=== PATIENT | female | born 1960 | race Caucasian/White ===

== ENCOUNTER → 2019-12-23 13:17 | Outpatient (BNVA) | payer MEDICAID, SELFPAY | PROVIDERS: Family Provider Family Medicine; PCP Family Medicine; Visit Provider Podiatrist Foot & Ankle Surgery | DX: M79.672 Pain in left foot (principal); M79.671 Pain in right foot | CPT/HCPCS: 73620; 73630 ==

== ENCOUNTER 2020-01-15 08:26 | Outpatient (CLI) | payer MEDICAID, SELFPAY ==
--- NOTE | 2020-01-15 13:37 | ONC FU_ITS ---
Dr. Castano follow up note Patient: Indira Long Unit #: [id number]: 1960 Dicatated By: Yovanny Castano M.D.Date of Visit:Jan 15, 2020 Onc Med Follow-up/Prog Note History of Present Illness: Mrs. Indira Long, is a 59-year-old female with long-standing history of small cervical, bilateral axillary lymphadenopathy confirmed with CT scan of chest abdomen pelvis done on 10/03/2018 which showed mild bilateral axillary lymphadenopathy largest being 1 cm. Mildly enlarged abdominal and pelvic lymph nodes, no significant change when compared with CT scan done on 04/03/2018, no splenomegaly Stable 1.2 cm irregular right lower lobe lung nodule and additional 3 mm right upper lobe lung nodule has remained stable. 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 Mammogram done on 02/11/2019 showed scattered fibroglandular densities. Occasional bilateral breast benign-appearing calcification. 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 Patient said recently she noted small lymph node in the left neck and now it is smaller. She did talk to Dr. Alberts her PMD, who asked her to see us. Patient denies any abdominal fullness patient denies any jaundice patient denies any shortness of breath or dysphagia. Medications: Atenolol 1 Tablet (of 25 mg) Oral b.i.d., Lasix 1 Tablet (of 40 mg) Oral daily, Levothyroxine Sodium 1 Tablet (of 137 mcg) Oral daily, Liothyronine Sodium 1 Tablet (of 5 mcg) Oral daily, Lisinopril 1 Tablet (of 20 mg) Oral daily, Lovastatin 1 Tablet (of 40 mg) Oral daily, MetFORMIN HCl 1 Tablet (of 1000 mg) Oral b.i.d., Omeprazole 1 Tablet (of 20 mg) Tablet, enteric coated Oral b.i.d., Spironolactone 1 Tablet (of 50 mg) Oral daily, TiZANidine HCl 1 Tablet (of 4 mg) Oral at bedtime PRN, traZODone HCl 1 Tablet (of 50 mg) Oral daily Allergies: Pneumococcal 13-Shanon Conj Vacc Review of Systems: Constitutional - Appetite is good and weight has decreased since last visit. No fever, chills, hot flashes, occasional night sweats (Pt reports that she has had this for years). Energy level is poor, ENMT - No sinus congestion/drainage. No mouth sores. No sore throat or difficulty swallowing, Hematologic/Lymphatic - No abnormal bruising or bleeding, Respiratory - No shortness of breath. No cough. No pleuritic pain or hemoptysis, Cardiovascular - No angina pain. No palpitations, Gastrointestinal - No nausea, no vomiting. No heartburn or acid reflux. No diarrhea or constipation. No blood in the stool or black stools, Genitourinary (F) - No dysuria or hematuria. No urinary frequency. No urgency or incontinence, Musculoskeletal - Positive for generalized joint pain, Neurologic - No headache,dizziness remains the same as previously documented. Positive for numbness in hands and feet (Pt states that she is seeing a specialist for this, Dr. Mims), Psychiatric - No anxiety or depression. No insomnia. Vital Signs: Vitals are not available for this patient. Performance Status: 0 - Fully active, able to carry on all predisease activities without restrictions. (ECOG) Physical Examination: ENMT - r. No oral exudates, ulcers, masses, thrush or mucositis. Oropharynx clear. Tongue normal, Hematologic/Lymphatic - No petechiae or purpura. 1 cm nontender lymph nodes in the leftcervical, supraclavicular, and about 2 cm in left axillary area, Respiratory - Lungs are clear to auscultation without rhonchi or wheezing, Cardiovascular - Regular rate and rhythm of heart without murmurs, gallops or rubs, Abdomen - Non-tender, non-distended, Good bowel sounds. No guarding or rebound tenderness. No pulsatile masses, Extremities - no edema or rash. Lab/Imaging: Test performed on Dec 29, 2019 08:17 T4, Free 1.39 ng/dL TSH 0.99 uU/mL C-Reactive Protein (mg/L) 7.1 mg/L Glucose 115 mg/dL BUN 11 mg/dL Creatinine 1.11 mg/dL Cr Clearance (Est) 77.42 mL/min Sodium 139 mmol/L Potassium 4.1 mmol/L Chloride 99 mmol/L CO2 27 mmol/L Calcium 9.4 mg/dL Protein, Total 6.6 g/dL Albumin 4.4 g/dL Bilirubin, Total 0.3 mg/dL Alkaline Phosphatase 93 IU/L AST (SGOT) 24 IU/L ALT (SGPT) 22 IU/L WBC 19.9 10^9/L RBC 4.17 10^12/L HGB 12.7 g/dL HCT 38.7 % MCV 92.8 fl MCH 30.5 pg MCHC 32.8 g/dL RDW 14.4 % Platelet Count 174 10^9/L Test performed on Sep 02, 2019 12:16 LDH (Total) 236 U/L Anion Gap 15.7 eGFR 45.8 mL/min Globulin 2.7 gm/dL MPV 7.9 fl Neutrophils 6.0 10 3/cmm Lymphocytes 8.6 10 3/cmm Monocytes 0.7 10 3/cmm Eosinophils 0.4 10 3/cmm Basophils 0.0 10 3/cmm Neutrophil % 38.0 % Lymphocyte % 54.8 % Monocyte % 4.3 % Eosinophil % 2.6 % Basophils % 0.3 % Impression: Small lymphocytic lymphoma with prominent confluent proliferation centers per right axillary lymph node biopsy done on 12/18/2018. 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 Stable 1.2 cm irregular right lower lobe pulmonary nodule. An additional 3 mm right upper lobe pulmonary nodule has remained stable Mild intra-abdominal and pelvic lymphadenopathy with no significant change since 04/03/2018, largest lymph node 1.4 cm in the periportal area. No splenomegaly. Lab workup done on 01/27/2019 shows white blood count 13.1 absolute lymphocytes 5.21 Hemoglobin 12.8 hematocrit 39.1 platelets 234,000 CMP within normal limits Plan: Discussed with patient regarding her labs white blood count 19.9 hemoglobin 12.7 crit 38.7 platelets 174,000 CMP within normal limits LDH is pending Clinically, patient is doing well with no B symptoms, follow-up lab shows stable values but persistent mild leukocytosis/lymphocytosis Patient recently noted a small lymph node in her left neck and on exam there is about 1 cm lymph node in left mid neck and to centimeter lymph node in left axilla nontender. At this point we'll proceed with CT scan of neck chest abdomen pelvis prior to her scheduled visit in March 2020 with CBC CMP and LDH level. After reviewing her scans and labs will make further recommendations. Signed By: Yovanny Castano M.D. <<Signature on File>>
== END 2020-01-15 08:27 | disposition home or self-care (01) ==
LOC: ONCMED 08:32
PROVIDERS: Family Provider Family Medicine; PCP Family Medicine; Visit Provider Internal Medicine Hematology & Oncology
DX: C83.04 Small cell B-cell lymphoma, lymph nodes of axilla and upper limb (principal); G47.33 Obstructive sleep apnea (adult) (pediatric); Z91.19 Patient's noncompliance with other medical treatment and regimen
CPT/HCPCS: G0463

== ENCOUNTER 2020-05-04 10:49 | Outpatient (CLI) | payer MEDICAID, SELFPAY ==
[2020-05-04 11:19] LABS: Basophils # 0.1 10^3/uL (0.0-0.1); Basophils % 0.7 %; Eosinophils # 0.2 10^3/uL (0.0-0.8); Hematocrit 38.1 % (37.0-47.0); Hemoglobin 12.6 g/dL (11.5-15.3); Lymphocytes # 10.7 10^3/uL (0.8-4.8); Lymphocytes % 61.9 %; Mean Corpuscular HGB Conc 33.1 g/dL (30.0-36.0); Mean Corpuscular Hemoglobin 30.7 pg (28.0-34.0); Mean Corpuscular Volume 92.7 fL (81-99); Monocytes # 0.8 10^3/uL (0.2-0.9); Monocytes % 4.4 %; Neutrophils # 5.5 10^3/uL (1.8-7.7); Neutrophils % 31.5 %; Nucleated Red Blood Cells % 0 %; Platelet Count 183 10^3/cmm (130-400); Red Blood Count 4.11 10^6/uL (4.1-5.3); Red Cell Distribution Width 13.6 % (12.1-15.1); White Blood Count 17.3 10^3/uL (4.0-10.0)
[2020-05-04 11:35] LABS: Alanine Aminotransferase 57 U/L (0-33); Albumin Level 4.5 g/dL (3.5-5.2); Alkaline Phosphatase 92 IU/L (35-105); Anion Gap 12.4 (5-19); Aspartate Amino Transferase 40 U/L (0-32); Blood Urea Nitrogen 11 mg/dL (8-23); Calcium 9.5 mg/dL (8.5-10.5); Carbon Dioxide 27 mmol/L (22-29); Chloride 102 mmol/L (98-107); Globulin 2.2 g/dL (1.3-4.6); Glomerular Filtration Rate 50.7 mL/min (90-130); Glucose 221 mg/dL (65-115); Osmolality Calculated 287 mOsm/kg (285-295); Potassium 4.4 mmol/L (3.5-5.1); Sodium 137 mmol/L (136-145); Total Bilirubin 0.3 mg/dL (0.15-1.2); Total Protein 6.7 g/dL (6.6-8.7)
[2020-05-04 11:43] LABS: Lactate Dehydrogenase 237 U/L (135-214)
[2020-05-04 11:46] LABS: Slide Review Slide Review Perform
--- NOTE | 2020-05-04 15:12 | ONC FU_ITS ---
Dr. Castano follow up note Patient: Indira Long Unit #: [id number]: 1960 Dicatated By: Yovanny Castano M.D.Date of Visit:May 04, 2020 Onc Med Follow-up/Prog Note History of Present Illness: Mrs. Indira Long, is a 59-year-old female with long-standing history of small cervical, bilateral axillary lymphadenopathy confirmed with CT scan of chest abdomen pelvis done on 10/03/2018 which showed mild bilateral axillary lymphadenopathy largest being 1 cm. Mildly enlarged abdominal and pelvic lymph nodes, no significant change when compared with CT scan done on 04/03/2018, no splenomegaly Stable 1.2 cm irregular right lower lobe lung nodule and additional 3 mm right upper lobe lung nodule has remained stable. 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 Mammogram done on 02/11/2019 showed scattered fibroglandular densities. Occasional bilateral breast benign-appearing calcification. 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 Also complaining of fullness in the neck more on the left side but no dysphagia, also complaining of chronic lower back pain, patient said she has history of bulging disks . Medications: Atenolol 1 Tablet (of 25 mg) Oral daily, glipiZIDE 1 Tablet Oral daily, Lasix 1 Tablet (of 40 mg) Oral daily, Levothyroxine Sodium 1 Tablet (of 137 mcg) Oral daily, Liothyronine Sodium 1 Tablet (of 5 mcg) Oral daily, Lisinopril 1 Tablet (of 20 mg) Oral daily, Lovastatin 1 Tablet (of 40 mg) Oral daily, Omeprazole 1 Tablet (of 20 mg) Tablet, enteric coated Oral b.i.d., Spironolactone 1 Tablet (of 50 mg) Oral daily, TiZANidine HCl 1 Tablet (of 4 mg) Oral at bedtime PRN, traZODone HCl 1 Tablet (of 50 mg) Oral daily Allergies: Pneumococcal 13-Shanon Conj Vacc Review of Systems: Constitutional - Appetite is good and weight has decreased since last visit. No fever, hot flashes, Positive for chills and night sweats. Energy level is poor, ENMT - No sinus congestion/drainage. No mouth sores. No sore throat or difficulty swallowing, Hematologic/Lymphatic - No abnormal bruising or bleeding, Respiratory - No shortness of breath. No cough. No pleuritic pain or hemoptysis, Cardiovascular - No angina pain. No palpitations, Gastrointestinal - No nausea, no vomiting. No heartburn or acid reflux. Positive for diarrhea, no constipation. No blood in the stool or black stools, Genitourinary (F) - No dysuria or hematuria. No urinary frequency. No urgency or incontinence, Musculoskeletal - Positive for significant back pain, Neurologic - No headache,dizziness remains the same as previously documented. Positive for numbness in hands and feet (Pt states that she is seeing a specialist for this, Dr. Mims), Psychiatric - No anxiety or depression. No insomnia. Vital Signs: Performed on May 04, 2020 12:43 Height - 63.00 in Weight - 191.6 lbs (LOW) BSA - 1.90 sq.m BMI - 33.94 (HIGH) Temperature - 97.6 F (LOW) Pulse - 60 /min Respiration - 20 /min BP - 128/67 mm(hg) O2 Sat - 97 % Pain - 6 Performance Status: 0 - Fully active, able to carry on all predisease activities without restrictions. (ECOG) Physical Examination: ENMT - bilateral cervical and left supraclavicular lymphadenopathy and bilateral axilla lymphadenopathy, maximum size about4 cm, no oral thrush, no mucositis, Respiratory - Lungs are clear, Cardiovascular - Regular rate and rhythm of heart, Abdomen - soft, bowel sounds present, nontender, Extremities - no edema or rash. Lab/Imaging: Test performed on Dec 29, 2019 08:17 T4, Free 1.39 ng/dL TSH 0.99 uU/mL C-Reactive Protein (mg/L) 7.1 mg/L Glucose 115 mg/dL BUN 11 mg/dL Creatinine 1.11 mg/dL Cr Clearance (Est) 77.42 mL/min Sodium 139 mmol/L Potassium 4.1 mmol/L Chloride 99 mmol/L CO2 27 mmol/L Calcium 9.4 mg/dL Protein, Total 6.6 g/dL Albumin 4.4 g/dL Bilirubin, Total 0.3 mg/dL Alkaline Phosphatase 93 IU/L AST (SGOT) 24 IU/L ALT (SGPT) 22 IU/L WBC 19.9 10^9/L RBC 4.17 10^12/L HGB 12.7 g/dL HCT 38.7 % MCV 92.8 fl MCH 30.5 pg MCHC 32.8 g/dL RDW 14.4 % Platelet Count 174 10^9/L Impression: Small lymphocytic lymphoma with prominent confluent proliferation centers per right axillary lymph node biopsy done on 12/18/2018. 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 Stable 1.2 cm irregular right lower lobe pulmonary nodule. An additional 3 mm right upper lobe pulmonary nodule has remained stable Mild intra-abdominal and pelvic lymphadenopathy with no significant change since 04/03/2018, largest lymph node 1.4 cm in the periportal area. No splenomegaly. Lab workup done on 01/27/2019 shows white blood count 13.1 absolute lymphocytes 5.21 Hemoglobin 12.8 hematocrit 39.1 platelets 234,000 CMP within normal limits Plan: Discussed with patient regarding her labs white blood count 17.3 hemoglobin 12.6 crit 38.1 platelets 182,000 lymphocytes 10,700 CMP within normal limit except glucose 221 and LDH 237 and PO2 40, AST 57 Clinically, patient doing reasonably well now with questionable B symptoms e.g. mild night sweating, weight loss and progressive cervical and bilateral axillary lymphadenopathy ? Disease progression. But her lab workup shows LDH is stable but mildly elevated within normal hemoglobin and platelets and stable mild leukocytosis/lymphocytosis. We will consider CT scan of neck chest abdomen pelvis to assess central lymphadenopathy and if there is evidence of disease progression, we may consider intervention As far as lower back pain is concern is chronic other possibility could be progressive retroperitoneal lymphadenopathy, if CT scan shows no progressive retroperitoneal lymphadenopathy then we will consider referred to pain clinic for back pain management. Mild off-and-on diarrhea, if there is a progression we'll consider referred to GI for evaluation. Next Return to clinic after CT scan of neck chest abdomen pelvis for discussion and further planning Signed By: Yovanny Castano M.D. <<Signature on File>>
== END 2020-05-04 10:50 | disposition home or self-care (01) ==
LOC: ONCMED 10:53
PROVIDERS: PCP Family Medicine; Visit Provider Internal Medicine Hematology & Oncology
DX: C83.00 Small cell B-cell lymphoma, unspecified site (principal); F41.9 Anxiety disorder, unspecified; J44.9 Chronic obstructive pulmonary disease, unspecified; I50.9 Heart failure, unspecified; K21.9 Gastro-esophageal reflux disease without esophagitis; E78.5 Hyperlipidemia, unspecified; I10 Essential (primary) hypertension; E03.9 Hypothyroidism, unspecified; M19.90 Unspecified osteoarthritis, unspecified site; E11.9 Type 2 diabetes mellitus without complications
CPT/HCPCS: 36415; 80053; 83615; 85025; 99214

== ENCOUNTER 2020-05-09 08:15 | Outpatient (CLI) | payer MEDICAID, SELFPAY ==
--- NOTE | 2020-05-09 08:20 | MM_ITS ---
WS: [id number] BILATERAL DIGITAL DIAGNOSTIC MAMMOGRAM MAMMOGRAPHY WITH CAD CLINICAL INFORMATION: BREAST PAIN;AXILLARY LYMPHADENOPATHY HISTORY: Lymphoma COMPARISON: February 11, 2019 October 28, 2018 TECHNIQUE: Bilateral CC, MLO, and ML views. FINDINGS: The breasts are composed of heterogeneous fibroglandular density, which can limit the detection of sm all underlying mass lesions. Markedly enlarged axillary and axillary tail lymph nodes bilaterally. Ly mph nodes appear progressed in size compared to February 11, 2019. Palpable marker overlying one of the enlarged right axillary tail lymph nodes. Ultrasound is pending. ULTRASOUND BREAST RIGHT TECHNIQUE: Ultrasound right breast focused area of concern. CLINICAL INFORMATION: BREAST PAIN;AXILLARY LYMPHADENOPATHY FINDINGS: Ultrasound right axillary tail in the area of palpable concern. Numerous enlarged right axillary tail lymph nodes with cortical thickening and partial replacement of the fatty hilum. The largest measuri ng 4.2 x 1.5 x 4.0 CM. Lymph nodes are suspicious in appearance. MM/[place] [id number] IMPRESSION: Progressive enlarged bilateral axillary lymph nodes suspicious for lymphoma considering clinical history. Recommend clinical correlation and consi deration of CT chest abdomen pelvis to evaluate for additional lymphadenopathy. In addition, enlarged right axillary lymph node could be targeted for biopsy BI-RADS: 4C-Suspicious: Moderate FOLLOW UP: See Report
--- NOTE | 2020-05-09 08:46 | US_ITS ---
WS: [id number] BILATERAL DIGITAL DIAGNOSTIC MAMMOGRAM MAMMOGRAPHY WITH CAD CLINICAL INFORMATION: BREAST PAIN;AXILLARY LYMPHADENOPATHY HISTORY: Lymphoma COMPARISON: February 11, 2019 October 28, 2018 TECHNIQUE: Bilateral CC, MLO, and ML views. FINDINGS: The breasts are composed of heterogeneous fibroglandular density, which can limit the detection of sm all underlying mass lesions. Markedly enlarged axillary and axillary tail lymph nodes bilaterally. Ly mph nodes appear progressed in size compared to February 11, 2019. Palpable marker overlying one of the enlarged right axillary tail lymph nodes. Ultrasound is pending. ULTRASOUND BREAST RIGHT TECHNIQUE: Ultrasound right breast focused area of concern. CLINICAL INFORMATION: BREAST PAIN;AXILLARY LYMPHADENOPATHY FINDINGS: Ultrasound right axillary tail in the area of palpable concern. Numerous enlarged right axillary tail lymph nodes with cortical thickening and partial replacement of the fatty hilum. The largest measuri ng 4.2 x 1.5 x 4.0 CM. Lymph nodes are suspicious in appearance. US/US breast RT limited* [id number] IMPRESSION: Progressive enlarged bilateral axillary lymph nodes suspicious for lymphoma considering clinical history. Recommend clinical correlation and consi deration of CT chest abdomen pelvis to evaluate for additional lymphadenopathy. In addition, enlarged right axillary lymph node could be targeted for biopsy BI-RADS: 4C-Suspicious: Moderate FOLLOW UP: See Report
== END 2020-05-09 08:16 | disposition home or self-care (01) ==
LOC: RADSHAW 08:16
PROVIDERS: PCP Family Medicine; Visit Provider Family Medicine
DX: N64.4 Mastodynia (principal); R59.0 Localized enlarged lymph nodes
CPT/HCPCS: 76642; 77066

== ENCOUNTER 2020-05-19 12:58 | Outpatient (CLI) | payer MEDICAID, SELFPAY ==
--- NOTE | 2020-05-19 13:03 | CT_ITS ---
WS: [id number] CT NECK TECHNIQUE: Contrast-enhanced CT of the neck with coronal and sagittal reformatted images. CLINICAL INFORMATION: LYMPHOMA COMPARISON: None. DLP: 2477.[address] scans at [facility] use at least one of these dose optimization techniques: automat ed exposure control; mA and/or kV adjustment per patient size (includes targeted exams where dose is matched to clinical indication); or iterative reconstruction. FINDINGS: Parotid glands are normal. Normal submandibular glands. Normal posterior nasopharynx. Normal paraphar yngeal fat. No evidence of supraglottic or glottic mass. Normal palatine tonsils. Numerous enlarged lymph nodes throughout both cervical chains level 1, level 2, level 3, level 4, and posterior triangle. Additional supraclavicular and internal mammary lymph nodes enlarged. Partially visualized enlarged axillary lymph nodes. Partially visualized enlarged anterior mediastinal,AP windo w and paratracheal lymph nodes. Enlarged Parotid and submandibular space lymph nodes. Enlarged Submen kalin lymph nodes. Normal epiglottis. Normal piriform sinuses. Lung apices are well aerated. Prior postoperative changes anterior interbody cervical fusion C5-C7 with interbody fusion graft. Paranasal sinuses and mastoid air cells are well aerated. CT/CT neck w con* [id number] IMPRESSION: 1. Enlarged cervical lymph nodes involving level 1 through level 4 including p osterior triangle. 2. Additional enlarged supraclavicular, internal mammary and anterior mediasti nal lymph nodes. Partially visualized enlarged axillary and subpectoral lymph n odes. 3. Largest lymph nodes measure approximately 12 to 15 mm. 4. No evidence of supraglottic or glottic mass. 5. Paranasal sinuses and mastoid air cells appear well aerated. 6. Prior postoperative changes anterior interbody cervical fusion C5-C7.
--- NOTE | 2020-05-19 13:04 | CT_ITS ---
WS: [id number] CT ABDOMEN PELVIS TECHNIQUE: Contrast-enhanced CT of the abdomen and pelvis with coronal and sagittal reformatted image s. CLINICAL INFORMATION: LYMPHOMA COMPARISON: CT October 02, 2018 DLP: 1144.[address] scans at [facility] use at least one of these dose optimization techniques: automat ed exposure control; mA and/or kV adjustment per patient size (includes targeted exams where dose is matched to clinical indication); or iterative reconstruction. FINDINGS: Diffuse fatty infiltration of the liver. Cholecystectomy clips. Normal portal vein and splenic vein. Splenic granulomas. Small esophageal hiatal hernia. Lung bases are well aerated. Multiple enlarged ly mph nodes in the upper abdomen at the GE junction, gastrohepatic, gastrosplenic, Celiac axis, peripan creatic, and aliza hepatis lymph nodes. Largest conglomeration of lymph nodes upper abdomen measures 3.6 x 2.2 CM. Enlarged periaortic and retroperitoneal lymph nodes. Enlarged aortocaval lymph nodes. Additional enlarged iliac chain and pelvic sidewall lymph nodes. Enlarged inguinal lymph nodes. Adrenal glands are normal. Normal renal parenchymal enhancement. No hydronephrosis. Tiny right renal cyst. Normal abdominal aorta. Pelvic phleboliths. Normal sigmoid colon. No evidence of small large helen wel obstruction. Prominent lymph nodes along the mesenteric root. Prominent lymph nodes in the right lower quadrant. Mild annular bulging L4-5. CT/CT abdomen pelvis w con* [id number] IMPRESSION: 1. Diffuse abdominal lymphadenopathy described above more prominent in the upp er abdomen along the gastrohepatic and gastrosplenic ligaments and celiac axis. 2. Enlarged periaortic and retroperitoneal lymph nodes. Enlarged iliac chain a nd pelvic sidewall lymph nodes as well as inguinal lymph nodes. 3. Cholecystectomy clips. Mild diffuse fatty infiltration of the liver. 4. Small esophageal hiatal hernia.
[2020-05-19] MEDS: iohexol 300 mg/mL 50 mL Btl PO (13:27)
[2020-05-19] MEDS: iodixanol 320 mg/mL 100mL Btl IV ×2 (13:27→14:28)
== END 2020-05-19 12:59 | disposition home or self-care (01) ==
LOC: RADWPI 13:02
PROVIDERS: PCP Family Medicine; Visit Provider Internal Medicine Hematology & Oncology
DX: C83.00 Small cell B-cell lymphoma, unspecified site (principal); R59.1 Generalized enlarged lymph nodes; K76.0 Fatty (change of) liver, not elsewhere classified; K44.9 Diaphragmatic hernia without obstruction or gangrene; M43.22 Fusion of spine, cervical region
CPT/HCPCS: 70491; 74177; Q9967

== ENCOUNTER 2020-05-23 12:34 | Outpatient (CLI) | payer MEDICAID, SELFPAY ==
[2020-05-23 12:59] LABS: Hematocrit 39.4 % (37.0-47.0); Hemoglobin 12.5 g/dL (11.5-15.3); Mean Corpuscular HGB Conc 31.7 g/dL (30.0-36.0); Mean Corpuscular Hemoglobin 31.2 pg (28.0-34.0); Mean Corpuscular Volume 98.3 fL (81-99); Mean Platelet Volume 10.2 fL (7.4-10.4); Nucleated Red Blood Cells % 0 %; Platelet Count 177 10^3/cmm (130-400); Red Blood Count 4.01 10^6/uL (4.1-5.3); Red Cell Distribution Width 13.9 % (12.1-15.1); White Blood Count 25.4 10^3/uL (4.0-10.0)
[2020-05-23 13:12] LABS: Alanine Aminotransferase 18 U/L (0-33); Albumin Level 4.5 g/dL (3.5-5.2); Alkaline Phosphatase 93 IU/L (35-105); Anion Gap 14.5 (5-19); Aspartate Amino Transferase 19 U/L (0-32); Blood Urea Nitrogen 12 mg/dL (8-23); Calcium 9.9 mg/dL (8.5-10.5); Carbon Dioxide 26 mmol/L (22-29); Chloride 102 mmol/L (98-107); Globulin 2.4 g/dL (1.3-4.6); Glomerular Filtration Rate 56.6 mL/min (90-130); Glucose 133 mg/dL (65-115); Osmolality Calculated 284 mOsm/kg (285-295); Potassium 4.5 mmol/L (3.5-5.1); Sodium 138 mmol/L (136-145); Total Bilirubin 0.2 mg/dL (0.15-1.2); Total Protein 6.9 g/dL (6.6-8.7)
[2020-05-23 13:28] LABS: Slide Review Slide Review Perform
[2020-05-23 13:33] LABS: Absolute Segmented Neutrophil 5.8 10/cmm (1.6-7.1); Lymphocytes 61 %; Lymphocytes Absolute 19.1 10^3/cmm (1.2-3.4); Monocytes Absolute 0.5 10^3/cmm (0.1-0.6); Platelet Estimate Normal (Normal); Segmented Neutrophils 23 %; Total Cells Counted 100 (0-100)
--- NOTE | 2020-05-23 17:09 | ONC FU_ITS ---
Dr. Castano follow up note Patient: Indira Long Unit #: [id number]: 1960 Dicatated By: Yovanny Castano M.D.Date of Visit:May 23, 2020 Onc Med Follow-up/Prog Note History of Present Illness: Mrs. Indira Long, is a 59-year-old female with long-standing history of small cervical, bilateral axillary lymphadenopathy confirmed with CT scan of chest abdomen pelvis done on 10/03/2018 which showed mild bilateral axillary lymphadenopathy largest being 1 cm. Mildly enlarged abdominal and pelvic lymph nodes, no significant change when compared with CT scan done on 04/03/2018, no splenomegaly Stable 1.2 cm irregular right lower lobe lung nodule and additional 3 mm right upper lobe lung nodule has remained stable. 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 Mammogram done on 02/11/2019 showed scattered fibroglandular densities. Occasional bilateral breast benign-appearing calcification. 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 Follow-up CT scan of neck chest abdomen pelvis done on May 19, 2020 showed numerous enlarged lymph nodes throughout both bilateral cervical chains and supraclavicular and diffuse abdominal lymphadenopathy largest conglomeration of lymph node in the upper abdomen measuring 3.6 x 2.2 cm enlarged periaortic, retroperitoneal lymph nodes additionally enlarged iliac chain pelvic sidewall lymph nodes and inguinal lymphadenopathy splenic granulomas. Patient had a bilateral mammogram done on May 09, 2020 which showed extensive right axillary lymphadenopathy largest being 4.2 x 1.5 x 4 cm Came for follow-up, denies any specific complaint except progressive off and on mild night sweats, off and on fever, earlier history of weight loss but now gaining. Also complaining of discomfort in the right axilla because of enlarging lymphadenopathy and neck fullness but no dysphagia, no shortness of breath,. No nausea or vomiting, no diarrhea or constipation.. Medications: Atenolol 1 Tablet (of 25 mg) Oral daily, Chantix 1 Tablet (of 1 mg) Oral b.i.d., glipiZIDE 1 Tablet Oral daily, Lasix 1 Tablet (of 40 mg) Oral daily, Levothyroxine Sodium 1 Tablet (of 137 mcg) Oral daily, Liothyronine Sodium 1 Tablet (of 5 mcg) Oral daily, Lisinopril 1 Tablet (of 20 mg) Oral daily, Lovastatin 1 Tablet (of 40 mg) Oral daily, Omeprazole 1 Tablet (of 20 mg) Tablet, enteric coated Oral b.i.d., Spironolactone 1 Tablet (of 50 mg) Oral daily, TiZANidine HCl 1 Tablet (of 4 mg) Oral at bedtime PRN, traZODone HCl 1 Tablet (of 50 mg) Oral daily Allergies: Pneumococcal 13-Shanon Conj Vacc Review of Systems: Constitutional - Appetite is good and weight is stable. No fever, hot flashes, Positive for chills and night sweats. Energy level is fair, ENMT - No sinus congestion/drainage. No mouth sores. No sore throat or difficulty swallowing, Hematologic/Lymphatic - No abnormal bruising or bleeding, Respiratory - No shortness of breath. No cough. No pleuritic pain or hemoptysis, Cardiovascular - No angina pain. No palpitations, Gastrointestinal - No nausea, no vomiting. No heartburn or acid reflux. Positive for diarrhea, no constipation. No blood in the stool or black stools, Genitourinary (F) - No dysuria or hematuria. No urinary frequency. No urgency or incontinence, Musculoskeletal - No joint or bone pain reported, Neurologic - No headache or dizziness, Psychiatric - No anxiety or depression. No insomnia. Vital Signs: Performed on May 23, 2020 15:01 Height - 63.00 in Weight - 195.6 lbs (HIGH) BSA - 1.92 sq.m BMI - 34.65 (HIGH) Temperature - 97.5 F (LOW) Pulse - 66 /min Respiration - 24 /min BP - 136/76 mm(hg) O2 Sat - 98 % Pain - 0 Performance Status: 0 - Fully active, able to carry on all predisease activities without restrictions. (ECOG) Physical Examination: ENMT - No mouth sores, no thrush, no jaundice, Hematologic/Lymphatic - Extensive lymphadenopathy involving bilateral neck supraclavicular bilateral axilla and inguinal area, Respiratory - Lungs are clear, Cardiovascular - Regular rate and rhythm of heart, Abdomen - Soft, bowel sounds present, nontender, Extremities - No edema or rash. Lab/Imaging: Test performed on May 04, 2020 11:02 LDH (Total) 237 U/L Sodium 137 mmol/L Potassium 4.4 mmol/L Chloride 102 mmol/L CO2 27 mmol/L Anion Gap 12.4 BUN 11 mg/dL Creatinine 1.1 mg/dL Cr Clearance (Est) 74.6200 mL/min eGFR 50.7 mL/min Glucose 221 mg/dL Calcium 9.5 mg/dL Protein, Total 6.7 g/dL Albumin 4.5 g/dL Globulin 2.2 g/dL Bilirubin, Total 0.3 mg/dL ALT (SGPT) 57 U/L AST (SGOT) 40 U/L Alkaline Phosphatase 92 IU/L WBC 17.3 10 3/uL RBC 4.11 10 6/uL HGB 12.6 g/dL HCT 38.1 % MCV 92.7 fL MCH 30.7 pg MCHC 33.1 g/dL RDW 13.6 % Platelet Count 183 10 3/cmm MPV 10.0 fL Neutrophils 5.5 10 3/uL Lymphocytes 10.7 10 3/uL Monocytes 0.8 10 3/uL Eosinophils 0.2 10 3/uL Basophils 0.1 10 3/uL Neutrophil % 31.5 % Lymphocyte % 61.9 % Monocyte % 4.4 % Eosinophil % 1.0 % Basophils % 0.7 % CBC Slide Review Slide Review Perform SLIDE REVIEW AGREES WITH AUTOMATED RESULTS ST Test performed on Dec 29, 2019 08:17 T4, Free 1.39 ng/dL TSH 0.99 uU/mL C-Reactive Protein (mg/L) 7.1 mg/L Impression: Small lymphocytic lymphoma with prominent confluent proliferation centers per right axillary lymph node biopsy done on 12/18/2018. 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 Stable 1.2 cm irregular right lower lobe pulmonary nodule. An additional 3 mm right upper lobe pulmonary nodule has remained stable Mild intra-abdominal and pelvic lymphadenopathy with no significant change since 04/03/2018, largest lymph node 1.4 cm in the periportal area. No splenomegaly. Lab workup done on 01/27/2019 shows white blood count 13.1 absolute lymphocytes 5.21 Hemoglobin 12.8 hematocrit 39.1 platelets 234,000 CMP within normal limits Plan: Discussed with patient regarding her labs white blood count 25.4 hemoglobin 12.5 hematocrit 39.4 platelets 177,000 CMP within normal limits And CT scan of neck chest abdomen pelvis findings which shows disease progression Clinically, patient is doing reasonably well now with disease progression seen on his recently done CT scan of neck chest abdomen pelvis which shows progressive central lymphadenopathy as well as cervical, supraclavicular and axillary lymph node no with some discomfort on the right axilla due to enlarging lymph node. Also having vague B symptoms e.g. off and on mild night sweating and fever initially weight loss but now gaining back. First CBC showed stable mild lymphocytosis with a normal hemoglobin and platelets. At this point, because of progressive lymphadenopathy but no organomegaly and vague B symptoms, we will consider starting her on treatment with ibrutinib 420 mg p.o. daily. All the side effects possible benefits associated with ibrutinib including but not limited to bone marrow suppression, cardiac arrhythmias atrial fibrillation/flutter, diarrhea, initially leukocytosis/lymphocytosis. Were discussed further teaching done by chemotherapy nurse, we will obtain approval from her insurance prior treatment and then she will return to clinic 1 week after initiation of ibrutinib. In the meantime we will also start her on allopurinol 100 mg p.o. 3 times daily, to prevent tumor lysis syndrome, patient was also advised to drink plenty of fluids at least 1 L a day and maintain good hydration and urine output. We will also obtain baseline CBC CMP, uric acid, phosphorus level and monitor her electrolytes closely. Patient expressed understanding. Signed By: Yovanny Castano M.D. <<Signature on File>>
== END 2020-05-23 12:35 | disposition home or self-care (01) ==
LOC: ONCMED 12:36
PROVIDERS: PCP Family Medicine; Visit Provider Internal Medicine Hematology & Oncology
DX: C83.04 Small cell B-cell lymphoma, lymph nodes of axilla and upper limb (principal); R59.1 Generalized enlarged lymph nodes; Z79.899 Other long term (current) drug therapy
CPT/HCPCS: 80053; 85007; 85025; 99214

== ENCOUNTER 2020-05-31 08:09 | Outpatient (CLI) | payer MEDICAID, SELFPAY ==
[2020-05-31 10:36] LABS: Basophils # 0.1 10^3/uL (0.0-0.1); Basophils % 0.5 %; Eosinophils # 0.2 10^3/uL (0.0-0.8); Eosinophils % 0.8 %; Hematocrit 36.9 % (37.0-47.0); Hemoglobin 12.1 g/dL (11.5-15.3); Lymphocytes # 13.6 10^3/uL (0.8-4.8); Lymphocytes % 62.1 %; Mean Corpuscular HGB Conc 32.8 g/dL (30.0-36.0); Mean Corpuscular Hemoglobin 30.9 pg (28.0-34.0); Mean Corpuscular Volume 94.1 fL (81-99); Monocytes # 2.2 10^3/uL (0.2-0.9); Monocytes % 10.1 %; Neutrophils # 5.7 10^3/uL (1.8-7.7); Nucleated Red Blood Cells % 0 %; Platelet Count 152 10^3/cmm (130-400); Red Blood Count 3.92 10^6/uL (4.1-5.3); Red Cell Distribution Width 13.9 % (12.1-15.1); White Blood Count 21.9 10^3/uL (4.0-10.0)
--- NOTE | 2020-05-31 10:38 | ONC FU_ITS ---
[facility] Patient Note Patient: Indira Long Unit #: [id number]: 1960 Dictated By: Lottie SmithDate of Visit: May 31, 2020 Onc MED Follow-Up/Prog Note Chief Complaint: Low-grade lymphoma History of Present Illness: Mrs. Long is a 59-year-old female with long-standing history of small cervical, bilateral axillary lymphadenopathy. The adenopathy was confirmed with CT scan of chest abdomen pelvis done on 10/03/2018. The CT showed mild bilateral axillary lymphadenopathy largest being 1 cm; mildly enlarged abdominal and pelvic lymph nodes, no significant change when compared with CT scan done on 04/03/2018 and no splenomegaly. There was a stable 1.2 cm irregular right lower lobe lung nodule and additional 3 mm right upper lobe lung nodule has remained stable. 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 Mammogram done on 02/11/2019 showed scattered fibroglandular densities. Occasional bilateral breast benign-appearing calcification. 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 Interim History: Mr Santos presented to her PCP with complaints of fullness in the neck-more on the left side but no dysphagia. She was also complaining of chronic lower back pain, patient said she has history of bulging disks . Follow-up CT scan of neck/chest/abdomen/pelvis done on May 19, 2020 showed numerous enlarged lymph nodes throughout both bilateral cervical chains. Supraclavicular and diffuse abdominal lymphadenopathy-with the largest conglomeration of lymph node in the upper abdomen measuring 3.6 x 2.2 cm. There was enlarged periaortic, retroperitoneal lymph nodes additionally enlarged iliac chain pelvic sidewall lymph nodes and inguinal lymphadenopathy splenic granulomas. Patient had a bilateral mammogram done on May 09, 2020 which showed extensive right axillary lymphadenopathy largest being 4.2 x 1.5 x 4 cm She came in for follow-up with Dr Castano on 05/23/2020. She denied any specific complaint except progressive off and on mild night sweats; off and on fever, earlier history of weight loss but now gaining. She was also complaining of discomfort in the right axilla because of enlarging lymphadenopathy and neck fullness but no dysphagia, no shortness of breath. No nausea or vomiting, no diarrhea or constipation. Mrs. Long was advised by Dr. Castano to start ibrutinib 420 mg p.o. daily. She has gotten approval from her insurance and has actually recieved the medication. Dr. Castano had advised her to stop allopurinol 3 days prior to starting the ibrutinib. She does have allopurinol but has not yet started it. She overall states she feels about the same. She feels no worse. She states she is had a little trouble swallowing off and on but nothing dramatic. She states she does have some soreness if she lays on the right axilla area to sleep. She denies any other concerns. She denies any other pain. Her ECOG is 1. Past Medical History: Anxiety Chronic obstructive pulmonary disease Congestive heart failure Gastroesophageal reflux disease History of urinary calculi Hyperlipidemia Hypertension Hypothyroidism Osteoarthritis Sleep Apnea Type II diabetes Past Surgical History: Appendectomy Bladder suspension Cholecystectomy Hysterectomy Nasal polypectomy Tubal ligation Allergies: Pneumococcal 13-Shanon Conj Vacc Medications: Atenolol 1 Tablet (of 25 mg) Oral daily Chantix 1 Tablet (of 1 mg) Oral b.i.d. glipiZIDE 1 Tablet Oral daily Lasix 1 Tablet (of 40 mg) Oral daily Levothyroxine Sodium 1 Tablet (of 137 mcg) Oral daily Liothyronine Sodium 1 Tablet (of 5 mcg) Oral daily Lisinopril 1 Tablet (of 20 mg) Oral daily Lovastatin 1 Tablet (of 40 mg) Oral daily Omeprazole 1 Tablet (of 20 mg) Tablet, enteric coated Oral b.i.d. Spironolactone 1 Tablet (of 50 mg) Oral daily TiZANidine HCl 1 Tablet (of 4 mg) Oral at bedtime PRN traZODone HCl 1 Tablet (of 50 mg) Oral daily Family History: Ms. Long's mother at age 69: lung cancer. Ms. Long's father at age 53: colon cancer. Ms. Long has 2 brothers: 2 alive. Ms. Long's first brother's lymphoma. Another brother's pancreatic cancer. She has 1 sister who is alive: breast cancer. Social History: Ms. Long is and she is unemployed. She is a daily smoker who has smoked 0.5 packs/day for 25 years. She has no history of drinking. She has indicated exposure to the following products: cigarettes. Review Of Symptoms: Constitutional Denies worsening fevers, chills, night sweats, excessive fatigue or weight loss. Fatigue but no worse. Allergic/Immunologic No reactions. Eyes Denies significant visual changes. No diplopia. No amaurosis. ENMT Denies changes in hearing, sore throat, mouth sores, difficulty or changes in swallowing ability, and/or sinus drainage. Hematologic/Lymphatic Denies easy bruising or bleeding. She states she has nodes in her neck and right axilla that she can feel. Respiratory Denies any new or worsening dyspnea on exertion, chest pain, cough or hemoptysis. Denies orthopnea. Cardiovascular Denies anginal chest pain, palpitations or orthopnea. Gastrointestinal Denies nausea, vomiting, diarrhea, GI bleeding, or constipation. Denies change in bowel habits and/or stool color, no heartburn or early satiety. Genitourinary (F) No hematuria, hesitancy, incontinence, vaginal bleeding, discharge or other problems with urination. Musculoskeletal Denies joint pain, swelling or redness. No decreased range of motion. Integumentary Denies chronic rashes, inflammation, ulcerations or skin changes. Neurologic Denies headache, blurred vision, and no areas of focal weakness or numbness. Normal gait. No sensory problems. Psychiatric Denies insomnia, depression, lester or mood swings. Vital Signs: Performed on May 31, 2020 08:30 Height - 63.00 in Weight - 196.4 lbs (HIGH) BSA - 1.92 sq.m BMI - 34.79 (HIGH) Temperature - 98.0 F (LOW) Pulse - 62 /min Respiration - 18 /min BP - 121/53 mm(hg) O2 Sat - 97 % Pain - 5,1 - No physically strenuous activity, but ambulatory and able to carry out light or sedentary work (e.g. office work, light house work). (ECOG) Physical Examination: Constitutional Alert, oriented, no acute distress. Skin pink, warm and dry. Head Normocephalic; atraumatic. Eyes Conjunctivae and sclerae are clear and without icterus. Pupils are reactive and equal. ENMT No oral exudates, ulcers, masses, thrush or mucositis. Oropharynx clear. Tongue normal. Neck Supple without masses or thyromegaly. No jugular venous distension. Hematologic/Lymphatic No petechiae or purpura. Bilateral enlarged lymph nodes in the cervical and supraclavicular areas. Right axilla adenopathy noted as well. Respiratory Lungs are clear to auscultation without rhonchi or wheezing. Cardiovascular Regular rate and rhythm of heart without murmurs,clicks, gallops or rubs. Abdomen Non-tender, non-distended, no masses or ascites. Back/Spine Non-tender to palpation. Extremities No visible deformities, no cyanosis, clubbing or edema. Musculoskeletal No tenderness or swelling, normal range of motion without obvious weakness. Integumentary No rashes or lesions. Neurologic No sensory or motor deficits, normal cerebellar function, normal gait. Psychiatric Alert and oriented times three. Coherent speech. Verbalizes understanding of our discussions today. Laboratory:Test performed on May 23, 2020 12:42 Sodium 138 mmol/L Potassium 4.5 mmol/L Chloride 102 mmol/L CO2 26 mmol/L Anion Gap 14.5 BUN 12 mg/dL Creatinine 1.0 mg/dL Cr Clearance (Est) 83.80 mL/min eGFR 56.6 mL/min Glucose 133 mg/dL Calcium 9.9 mg/dL Protein, Total 6.9 g/dL Albumin 4.5 g/dL Globulin 2.4 g/dL Bilirubin, Total 0.2 mg/dL ALT (SGPT) 18 U/L AST (SGOT) 19 U/L Alkaline Phosphatase 93 IU/L WBC 25.4 10 3/uL RBC 4.01 10 6/uL HGB 12.5 g/dL Manual Lymphs % 61 % Atypical Lymphs % 14.0 % HCT 39.4 % Manual Monos % 2.0 % MCV 98.3 fL MCH 31.2 pg MCHC 31.7 g/dL RDW 13.9 % Platelet Count 177 10 3/cmm MPV 10.2 fL NRBC % 0 % CBC Slide Review Slide Review Perform Manual Lymphocytes Abs 19.1 10 3/cmm Manual Monocytes Abs 0.5 10 3/cmm Test performed on May 04, 2020 11:02 LDH (Total) 237 U/L Neutrophils 5.5 10 3/uL Lymphocytes 10.7 10 3/uL Monocytes 0.8 10 3/uL Eosinophils 0.2 10 3/uL Basophils 0.1 10 3/uL Neutrophil % 31.5 % Lymphocyte % 61.9 % Monocyte % 4.4 % Eosinophil % 1.0 % Basophils % 0.7 % Test performed on Dec 29, 2019 08:17 T4, Free 1.39 ng/dL TSH 0.99 uU/mL C-Reactive Protein (mg/L) 7.1 mg/L Impression: Small lymphocytic lymphoma with prominent confluent proliferation centers per right axillary lymph node biopsy done on 12/18/2018. 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 Stable 1.2 cm irregular right lower lobe pulmonary nodule. An additional 3 mm right upper lobe pulmonary nodule has remained stable Mild intra-abdominal and pelvic lymphadenopathy with no significant change since 04/03/2018, largest lymph node 1.4 cm in the periportal area. No splenomegaly. Lab workup done on 01/27/2019 shows white blood count 13.1 absolute lymphocytes 5.21 Hemoglobin 12.8 hematocrit 39.1 platelets 234,000 CMP within normal limits Mrs Long's recent CT scan of neck/chest/abdomen/pelvis from 05/19/2020 shows progressive central lymphadenopathy as well as cervical, supraclavicular and axillary lymph node no with some discomfort on the right axilla due to enlarging lymph node. Also having vague B symptoms e.g. off and on mild night sweating and fever initially weight loss but now gaining back. At this point, because of progressive lymphadenopathy but no organomegaly and vague B symptoms, Dr Castano has recommended starting her on treatment with ibrutinib 420 mg p.o. daily. Side effects possible benefits associated with ibrutinib including but not limited to bone marrow suppression, cardiac arrhythmias atrial fibrillation/flutter, diarrhea, initially leukocytosis/lymphocytosis. Dr Castano did advise her to start her on allopurinol 100 mg p.o. 3 times daily, to prevent tumor lysis syndrome, patient was also advised to drink plenty of fluids at least 1 L a day and maintain good hydration and urine output. We will also obtain baseline CBC CMP, uric acid, phosphorus level and monitor her electrolytes closely. Patient expressed understanding. Mrs Long will start allopurinol today and ibrutinib on June 03, 2020. Plan: 1. Proceed with allopurinol 100 mg three times daily-she has not yet started it. 2. Plan to start ibrutinib 420 mg daily (oral) on Saturday, June 03, 2020. 3. Compazine as needed for nausea. 4. Repeat CBC, CMP and LDH today for new baseline as last labs wereover a week ago. 5. AVOID GRAPEFRUIT PRODUCTS AND SEVILLE ORANGES WITH IBRUTINIB. 6. Plan for follow-up 1 week after initiation of the ibrutinib at which time of asked for CBC CMP LDH along with Dr. Castano's lab orders. 7. The patient and family were informed of chemotherapy plan and specific drugs were discussed. We also discussed how chemotherapy works and identified common side effects including hypertension, hemorrhage, skin rash and skin changes (HFSR-hand foot skin reaction), EKG changes, diverticulitis, colitis reversible posterior leukoencephalopathy syndrome, dysphonia, myelosuppression including neutropenia, anemia, thrombocytopenia, peripheral neuropathy, fatigue, nausea, diarrhea, constipation, skin changes, mouth sores, drug hypersensitivity, allergic reactions or anaphylaxis and abnormal lab values. They have also been informed how to contact the clinic with side effects or symptoms, including but not limited to fever greater than 100.4???, chills, sore throat or mouth sores, cough, nasal discharge, diarrhea, constipation, nausea and/or vomiting not relieved with medications on hand at home, as well as any other concern or question they may have. Our hours are 8:00 a.m. to 4:30 p.m. on Saturday through and 8-12:00 on Saturday. However, someone is gerontological nurse practitioner 24 hours per day and they have been [facility] if it is after hours. We have also discussed potential long-term side effects of chemotherapy including secondary cancers, infertility, pulmonary complications, cardiac complications, and again peripheral neuropathy. We have discussed that they certainly need to let us know before taking any antioxidants or herbal or further dietary supplements, as we are unsure of how these agents react with chemotherapy and we request that they avoid these products for now. They are informed that it is okay to take the multivitamins. They verbally state that they understand to take all medications as directed by the provider unless otherwise indicated. Instructions for oral care with baking soda and salt water rinses as well as a guide for use of [id number] medication were provided with the treatment plan. They have been given a written patient treatment plan, of which a copy is in the chart, as well as specific drug information, and a copy of that is also in the chart. Copies are in the chart for further written information provided to the patient. They have no questions and verbalized understanding and are willing to proceed with chemotherapy at this time. The majority of this visit consisted of time spent in face to face communication (> 45 MINTUES) with this patient and/or family in regards to plan of care, side effect identification and management. Signed By: Lottie Smith-KYMBERLY, TERRI Castano MD <<Signature on File>>
[2020-05-31 10:59] LABS: Alanine Aminotransferase 18 U/L (0-33); Albumin Level 4.5 g/dL (3.5-5.2); Alkaline Phosphatase 91 IU/L (35-105); Anion Gap 15.4 (5-19); Aspartate Amino Transferase 19 U/L (0-32); Blood Urea Nitrogen 14 mg/dL (8-23); Calcium 9.4 mg/dL (8.5-10.5); Carbon Dioxide 26 mmol/L (22-29); Chloride 98 mmol/L (98-107); Globulin 2.5 g/dL (1.3-4.6); Glomerular Filtration Rate 56.6 mL/min (90-130); Glucose 169 mg/dL (65-115); Lactate Dehydrogenase 213 U/L (135-214); Osmolality Calculated 280 mOsm/kg (285-295); Potassium 4.4 mmol/L (3.5-5.1); Sodium 135 mmol/L (136-145); Total Bilirubin 0.2 mg/dL (0.15-1.2)
== END 2020-05-31 08:10 | disposition home or self-care (01) ==
LOC: ONCMED 08:12
PROVIDERS: PCP Family Medicine; Visit Provider Nurse Practitioner
DX: C83.04 Small cell B-cell lymphoma, lymph nodes of axilla and upper limb (principal); Z79.899 Other long term (current) drug therapy
CPT/HCPCS: 36415; 80053; 83615; 85025; 99215

== ENCOUNTER 2020-06-13 08:04 | Outpatient (CLI) | payer MEDICAID, SELFPAY ==
[2020-06-13 08:52] LABS: Basophils # 0.3 10^3/uL (0.0-0.1); Basophils % 0.6 %; Eosinophils # 0.2 10^3/uL (0.0-0.8); Eosinophils % 0.5 %; Hematocrit 37.7 % (37.0-47.0); Hemoglobin 12.1 g/dL (11.5-15.3); Lymphocytes # 36.4 10^3/uL (0.8-4.8); Lymphocytes % 81.9 %; Mean Corpuscular HGB Conc 32.1 g/dL (30.0-36.0); Mean Corpuscular Hemoglobin 31.1 pg (28.0-34.0); Mean Corpuscular Volume 96.9 fL (81-99); Mean Platelet Volume 10.6 fL (7.4-10.4); Monocytes # 0.7 10^3/uL (0.2-0.9); Monocytes % 1.6 %; Neutrophils # 6.66 10^3/uL (1.8-7.7); Nucleated Red Blood Cells % 0 %; Platelet Count 199 10^3/cmm (130-400); Red Blood Count 3.89 10^6/uL (4.1-5.3); Red Cell Distribution Width 13.8 % (12.1-15.1)
[2020-06-13 09:09] LABS: Alanine Aminotransferase 18 U/L (0-33); Albumin Level 4.4 g/dL (3.5-5.2); Alkaline Phosphatase 84 IU/L (35-105); Anion Gap 13.5 (5-19); Aspartate Amino Transferase 13 U/L (0-32); Blood Urea Nitrogen 20 mg/dL (8-23); Calcium 9.7 mg/dL (8.5-10.5); Carbon Dioxide 29 mmol/L (22-29); Chloride 97 mmol/L (98-107); Glomerular Filtration Rate 50.7 mL/min (90-130); Glucose 139 mg/dL (65-115); Lactate Dehydrogenase 148 U/L (135-214); Osmolality Calculated 279 mOsm/kg (285-295); Potassium 4.5 mmol/L (3.5-5.1); Sodium 135 mmol/L (136-145); Total Bilirubin 0.3 mg/dL (0.15-1.2); Total Protein 7.4 g/dL (6.6-8.7)
[2020-06-13 09:58] LABS: Slide Review Slide Review Perform; White Blood Count 44.5 10^3/uL (4.0-10.0)
== END 2020-06-13 08:05 | disposition home or self-care (01) ==
LOC: ONCMED 08:07
PROVIDERS: PCP Family Medicine; Visit Provider Nurse Practitioner
DX: C83.00 Small cell B-cell lymphoma, unspecified site (principal); F41.9 Anxiety disorder, unspecified; J44.9 Chronic obstructive pulmonary disease, unspecified; I50.9 Heart failure, unspecified; K21.9 Gastro-esophageal reflux disease without esophagitis; E78.5 Hyperlipidemia, unspecified; I10 Essential (primary) hypertension; E03.9 Hypothyroidism, unspecified; M19.90 Unspecified osteoarthritis, unspecified site; E11.9 Type 2 diabetes mellitus without complications
CPT/HCPCS: 36415; 80053; 83615; 85025

== ENCOUNTER 2020-06-14 07:47 | Outpatient (CLI) | payer MEDICAID, SELFPAY ==
--- NOTE | 2020-06-14 14:23 | ONC FU_ITS ---
Dr. Castano follow up note Patient: Indira Long Unit #: [id number]: 1960 Dicatated By: Yovanny Castano M.D.Date of Visit:Jun 14, 2020 Onc Med Follow-up/Prog Note History of Present Illness: Mrs. Long is a 59-year-old female with long-standing history of small cervical, bilateral axillary lymphadenopathy. The adenopathy was confirmed with CT scan of chest abdomen pelvis done on 10/03/2018. The CT showed mild bilateral axillary lymphadenopathy largest being 1 cm; mildly enlarged abdominal and pelvic lymph nodes, no significant change when compared with CT scan done on 04/03/2018 and no splenomegaly. There was a stable 1.2 cm irregular right lower lobe lung nodule and additional 3 mm right upper lobe lung nodule has remained stable. 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 Mammogram done on 02/11/2019 showed scattered fibroglandular densities. Occasional bilateral breast benign-appearing calcification. 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 PMH: Sleep apnea but noncompliant with CPAP machine Interim History: Mr Santos presented to her PCP with complaints of fullness in the neck-more on the left side but no dysphagia. She was also complaining of chronic lower back pain, patient said she has history of bulging disks . Follow-up CT scan of neck/chest/abdomen/pelvis done on May 19, 2020 showed numerous enlarged lymph nodes throughout both bilateral cervical chains. Supraclavicular and diffuse abdominal lymphadenopathy-with the largest conglomeration of lymph node in the upper abdomen measuring 3.6 x 2.2 cm. There was enlarged periaortic, retroperitoneal lymph nodes additionally enlarged iliac chain pelvic sidewall lymph nodes and inguinal lymphadenopathy splenic granulomas. Patient had a bilateral mammogram done on May 09, 2020 which showed extensive right axillary lymphadenopathy largest being 4.2 x 1.5 x 4 cm with progressive off and on mild night sweats; off and on fever, earlier history of weight loss but now gaining. She was also complaining of discomfort in the right axilla because of enlarging lymphadenopathy and neck fullness but no dysphagia, no shortness of breath. No nausea or vomiting, no diarrhea or constipation. started on ibrutinib 420 mg p.o. daily. On June 03, 2020, along with allopurinol Came for follow-up, denies any specific complaints except pain/discomfort in left wrist for the last 1 week, patient denies any trauma to the left wrist or hand, denies any numbness in the hand, denies any overlying skin changes but mild swelling. No fever or chills, no nausea or vomiting, no shortness of breath or dysphagia. No night sweats, no fever chills, appetite is good otherwise, no palpitation, tolerating ibrutinib well Patient has history of chronic arthritis Medications: Atenolol 1 Tablet (of 25 mg) Oral daily, Chantix 1 Tablet (of 1 mg) Oral b.i.d., glipiZIDE 1 Tablet Oral b.i.d., Lasix 1 Tablet (of 40 mg) Oral daily, Levothyroxine Sodium 1 Tablet (of 137 mcg) Oral daily, Liothyronine Sodium 1 Tablet (of 5 mcg) Oral daily, Lisinopril 1 Tablet (of 20 mg) Oral daily, Lovastatin 1 Tablet (of 40 mg) Oral daily, Omeprazole 1 Tablet (of 20 mg) Tablet, enteric coated Oral b.i.d., Spironolactone 1 Tablet (of 50 mg) Oral daily, TiZANidine HCl 1 Tablet (of 4 mg) Oral at bedtime PRN Allergies: Pneumococcal 13-Shanon Conj Vacc Review of Systems: Constitutional - Appetite is good and weight is stable. No fever, hot flashes, Positive for chills and night sweats. Energy level is fair, ENMT - No sinus congestion/drainage. No mouth sores. No sore throat or difficulty swallowing, Hematologic/Lymphatic - No abnormal bruising or bleeding, Respiratory - No shortness of breath. No cough. No pleuritic pain or hemoptysis, Cardiovascular - No angina pain. No palpitations, Gastrointestinal - Positive for nausea and vomiting. No heartburn or acid reflux. Positive for diarrhea, no constipation. No blood in the stool or black stools, Genitourinary (F) - No dysuria or hematuria. No urinary frequency. No urgency or incontinence, Musculoskeletal - Pt reports left wrist pain, Neurologic - No headache or dizziness, Psychiatric - No anxiety or depression. No insomnia. Vital Signs: Performed on Jun 14, 2020 08:10 Height - 63.00 in Weight - 191.8 lbs (LOW) BSA - 1.90 sq.m BMI - 33.98 (HIGH) Temperature - 97.8 F (LOW) Pulse - 55 /min (LOW) Respiration - 20 /min BP - 127/62 mm(hg) O2 Sat - 100 % Pain - 7 Performance Status: 0 - Fully active, able to carry on all predisease activities without restrictions. (ECOG) Physical Examination: ENMT - No mouth sores, no thrush, no jaundice, Respiratory - Lungs are clear, Cardiovascular - Regular rate and rhythm of heart, Abdomen - Soft, bowel sounds present, Extremities - No visible edema but mild tenderness at left wrist but no overlying skin changes no fluctuation. Right axilla lymphadenopathy, soft and decreased in size. Lab/Imaging: Test performed on May 31, 2020 10:00 WBC 21.9 10 3/uL RBC 3.92 10 6/uL HGB 12.1 g/dL HCT 36.9 % MCV 94.1 fL MCH 30.9 pg MCHC 32.8 g/dL RDW 13.9 % Platelet Count 152 10 3/cmm MPV 10.0 fL Neutrophils 5.7 10 3/uL Lymphocytes 13.6 10 3/uL Monocytes 2.2 10 3/uL Eosinophils 0.2 10 3/uL Basophils 0.1 10 3/uL Neutrophil % 26.0 % Lymphocyte % 62.1 % Monocyte % 10.1 % Eosinophil % 0.8 % Basophils % 0.5 % NRBC % 0 % Test performed on May 23, 2020 12:42 Sodium 138 mmol/L Potassium 4.5 mmol/L Chloride 102 mmol/L CO2 26 mmol/L Anion Gap 14.5 BUN 12 mg/dL Creatinine 1.0 mg/dL Cr Clearance (Est) 83.80 mL/min eGFR 56.6 mL/min Glucose 133 mg/dL Calcium 9.9 mg/dL Protein, Total 6.9 g/dL Albumin 4.5 g/dL Globulin 2.4 g/dL Bilirubin, Total 0.2 mg/dL ALT (SGPT) 18 U/L AST (SGOT) 19 U/L Alkaline Phosphatase 93 IU/L Manual Lymphs % 61 % Atypical Lymphs % 14.0 % Manual Monos % 2.0 % CBC Slide Review Slide Review Perform Manual Lymphocytes Abs 19.1 10 3/cmm Manual Monocytes Abs 0.5 10 3/cmm Test performed on May 04, 2020 11:02 LDH (Total) 237 U/L Test performed on Dec 29, 2019 08:17 T4, Free 1.39 ng/dL TSH 0.99 uU/mL C-Reactive Protein (mg/L) 7.1 mg/L Impression: Small lymphocytic lymphoma with prominent confluent proliferation centers per right axillary lymph node biopsy done on 12/18/2018. 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 Stable 1.2 cm irregular right lower lobe pulmonary nodule. An additional 3 mm right upper lobe pulmonary nodule has remained stable Mild intra-abdominal and pelvic lymphadenopathy with no significant change since 04/03/2018, largest lymph node 1.4 cm in the periportal area. No splenomegaly. Lab workup done on 01/27/2019 shows white blood count 13.1 absolute lymphocytes 5.21 Hemoglobin 12.8 hematocrit 39.1 platelets 234,000 CMP within normal limits Mrs Long's recent CT scan of neck/chest/abdomen/pelvis from 05/19/2020 shows progressive central lymphadenopathy as well as cervical, supraclavicular and axillary lymph node no with some discomfort on the right axilla due to enlarging lymph node. Also having vague B symptoms e.g. off and on mild night sweating and fever initially weight loss but now gaining back. At this point, because of progressive lymphadenopathy but no organomegaly and vague B symptoms, has recommended starting her on treatment with ibrutinib 420 mg p.o. daily. Side effects possible benefits associated with ibrutinib including but not limited to bone marrow suppression, cardiac arrhythmias atrial fibrillation/flutter, diarrhea, initially leukocytosis/lymphocytosis. did advise her to start her on allopurinol 100 mg p.o. 3 times daily, to prevent tumor lysis syndrome, patient was also advised to drink plenty of fluids at least 1 L a day and maintain good hydration and urine output. We will also obtain baseline CBC CMP, uric acid, phosphorus level and monitor her electrolytes closely. Patient expressed understanding. Mrs Long started allopurinol and ibrutinib on June 03, 2020. History of chronic arthritis Plan: Discussed with patient regarding her labs white blood count 44.5 hemoglobin 12.1 hematocrit 37.7 platelets 199,000 CMP within normal limits LDH 148 compared to 213 on May 31, 2020 Clinically, patient is doing well, tolerating ibrutinib well but with expected side effects e.g. now with leukocytosis/lymphocytosis probably due to lymphocyte and release from the lymph nodes and organs which usually happen with ibrutinib and peak around 8 weeks to 12 weeks on therapy before it drops. Her hemoglobin and platelet count is stable and normal. LDH has dropped significantly, overall patient feeling well the only concern was left wrist pain/discomfort could be due to worsening of arthritis, will check a uric acid level patient is on allopurinol, and she was also advised to take ibuprofen and also use topical Aspercreme and wrist brace in the meantime we will refer her to rheumatology as she has history of arthritis. We will continue to monitor and she will return to clinic in 1 month with CBC CMP and LDH and uric acid And she was also advised to maintain good hydration and Patient was advised in case there is a worsening of left wrist symptoms or pain then she need to call us or go to ER for further evaluation Signed By: Yovanny Castano M.D. <<Signature on File>>
== END 2020-06-14 07:48 | disposition home or self-care (01) ==
LOC: ONCMED 07:49
PROVIDERS: PCP Family Medicine; Visit Provider Internal Medicine Hematology & Oncology
DX: C91.10 Chronic lymphocytic leukemia of B-cell type not having achieved remission (principal); M19.90 Unspecified osteoarthritis, unspecified site; Z79.899 Other long term (current) drug therapy
CPT/HCPCS: 84550; 99214

== ENCOUNTER 2020-07-15 09:14 | Outpatient (CLI) | payer MEDICAID, SELFPAY ==
[2020-07-15 09:48] LABS: Hematocrit 37.3 % (37.0-47.0); Mean Corpuscular HGB Conc 29.5 g/dL (30.0-36.0); Mean Corpuscular Hemoglobin 29.6 pg (28.0-34.0); Mean Corpuscular Volume 100.5 fL (81-99); Mean Platelet Volume 10.6 fL (7.4-10.4); Platelet Count 242 10^3/cmm (130-400); Red Blood Count 3.71 10^6/uL (4.1-5.3); Red Cell Distribution Width 15.5 % (12.1-15.1)
[2020-07-15 10:10] LABS: Alanine Aminotransferase 20 U/L (0-33); Albumin Level 4.4 g/dL (3.5-5.2); Alkaline Phosphatase 84 IU/L (35-105); Anion Gap 11.9 (5-19); Aspartate Amino Transferase 19 U/L (0-32); Blood Urea Nitrogen 18 mg/dL (8-23); Calcium 9.3 mg/dL (8.5-10.5); Carbon Dioxide 27 mmol/L (22-29); Chloride 100 mmol/L (98-107); Globulin 2.9 g/dL (1.3-4.6); Glomerular Filtration Rate 56.6 mL/min (90-130); Glucose 126 mg/dL (65-115); Lactate Dehydrogenase 189 U/L (135-214); Osmolality Calculated 276 mOsm/kg (285-295); Potassium 4.9 mmol/L (3.5-5.1); Sodium 134 mmol/L (136-145); Total Bilirubin 0.2 mg/dL (0.15-1.2); Total Protein 7.3 g/dL (6.6-8.7); Uric Acid 3.4 mg/dL (2.4-5.7)
[2020-07-15 10:19] LABS: Slide Review Slide Review Perform; White Blood Count 123.1 10^3/uL (4.0-10.0)
[2020-07-15 10:21] LABS: Absolute Segmented Neutrophil 7.4 10/cmm (1.6-7.1); Lymphocytes 94 %; Platelet Estimate Normal (Normal); Segmented Neutrophils 6 %; Total Cells Counted 100 (0-100)
--- NOTE | 2020-07-15 12:41 | ONC FU_ITS ---
Dr. Castano follow up note Patient: Indira Long Unit #: [id number]: 1960 Dicatated By: Yovanny Castano M.D.Date of Visit:Jul 15, 2020 Onc Med Follow-up/Prog Note History of Present Illness: Mrs. Long is a 59-year-old female with long-standing history of small cervical, bilateral axillary lymphadenopathy. The adenopathy was confirmed with CT scan of chest abdomen pelvis done on 10/03/2018. The CT showed mild bilateral axillary lymphadenopathy largest being 1 cm; mildly enlarged abdominal and pelvic lymph nodes, no significant change when compared with CT scan done on 04/03/2018 and no splenomegaly. There was a stable 1.2 cm irregular right lower lobe lung nodule and additional 3 mm right upper lobe lung nodule has remained stable. 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 Mammogram done on 02/11/2019 showed scattered fibroglandular densities. Occasional bilateral breast benign-appearing calcification. 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 PMH: Sleep apnea but noncompliant with CPAP machine Interim History: Mr Santos presented to her PCP with complaints of fullness in the neck-more on the left side but no dysphagia. She was also complaining of chronic lower back pain, patient said she has history of bulging disks . Follow-up CT scan of neck/chest/abdomen/pelvis done on May 19, 2020 showed numerous enlarged lymph nodes throughout both bilateral cervical chains. Supraclavicular and diffuse abdominal lymphadenopathy-with the largest conglomeration of lymph node in the upper abdomen measuring 3.6 x 2.2 cm. There was enlarged periaortic, retroperitoneal lymph nodes additionally enlarged iliac chain pelvic sidewall lymph nodes and inguinal lymphadenopathy splenic granulomas. Patient had a bilateral mammogram done on May 09, 2020 which showed extensive right axillary lymphadenopathy largest being 4.2 x 1.5 x 4 cm with progressive off and on mild night sweats; off and on fever, earlier history of weight loss but now gaining. She was also complaining of discomfort in the right axilla because of enlarging lymphadenopathy and neck fullness but no dysphagia, no shortness of breath. No nausea or vomiting, no diarrhea or constipation. started on ibrutinib 420 mg p.o. daily. On June 03, 2020, along with allopurinol, Put on hold for 2 weeks on July 15, 2020, Because of off and on palpitation Came for follow-up, denies any specific complaint except off and on palpitation, usually last few seconds but last week lasted for 5 minutes and felt dizzy,, patient has history of lightheaded dizziness but this time felt different, no chest pain, no shortness of breath no headaches blurred vision double vision, lymph nodes in her neck and in axilla are improving, no night sweats, no fever chills, no weight loss. No headaches. Tolerating ibrutinib well otherwise Medications: Atenolol 1 Tablet (of 25 mg) Oral daily, Chantix 1 Tablet (of 1 mg) Oral b.i.d., glipiZIDE 1 Tablet Oral b.i.d., Lasix 1 Tablet (of 40 mg) Oral daily, Levothyroxine Sodium 1 Tablet (of 137 mcg) Oral daily, Liothyronine Sodium 1 Tablet (of 5 mcg) Oral daily, Lisinopril 1 Tablet (of 20 mg) Oral daily, Lovastatin 1 Tablet (of 40 mg) Oral daily, Omeprazole 1 Tablet (of 20 mg) Tablet, enteric coated Oral b.i.d., Spironolactone 1 Tablet (of 50 mg) Oral daily, TiZANidine HCl 1 Tablet (of 4 mg) Oral at bedtime PRN Allergies: Pneumococcal 13-Shanon Conj Vacc Review of Systems: Constitutional - Appetite is good and weight is stable. No fever, hot flashes, Positive for chills and night sweats. Energy level is fair, ENMT - No sinus congestion/drainage. No mouth sores. No sore throat or difficulty swallowing, Hematologic/Lymphatic - No abnormal bruising or bleeding, Respiratory - No shortness of breath. No cough. No pleuritic pain or hemoptysis, Cardiovascular - No angina pain. Positive for palpitations, Gastrointestinal - Positive for nausea and vomiting. No heartburn or acid reflux. Positive for diarrhea, no constipation. No blood in the stool or black stools, Genitourinary (F) - No dysuria or hematuria. No urinary frequency. No urgency or incontinence, Musculoskeletal - Pt reports left wrist pain, Neurologic - Positive for dizziness, Psychiatric - No anxiety or depression. No insomnia. Vital Signs: Performed on Jul 15, 2020 11:01 Height - 63.00 in Weight - 197.2 lbs (HIGH) BSA - 1.92 sq.m BMI - 34.93 (HIGH) Temperature - 98.0 F (LOW) Pulse - 56 /min (LOW) Respiration - 20 /min BP - 125/63 mm(hg) O2 Sat - 97 % Pain - 10 Performance Status: 0 - Fully active, able to carry on all predisease activities without restrictions. (ECOG) Physical Examination: ENMT - No mouth sores, no thrush, no jaundice, Respiratory - Lungs are clear, Cardiovascular - Regular rate and rhythm of heart, Abdomen - Soft, bowel sounds present, Extremities - No visible edema, significant improvement in cervical and bilateral axilla lymphadenopathy. Lab/Imaging: Test performed on Jun 13, 2020 08:17 Uric Acid 4.0 mg/dL Test performed on May 31, 2020 10:00 WBC 21.9 10 3/uL RBC 3.92 10 6/uL HGB 12.1 g/dL HCT 36.9 % MCV 94.1 fL MCH 30.9 pg MCHC 32.8 g/dL RDW 13.9 % Platelet Count 152 10 3/cmm MPV 10.0 fL Neutrophils 5.7 10 3/uL Lymphocytes 13.6 10 3/uL Monocytes 2.2 10 3/uL Eosinophils 0.2 10 3/uL Basophils 0.1 10 3/uL Neutrophil % 26.0 % Lymphocyte % 62.1 % Monocyte % 10.1 % Eosinophil % 0.8 % Basophils % 0.5 % NRBC % 0 % Test performed on May 23, 2020 12:42 Sodium 138 mmol/L Potassium 4.5 mmol/L Chloride 102 mmol/L CO2 26 mmol/L Anion Gap 14.5 BUN 12 mg/dL Creatinine 1.0 mg/dL Cr Clearance (Est) 83.80 mL/min eGFR 56.6 mL/min Glucose 133 mg/dL Calcium 9.9 mg/dL Protein, Total 6.9 g/dL Albumin 4.5 g/dL Globulin 2.4 g/dL Bilirubin, Total 0.2 mg/dL ALT (SGPT) 18 U/L AST (SGOT) 19 U/L Alkaline Phosphatase 93 IU/L Manual Lymphs % 61 % Atypical Lymphs % 14.0 % Manual Monos % 2.0 % CBC Slide Review Slide Review Perform Manual Lymphocytes Abs 19.1 10 3/cmm Manual Monocytes Abs 0.5 10 3/cmm Test performed on May 04, 2020 11:02 LDH (Total) 237 U/L Impression: Small lymphocytic lymphoma with prominent confluent proliferation centers per right axillary lymph node biopsy done on 12/18/2018. 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 Stable 1.2 cm irregular right lower lobe pulmonary nodule. An additional 3 mm right upper lobe pulmonary nodule has remained stable Mild intra-abdominal and pelvic lymphadenopathy with no significant change since 04/03/2018, largest lymph node 1.4 cm in the periportal area. No splenomegaly. Lab workup done on 01/27/2019 shows white blood count 13.1 absolute lymphocytes 5.21 Hemoglobin 12.8 hematocrit 39.1 platelets 234,000 CMP within normal limits Mrs Long's recent CT scan of neck/chest/abdomen/pelvis from 05/19/2020 shows progressive central lymphadenopathy as well as cervical, supraclavicular and axillary lymph node no with some discomfort on the right axilla due to enlarging lymph node. Also having vague B symptoms e.g. off and on mild night sweating and fever initially weight loss but now gaining back. At this point, because of progressive lymphadenopathy but no organomegaly and vague B symptoms, has recommended starting her on treatment with ibrutinib 420 mg p.o. daily. Side effects possible benefits associated with ibrutinib including but not limited to bone marrow suppression, cardiac arrhythmias atrial fibrillation/flutter, diarrhea, initially leukocytosis/lymphocytosis. did advise her to start her on allopurinol 100 mg p.o. 3 times daily, to prevent tumor lysis syndrome, patient was also advised to drink plenty of fluids at least 1 L a day and maintain good hydration and urine output. We will also obtain baseline CBC CMP, uric acid, phosphorus level and monitor her electrolytes closely. Patient expressed understanding. Mrs Long started allopurinol and ibrutinib on June 03, 2020. History of chronic arthritis Plan: Discussed with patient regarding her labs white blood count 123,100, hemoglobin 11 hematocrit 37.3 platelets 242,000 CMP within normal limits Clinically, patient is doing well, tolerating ibrutinib well but with expected side effects, now with off and on palpitation for few seconds but last week, episode of prolonged palpitations lasted for 5 minutes, as per patient she was walking across the yard when she felt it and also felt lightheaded but it resolved on its own, no off and on palpitation just for a few seconds only but no associated dizziness or lightheadedness. Lymphocytosis/leukocytosis probably due to ibrutinib, continue to monitor. Patient was advised to hold ibrutinib for 2 weeks and return to clinic in 2 weeks with CBC CMP and if there is no more episode of palpitations, then will discontinue ibrutinib as it has known cardiac toxicity especially arrhythmias atrial flutter/fibrillation. Patient was advised in case she has any more episodes of palpitation, she need to go to hospital for evaluation and will consider referral to cardiology for evaluation. Signed By: Yovanny Castano M.D. <<Signature on File>>
== END 2020-07-15 09:15 | disposition home or self-care (01) ==
LOC: ONCMED 09:18
PROVIDERS: PCP Family Medicine; Visit Provider Internal Medicine Hematology & Oncology
DX: C83.00 Small cell B-cell lymphoma, unspecified site (principal); F41.9 Anxiety disorder, unspecified; J44.9 Chronic obstructive pulmonary disease, unspecified; K21.9 Gastro-esophageal reflux disease without esophagitis; E78.5 Hyperlipidemia, unspecified; I10 Essential (primary) hypertension; E03.9 Hypothyroidism, unspecified; M19.90 Unspecified osteoarthritis, unspecified site; E11.9 Type 2 diabetes mellitus without complications
CPT/HCPCS: 80053; 83615; 84550; 85007; 85025; 99214

== ENCOUNTER 2020-07-28 11:04 | Outpatient (CLI) | payer MEDICAID, SELFPAY ==
[2020-07-28 12:28] LABS: Basophils # 0.3 10^3/uL (0.0-0.1); Basophils % 0.6 %; Eosinophils # 0.7 10^3/uL (0.0-0.8); Eosinophils % 1.3 %; Hematocrit 35.7 % (37.0-47.0); Lymphocytes # 33.5 10^3/uL (0.8-4.8); Lymphocytes % 66.6 %; Mean Corpuscular HGB Conc 30.8 g/dL (30.0-36.0); Mean Corpuscular Hemoglobin 31.3 pg (28.0-34.0); Mean Corpuscular Volume 101.7 fL (81-99); Mean Platelet Volume 10.8 fL (7.4-10.4); Monocytes # 3.9 10^3/uL (0.2-0.9); Monocytes % 7.7 %; Neutrophils # 11.56 10^3/uL (1.8-7.7); Neutrophils % 22.9 %; Nucleated Red Blood Cells % 0 %; Platelet Count 206 10^3/cmm (130-400); Red Blood Count 3.51 10^6/uL (4.1-5.3); Red Cell Distribution Width 15.3 % (12.1-15.1)
[2020-07-28 13:06] LABS: Alanine Aminotransferase 25 U/L (0-33); Alkaline Phosphatase 115 IU/L (35-105); Anion Gap 12.5 (5-19); Aspartate Amino Transferase 16 U/L (0-32); Blood Urea Nitrogen 16 mg/dL (8-23); Carbon Dioxide 24 mmol/L (22-29); Chloride 105 mmol/L (98-107); Globulin 2.8 g/dL (1.3-4.6); Glomerular Filtration Rate 56.6 mL/min (90-130); Glucose 196 mg/dL (65-115); Osmolality Calculated 286 mOsm/kg (285-295); Potassium 4.5 mmol/L (3.5-5.1); Sodium 137 mmol/L (136-145); Total Bilirubin 0.2 mg/dL (0.15-1.2); Total Protein 6.8 g/dL (6.6-8.7)
[2020-07-28 13:12] LABS: White Blood Count 50.4 10^3/uL (4.0-10.0)
[2020-07-28 13:13] LABS: Slide Review Slide Review Perform
[2020-07-28 14:00] LABS: Uric Acid 3.1 mg/dL (2.4-5.7)
[2020-07-28 14:09] LABS: Bilirubin Urine Neg (NEGATIVE); Blood Urine Neg (Negative); Glucose Urine UA Norm (Normal); Ketones Urine Negative (Negative); Leukocyte Esterase Urine Negative (Negative); Nitrate Urine Negative (Negative); Protein Urine Neg (Negative); Specific Gravity, Urine 1.015 (1.005-1.030); Urine Appearance Clear (CLEAR); Urine Color Straw (Yellow); Urobilinogen Urine Norm (Negative); pH Urine 5 (5-7)
[2020-07-28 14:24] LABS: Add Urine Culture? No; Bacteria Urine TRACE; RBC Urine RARE /hpf (0-2); Squamous Epithelial Cell Urine 0-4 (0-5); WBC Urine 0-4 /hpf (0-5)
--- NOTE | 2020-07-28 17:10 | ONC FU_ITS ---
Dr. Castano follow up note Patient: Indira Long Unit #: [id number]: 1960 Dicatated By: Yovanny Castano M.D.Date of Visit:Jul 28, 2020 Onc Med Follow-up/Prog Note History of Present Illness: Mrs. Long is a 59-year-old female with long-standing history of small cervical, bilateral axillary lymphadenopathy. The adenopathy was confirmed with CT scan of chest abdomen pelvis done on 10/03/2018. The CT showed mild bilateral axillary lymphadenopathy largest being 1 cm; mildly enlarged abdominal and pelvic lymph nodes, no significant change when compared with CT scan done on 04/03/2018 and no splenomegaly. There was a stable 1.2 cm irregular right lower lobe lung nodule and additional 3 mm right upper lobe lung nodule has remained stable. 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 Mammogram done on 02/11/2019 showed scattered fibroglandular densities. Occasional bilateral breast benign-appearing calcification. 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 PMH: Sleep apnea but noncompliant with CPAP machine Interim History: Mr Santos presented to her PCP with complaints of fullness in the neck-more on the left side but no dysphagia. She was also complaining of chronic lower back pain, patient said she has history of bulging disks . Follow-up CT scan of neck/chest/abdomen/pelvis done on May 19, 2020 showed numerous enlarged lymph nodes throughout both bilateral cervical chains. Supraclavicular and diffuse abdominal lymphadenopathy-with the largest conglomeration of lymph node in the upper abdomen measuring 3.6 x 2.2 cm. There was enlarged periaortic, retroperitoneal lymph nodes additionally enlarged iliac chain pelvic sidewall lymph nodes and inguinal lymphadenopathy splenic granulomas. Patient had a bilateral mammogram done on May 09, 2020 which showed extensive right axillary lymphadenopathy largest being 4.2 x 1.5 x 4 cm with progressive off and on mild night sweats; off and on fever, earlier history of weight loss but now gaining. She was also complaining of discomfort in the right axilla because of enlarging lymphadenopathy and neck fullness but no dysphagia, no shortness of breath. No nausea or vomiting, no diarrhea or constipation. started on ibrutinib 420 mg p.o. daily. On June 03, 2020, along with allopurinol, Put on hold for 2 weeks on July 15, 2020, Because of off and on palpitation Came for follow-up, complaining of generalized body aches and joint pain, she has history of gout, thinking it may be relapsing, also complaining of generalized body aches also had low-grade fever up to 100.4 for a day or 2, no more palpitation since she is off ibrutinib. No sore throat, no sinus problem, no dysuria but she has history of recurrent urinary tract infections in the past. No night sweats, no weight loss, no recurrent fever And also complaining of right lower back pain sometimes radiating to right leg, patient said she has history of disc problem and when it pop out it caused this kind of discomfort and pain in the past she has tried chiropractor which was helpful and now considering same, Medications: Atenolol 1 Tablet (of 25 mg) Oral daily, Chantix 1 Tablet (of 1 mg) Oral b.i.d., glipiZIDE 1 Tablet Oral b.i.d., Lasix 1 Tablet (of 40 mg) Oral daily, Levothyroxine Sodium 1 Tablet (of 137 mcg) Oral daily, Liothyronine Sodium 1 Tablet (of 5 mcg) Oral daily, Lisinopril 1 Tablet (of 20 mg) Oral daily, Lovastatin 1 Tablet (of 40 mg) Oral daily, Omeprazole 1 Tablet (of 20 mg) Tablet, enteric coated Oral b.i.d., Spironolactone 1 Tablet (of 50 mg) Oral daily, TiZANidine HCl 1 Tablet (of 4 mg) Oral at bedtime PRN Allergies: Pneumococcal 13-Shanon Conj Vacc Review of Systems: Constitutional - Appetite is good and weight is stable. No fever, hot flashes, Positive for chills and night sweats. Energy level is poor, ENMT - No sinus congestion/drainage. No mouth sores. No sore throat or difficulty swallowing, Hematologic/Lymphatic - No abnormal bruising or bleeding, Respiratory - No shortness of breath. No cough. No pleuritic pain or hemoptysis, Cardiovascular - No angina pain. Positive for palpitations, Gastrointestinal - Positive for nausea and vomiting. No heartburn or acid reflux. Positive for diarrhea, no constipation. No blood in the stool or black stools, Genitourinary (F) - No dysuria or hematuria. No urinary frequency. No urgency or incontinence, Musculoskeletal - Pt reports generalized pain, Neurologic - Positive for dizziness, Psychiatric - No anxiety or depression. No insomnia. Vital Signs: Performed on Jul 28, 2020 13:01 Height - 63.00 in Weight - 200.0 lbs (HIGH) BSA - 1.93 sq.m BMI - 35.43 (HIGH) Temperature - 97.6 F (LOW) Pulse - 60 /min Respiration - 20 /min BP - 136/76 mm(hg) O2 Sat - 96 % Pain - 10 Performance Status: 1 - No physically strenuous activity, but ambulatory and able to carry out light or sedentary work (e.g. office work, light house work). (ECOG) Physical Examination: ENMT - No mouth sores, no thrush, no jaundice, Respiratory - Lungs are clear, Cardiovascular - Regular rate and rhythm of heart, Abdomen - Soft bowel sounds present, Extremities - No edema or rash. Lab/Imaging: Test performed on Jun 13, 2020 08:17 Uric Acid 4.0 mg/dL Test performed on May 31, 2020 10:00 WBC 21.9 10 3/uL RBC 3.92 10 6/uL HGB 12.1 g/dL HCT 36.9 % MCV 94.1 fL MCH 30.9 pg MCHC 32.8 g/dL RDW 13.9 % Platelet Count 152 10 3/cmm MPV 10.0 fL Neutrophils 5.7 10 3/uL Lymphocytes 13.6 10 3/uL Monocytes 2.2 10 3/uL Eosinophils 0.2 10 3/uL Basophils 0.1 10 3/uL Neutrophil % 26.0 % Lymphocyte % 62.1 % Monocyte % 10.1 % Eosinophil % 0.8 % Basophils % 0.5 % NRBC % 0 % Test performed on May 23, 2020 12:42 Sodium 138 mmol/L Potassium 4.5 mmol/L Chloride 102 mmol/L CO2 26 mmol/L Anion Gap 14.5 BUN 12 mg/dL Creatinine 1.0 mg/dL Cr Clearance (Est) 83.80 mL/min eGFR 56.6 mL/min Glucose 133 mg/dL Calcium 9.9 mg/dL Protein, Total 6.9 g/dL Albumin 4.5 g/dL Globulin 2.4 g/dL Bilirubin, Total 0.2 mg/dL ALT (SGPT) 18 U/L AST (SGOT) 19 U/L Alkaline Phosphatase 93 IU/L Manual Lymphs % 61 % Atypical Lymphs % 14.0 % Manual Monos % 2.0 % CBC Slide Review Slide Review Perform Manual Lymphocytes Abs 19.1 10 3/cmm Manual Monocytes Abs 0.5 10 3/cmm Test performed on May 04, 2020 11:02 LDH (Total) 237 U/L Impression: Small lymphocytic lymphoma with prominent confluent proliferation centers per right axillary lymph node biopsy done on 12/18/2018. 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 Stable 1.2 cm irregular right lower lobe pulmonary nodule. An additional 3 mm right upper lobe pulmonary nodule has remained stable Mild intra-abdominal and pelvic lymphadenopathy with no significant change since 04/03/2018, largest lymph node 1.4 cm in the periportal area. No splenomegaly. Lab workup done on 01/27/2019 shows white blood count 13.1 absolute lymphocytes 5.21 Hemoglobin 12.8 hematocrit 39.1 platelets 234,000 CMP within normal limits Mrs Long's recent CT scan of neck/chest/abdomen/pelvis from 05/19/2020 shows progressive central lymphadenopathy as well as cervical, supraclavicular and axillary lymph node no with some discomfort on the right axilla due to enlarging lymph node. Also having vague B symptoms e.g. off and on mild night sweating and fever initially weight loss but now gaining back. At this point, because of progressive lymphadenopathy but no organomegaly and vague B symptoms, has recommended starting her on treatment with ibrutinib 420 mg p.o. daily. Side effects possible benefits associated with ibrutinib including but not limited to bone marrow suppression, cardiac arrhythmias atrial fibrillation/flutter, diarrhea, initially leukocytosis/lymphocytosis. did advise her to start her on allopurinol 100 mg p.o. 3 times daily, to prevent tumor lysis syndrome, patient was also advised to drink plenty of fluids at least 1 L a day and maintain good hydration and urine output. We will also obtain baseline CBC CMP, uric acid, phosphorus level and monitor her electrolytes closely. Patient expressed understanding. Mrs Long started allopurinol and ibrutinib on June 03, 2020. History of chronic arthritis Plan: Discussed with patient regarding her labs white blood count 50.4 hemoglobin 11 hematocrit 35.7 platelets 206,000 CMP within normal limit except glucose 196 Clinically, patient is in mild to moderate distress due to generalized body aches and joint discomfort, patient has history of gout, she is on allopurinol for tumor lysis so we will check her uric acid level and phosphorus level if elevated, will adjust allopurinol dose and there consider prednisone 20 mg p.o. daily for 3 days then 10 mg daily for 3 days for possible acute gout as her urinalysis shows no sign of urine tract infection. As patient has no more palpitation or tachycardia, since she is off ibrutinib, at this point will discontinue ibrutinib permanently because of possible cardiotoxicity/arrhythmia and patient does not want to try either. At this point we will consider different regimen e.g. bendamustine/Rituxan x3-4 cycles and then reevaluate her in the meantime we will check her hepatitis profile prior to Rituxan therapy. She will return to clinic in 1 week for evaluation and further discussion. As far as lower back pain, radiating to right leg is concerned, concern is whether she has nerve impingement due to prolapsed disc or other pathology, patient was advised to go to ER for evaluation or consider MRI scan of spine but patient said in the past chiropractor used to help her and she has history of disc prolapse and now considering chiropractor evaluation if no improvement then she would consider MRI scan of spine. Patient was advised in case she has worsening of the pain or weakness in the leg she need to go to ER immediately otherwise we will see her back in 1 week Signed By: Yovanny Castano M.D. <<Signature on File>>
== END 2020-07-28 11:05 | disposition home or self-care (01) ==
LOC: ONCMED 11:06
PROVIDERS: PCP Family Medicine; Visit Provider Internal Medicine Hematology & Oncology
DX: C83.04 Small cell B-cell lymphoma, lymph nodes of axilla and upper limb (principal); M19.90 Unspecified osteoarthritis, unspecified site; M54.5 Low back pain; M79.604 Pain in right leg; Z79.899 Other long term (current) drug therapy
CPT/HCPCS: 80053; 81001; 84100; 84550; 85025; 87086; 99214

== ENCOUNTER 2020-08-10 09:04 | Outpatient (CLI) | payer MEDICAID, SELFPAY ==
--- NOTE | 2020-08-10 09:13 | NM_ITS ---
WS: [id number] NUCLEAR MEDICINE BONE SCAN Radiopharmaceutical: 24.3 Tc-99m MDP mCi IV Injection site: Right wrist Postinjection imaging delay: 1 hr CLINICAL INFORMATION: LYMPHOMA,SMALL LYMPHOCYTIC/OA/CHRONIC MIDLINE LOW BACK PAIN COMPARISON: None. FINDINGS: Bone lesions: There are no osseous lesions suspicious for metastatic disease. Soft tissue contours: Normal. Kidneys: Normal. Other findings: Degenerative type uptake involving both AC joints and glenohumeral joints. Degenerati ve arthritis involving both knees. NM/NM bone scan whole body* [id number] IMPRESSION: No evidence of osseous metastatic disease.
== END 2020-08-10 09:05 | disposition home or self-care (01) ==
LOC: NM 09:05
PROVIDERS: PCP Family Medicine; Visit Provider Family Medicine
DX: C83.00 Small cell B-cell lymphoma, unspecified site (principal)
CPT/HCPCS: 78306; A9561

== ENCOUNTER → 2020-09-14 12:38 | Outpatient (BNVA) | payer MEDICAID, SELFPAY | PROVIDERS: PCP Family Medicine; Visit Provider Internal Medicine Rheumatology | DX: M19.90 Unspecified osteoarthritis, unspecified site (principal); Z79.899 Other long term (current) drug therapy; Z11.59 Encounter for screening for other viral diseases; Z11.1 Encounter for screening for respiratory tuberculosis; C83.00 Small cell B-cell lymphoma, unspecified site; I50.9 Heart failure, unspecified; F17.210 Nicotine dependence, cigarettes, uncomplicated | CPT/HCPCS: 36415; 80076; 82306; 82565; 84550; 85025; 85651; 86140; 86431; 86480; 86704; 86803; 87340; 99204 ==

== ENCOUNTER 2020-09-16 11:11 | Outpatient (CLI) | payer MEDICAID, SELFPAY ==
--- NOTE | 2020-09-16 12:00 | XR_ITS ---
WS: [id number] Left hand, 3 views, 09/16/2020 Clinical Data: inflammatory arthritis Comparison: None. Findings: No fractures or dislocations are seen. The soft tissues are unremarkable. The joint spaces are normal No periarticular demineralization or calcification is seen. XR/XR hand LT min 3V* [id number] Impression: Negative left hand.
--- NOTE | 2020-09-16 12:00 | XR_ITS ---
WS: [id number] Left foot, 3 views, 09/16/2020 Clinical Data: inflammatory arthritis Comparison: None. Findings: No fractures or dislocations are seen. No bone destruction or erosion is noted. The joint spaces and soft tissues are normal. There is a bunion at the head of the left first metatarsal. No periarticular demineralization or calc ification is seen. XR/XR foot LT min 3V* [id number] Impression: Bunion at the head of the left first metatarsal.
--- NOTE | 2020-09-16 12:00 | XR_ITS ---
WS: [id number] Chest 2 views, 09/16/2020 Clinical Data: inflammatory arthritis Comparison: None. Findings: No nodules, masses or effusions are seen. The heart is normal. The pulmonary vascularity is not increased. No pneumonia or pneumothorax is seen. The patient has had an anterior cervical disc f usion. There is a small metal object overlying the sternum. There are clips in the right upper quadra nt from a cholecystectomy. XR/XR chest 2V* [id number] Impression: Negative chest.
--- NOTE | 2020-09-16 12:00 | XR_ITS ---
WS: [id number] Right foot, 3 views, 09/16/2020 Clinical Data: inflammatory arthritis Comparison: Right foot, 12/23/2019. Findings: No fractures or dislocations are seen. No bone destruction or erosion is noted. There is a bunion at the head of the right first metatarsal.No periarticular demineralization or calcification is seen. XR/XR foot RT min 3V* [id number] Impression: Bunion head of right first metatarsal.
--- NOTE | 2020-09-16 12:00 | XR_ITS ---
WS: [id number] Right hand, 3 views, 09/16/2020 Clinical Data: inflammatory arthritis Comparison: None. Findings: No fractures or dislocations are seen. The soft tissues are unremarkable. The joint space s are normal No periarticular demineralization or calcifications are seen. XR/XR hand RT min 3V* [id number] Impression: Negative right hand.
== END 2020-09-16 11:12 | disposition home or self-care (01) ==
LOC: RADWPI 11:14
PROVIDERS: PCP Family Medicine; Visit Provider Internal Medicine Rheumatology
DX: M19.90 Unspecified osteoarthritis, unspecified site (principal); M21.611 Bunion of right foot; M21.612 Bunion of left foot
CPT/HCPCS: 71046; 73130; 73630

== ENCOUNTER 2020-10-06 13:48 | Outpatient (CLI) | payer MEDICAID, SELFPAY ==
--- NOTE | 2020-10-06 14:15 | USCV_ITS ---
Ethan Indira Age: 60 Gender: F : 1960 Exam Date: 10/06/2020 14:15 Ordering Phys: Jackeline Hardin MD ([email or web address]) Technologist: Cindy Alexander Exam Location: [facility] – [place] Indication: CHF BP: 133 / 69 HR: 63 Rhythm: Sinus Technical Quality: Suboptimal MEASUREMENTS (Male / Female) Normal Values 2D ECHO LV Diastolic Diameter PLAX 3.7 cm 4.2 - 5.9 / 3.9 - 5.3 cm LV Systolic Diameter PLAX 2.7 cm LV Chamber Size 3.4 cm IVS Diastolic Thickness 1.4 cm 0.6 - 1.0 / 0.6 - 0.9 cm IVS Systolic Thickness 1.5 cm LVPW Diastolic Thickness 1.0 cm 0.6 - 1.0 / 0.6 - 0.9 cm LVPW Systolic Thickness 1.3 cm RV Chamber Size 1.9 cm LVOT Diameter 2.1 cm LV Ejection Fraction 2D Teich 55.2 % LV Ejection Fraction MOD 2C 60.9 % LV Ejection Fraction 2C AL 62.4 % LA Diameter 2.5 cm LA Width 1.9 cm LA Height 3.8 cm RA Width 2.4 cm RA Height 4.3 cm Aorta at Sinotubular Diameter 2.4 cm M-MODE LV Diastolic Diameter MM 5.5 cm 4.2 - 5.9 / 3.9 - 5.3 cm LV Systolic Diameter MM 3.5 cm LV Ejection Fraction MM Teich 64.4 % IVS Diastolic Thickness MM 0.9 cm 0.6 - 1.0 / 0.6 - 0.9 cm IVS Systolic Thickness MM 1.6 cm LVPW Diastolic Thickness MM 0.9 cm 0.6 - 1.0 / 0.6 - 0.9 cm LVPW Systolic Thickness MM 1.2 cm RV Diastolic Diameter MM 1.3 cm Aortic Annulus Diameter 2.7 cm LA Ao Ratio MM 1.0 MV E Point Septal Separation 0.6 cm DOPPLER AV Peak Velocity 111.0 cm/s LVOT Peak Velocity 96.0 cm/s AV Area Cont Eq vti 2.9 cm squared AV Area Cont Eq pk 2.9 cm squared MV Area PHT 3.9 cm squared Mitral E to A Ratio 0.9 MV E' Velocity 39.0 cm/s Mitral E to MV E' Ratio 8.0 Mitral E to LV E' Lateral Ratio 8.0 Mitral E to LV E' Septal Ratio 8.0 TR Peak Velocity 244.0 cm/s TR Peak Gradient 23.8 mmHg TV Peak E Velocity 38.0 cm/s Right Atrial Pressure 3.0 mmHg Pulmonary Artery Systolic Pressu 26.8 mmHg PV Peak Velocity 78.0 cm/s RV Acceleration Time 0.1 s RV Ejection Time 0.3 s RV AcT/ET 0.3 FINDINGS Left Ventricle Normal left ventricular size, systolic function and wall thickness, with no diagnostic regional wall motion abnormalities. Left ventricular ejection fraction is estimated at 62 %. Normal diastolic function. Right Ventricle Normal right ventricular size and systolic function. Right ventricular systolic pressure 26.8 mmHg. Right Atrium Normal right atrial size. Right atrial pressure estimated at 3 mm Hg. Left Atrium Normal left atrial size. Mitral Valve Mildly thickened mitral valve. No mitral valve stenosis. No mitral valve regurgitation. Aortic Valve Aortic valve not well visualized. No aortic valve stenosis. No aortic valve regurgitation. Tricuspid Valve Structurally normal tricuspid valve. No tricuspid valve stenosis. Trace tricuspid valve regurgitation. Pulmonic Valve Pulmonic valve not well visualized. No significant pulmonary valve regurgitation. Pericardium No pericardial effusion. Echo free space anterior to the right ventricle likely represents a fat pad. Aorta Normal size aortic root and proximal ascending aorta. Normal sized inferior vena cava. CONCLUSIONS 1. Normal left ventricular size, systolic function and wall thickness, with no diagnostic regional wall motion abnormalities. Left ventricular ejection fraction is estimated at 62 %. Normal diastolic function. 2. Normal right ventricular size and systolic function. 3. Normal pulmonary artery pressure. 4. No significant pulmonary artery pressure. 5. No prior similar studies to compare. Jackeline Hardin MD (Electronically Signed) Final Date: 08 October 2020 11:26 S
== END 2020-10-06 13:49 | disposition home or self-care (01) ==
LOC: RAD 13:49
PROVIDERS: PCP Family Medicine; Visit Provider Internal Medicine Cardiovascular Disease
DX: I50.9 Heart failure, unspecified (principal)
CPT/HCPCS: 80076; 82306; 82565; 84550; 85025; 85651; 86140; 86431; 86480; 86704; 86803; 87340; 93306; 99204

== ENCOUNTER → 2020-10-19 13:28 | Outpatient (BNVA) | payer MEDICAID, SELFPAY | PROVIDERS: PCP Family Medicine; Visit Provider Internal Medicine Rheumatology | DX: M19.90 Unspecified osteoarthritis, unspecified site (principal); Z79.899 Other long term (current) drug therapy; C83.00 Small cell B-cell lymphoma, unspecified site; F17.210 Nicotine dependence, cigarettes, uncomplicated | CPT/HCPCS: 99214 ==

== ENCOUNTER 2020-11-21 13:01 | Outpatient (CLI) | payer MEDICAID, SELFPAY ==
[2020-11-21 13:27] LABS: Basophils # 0.1 10^3/uL (0.0-0.1); Basophils % 0.6 %; Hematocrit 38.5 % (37.0-47.0); Hemoglobin 12.5 g/dL (11.5-15.3); Lymphocytes % 60.3 %; Mean Corpuscular HGB Conc 32.5 g/dL (30.0-36.0); Mean Corpuscular Hemoglobin 31.6 pg (28.0-34.0); Mean Corpuscular Volume 97.2 fL (81-99); Mean Platelet Volume 9.8 fL (7.4-10.4); Monocytes # 1.9 10^3/uL (0.2-0.9); Monocytes % 9.3 %; Neutrophils # 5.86 10^3/uL (1.8-7.7); Neutrophils % 29.3 %; Nucleated Red Blood Cells % 0 %; Platelet Count 189 10^3/cmm (130-400); Red Blood Count 3.96 10^6/uL (4.1-5.3); Red Cell Distribution Width 13.8 % (12.1-15.1)
[2020-11-21 13:50] LABS: Alanine Aminotransferase 18 U/L (0-33); Albumin Level 4.4 g/dL (3.5-5.2); Alkaline Phosphatase 106 IU/L (35-105); Anion Gap 13.6 (5-19); Aspartate Amino Transferase 20 U/L (0-32); Blood Urea Nitrogen 15 mg/dL (8-23); Calcium 9.7 mg/dL (8.5-10.5); Carbon Dioxide 27 mmol/L (22-29); Chloride 98 mmol/L (98-107); Globulin 2.9 g/dL (1.3-4.6); Glomerular Filtration Rate 56.4 mL/min (90-130); Glucose 112 mg/dL (65-115); Osmolality Calculated 280 mOsm/kg (285-295); Potassium 4.6 mmol/L (3.5-5.1); Sodium 134 mmol/L (136-145); Total Bilirubin 0.2 mg/dL (0.15-1.2); Total Protein 7.3 g/dL (6.6-8.7)
--- NOTE | 2020-11-21 17:14 | ONC FU_ITS ---
Dr. Castano follow up note Patient: Indira Long Unit #: [id number]: 1960 Dicatated By: Yovanny Castano M.D.Date of Visit:Nov 21, 2020 Onc Med Follow-up/Prog Note History of Present Illness: Mrs. Long is a 60-year-old female with long-standing history of small cervical, bilateral axillary lymphadenopathy. The adenopathy was confirmed with CT scan of chest abdomen pelvis done on 10/03/2018. The CT showed mild bilateral axillary lymphadenopathy largest being 1 cm; mildly enlarged abdominal and pelvic lymph nodes, no significant change when compared with CT scan done on 04/03/2018 and no splenomegaly. There was a stable 1.2 cm irregular right lower lobe lung nodule and additional 3 mm right upper lobe lung nodule has remained stable. 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 Mammogram done on 02/11/2019 showed scattered fibroglandular densities. Occasional bilateral breast benign-appearing calcification. 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 PMH: Sleep apnea but noncompliant with CPAP machine Interim History: Mr Santos presented to her PCP with complaints of fullness in the neck-more on the left side but no dysphagia. She was also complaining of chronic lower back pain, patient said she has history of bulging disks . Follow-up CT scan of neck/chest/abdomen/pelvis done on May 19, 2020 showed numerous enlarged lymph nodes throughout both bilateral cervical chains. Supraclavicular and diffuse abdominal lymphadenopathy-with the largest conglomeration of lymph node in the upper abdomen measuring 3.6 x 2.2 cm. There was enlarged periaortic, retroperitoneal lymph nodes additionally enlarged iliac chain pelvic sidewall lymph nodes and inguinal lymphadenopathy splenic granulomas. Patient had a bilateral mammogram done on May 09, 2020 which showed extensive right axillary lymphadenopathy largest being 4.2 x 1.5 x 4 cm with progressive off and on mild night sweats; off and on fever, earlier history of weight loss but now gaining. She was also complaining of discomfort in the right axilla because of enlarging lymphadenopathy and neck fullness but no dysphagia, no shortness of breath. No nausea or vomiting, no diarrhea or constipation. started on ibrutinib 420 mg p.o. daily. On June 03, 2020, along with allopurinol, Put on hold for 2 weeks on July 15, 2020, Because of off and on palpitation Follow-up echo done on October 06, 2020 shows ejection fraction 62%, Came for follow-up, complaining of left neck fullness/puffiness, progressive in nature since last month, still has off and on night sweats and some weight loss but no fever, back pain is better as she was started on new medication sulfasalazine by rheumatology Medications: Atenolol 1 Tablet (of 25 mg) Oral daily, Euthyrox 1 Tablet (of 150 mcg) Oral daily, glipiZIDE 1 Tablet Oral b.i.d., Lasix 1 Tablet (of 40 mg) Oral daily, Levothyroxine Sodium 1 Tablet (of 137 mcg) Oral daily, Liothyronine Sodium 1 Tablet (of 5 mcg) Oral daily, Lisinopril 1 Tablet (of 20 mg) Oral daily, Lovastatin 1 Tablet (of 40 mg) Oral daily, Omeprazole 1 Tablet (of 20 mg) Tablet, enteric coated Oral b.i.d., Spironolactone 1 Tablet (of 50 mg) Oral daily, sulfaSALAzine 1 Tablet (of 500 mg) Oral b.i.d., TiZANidine HCl 1 Tablet (of 4 mg) Oral at bedtime PRN Allergies: Pneumococcal 13-Shanon Conj Vacc Review of Systems: Constitutional - Appetite is good and weight is stable. No fever, hot flashes, Positive for chills and night sweats. Energy level is poor, ENMT - No sinus congestion/drainage. No mouth sores. No sore throat Positive for difficulty swallowing, Hematologic/Lymphatic - No abnormal bruising or bleeding, Respiratory - No shortness of breath. No cough. No pleuritic pain or hemoptysis, Cardiovascular - No angina pain. Positive for palpitations, Gastrointestinal - Positive for nausea and vomiting. No heartburn or acid reflux. Positive for diarrhea, no constipation. No blood in the stool or black stools, Genitourinary (F) - No dysuria or hematuria. No urinary frequency. No urgency or incontinence, Musculoskeletal - Pt reports generalized pain, Neurologic - Positive for dizziness, Psychiatric - No anxiety or depression. No insomnia. Vital Signs: Performed on Nov 21, 2020 15:28 Height - 63.00 in Weight - 197.8 lbs (LOW) BSA - 1.92 sq.m BMI - 35.04 (HIGH) Temperature - 97.3 F (LOW) Pulse - 70 /min Respiration - 20 /min BP - 127/61 mm(hg) O2 Sat - 93 % (LOW) Pain - 6 Performance Status: 1 - No physically strenuous activity, but ambulatory and able to carry out light or sedentary work (e.g. office work, light house work). (ECOG) Physical Examination: ENMT - No mouth sores, no thrush, no jaundice, Hematologic/Lymphatic - Supraclavicular and lower neck lymphadenopathy, nontender, bilateral small axillary lymphadenopathy, Respiratory - Lungs are clear to auscultation, Cardiovascular - Regular rate and rhythm of heart, Abdomen - Soft, bowel sounds present, Extremities - No visible edema or rash. Lab/Imaging: Test performed on Nov 10, 2020 09:23 WBC 24.4 10^9/L RBC 3.90 10^12/L HGB 12.4 g/dL HCT 39.2 % MCV 100.5 fl MCH 31.8 pg MCHC 31.6 g/dL RDW 14.7 % Platelet Count 194 10^9/L MPV 10.1 fL Neutrophils (Gran) 4.15 10^9/L Lymphocytes 0.00 10^9/L Monocytes 0.49 10^9/L Eosinophils 0.20 10^9/L Basophils 0.13 10^9/L Manual Lymphocytes 0 % Manual Monocytes 2 % Manual Eosinophils 1 % Manual Basophils 1 % Test performed on Jul 28, 2020 13:45 Ua Color Straw Ua Appearance Clear Ua pH 5 Ua Specific [place] 1.015 Ua Glucose Norm Ua Ketones Negative Ua Protein Neg Ua Blood Neg Ua Bilirubin Neg Ua Nitrites Negative Ua Leukocyte Esterase Negative Urine Culture <5,000 COLS/ML MIXED SUPERFICIAL TOREY. >= 3 TYPES OF GRAM POSITIVE ORGANISMS ON DAY 2. PROBABLE CONTAMINANTS. Ua Micro: WBC 0-4 /hpf Ua Micro: RBC RARE /hpf Ua Micro: Squam Epith Cells 0-4 Ua Micro: Bacteria TRACE Test performed on Jul 28, 2020 11:14 Phosphorus 3.0 mg/dL Sodium 137 mmol/L Uric Acid 3.1 mg/dL Potassium 4.5 mmol/L Chloride 105 mmol/L CO2 24 mmol/L Anion Gap 12.5 BUN 16 mg/dL Creatinine 1.0 mg/dL Cr Clearance (Est) 84.61 mL/min eGFR 56.6 mL/min Glucose 196 mg/dL Calcium 9.0 mg/dL Osmolality - Calculated 286 mOsm/kg Protein, Total 6.8 g/dL Albumin 4.0 g/dL Globulin 2.8 g/dL Bilirubin, Total 0.2 mg/dL ALT (SGPT) 25 U/L AST (SGOT) 16 U/L Alkaline Phosphatase 115 IU/L Neutrophil % 22.9 % Lymphocyte % 66.6 % Monocyte % 7.7 % Eosinophil % 1.3 % Basophils % 0.6 % NRBC % 0 % CBC Slide Review Slide Review Perform SLIDE REVIEW AGREES WITH AUTOMATED RESULT Test performed on Jul 15, 2020 09:30 LDH (Total) 189 U/L Impression: Small lymphocytic lymphoma with prominent confluent proliferation centers per right axillary lymph node biopsy done on 12/18/2018. 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 Stable 1.2 cm irregular right lower lobe pulmonary nodule. An additional 3 mm right upper lobe pulmonary nodule has remained stable Mild intra-abdominal and pelvic lymphadenopathy with no significant change since 04/03/2018, largest lymph node 1.4 cm in the periportal area. No splenomegaly. Lab workup done on 01/27/2019 shows white blood count 13.1 absolute lymphocytes 5.21 Hemoglobin 12.8 hematocrit 39.1 platelets 234,000 CMP within normal limits Mrs Long's recent CT scan of neck/chest/abdomen/pelvis from 05/19/2020 shows progressive central lymphadenopathy as well as cervical, supraclavicular and axillary lymph node no with some discomfort on the right axilla due to enlarging lymph node. Also having vague B symptoms e.g. off and on mild night sweating and fever initially weight loss but now gaining back. At this point, because of progressive lymphadenopathy but no organomegaly and vague B symptoms, has recommended starting her on treatment with ibrutinib 420 mg p.o. daily. Side effects possible benefits associated with ibrutinib including but not limited to bone marrow suppression, cardiac arrhythmias atrial fibrillation/flutter, diarrhea, initially leukocytosis/lymphocytosis. did advise her to start her on allopurinol 100 mg p.o. 3 times daily, to prevent tumor lysis syndrome, patient was also advised to drink plenty of fluids at least 1 L a day and maintain good hydration and urine output. We will also obtain baseline CBC CMP, uric acid, phosphorus level and monitor her electrolytes closely. Patient expressed understanding. Mrs Long started allopurinol and ibrutinib on June 03, 2020. History of chronic arthritis Plan: Discussed with patient regarding her labs white blood count 20,000, hemoglobin 12.5 hematocrit 38.5 platelets 189,000 CMP within normal limits Clinically, patient is doing reasonably well, now with progressive symptoms like left neck lymphadenopathy/fullness and mild dysphagia and persistent off and on night sweats and some weight loss, could be sign of disease progression, at this point will consider CT scan of neck chest abdomen pelvis and also obtain hepatitis profile as treatment with bendamustine/Rituxan is under consideration, all the side effects possible benefits associated with BR regimen including but not limited to bone marrow suppression, life-threatening infection, immunosuppression, nausea vomiting, allergic reaction especially with Rituxan were mentioned further teaching will done by chemotherapy nurse, will obtain approval from insurance prior to the treatment and patient will return to clinic after CT scan of neck chest abdomen pelvis for further discussion, also consider Port-A-Cath placement Signed By: Yovanny Castano M.D. <<Signature on File>>
== END 2020-11-21 13:02 | disposition home or self-care (01) ==
LOC: ONCMED 13:04
PROVIDERS: PCP Family Medicine; Visit Provider Internal Medicine Hematology & Oncology
DX: C83.00 Small cell B-cell lymphoma, unspecified site (principal); R91.1 Solitary pulmonary nodule; R61 Generalized hyperhidrosis; R50.9 Fever, unspecified; R63.4 Abnormal weight loss; Z79.899 Other long term (current) drug therapy
CPT/HCPCS: 36415; 80053; 85025; 99214

== ENCOUNTER → 2020-11-29 12:39 | Outpatient (BNVA) | payer MEDICAID, SELFPAY | PROVIDERS: PCP Family Medicine; Visit Provider Internal Medicine Rheumatology | DX: Z79.899 Other long term (current) drug therapy (principal); M19.90 Unspecified osteoarthritis, unspecified site | CPT/HCPCS: 36415; 80076; 82565; 85025; 85651; 86140 ==

== ENCOUNTER → 2020-12-09 11:35 | Outpatient (BNVA) | payer MEDICAID, SELFPAY | PROVIDERS: PCP Family Medicine; Visit Provider Surgery | DX: C83.00 Small cell B-cell lymphoma, unspecified site (principal) | CPT/HCPCS: 87635 ==

== ENCOUNTER 2020-12-12 09:07 | Outpatient (CLI) | payer MEDICAID, SELFPAY ==
--- NOTE | 2020-12-12 09:21 | CT_ITS ---
WS: [id number] CT CHEST, ABDOMEN AND PELVIS WITH CONTRAST HISTORY: SMALL CELL B-CELL LYMPHOMA TECHNIQUE: Contiguous 5 mm axial imaging performed through the chest, abdomen and pelvis with IV cont rast, oral contrast has been provided. Coronal and sagittal reformats chest. Coronal and sagittal ref ormats through the abdomen and pelvis. All CT scans at [facility] use at least one of the se dose optimization techniques: automated exposure control; mA and/or kV adjustment per patient size (includes targeted exams where dose is matched to clinical indication); or iterative reconstruction. CONTRAST: Visipaque 320; 95 mL IV. DLP: 2810.47 mGycm COMPARISON: 05/19/2020 and 10/02/[address]: Significant increase in size of lymph nodes in the chest since 10/02/2018. Bilateral axillar y lymphadenopathy increased in size and number. Largest transverse diameter RIGHT axillary lymph node is 1.6 cm and LEFT 1.9 cm. Supraclavicular lymph node on the LEFT measures 1.2 cm. There are small n odes noted bilaterally but are subcentimeter along the lower cervical chains and extending posterior to the clavicles. Small lymph nodes in the anterior mediastinum. Largest lymph node in the mediastinu m is RIGHT paratracheal 1.2 cm. Bilateral prominent lymphoid tissue at the hilar regions with the lar gest on the LEFT measuring 1.0 cm. There are a few small lymph nodes in the fat anterior to the peric ardium. Distal RIGHT paraesophageal lymph node is subcentimeter. No pulmonary nodules or masses. No p leural effusion. Heart size is normal. Abdomen CT: Extensive lymphadenopathy is noted along the lesser curvature of the stomach and surround ing the celiac axis. Largest lymph node near the celiac axis measures 3.3 x 2.0 cm. Celiac axis and p william hepatis lymph nodes and distal RIGHT paraesophageal lymph nodes probably not significantly pratt ed. There is no improvement. Several lymph nodes extend along the gastrosplenic ligament to the hilum of the spleen. Numerous central mesenteric lymph nodes and retroperitoneal lymph nodes. Largest lymp h node along the LEFT common iliac chain is 1.2 cm. Similar lymph nodes on the RIGHT. Prior cholecystectomy. Hepatic and splenic granulomata. No metastatic lesions are identified in the l iver. Pancreas and adrenal glands are negative. Atherosclerosis aorta. No renal obstruction or mass. Mild bilateral perinephric stranding. Pelvic CT: No ascites. No presacral lymph nodes. Bilateral distal iliac chain lymph nodes have increa sed slightly in size since the prior study. Lymph nodes have increased by 2 to 3 mm. Largest lymph no de on the LEFT near the obturator measures 1.6 cm. Inguinal lymph nodes are similar to the prior stud y. CT/CT chest abd pel w con* IMPRESSION: 1. Significant increase in size and number of axillary, supraclavicular and me diastinal lymph nodes since 10/02/2018. 2. No improvement and equivocal increase in size of abdominal, mesenteric and retroperitoneal lymph nodes since 05/19/2020. The pelvic lymph nodes have increa sed in size by 2 to 3 mm diameter. Equivocal increase in size of the lymph node s in the upper abdomen and retroperitoneum. No improvement. 3. Prior cholecystectomy.
[2020-12-12] MEDS: iohexol 300 mg/mL 50 mL Btl PO (10:59)
[2020-12-12] MEDS: iodixanol 320 mg/mL 100mL Btl IV (11:19)
== END 2020-12-12 09:08 | disposition home or self-care (01) ==
LOC: RADWPI 09:09
PROVIDERS: PCP Family Medicine; Visit Provider Internal Medicine Hematology & Oncology
DX: C83.00 Small cell B-cell lymphoma, unspecified site (principal); Z90.49 Acquired absence of other specified parts of digestive tract
CPT/HCPCS: 71260; 74177; Q9967

== ENCOUNTER 2020-12-13 05:58 | Day surgery (SDC) | payer MEDICAID, SELFPAY ==
[2020-12-12 14:01] VITALS: BMI 34.0
[2020-12-13] VITALS (8 sets, daily range): BP systolic 118–166; BP diastolic 59–96; PULSE 65–89; RESP 17–20; TEMP 36.3–36.4; O2SAT 92–98
--- NOTE | 2020-12-13 | SCC_ITS ---
Procedure Done: Right subclavian vein PowerPort placement 40.7 seconds of fluoroscopic guidance, for a cumulative dose of 8.62 mGy, was provided to Dr. Agarwal by the radiology department. C-arm images of the chest were saved for the patient's permanent record. [facility]
--- NOTE | 2020-12-13 06:14 | SC_ITS ---
WS: [id number] INTRAOPERATIVE TECHNIQUE: 1 Spot fluoroscopic images for intraoperative purposes. FLUOROSCOPY TIME: 40.7 seconds CLINICAL INFORMATION: Powerport Placement COMPARISON: None. FINDINGS: Right Port-A-Cath with tip in the mid to distal SVC. No visualized pneumothorax. Postoperative change s lower cervical spine. SC/C-arm FL for CVA [id number] IMPRESSION: Images obtained for intraoperative purposes.
--- NOTE | 2020-12-13 06:14 | W.PM.OPSUD ---
Surgery/Procedure H&P Update DATE OF PROCEDURE: December 13, 2020 DATE H&P PERFORMED: 12/05/20 H&P UPDATE INFORMATION: I have reviewed H&P completed within last 30 days, I have examined patient prior to procedure and No changes to prior documentation PREOP DIAGNOSIS: Lymphoma PRIMARY INDICATION FOR PROCEDURE: The same PLANNED PROCEDURE: Operation Date: 12/13/20 07:00 Proposed Procedures p Portacath Placement 85576 c83.00(Not Applicable) - Nitin Agarwal MD
[2020-12-13 06:33] LABS: Glucose Point of Care 151 mg/dL (70-110)
--- NOTE | 2020-12-13 06:42 | ANES.PREANE2 ---
Pre-Anesthetic Assessment Pre-Anesthetic Assessment: Height/Weight: Height 1.6 m Weight 87.09 kg Temp Pulse Resp BP Pulse Ox 97.5 F L 65 18 166/96 95 12/13/20 06:14 12/13/20 06:14 12/13/20 06:14 12/13/20 06:14 12/13/20 06:14 Preop Diagnosis: Lymphoma Proposed Procedure: Operation Date: 12/13/20 07:00 Proposed Procedures p Portacath Placement 00562 c83.00(Not Applicable) - Nitin Agarwal MD Was Beta Jerald taken within 24 hours: Yes Last intake: Intake Last Liquid Date 12/12/20 Last Solid Date 12/12/20 Social: Social History: Tobacco and No alcohol Exam: Pre-Anes Outpt Exam: alert, oriented x 3 and regular rate & rhythm Additional Exam Findings (including area of procedure): BBS decreased, rhonchi Airway: Submandibular: WNL Cervical ROM: WNL MP: 2 Additional comments: upper denture Pulmonary: Pulmonary: COPD CV/HEM: CV/HEM: CHF and HTN GI: GI: GERD Metabolic: Metabolic: Morbid obesity and Thyroid Musc/skel: Musc/skel: OA/DJD Neuropsych: Neuropsych: None reported Anesthetic Plan: ASA status: 3 Anesthesia: MAC Risk of > 500 ml blood loss (7ml/kg in children): No PFSH Anesthesia PFSH: Medical History CHF (congestive heart failure), NYHA class III High risk medication use Immunization counseling Inflammatory arthritis Small lymphocytic lymphoma Surgical History H/O dilation and curettage History of appendectomy History of bladder repair surgery History of hysterectomy History of neck surgery titanium in neck History of tubal ligation Family History Mother Cancer lung cancer Father Cancer colon and lung cancer Other Hypertension Migraine Rheumatoid arthritis Denies family history of Diabetes Lupus Chronic kidney disease (CKD) Anesthesia complication Bleeding disorder Lung disease Stroke Social History Smoking and tobacco status: current every day smoker Quit status (tobacco): has tried quititng Second hand smoke exposure: Yes Smoking risk assessment/counseling performed?: No Alcohol intake: never Desire information about alcohol rehabilitation?: No Counseling given: No Desire information about substance/drug rehabilitation?: No Counseling given: No Household members: spouse Marital status: Current occupational status: disabled History of recent travel: No Data Anesthesia Other Labs: Laboratory Results - last 48 hr 12/13/20 06:30 POC Glucose 151 H Cardiac Studies: Cardiac Event Monitor 09/14/20
[2020-12-13] MEDS: sodium chloride 0.9% 1,000 ML 30 ML IV (07:30)
[2020-12-13] MEDS: heparin, porcine 1,000 unit/mL INJ 10 mL 10000 UNIT IRRIGATION (07:32)
[2020-12-13] MEDS: lidocaine 2% INJ 20 mL INJECTION (07:41)
--- NOTE | 2020-12-13 07:48 | P.OP_ITS ---
Operative Report Date of procedure: December 13, 2020 Pre-op Diagnosis: Lymphoma Post-op diagnosis: same Post-op Findings: Difficult anatomy right subclavian vein Procedure Done: Right subclavian vein PowerPort placement Surgeon: Nitin Agarwal Ed Special Education Teacher: Surgical latanya Chin nurse Sonya Anesthesia: General (Started with IV propofol converted to LMA, Hazel Etienne and Dr. Roblero) Estimated blood loss (mL): 25 Condition: stable Disposition: same day Brief History: Plan of care; After thorough history physical examination and reviewing the chart, I counseled the patient for Port-A-Cath placement, indications, risks including pneumothorax and injury of major vascular structures, benefits,indications and alternatives were all discussed with the patient, patient understands and is interested to proceed. Rationale was carefully and clearly discussed with the patient.Appropriate informed consent have been reviewed and signed. Procedure: Patient was identified in the holding area and taken to the operative room and placed in supine position IV propofol was given by the anesthesia provider ,both arms were tucked,Time-out was done verifying the patient's name/date of /planned procedure and destination after the procedure, all were in agreement. SCDs confirmed to be functioning, preoperative antibiotics administered per protocol, and beta fish protocol was confirmed, appropriate positioning of the patient was done by me. Medications were reviewed to assess for anticoagulant usage. Risks and benefits and prevention of central line associated blood stream infection (CLABSI) were discussed with the patient/CPOA, and a consent was obtained. Monitors were in place and monitored throughout the procedure. All necessary supplies were available prior to start. Hand hygiene was completed prior to starting. Maximum barrier technique was utilized including a sterile gown, sterile gloves with a hat and mask. Site was was prepped with [chlorhexidine] and a full body drape was placed. 5 mL of 2% lidocaine was injected into the skin with a 25 gauge needle. Prep& drape was done under the usual sterile technique, lidocaine 2% was injected at the site of the stick, started by right subclavian stick that retrieved venous blood was obtained from the first stick, a guidewire was then threaded and under the guidance of fluoroscopy position was confirmed to be in the IVC and my interpretation, there was no PVC changes, at that point the guidewire was secured to the drapes with a hemostat and the needle was taken out, attention was then deviated towards creation of a pocket for the port were lidocaine 2% was injected using an 15 blade knife skin incision was created dissection using the Bovie to create a pocket for the Port-A-Cath to be accommodated, hemostasis was secured, after the port being appropriately flushed it was inserted into the pocket and a tunneler was used to accommodate the catheter of the port cath to be delivered through the incision first created at the site of the stick, at that point under fluoroscopy an estimated length was measured for the catheter and was cut at the designed level, followed by that a dilator with the sheath introduced onto the guidewire the dilator and the wire were retrieved and the catheter of the port was introduced via the sheath where it was peeled off and the catheter maintained to be in the SVC that was confirmed with fluoroscopy, and the fluoroscopy interpretation was done by me throughout the entire procedure. Patient had a difficult anatomy of the right subclavian vein and I had to negotiate between peeling the catheter and passing the guidewire and ultimately I was able safely to pass the catheter without complications in a good position. And during that time patient was moving and the was concerned about giving more IV propofol, and so further discussion with anesthesia LMA was inserted to secure her airway.And at that time moving forward we were able to pass the catheter place it in appropriate position. Which was verified by the fluoroscopy. The port was kept in the pocket,3-0 Vicryl deep subdermal interrupted sutures, skin was then closed by 4-0 Monocryl as subcuticular closure. Flushing with heparin was done The stick site was closed by 3-0 Vicryl and then 4-0 Monocryl and surgical glue was used followed by dressing. Patient tolerated the procedure well was taken to the recovery area Count was correct at the end of the procedure I was present for the whole entire procedure Position of the catheter was checked with a postoperative chest x-ray and it was in good position without evidence of pneumothorax
--- NOTE | 2020-12-13 07:56 | XR_ITS ---
WS: [id number] CHEST XRAY TECHNIQUE: Portable chest. CLINICAL INFORMATION: Status post PowerPort placement right subclavian vein COMPARISON: September 16, 2020 FINDINGS: Right Port-A-Cath with tip in the distal SVC. Heart: Normal cardiac silhouette. Lungs: Lungs are clear. No consolidation or pleural effusion. No pneumothorax. Bones: Postoperative changes plate and screw fixation lower cervical spine. Cholecystectomy clips. XR/XR chest 1V portable [id number] IMPRESSION: Right Port-A-Cath with tip in the distal SVC in good position.
--- NOTE | 2020-12-13 08:16 | SUR.PHASEI ---
PT AWAKE ALERT ON RA TRIAL, DR HOFFMAN AT BEDSIDE TALKING WITH PT, AND CALLED PT'S . GOOD RESP NOTED RT CHEST 2 SITES D/I SCDS ON BILAT.PT VERBALIZED NO PAIN OR NAUSEA.
[2020-12-13] MEDS: HYDROcodone-acetaminophen 5-325 mg Tablet 1 TAB PO (09:00)
--- NOTE | 2020-12-13 09:02 | ANE.PACU2 ---
Inpatient post-anesthesia follow up: Airway intact: Yes Vital signs: Temperature 97.4 F Pulse Rate 79 Respiratory Rate 18 Blood Pressure 136/82 Pulse Oximetry 92 Oxygen Delivery Me thod Room Air Oxygen Flow Rate 8 Fraction of Inspir ed Oxygen Hydration adequate: Yes Nausea and vomiting: No Pain level: 1 Mental status: Baseline
== END 2020-12-13 09:34 | disposition home or self-care (01) ==
PROVIDERS: PCP Family Medicine; Visit Provider Surgery
PROC: (CPT 36561; principal; 2020-12-13 07:00)
DX: C85.90 Non-Hodgkin lymphoma, unspecified, unspecified site (principal); J44.9 Chronic obstructive pulmonary disease, unspecified; I11.0 Hypertensive heart disease with heart failure; I50.9 Heart failure, unspecified; K21.9 Gastro-esophageal reflux disease without esophagitis; E66.01 Morbid (severe) obesity due to excess calories; Z68.34 Body mass index [BMI] 34.0-34.9, adult; M19.90 Unspecified osteoarthritis, unspecified site; F17.210 Nicotine dependence, cigarettes, uncomplicated; Z79.52 Long term (current) use of systemic steroids
CPT/HCPCS: 36561; 12345; 36416; 71045; 76000; 77001; 82962; C1788; J0690; J1644; J2250; J2704; J3010; J3490; J7030

== ENCOUNTER 2020-12-19 08:50 | Outpatient (CLI) | payer MEDICAID, SELFPAY ==
--- NOTE | 2020-12-19 08:58 | CT_ITS ---
WS: [id number] CT NECK TECHNIQUE: Contrast-enhanced CT of the neck with coronal and sagittal reformatted images. CLINICAL INFORMATION: SMALL CELL B-CELL LYMPHOMA, RESTAGING EVAL, COMPARE TO LAST COMPARISON: May 19, 2020 DLP: 2739.[address] scans at [facility] use at least one of these dose optimization techniques: automat ed exposure control; mA and/or kV adjustment per patient size (includes targeted exams where dose is matched to clinical indication); or iterative reconstruction. FINDINGS: Again seen are numerous enlarged lymph nodes throughout the entire cervical chain bilaterally at leve ls I-IV and posterior triangle. Additional supraclavicular and internal mammary lymphadenopathy. Part ially visualized enlarged axillary lymph nodes. Enlarged anterior mediastinal, AP window and paratrac heal lymph nodes. Enlarged Parotid and submandibular space lymph nodes. Enlarged Submental lymph node s. Overall Cervical lymphadenopathy is progressed since May 19, 2020 Parotid glands are normal. Normal submandibular glands. Normal parapharyngeal fat. Normal posterior n asopharynx. No evidence of supraglottic or glottic mass. Normal vallecula and piriform sinuses. Subgl ottic airway is patent. Hazy atelectasis in the lung apices. Postoperative changes anterior cervical fusion C5-C7. Straightening of the normal cervical lordosis. Partially visualized intracranial conten ts unremarkable. Mastoid air cells and paranasal sinuses are well aerated. CT/CT neck w con* [id number] IMPRESSION: 1. Overall cervical lymphadenopathy is progressed compared to May 19, 2020 wi th some lymph nodes more prominent and larger today. 2. Supraclavicular, internal mammary and anterior mediastinal lymph nodes and axillary lymph nodes are slightly progressed. 3. No other significant interval changes.
[2020-12-19] MEDS: iodixanol 320 mg/mL 100mL Btl IV (09:26)
== END 2020-12-19 08:51 | disposition home or self-care (01) ==
LOC: RADWPI 08:54
PROVIDERS: PCP Family Medicine; Visit Provider Internal Medicine Hematology & Oncology
DX: C83.00 Small cell B-cell lymphoma, unspecified site (principal)
CPT/HCPCS: 70491; Q9967

== ENCOUNTER 2020-12-22 11:32 | Outpatient (CLI) | payer MEDICAID, SELFPAY ==
[2020-12-22 12:01] LABS: Basophils # 0.1 10^3/uL (0.0-0.1); Basophils % 0.6 %; Eosinophils % 0.2 %; Hematocrit 35.4 % (37.0-47.0); Hemoglobin 11.4 g/dL (11.5-15.3); Lymphocytes # 9.6 10^3/uL (0.8-4.8); Mean Corpuscular HGB Conc 32.2 g/dL (30.0-36.0); Mean Corpuscular Hemoglobin 32.1 pg (28.0-34.0); Mean Corpuscular Volume 99.7 fL (81-99); Mean Platelet Volume 9.6 fL (7.4-10.4); Monocytes # 2.5 10^3/uL (0.2-0.9); Monocytes % 14.4 %; Neutrophils # 4.84 10^3/uL (1.8-7.7); Neutrophils % 28.1 %; Nucleated Red Blood Cells % 0 %; Platelet Count 140 10^3/cmm (130-400); Red Blood Count 3.55 10^6/uL (4.1-5.3); Red Cell Distribution Width 14.1 % (12.1-15.1); White Blood Count 17.2 10^3/uL (4.0-10.0)
[2020-12-22 12:24] LABS: Alanine Aminotransferase 16 U/L (0-33); Albumin Level 4.3 g/dL (3.5-5.2); Alkaline Phosphatase 98 IU/L (35-105); Anion Gap 12.5 (5-19); Aspartate Amino Transferase 17 U/L (0-32); Blood Urea Nitrogen 13 mg/dL (8-23); Calcium 9.6 mg/dL (8.5-10.5); Carbon Dioxide 29 mmol/L (22-29); Chloride 100 mmol/L (98-107); Globulin 2.4 g/dL (1.3-4.6); Glomerular Filtration Rate 56.4 mL/min (90-130); Glucose 163 mg/dL (65-115); Osmolality Calculated 288 mOsm/kg (285-295); Potassium 4.5 mmol/L (3.5-5.1); Sodium 137 mmol/L (136-145); Total Bilirubin 0.2 mg/dL (0.15-1.2); Total Protein 6.7 g/dL (6.6-8.7)
--- NOTE | 2020-12-23 13:36 | ONC FU_ITS ---
Dr. Castano follow up note Patient: Indira Long Unit #: [id number]: [id number] Dicatated By: Yovanny Castano M.D.Date of Visit:Dec 22, 2020 Onc Med Follow-up/Prog Note History of Present Illness: Mrs. Long is a 60-year-old female with long-standing history of small cervical, bilateral axillary lymphadenopathy. The adenopathy was confirmed with CT scan of chest abdomen pelvis done on 10/03/2018. The CT showed mild bilateral axillary lymphadenopathy largest being 1 cm; mildly enlarged abdominal and pelvic lymph nodes, no significant change when compared with CT scan done on 04/03/2018 and no splenomegaly. There was a stable 1.2 cm irregular right lower lobe lung nodule and additional 3 mm right upper lobe lung nodule has remained stable. 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 Mammogram done on 02/11/2019 showed scattered fibroglandular densities. Occasional bilateral breast benign-appearing calcification. 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 PMH: Sleep apnea but noncompliant with CPAP machine Interim History: Mr Santos presented to her PCP with complaints of fullness in the neck-more on the left side but no dysphagia. She was also complaining of chronic lower back pain, patient said she has history of bulging disks . Follow-up CT scan of neck/chest/abdomen/pelvis done on May 19, 2020 showed numerous enlarged lymph nodes throughout both bilateral cervical chains. Supraclavicular and diffuse abdominal lymphadenopathy-with the largest conglomeration of lymph node in the upper abdomen measuring 3.6 x 2.2 cm. There was enlarged periaortic, retroperitoneal lymph nodes additionally enlarged iliac chain pelvic sidewall lymph nodes and inguinal lymphadenopathy splenic granulomas. Patient had a bilateral mammogram done on May 09, 2020 which showed extensive right axillary lymphadenopathy largest being 4.2 x 1.5 x 4 cm with progressive off and on mild night sweats; off and on fever, earlier history of weight loss but now gaining. She was also complaining of discomfort in the right axilla because of enlarging lymphadenopathy and neck fullness but no dysphagia, no shortness of breath. No nausea or vomiting, no diarrhea or constipation. started on ibrutinib 420 mg p.o. daily. On June 03, 2020, along with allopurinol, Put on hold for 2 weeks on July 15, 2020, Because of off and on palpitation Eventually discontinued On July 15, 2020 as on follow-up visit in 2 weeks patient experienced no more palpitation no dizziness or lightheadedness Follow-up echo done on October 06, 2020 shows ejection fraction 62%, Because of progressive fullness and persistent off and on night sweats but no fever but weight loss, patient was not sure whether there was due to new medication started by rheumatology or disease, CT scan of neck chest abdomen pelvis was done on December 19, 2020 which shows overall cervical lymphadenopathy is progressed compared to May 19, 2020 with some lymph nodes more prominent and larger. Supraclavicular, internal mammary anterior mediastinal lymph nodes and axillary lymph nodes are slightly progressed CT scan of abdomen pelvis showed extensive lymphadenopathy in the largest lymph node near celiac plexus 3.3 x 2.0 cm. Came for follow-up, complains of generalized weakness and fatigue and fullness in the neck and some discomfort in right axilla, still off and on night sweats. No dysphagia,No recurrent fever But overall not feeling well Medications: Atenolol 1 Tablet (of 25 mg) Oral daily, Euthyrox 1 Tablet (of 150 mcg) Oral daily, glipiZIDE 1 Tablet Oral b.i.d., Lasix 1 Tablet (of 40 mg) Oral daily, Levothyroxine Sodium 1 Tablet (of 137 mcg) Oral daily, Liothyronine Sodium 1 Tablet (of 5 mcg) Oral daily, Lisinopril 1 Tablet (of 20 mg) Oral daily, Lovastatin 1 Tablet (of 40 mg) Oral daily, Omeprazole 1 Tablet (of 20 mg) Tablet, enteric coated Oral b.i.d., Spironolactone 1 Tablet (of 50 mg) Oral daily, TiZANidine HCl 1 Tablet (of 4 mg) Oral at bedtime PRN Allergies: Pneumococcal 13-Shanon Conj Vacc Review of Systems: Review of Systems is not available for this patient. Vital Signs: Performed on Dec 22, 2020 13:22 Height - 63.00 in Weight - 199.5 lbs (HIGH) BSA - 1.93 sq.m BMI - 35.34 (HIGH) Temperature - 97.3 F (LOW) Pulse - 72 /min Respiration - 16 /min BP - 149/73 mm(hg) (HIGH) O2 Sat - 96 % Pain - 0 Performance Status: 1 - No physically strenuous activity, but ambulatory and able to carry out light or sedentary work (e.g. office work, light house work). (ECOG) Physical Examination: ENMT - No mouth sores, no thrush, no jaundice but extensive bilateral bulky cervical lymphadenopathy supraclavicular lymphadenopathy bilateral axillary lymphadenopathy noticed, Respiratory - Lungs are clear to auscultation, Cardiovascular - Regular rate and rhythm of heart, Abdomen - Soft, bowel sounds present, Extremities - No visible edema. Lab/Imaging: Test performed on Nov 21, 2020 15:58 Hepatitis B Core Ab, Total NO RED TOP SPECIMEN IN LAB ST Hepatitis B Surface Ab NO RED TOP SPECIMEN IN LAB ST Test performed on Nov 21, 2020 13:13 Sodium 134 mmol/L Potassium 4.6 mmol/L Chloride 98 mmol/L CO2 27 mmol/L Anion Gap 13.6 BUN 15 mg/dL Creatinine 1.0 mg/dL Cr Clearance (Est) 83.68 mL/min eGFR 56.4 mL/min Glucose 112 mg/dL Osmolality - Calculated 280 mOsm/kg Calcium 9.7 mg/dL Protein, Total 7.3 g/dL Albumin 4.4 g/dL Globulin 2.9 g/dL Bilirubin, Total 0.2 mg/dL ALT (SGPT) 18 U/L AST (SGOT) 20 U/L Alkaline Phosphatase 106 IU/L WBC 20.0 10 3/uL RBC 3.96 10 6/uL HGB 12.5 g/dL HCT 38.5 % MCV 97.2 fL MCH 31.6 pg MCHC 32.5 g/dL RDW 13.8 % Platelet Count 189 10 3/cmm MPV 9.8 fL Neutrophils 5.86 10 3/uL Lymphocytes 12.0 10 3/uL Monocytes 1.9 10 3/uL Eosinophils 0.0 10 3/uL Basophils 0.1 10 3/uL Neutrophil % 29.3 % Lymphocyte % 60.3 % Monocyte % 9.3 % Eosinophil % 0.0 % Basophils % 0.6 % NRBC % 0 % Test performed on Nov 10, 2020 09:23 Manual Lymphocytes 0 % Manual Monocytes 2 % Manual Eosinophils 1 % Manual Basophils 1 % Test performed on Jul 28, 2020 13:45 Ua Color Straw Ua Appearance Clear Ua pH 5 Ua Specific [place] 1.015 Ua Glucose Norm Ua Ketones Negative Ua Protein Neg Ua Blood Neg Ua Bilirubin Neg Ua Nitrites Negative Ua Leukocyte Esterase Negative Urine Culture <5,000 COLS/ML MIXED SUPERFICIAL TOREY. >= 3 TYPES OF GRAM POSITIVE ORGANISMS ON DAY 2. PROBABLE CONTAMINANTS. Ua Micro: WBC 0-4 /hpf Ua Micro: RBC RARE /hpf Ua Micro: Squam Epith Cells 0-4 Ua Micro: Bacteria TRACE Test performed on Jul 28, 2020 11:14 Phosphorus 3.0 mg/dL Uric Acid 3.1 mg/dL CBC Slide Review Slide Review Perform SLIDE REVIEW AGREES WITH AUTOMATED RESULT Test performed on Jul 15, 2020 09:30 LDH (Total) 189 U/L Impression: Small lymphocytic lymphoma with prominent confluent proliferation centers per right axillary lymph node biopsy done on 12/18/2018. 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 Whole blood Flow cytometry done on 02/09/2019 showed monotypic B-cell population, phenotypically compatible with chronic lymphocytic leukemia/small lymphocytic lymphoma Cells were positive for CD19, CD20 (dim), CD5 and CD23 and shows surface kappa light chain restriction (dim expression), CD10 and F[facility] [address] scan of chest abdomen pelvis done on 10/03/2018 showed bilateral axillary lymphadenopathy largest lymph node in right axilla 1 cm in size compared to 0.5 cm on 04/03/2018. Stable 1.2 cm irregular right lower lobe pulmonary nodule. An additional 3 mm right upper lobe pulmonary nodule has remained stable Mild intra-abdominal and pelvic lymphadenopathy with no significant change since 04/03/2018, largest lymph node 1.4 cm in the periportal area. No splenomegaly. Lab workup done on 01/27/2019 shows white blood count 13.1 absolute lymphocytes 5.21 Hemoglobin 12.8 hematocrit 39.1 platelets 234,000 CMP within normal limits Mrs Long's recent CT scan of neck/chest/abdomen/pelvis from 05/19/2020 shows progressive central lymphadenopathy as well as cervical, supraclavicular and axillary lymph node no with some discomfort on the right axilla due to enlarging lymph node. Also having vague B symptoms e.g. off and on mild night sweating and fever initially weight loss but now gaining back. At this point, because of progressive lymphadenopathy but no organomegaly and vague B symptoms, has recommended starting her on treatment with ibrutinib 420 mg p.o. daily. Side effects possible benefits associated with ibrutinib including but not limited to bone marrow suppression, cardiac arrhythmias atrial fibrillation/flutter, diarrhea, initially leukocytosis/lymphocytosis. did advise her to start her on allopurinol 100 mg p.o. 3 times daily, to prevent tumor lysis syndrome, patient was also advised to drink plenty of fluids at least 1 L a day and maintain good hydration and urine output. We will also obtain baseline CBC CMP, uric acid, phosphorus level and monitor her electrolytes closely. Patient expressed understanding. Mrs Long started allopurinol and ibrutinib on June 03, 2020.But patient developed palpitation and dizziness so ibrutinib was put on hold on July 15, 2020 for 2 weeks patient return to clinic on July 28, 2020 with no more episode of palpitation or dizziness since she was off ibrutinib so it was discontinued on July 15, 2020 History of chronic arthritis Plan: Discussed with patient regarding her labs white blood count 17.2 hemoglobin 11.4 hematocrit 35.4 platelets 140,000 CMP within normal limits and CT scan of neck chest abdomen pelvis findings which shows progressive extensive cervical and central lymphadenopathy Clinically, patient doing reasonably well now with persistent off and on night sweats but no recurrent fever some weight loss which could be multifactorial and overall not feeling well and progressive cervical lymphadenopathy seen on physical exam as well as on CT scan of neck earlier treatment plan was to consider bendamustine/Rituxan but as 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 All the side effects possible benefits associated with this regimen including but not limited to bone marrow suppression, which can increase risk for life-threatening infection and bleeding, hair loss, allergic reaction, endocrinopathy especially with obinutuzumab were mentioned further teaching will done by chemotherapy nurse and will obtain approval from her insurance prior to the treatment and planning to start obinutuzumab 100 mg on cycle 1 day 1 followed by 900 mg on day 2 and then 1000 mg on day 8 and 15 and then add venetoclax on day 22 with cycle 120 mg p.o. daily for 1 week and 5-week ramp-up schedule as per protocol, if tolerated to 400 mg p.o. daily with second cycle of obinutuzumab 12 mg q. 28 days As patient has history of gout, will check a uric acid if elevated, will consider rasburicase or consider allopurinol to control tumor lysis syndrome, will monitor her closely for tumor lysis with electrolytes and patient was advised to maintain hydration and also consider infection prophylaxis with Valtrex, Diflucan, ciprofloxacin, Bactrim. Patient will return to clinic 1 week after chemo initiation with CBC CMP Signed By: Yovanny Castano M.D. <<Signature on File>>
== END 2020-12-22 11:33 | disposition home or self-care (01) ==
LOC: ONCMED 11:33
PROVIDERS: PCP Family Medicine; Visit Provider Internal Medicine Hematology & Oncology
DX: C83.04 Small cell B-cell lymphoma, lymph nodes of axilla and upper limb (principal); R91.8 Other nonspecific abnormal finding of lung field; R59.0 Localized enlarged lymph nodes; M19.90 Unspecified osteoarthritis, unspecified site; Z79.899 Other long term (current) drug therapy; Z87.39 Personal history of other diseases of the musculoskeletal system and connective tissue
CPT/HCPCS: 80053; 85025; 99215

== ENCOUNTER 2021-01-04 05:57 | Outpatient (CLI) | payer MEDICAID, SELFPAY ==
[2021-01-04 11:02] LABS: Basophils # 0.1 10^3/uL (0.0-0.1); Basophils % 0.4 %; Eosinophils # 0.1 10^3/uL (0.0-0.8); Eosinophils % 0.3 %; Hematocrit 34.8 % (37.0-47.0); Hemoglobin 11.4 g/dL (11.5-15.3); Lymphocytes # 11.3 10^3/uL (0.8-4.8); Lymphocytes % 59.3 %; Mean Corpuscular HGB Conc 32.8 g/dL (30.0-36.0); Mean Corpuscular Hemoglobin 31.8 pg (28.0-34.0); Mean Corpuscular Volume 97.2 fL (81-99); Mean Platelet Volume 9.7 fL (7.4-10.4); Monocytes # 1.1 10^3/uL (0.2-0.9); Monocytes % 5.7 %; Neutrophils # 6.39 10^3/uL (1.8-7.7); Neutrophils % 33.6 %; Nucleated Red Blood Cells % 0 %; Platelet Count 149 10^3/cmm (130-400); Red Blood Count 3.58 10^6/uL (4.1-5.3); Red Cell Distribution Width 14.2 % (12.1-15.1)
[2021-01-04 11:33] LABS: Alanine Aminotransferase 16 U/L (0-33); Albumin Level 4.3 g/dL (3.5-5.2); Alkaline Phosphatase 96 IU/L (35-105); Anion Gap 13.6 (5-19); Aspartate Amino Transferase 17 U/L (0-32); Blood Urea Nitrogen 15 mg/dL (8-23); Calcium 9.3 mg/dL (8.5-10.5); Carbon Dioxide 24 mmol/L (22-29); Chloride 102 mmol/L (98-107); Globulin 2.6 g/dL (1.3-4.6); Glomerular Filtration Rate 63.7 mL/min (90-130); Glucose 122 mg/dL (65-115); Osmolality Calculated 282 mOsm/kg (285-295); Potassium 4.6 mmol/L (3.5-5.1); Sodium 135 mmol/L (136-145); Total Bilirubin 0.2 mg/dL (0.15-1.2); Total Protein 6.9 g/dL (6.6-8.7)
[2021-01-04] MEDS: sodium chloride 0.9% 500 ML 999 ML IV (12:40)
[2021-01-04] MEDS: acetaminophen 325 mg Tablet 650 MG PO (12:42)
[2021-01-04] MEDS: diphenhydrAMINE 50 mg/mL SDV 1mL IVP (12:43)
[2021-01-04] MEDS: dexamethasone 20 MG in sodium chloride 0.9% 50 ML 187 MG IV (12:48)
--- NOTE | 2021-01-12 21:21 | ONC FU_ITS ---
[facility] Patient Note Patient: Indira Long Unit #: [id number]: 1960 Dictated By: Lottie SmithDate of Visit: Jan 04, 2021 Onc MED Follow-Up/Prog Note Chief Complaint: Low-grade lymphoma History of Present Illness: Mrs. Long is a 60-year-old female with long-standing history of small cervical, bilateral axillary lymphadenopathy. The adenopathy was confirmed with CT scan of chest abdomen pelvis done on 10/03/2018. The CT showed mild bilateral axillary lymphadenopathy largest being 1 cm; mildly enlarged abdominal and pelvic lymph nodes, no significant change when compared with CT scan done on 04/03/2018 and no splenomegaly. There was a stable 1.2 cm irregular right lower lobe lung nodule and additional 3 mm right upper lobe lung nodule has remained stable. 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 Mammogram done on 02/11/2019 showed scattered fibroglandular densities. Occasional bilateral breast benign-appearing calcification. 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 PMH: Sleep apnea but noncompliant with CPAP machine Interim History: Mr Long presented to her PCP with complaints of fullness in the neck-more on the left side but no dysphagia. She was also complaining of chronic lower back pain, patient said she has history of bulging disks . Follow-up CT scan of neck/chest/abdomen/pelvis done on May 19, 2020 showed numerous enlarged lymph nodes throughout both bilateral cervical chains. Supraclavicular and diffuse abdominal lymphadenopathy-with the largest conglomeration of lymph node in the upper abdomen measuring 3.6 x 2.2 cm. There was enlarged periaortic, retroperitoneal lymph nodes additionally enlarged iliac chain pelvic sidewall lymph nodes and inguinal lymphadenopathy splenic granulomas. Patient had a bilateral mammogram done on May 09, 2020 which showed extensive right axillary lymphadenopathy largest being 4.2 x 1.5 x 4 cm. She was started on ibrutinib 420 mg p.o. daily. On June 03, 2020, along with allopurinol, Put on hold for 2 weeks on July 15, 2020, Because of off and on palpitation Eventually discontinued Follow-up echo done on October 06, 2020 shows ejection fraction 62%, She also recently presented with progressive off and on mild night sweats; off and on fever, earlier history of weight loss but now gaining. She was also complaining of discomfort in the right axilla because of enlarging lymphadenopathy and neck fullness but no dysphagia, no shortness of breath. No nausea or vomiting, no diarrhea or constipation. Because of progressive fullness and persistent off and on night sweats but no fever but weight loss, patient was not sure whether there was due to new medication started by rheumatology or disease, CT scan of neck chest abdomen pelvis was done on December 19, 2020 which shows overall cervical lymphadenopathy is progressed compared to May 19, 2020 with some lymph nodes more prominent and larger. Supraclavicular, internal mammary anterior mediastinal lymph nodes and axillary lymph nodes are slightly progressed CT scan of abdomen pelvis showed extensive lymphadenopathy in the largest lymph node near celiac plexus 3.[address] Castano recommended treatment with Obinutuzumab and venetoclax. She is here today for follow-up and is due to start her first cycle. Mrs. Long is accompanied by her today. She has no new concerns. She continues to have fatigue off and on night sweats and some weight loss. She states that she thinks her weight stabilized a little bit. She denies any nausea or vomiting. She said no new pain. She denies any fever or chills. She has no new concerns today. Her ECOG is 2. Past Medical History: Anxiety Chronic obstructive pulmonary disease Congestive heart failure Gastroesophageal reflux disease History of urinary calculi Hyperlipidemia Hypertension Hypothyroidism Osteoarthritis Type II diabetes Past Surgical History: Appendectomy Bladder suspension Cholecystectomy Hysterectomy Nasal polypectomy Tubal ligation Allergies: Pneumococcal 13-Shanon Conj Vacc Medications: Atenolol 1 Tablet (of 25 mg) Oral daily Euthyrox 1 Tablet (of 150 mcg) Oral daily glipiZIDE 1 Tablet Oral b.i.d. Lasix 1 Tablet (of 40 mg) Oral daily Levothyroxine Sodium 1 Tablet (of 137 mcg) Oral daily Liothyronine Sodium 1 Tablet (of 5 mcg) Oral daily Lisinopril 1 Tablet (of 20 mg) Oral daily Lovastatin 1 Tablet (of 40 mg) Oral daily Omeprazole 1 Tablet (of 20 mg) Tablet, enteric coated Oral b.i.d. Spironolactone 1 Tablet (of 50 mg) Oral daily traZODone HCl 1 Tablet (of 100 mg) Oral daily PRN Family History: Ms. Long's mother at age 69: lung cancer. Ms. Long's father at age 53: colon cancer. Ms. Long has 2 brothers: 2 alive. Ms. Long's first brother's lymphoma. Another brother's pancreatic cancer. She has 1 sister who is alive: breast cancer. Social History: Ms. Long is and she is unemployed. She is a daily smoker who has smoked 1.0 pack/day for 26 years. She has no history of drinking. She has indicated exposure to the following products: cigarettes. Review Of Symptoms: Constitutional Denies worsening fevers, chills, night sweats, excessive fatigue or weight loss. Fatigue but no worse. Allergic/Immunologic No reactions. Eyes Denies significant visual changes. No diplopia. No amaurosis. ENMT Denies changes in hearing, sore throat, mouth sores, difficulty or changes in swallowing ability, and/or sinus drainage. Hematologic/Lymphatic Denies easy bruising or bleeding. She states she has nodes in her neck and right axilla that she can feel. Respiratory Denies any new or worsening dyspnea on exertion, chest pain, cough or hemoptysis. Denies orthopnea. Cardiovascular Denies anginal chest pain, palpitations or orthopnea. Gastrointestinal Denies nausea, vomiting, diarrhea, GI bleeding, or constipation. Denies change in bowel habits and/or stool color, no heartburn or early satiety. Genitourinary (F) No hematuria, hesitancy, incontinence, vaginal bleeding, discharge or other problems with urination. Musculoskeletal Denies joint pain, swelling or redness. No decreased range of motion. Integumentary Denies chronic rashes, inflammation, ulcerations or skin changes. Neurologic Denies headache, blurred vision, and no areas of focal weakness or numbness. Normal gait. No sensory problems. Psychiatric Denies insomnia, depression, lester or mood swings. Vital Signs: Performed on Jan 04, 2021 12:00 Height - 63.00 in Weight - 197.4 lbs (LOW) BSA - 1.92 sq.m BMI - 34.97 (HIGH) Temperature - 97.4 F (LOW) Pulse - 73 /min Respiration - 19 /min BP - 153/78 mm(hg) (HIGH) O2 Sat - 99 % Pain - 8,2 - Ambulatory/capable of all self-care, unable to perform any work activities. Up and about more than 50% of waking hours. (ECOG) Physical Examination: Constitutional Alert, oriented, no acute distress. Skin pink, warm and dry. Head Normocephalic; atraumatic. Eyes Conjunctivae and sclerae are clear and without icterus. Pupils are reactive and equal. Neck Supple without masses or thyromegaly. No jugular venous distension. Respiratory Lungs are clear to auscultation without rhonchi or wheezing. Cardiovascular Regular rate and rhythm of heart without murmurs,clicks, gallops or rubs. Abdomen Non-tender, non-distended, no masses or ascites. Back/Spine Non-tender to palpation. Extremities No visible deformities, no cyanosis, clubbing or edema. Musculoskeletal No tenderness or swelling, normal range of motion without obvious weakness. Integumentary No rashes or lesions. Neurologic No sensory or motor deficits, normal cerebellar function, normal gait. Psychiatric Alert and oriented times three. Coherent speech. Verbalizes understanding of our discussions today. Laboratory:Test performed on Jan 04, 2021 10:45 Sodium 135 mmol/L Potassium 4.6 mmol/L Chloride 102 mmol/L CO2 24 mmol/L Anion Gap 13.6 BUN 15 mg/dL Creatinine 0.9 mg/dL Cr Clearance (Est) 92.79 mL/min eGFR 63.7 mL/min Glucose 122 mg/dL Osmolality - Calculated 282 mOsm/kg Calcium 9.3 mg/dL Protein, Total 6.9 g/dL Albumin 4.3 g/dL Globulin 2.6 g/dL Bilirubin, Total 0.2 mg/dL ALT (SGPT) 16 U/L AST (SGOT) 17 U/L Alkaline Phosphatase 96 IU/L WBC 19.0 10 3/uL RBC 3.58 10 6/uL HGB 11.4 g/dL HCT 34.8 % MCV 97.2 fL MCH 31.8 pg MCHC 32.8 g/dL RDW 14.2 % Platelet Count 149 10 3/cmm MPV 9.7 fL Neutrophils 6.39 10 3/uL Lymphocytes 11.3 10 3/uL Monocytes 1.1 10 3/uL Eosinophils 0.1 10 3/uL Basophils 0.1 10 3/uL Neutrophil % 33.6 % Lymphocyte % 59.3 % Monocyte % 5.7 % Eosinophil % 0.3 % Basophils % 0.4 % NRBC % 0 % Test performed on Nov 21, 2020 15:58 Hepatitis B Core Ab, Total NO RED TOP SPECIMEN IN LAB ST Hepatitis B Surface Ab NO RED TOP SPECIMEN IN LAB ST Test performed on Nov 10, 2020 09:23 Manual Lymphocytes 0 % Manual Monocytes 2 % Manual Eosinophils 1 % Manual Basophils 1 % Test performed on Jul 28, 2020 13:45 Ua Color Straw Ua Appearance Clear Ua pH 5 Ua Specific Baldwin 1.015 Ua Glucose Norm Ua Ketones Negative Ua Protein Neg Ua Blood Neg Ua Bilirubin Neg Ua Nitrites Negative Ua Leukocyte Esterase Negative Urine Culture <5,000 COLS/ML MIXED SUPERFICIAL TOREY. >= 3 TYPES OF GRAM POSITIVE ORGANISMS ON DAY 2. PROBABLE CONTAMINANTS. Ua Micro: WBC 0-4 /hpf Ua Micro: RBC RARE /hpf Ua Micro: Squam Epith Cells 0-4 Ua Micro: Bacteria TRACE Test performed on Jul 28, 2020 11:14 Phosphorus 3.0 mg/dL Uric Acid 3.1 mg/dL CBC Slide Review Slide Review Perform SLIDE REVIEW AGREES WITH AUTOMATED RESULT Test performed on Jul 15, 2020 09:30 LDH (Total) 189 U/L Impression: Small lymphocytic lymphoma with prominent confluent proliferation centers per right axillary lymph node biopsy done on 12/18/2018. 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 Whole blood Flow cytometry done on 02/09/2019 showed monotypic B-cell population, phenotypically compatible with chronic lymphocytic leukemia/small lymphocytic lymphoma Cells were positive for CD19, CD20 (dim), CD5 and CD23 and shows surface kappa light chain restriction (dim expression), CD10 and [facility] [address] scan of chest abdomen pelvis done on 10/03/2018 showed bilateral axillary lymphadenopathy largest lymph node in right axilla 1 cm in size compared to 0.5 cm on 04/03/2018. Stable 1.2 cm irregular right lower lobe pulmonary nodule. An additional 3 mm right upper lobe pulmonary nodule has remained stable Mild intra-abdominal and pelvic lymphadenopathy with no significant change since 04/03/2018, largest lymph node 1.4 cm in the periportal area. No splenomegaly. Lab workup done on 01/27/2019 shows white blood count 13.1 absolute lymphocytes 5.21 Hemoglobin 12.8 hematocrit 39.1 platelets 234,000 CMP within normal limits Mrs Long's recent CT scan of neck/chest/abdomen/pelvis from 05/19/2020 shows progressive central lymphadenopathy as well as cervical, supraclavicular and axillary lymph node no with some discomfort on the right axilla due to enlarging lymph node. She was also having vague B symptoms e.g. off and on mild night sweating and fever initial weight loss. At this point, because of progressive lymphadenopathy but no organomegaly and vague B symptoms, she was started her on treatment with ibrutinib 420 mg p.o. daily. Mrs Long started allopurinol and ibrutinib on June 03, 2020. History of chronic arthritis Clinically, Mrs Long had been doing reasonably well but presents with persistent off and on night sweats but no recurrent fever. She also reports some weight loss which could be multifactorial. She states overall she is not feeling well and progressive cervical lymphadenopathy seen on physical exam as well as \ 12-19-2020 CT scan of neck. CT of the chest/abdomen/pelvis from 12/12/2020 also reported significant increase in size and number of axillary, supraclavicular and mediastinal lymph nodes since October 02, 2018 and also abdominal, mesenteric and retroperitoneal lymphadenopathy that has not improved since May 19, 2020. The lymph nodes in the pelvis had increased in size by 2 to 3 mm in diameter. 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 Dr Castano discussed the side effects and possible benefits associated with this regimen. Side effects include but not limited to bone marrow suppression, which can increase risk for life-threatening infection and bleeding, hair loss, allergic reaction, endocrinopathy especially with obinutuzumab. Her treatment plan will consist of: obinutuzumab 100 mg on cycle 1 day 1 followed by 900 mg on day 2 and then 1000 mg on day 8 and 15 and then add venetoclax on day 22 with cycle 1 is 20 mg p.o. daily for 1 week and 5-week ramp-up schedule as per protocol, if tolerated to 400 mg p.o. daily with second cycle of obinutuzumab 12 mg q. 28 days. As patient has history of gout, she was restarted on allopurinol and we will monitor her closely for tumor lysis with electrolytes and patient was advised to maintain hydration. She will also have infection prophylaxis with Valtrex; Diflucan; ciprofloxacin or Bactrim. Plan: PROBLEMS ADDRESSED TODAY 1. CLL A. Proceed with cycle 1 Obinutuzumab with testing dose today and 900 mg tomorrow. The venetoclax will not start until day 22 and dosing will be 20 mg daily for week 150 mg daily for a week to 100 mg daily for week 3 200 mg daily week 4 and 400 mg daily starting week 5 and then daily thereafter. B. Shot prophylaxis with acyclovir fluconazole and Bactrim DS. She also have Compazine and lorazepam as needed for nausea at home. She was previously started on allopurinol. She is currently taking 100 mg daily for 30 days. C. Today's labs reviewed in detail discussed with Mr. Mrs. Long and a copy was given to them. WBC is 19.0 hemoglobin 11.4 platelets 1 49,000 ANC is 6390. Creatinine is 0.9 random glucose 122 potassium 4.6 calcium 9.3 LFTs are normal LDH not obtained. D. We will plan to see her back in 1 week with CBC CMP for consideration of week to of obinutuzumab. E. and Mrs. Em were instructed to contact us in the interim should questions or problems arise. F. We did discuss Covid vaccine. She is advised that she could proceed with obtaining the vaccine if she wants to do that. She was advised that we are informing patients of the opportunity to obtain the Covid vaccine via the [employer] hotline. We discussed that for patients on current treatment with chemotherapy immunotherapy or immunosuppressant agents we are unsure of the actual benefit and if they will react any more severely with side effects than the general public. However the general consensus in the medical oncology community has been as long as patients have no known contraindications to the Covid vaccines or are not neutropenic, they are eligible for vaccination. It is discussed that what ever immunity they may obtain it from receiving the Covid vaccines is better than nothing at this point. She was again instructed that we are unaware of whether or not side effects would be worse or not for patients on current chemotherapy, immunotherapy or other immunosuppressant agents. She states that she is uncertain whether she wants to proceed with the Covid vaccine or not. She is encouraged to call us if she has questions. She is also referred to the [employer] website as well as the [employer] phone line. G. The patient and family were informed of chemotherapy plan and specific drugs were discussed. We also discussed how chemotherapy works and identified common side effects including alopecia; myelosuppression-including neutropenia, anemia, thrombocytopenia; peripheral neuropathy; fatigue; nausea; diarrhea; constipation; bleeding or bruising; skin changes; mouth sores; drug hypersensitivity/allergic reactions or anaphylaxis and extravasation. They have also been informed how to contact the clinic with side effects or symptoms, including but not limited to fever greater than 100.4???, chills, sore throat, bleeding or bruising that is not explained or mouth sores, cough, nasal discharge, diarrhea, constipation, nausea and/or vomiting not relieved with medications on hand at home, as well as any other concern or question they may have. Our hours are 8:00 a.m. to 4:30 p.m. on Saturday through and 8-12:00 on Saturday. However, someone is environmental management specialist 24 hours per day and they have been advised to contact the [facility] at if it is after hours. We have also discussed potential long-term side effects of chemotherapy including secondary cancers, infertility, pulmonary complications, cardiac complications, and again peripheral neuropathy. We have discussed that they certainly need to let us know before taking any antioxidants or herbal or further dietary supplements, as we are unsure of how these agents react with chemotherapy and we request that they avoid these products for now. They were informed that it is okay to take multivitamins at normal doses. They verbally state that they understand to take all medications as directed by their healthcare provider unless otherwise indicated. They also verbalized understanding to leave the pressure dressing on the intravenous administration site for at least two hours after treatment. Instructions for oral care with baking soda and salt water rinses as well as a guide for use of [id number] medication were provided with the treatment plan. They have been given a written patient treatment plan, of which a copy is in the chart, as well as specific drug information. They have no questions and verbalized understanding and are willing to proceed with chemotherapy at this time. More than 60 miutes was spent: with this patient in face to face communication with this patient and her family in regards to plan of care (drug education and schedule), side effect identification and management; review of medical records and plan of care prior to the visit and post visit documentation. Signed By: Lottie Smith- ,AOCNP Yovanny Castano MD <<Signature on File>>
== END 2021-01-04 05:58 | disposition home or self-care (01) ==
LOC: ONCMED 05:58
PROVIDERS: PCP Family Medicine; Visit Provider Nurse Practitioner
DX: C91.10 Chronic lymphocytic leukemia of B-cell type not having achieved remission (principal); Z79.899 Other long term (current) drug therapy
CPT/HCPCS: 80053; 85025; 96367; 96375; 96413; 96415; 99215; J1100; J1200; J7040; J9301

== ENCOUNTER 2021-01-05 07:57 | Outpatient (CLI) | payer MEDICAID, SELFPAY ==
[2021-01-05] MEDS: sodium chloride 0.9% 500 ML 999 ML IV (10:15)
[2021-01-05] MEDS: diphenhydrAMINE 50 mg/mL SDV 1mL IVP (10:18)
[2021-01-05] MEDS: dexamethasone 20 MG in sodium chloride 0.9% 50 ML 187 MG IV (10:20)
[2021-01-05] MEDS: acetaminophen 325 mg Tablet 650 MG PO (10:20)
== END 2021-01-05 07:58 | disposition home or self-care (01) ==
LOC: ONCMED 07:58
PROVIDERS: PCP Family Medicine; Visit Provider Internal Medicine Hematology & Oncology
DX: Z51.11 Encounter for antineoplastic chemotherapy (principal); C83.00 Small cell B-cell lymphoma, unspecified site; J44.9 Chronic obstructive pulmonary disease, unspecified; K21.9 Gastro-esophageal reflux disease without esophagitis; E78.5 Hyperlipidemia, unspecified; I10 Essential (primary) hypertension; E03.9 Hypothyroidism, unspecified; E11.9 Type 2 diabetes mellitus without complications
CPT/HCPCS: 96367; 96375; 96413; 96415; J1100; J1200; J7040; J7050; J9301

== ENCOUNTER 2021-01-25 05:54 | Outpatient (CLI) | payer MEDICAID, SELFPAY ==
[2021-01-25 09:01] LABS: Basophils # 0.1 10^3/uL (0.0-0.1); Basophils % 1.1 %; Eosinophils # 0.1 10^3/uL (0.0-0.8); Eosinophils % 2.4 %; Hematocrit 30.7 % (37.0-47.0); Hemoglobin 10.2 g/dL (11.5-15.3); Lymphocytes # 1.4 10^3/uL (0.8-4.8); Lymphocytes % 24.7 %; Mean Corpuscular HGB Conc 33.2 g/dL (30.0-36.0); Mean Corpuscular Hemoglobin 32.4 pg (28.0-34.0); Mean Corpuscular Volume 97.5 fL (81-99); Mean Platelet Volume 9.4 fL (7.4-10.4); Monocytes # 0.3 10^3/uL (0.2-0.9); Monocytes % 5.7 %; Neutrophils # 3.59 10^3/uL (1.8-7.7); Neutrophils % 65.7 %; Nucleated Red Blood Cells % 0 %; Platelet Count 181 10^3/cmm (130-400); Red Blood Count 3.15 10^6/uL (4.1-5.3); Red Cell Distribution Width 14.6 % (12.1-15.1); White Blood Count 5.5 10^3/uL (4.0-10.0)
[2021-01-25 09:17] LABS: Alanine Aminotransferase 15 U/L (0-33); Albumin Level 4.2 g/dL (3.5-5.2); Alkaline Phosphatase 82 IU/L (35-105); Anion Gap 13.6 (5-19); Aspartate Amino Transferase 21 U/L (0-32); Blood Urea Nitrogen 15 mg/dL (8-23); Carbon Dioxide 25 mmol/L (22-29); Chloride 95 mmol/L (98-107); Globulin 2.5 g/dL (1.3-4.6); Glomerular Filtration Rate 32.8 mL/min (90-130); Glucose 153 mg/dL (65-115); Osmolality Calculated 272 mOsm/kg (285-295); Potassium 4.6 mmol/L (3.5-5.1); Sodium 129 mmol/L (136-145); Total Bilirubin 0.3 mg/dL (0.15-1.2); Total Protein 6.7 g/dL (6.6-8.7)
[2021-01-25] MEDS: acetaminophen 325 mg Tablet 650 MG PO (11:41)
[2021-01-25] MEDS: sodium chloride 0.9% 500 ML 999 ML IV (11:41)
[2021-01-25] MEDS: dexamethasone 20 MG in sodium chloride 0.9% 50 ML 187 MG IV (11:57)
--- NOTE | 2021-01-25 17:00 | ONC FU_ITS ---
Dr. Castano follow up note Patient: Indira Long Unit #: [id number]: 1960 Dicatated By: Yovanny Castano M.D.Date of Visit:Jan 25, 2021 Onc Med Follow-up/Prog Note History of Present Illness: Mrs. Long is a 60-year-old female with long-standing history of small cervical, bilateral axillary lymphadenopathy. The adenopathy was confirmed with CT scan of chest abdomen pelvis done on 10/03/2018. The CT showed mild bilateral axillary lymphadenopathy largest being 1 cm; mildly enlarged abdominal and pelvic lymph nodes, no significant change when compared with CT scan done on 04/03/2018 and no splenomegaly. There was a stable 1.2 cm irregular right lower lobe lung nodule and additional 3 mm right upper lobe lung nodule has remained stable. 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 Mammogram done on 02/11/2019 showed scattered fibroglandular densities. Occasional bilateral breast benign-appearing calcification. 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 PMH: Sleep apnea but noncompliant with CPAP machine Interim History: Mr Long presented to her PCP with complaints of fullness in the neck-more on the left side but no dysphagia. She was also complaining of chronic lower back pain, patient said she has history of bulging disks . Follow-up CT scan of neck/chest/abdomen/pelvis done on May 19, 2020 showed numerous enlarged lymph nodes throughout both bilateral cervical chains. Supraclavicular and diffuse abdominal lymphadenopathy-with the largest conglomeration of lymph node in the upper abdomen measuring 3.6 x 2.2 cm. There was enlarged periaortic, retroperitoneal lymph nodes additionally enlarged iliac chain pelvic sidewall lymph nodes and inguinal lymphadenopathy splenic granulomas. Patient had a bilateral mammogram done on May 09, 2020 which showed extensive right axillary lymphadenopathy largest being 4.2 x 1.5 x 4 cm. She was started on ibrutinib 420 mg p.o. daily. On June 03, 2020, along with allopurinol, Put on hold for 2 weeks on July 15, 2020, Because of off and on palpitation Eventually discontinued Follow-up echo done on October 06, 2020 shows ejection fraction 62%, She also recently presented with progressive off and on mild night sweats; off and on fever, earlier history of weight loss but now gaining. She was also complaining of discomfort in the right axilla because of enlarging lymphadenopathy and neck fullness but no dysphagia, no shortness of breath. No nausea or vomiting, no diarrhea or constipation. Because of progressive fullness and persistent off and on night sweats but no fever but weight loss, patient was not sure whether there was due to new medication started by rheumatology or disease, CT scan of neck chest abdomen pelvis was done on December 19, 2020 which shows overall cervical lymphadenopathy is progressed compared to May 19, 2020 with some lymph nodes more prominent and larger. Supraclavicular, internal mammary anterior mediastinal lymph nodes and axillary lymph nodes are slightly progressed CT scan of abdomen pelvis showed extensive lymphadenopathy in the largest lymph node near celiac plexus 3.3 x 2.0 cm. recommended treatment with Obinutuzumab and venetoclax.Which was started on January 04, 2021 Came for follow-up, denies any specific complaint except generalized weakness and fatigue but tolerated first dose of obinutuzumab well but patient missed day 8 and day 15 because of snow. Otherwise denies any fever or chills denies any nausea or vomiting denies diarrhea constipation, as per patient no more low-grade fever or sweating and bilateral neck lymph size has decreased. Medications: Atenolol 1 Tablet (of 25 mg) Oral daily, Euthyrox 1 Tablet (of 150 mcg) Oral daily, glipiZIDE 1 Tablet Oral b.i.d., Lasix 1 Tablet (of 40 mg) Oral daily, Levothyroxine Sodium 1 Tablet (of 137 mcg) Oral daily, Liothyronine Sodium 1 Tablet (of 5 mcg) Oral daily, Lisinopril 1 Tablet (of 20 mg) Oral daily, Lovastatin 1 Tablet (of 40 mg) Oral daily, Omeprazole 1 Tablet (of 20 mg) Tablet, enteric coated Oral b.i.d., Spironolactone 1 Tablet (of 50 mg) Oral daily, traZODone HCl 1 Tablet (of 100 mg) Oral daily PRN Allergies: Pneumococcal 13-Shanon Conj Vacc Review of Systems: Review of Systems is not available for this patient. Vital Signs: Performed on Jan 25, 2021 10:44 Height - 63.00 in Weight - 195.6 lbs BSA - 1.92 sq.m BMI - 34.65 (HIGH) Temperature - 96.3 F (LOW) Pulse - 74 /min Respiration - 18 /min BP - 84/52 mm(hg) (LOW) O2 Sat - 97 % Pain - 0 Fatigue - 8 Performed on Jan 25, 2021 08:47 Height - 63.00 in Weight - 195.6 lbs (LOW) BSA - 1.92 sq.m BMI - 34.65 (HIGH) Performance Status: 1 - No physically strenuous activity, but ambulatory and able to carry out light or sedentary work (e.g. office work, light house work). (ECOG) Physical Examination: ENMT - no thrush, no jaundice, bilateral cervical lymphadenopathy has decreased in size, Respiratory - Lungs are clear to auscultation, Cardiovascular - Regular rate and rhythm of heart, Abdomen - Soft, bowel sounds present, Extremities - No visible edema. Lab/Imaging: Test performed on Jan 04, 2021 10:45 Sodium 135 mmol/L Potassium 4.6 mmol/L Chloride 102 mmol/L CO2 24 mmol/L Anion Gap 13.6 BUN 15 mg/dL Creatinine 0.9 mg/dL Cr Clearance (Est) 92.79 mL/min eGFR 63.7 mL/min Glucose 122 mg/dL Osmolality - Calculated 282 mOsm/kg Calcium 9.3 mg/dL Protein, Total 6.9 g/dL Albumin 4.3 g/dL Globulin 2.6 g/dL Bilirubin, Total 0.2 mg/dL ALT (SGPT) 16 U/L AST (SGOT) 17 U/L Alkaline Phosphatase 96 IU/L WBC 19.0 10 3/uL RBC 3.58 10 6/uL HGB 11.4 g/dL HCT 34.8 % MCV 97.2 fL MCH 31.8 pg MCHC 32.8 g/dL RDW 14.2 % Platelet Count 149 10 3/cmm MPV 9.7 fL Neutrophils 6.39 10 3/uL Lymphocytes 11.3 10 3/uL Monocytes 1.1 10 3/uL Eosinophils 0.1 10 3/uL Basophils 0.1 10 3/uL Neutrophil % 33.6 % Lymphocyte % 59.3 % Monocyte % 5.7 % Eosinophil % 0.3 % Basophils % 0.4 % NRBC % 0 % Test performed on Nov 21, 2020 15:58 Hepatitis B Core Ab, Total NO RED TOP SPECIMEN IN LAB ST Hepatitis B Surface Ab NO RED TOP SPECIMEN IN LAB ST Test performed on Nov 10, 2020 09:23 Manual Lymphocytes 0 % Manual Monocytes 2 % Manual Eosinophils 1 % Manual Basophils 1 % Impression: Small lymphocytic lymphoma with prominent confluent proliferation centers per right axillary lymph node biopsy done on 12/18/2018. 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 Stable 1.2 cm irregular right lower lobe pulmonary nodule. An additional 3 mm right upper lobe pulmonary nodule has remained stable Mild intra-abdominal and pelvic lymphadenopathy with no significant change since 04/03/2018, largest lymph node 1.4 cm in the periportal area. No splenomegaly. Lab workup done on 01/27/2019 shows white blood count 13.1 absolute lymphocytes 5.21 Hemoglobin 12.8 hematocrit 39.1 platelets 234,000 CMP within normal limits Mrs Long's recent CT scan of neck/chest/abdomen/pelvis from 05/19/2020 shows progressive central lymphadenopathy as well as cervical, supraclavicular and axillary lymph node no with some discomfort on the right axilla due to enlarging lymph node. She was also having vague B symptoms e.g. off and on mild night sweating and fever initial weight loss. At this point, because of progressive lymphadenopathy but no organomegaly and vague B symptoms, she was started her on treatment with ibrutinib 420 mg p.o. daily. Mrs Long started allopurinol and ibrutinib on June 03, 2020. History of chronic arthritis Clinically, Mrs Long had been doing reasonably well but presents with persistent off and on night sweats but no recurrent fever. She also reports some weight loss which could be multifactorial. She states overall she is not feeling well and progressive cervical lymphadenopathy seen on physical exam as well as \ 12-19-2020 CT scan of neck. CT of the chest/abdomen/pelvis from 12/12/2020 also reported significant increase in size and number of axillary, supraclavicular and mediastinal lymph nodes since October 02, 2018 and also abdominal, mesenteric and retroperitoneal lymphadenopathy that has not improved since May 19, 2020. The lymph nodes in the pelvis had increased in size by 2 to 3 mm in diameter. 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 discussed the side effects and possible benefits associated with this regimen. Side effects include but not limited to bone marrow suppression, which can increase risk for life-threatening infection and bleeding, hair loss, allergic reaction, endocrinopathy especially with obinutuzumab. Her treatment plan will consist of: obinutuzumab 100 mg on cycle 1 day 1 followed by 900 mg on day 2 and then 1000 mg on day 8 and 15 and then add venetoclax on day 22 with cycle 1 is 20 mg p.o. daily for 1 week and 5-week ramp-up schedule as per protocol, if tolerated to 400 mg p.o. daily with second cycle of obinutuzumab 12 mg q. 28 days. As patient has history of gout, she was restarted on allopurinol and we will monitor her closely for tumor lysis with electrolytes and patient was advised to maintain hydration. She will also have infection prophylaxis with Valtrex; Diflucan; ciprofloxacin or Bactrim. Plan: With patient regarding her labs white blood count 5.5 hemoglobin 10.2 hematocrit 30.7 platelets 181,000 CMP within normal limit except sodium 129 and creatinine 1.6 Clinically, patient is doing well, tolerated first dose of obinutuzumab well but missed day 8 and day 15 dose, in that case today will consider day 15 of obinutuzumab and then next week patient will start taking her venetoclax as per protocol and then return to clinic in 2 weeks with CBC CMP and for day 28 obinutuzumab Mild renal insufficiency, will monitor closely patient was advised to maintain hydration Signed By: Yovanny Castano M.D. <<Signature on File>>
== END 2021-01-25 05:55 | disposition home or self-care (01) ==
LOC: ONCMED 05:54
PROVIDERS: PCP Family Medicine; Visit Provider Internal Medicine Hematology & Oncology
DX: Z51.12 Encounter for antineoplastic immunotherapy (principal); C83.04 Small cell B-cell lymphoma, lymph nodes of axilla and upper limb; N28.9 Disorder of kidney and ureter, unspecified; Z79.899 Other long term (current) drug therapy
CPT/HCPCS: 80053; 85025; 96367; 96413; 96415; 99214; J1100; J1200; J7040; J7050; J9301

== ENCOUNTER 2021-02-09 06:02 | Outpatient (CLI) | payer MEDICAID, SELFPAY ==
[2021-02-09 09:55] LABS: Basophils % 0.6 %; Eosinophils # 0.2 10^3/uL (0.0-0.8); Eosinophils % 2.5 %; Hematocrit 29.6 % (37.0-47.0); Hemoglobin 9.7 g/dL (11.5-15.3); Lymphocytes # 0.7 10^3/uL (0.8-4.8); Lymphocytes % 11.1 %; Mean Corpuscular HGB Conc 32.8 g/dL (30.0-36.0); Mean Corpuscular Hemoglobin 32.6 pg (28.0-34.0); Mean Corpuscular Volume 99.3 fL (81-99); Mean Platelet Volume 9.5 fL (7.4-10.4); Monocytes # 0.5 10^3/uL (0.2-0.9); Monocytes % 7.4 %; Neutrophils # 4.92 10^3/uL (1.8-7.7); Neutrophils % 77.9 %; Nucleated Red Blood Cells % 0 %; Platelet Count 171 10^3/cmm (130-400); Red Blood Count 2.98 10^6/uL (4.1-5.3); Red Cell Distribution Width 14.5 % (12.1-15.1); White Blood Count 6.3 10^3/uL (4.0-10.0)
[2021-02-09 10:21] LABS: Alanine Aminotransferase 16 U/L (0-33); Alkaline Phosphatase 82 IU/L (35-105); Anion Gap 13.7 (5-19); Aspartate Amino Transferase 17 U/L (0-32); Blood Urea Nitrogen 24 mg/dL (8-23); Calcium 9.1 mg/dL (8.5-10.5); Carbon Dioxide 23 mmol/L (22-29); Chloride 102 mmol/L (98-107); Globulin 2.7 g/dL (1.3-4.6); Glomerular Filtration Rate 32.8 mL/min (90-130); Glucose 169 mg/dL (65-115); Osmolality Calculated 282 mOsm/kg (285-295); Sodium 132 mmol/L (136-145); Total Bilirubin 0.2 mg/dL (0.15-1.2); Total Protein 6.7 g/dL (6.6-8.7)
[2021-02-09 11:06] LABS: Potassium 6.7 mmol/L (3.5-5.1)
[2021-02-09] MEDS: sodium chloride 0.9% 1,000 ML 999 ML IV (11:10)
[2021-02-09 11:50] LABS: Lactate Dehydrogenase 239 U/L (135-214); Uric Acid 4.5 mg/dL (2.4-5.7)
[2021-02-09 13:13] LABS: Potassium 6.4 mmol/L (3.5-5.1)
[2021-02-09 14:10] VITALS: RESP 16
[2021-02-09] MEDS: HYDROmorphone 1 mg/mL INJ 1 mL 2 MG IV (14:10)
--- NOTE | 2021-02-23 21:26 | ONC FU_ITS ---
[facility] Patient Note Patient: Indira Long Unit #: [id number]: 1960 Dictated By: Lottie SmithDate of Visit: Feb 09, 2021 Onc MED Follow-Up/Prog Note Chief Complaint: Low-grade lymphoma History of Present Illness: Mrs. Long is a 60-year-old female with long-standing history of small cervical, bilateral axillary lymphadenopathy. The adenopathy was confirmed with CT scan of chest abdomen pelvis done on 10/03/2018. The CT showed mild bilateral axillary lymphadenopathy largest being 1 cm; mildly enlarged abdominal and pelvic lymph nodes, no significant change when compared with CT scan done on 04/03/2018 and no splenomegaly. There was a stable 1.2 cm irregular right lower lobe lung nodule and additional 3 mm right upper lobe lung nodule has remained stable. 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 Mammogram done on 02/11/2019 showed scattered fibroglandular densities. Occasional bilateral breast benign-appearing calcification. 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 PMH: Sleep apnea but noncompliant with CPAP machine Interim History: Mrs Long presented to her PCP with complaints of fullness in the neck-more on the left side but no dysphagia. She was also complaining of chronic lower back pain-she reports she has history of bulging disks . Follow-up CT scan of neck/chest/abdomen/pelvis done on May 19, 2020 showed numerous enlarged lymph nodes throughout both bilateral cervical chains. Supraclavicular and diffuse abdominal lymphadenopathy-with the largest conglomeration of lymph node in the upper abdomen measuring 3.6 x 2.2 cm. There was enlarged periaortic, retroperitoneal lymph nodes additionally enlarged iliac chain pelvic sidewall lymph nodes and inguinal lymphadenopathy splenic granulomas. Patient had a bilateral mammogram done on May 09, 2020 which showed extensive right axillary lymphadenopathy largest being 4.2 x 1.5 x 4 cm. Mrs Long was started on ibrutinib 420 mg p.o. daily as well as allopurinol on June 03, 2020. This treatment was put on hold for 2 weeks on July 15, 2020 because of intermittent but worsening palpitations. Eventually this treatment was discontinued. Follow-up echo done on October 06, 2020 shows ejection fraction 62%, In November 2020, she presented with progressive off and on mild night sweats; off and on fever, earlier history of weight loss but then gaining weight. She was also complaining of discomfort in the right axilla because of enlarging lymphadenopathy. She had neck fullness but no dysphagia, no shortness of breath. No nausea or vomiting, no diarrhea or constipation. With the progressive fullness, night sweats but no fever but weight loss; Mrs Long was not sure whether these symptoms were due to new medication started by rheumatology or disease. She did undergo CT scan of neck/chest/abdomen/pelvis on December 19, 2020 which reported the overall cervical lymphadenopathy had progressed compared to May 19, 2020 with some lymph nodes more prominent and larger. Supraclavicular, internal mammary anterior mediastinal lymph nodes and axillary lymph nodes are slightly progressed. The CT scan of abdomen pelvis showed extensive lymphadenopathy in the largest lymph node near celiac plexus 3.[address] Castano recommended treatment with Obinutuzumab and venetoclax. She began her first cycle on January 04, 2021. A test dose of the obinutuzumab was given on day day1 and remaining dose was given day 2. She did not have day 8 or 15 due to inclement winter weather. She resumed obtinutuzumab on 01/25/2021. Mrs. Long is here today for follow-up. She is due for cycle 2-day 1 obinutuzumab. Venetoclax is scheduled to start on day 22. She verbalized that she did started about a week ago. She states she started 50 mg on Saturday. She denies any concerns today. She states overall she just feels tired little washed out. She denies any palpitations, chest pain, shortness of breath orthopnea. She denies any nausea or vomiting. She states overall she thinks she is done pretty well. She denies leg cramps. She states she is needing a release for dental work.. She denies any decline in her appetite. She has had no mouth sores or trouble swallowing. She denies any rash. She denies any neuropathy symptoms. Her ECOG is 2. Past Medical History: Anxiety Chronic obstructive pulmonary disease Congestive heart failure Gastroesophageal reflux disease History of urinary calculi Hyperlipidemia Hypertension Hypothyroidism Osteoarthritis Type II diabetes Past Surgical History: Appendectomy Bladder suspension Cholecystectomy Hysterectomy Nasal polypectomy Tubal ligation Allergies: Pneumococcal 13-Shanon Conj Vacc Medications: Atenolol 1 Tablet (of 25 mg) Oral daily Euthyrox 1 Tablet (of 150 mcg) Oral daily glipiZIDE 1 Tablet Oral t.i.d. Lasix 1 Tablet (of 40 mg) Oral daily Levothyroxine Sodium 1 Tablet (of 137 mcg) Oral daily Liothyronine Sodium 1 Tablet (of 5 mcg) Oral daily Lovastatin 1 Tablet (of 40 mg) Oral daily Omeprazole 1 Tablet (of 20 mg) Tablet, enteric coated Oral b.i.d. traZODone HCl 1 Tablet (of 100 mg) Oral daily PRN Family History: Ms. Long's mother at age 69: lung cancer. Ms. Long's father at age 53: colon cancer. Ms. Long has 2 brothers: 2 alive. Ms. Long's first brother's lymphoma. Another brother's pancreatic cancer. She has 1 sister who is alive: breast cancer. Social History: Ms. Long is and she is unemployed. She is a daily smoker who has smoked 1.0 pack/day for 26 years. She has no history of drinking. She has indicated exposure to the following products: cigarettes. Review Of Symptoms: Constitutional Denies worsening fevers, chills, night sweats, excessive fatigue or weight loss. Fatigue but no worse. Allergic/Immunologic No reactions. Eyes Denies significant visual changes. No diplopia. No amaurosis. ENMT Denies changes in hearing, sore throat, mouth sores, difficulty or changes in swallowing ability, and/or sinus drainage. Hematologic/Lymphatic Denies easy bruising or bleeding. She states she has nodes in her neck and right axilla that she can feel. Respiratory Denies any new or worsening dyspnea on exertion, chest pain, cough or hemoptysis. Denies orthopnea. Cardiovascular Denies anginal chest pain, palpitations or orthopnea. Gastrointestinal Denies nausea, vomiting, diarrhea, GI bleeding, or constipation. Denies change in bowel habits and/or stool color, no heartburn or early satiety. Genitourinary (F) No hematuria, hesitancy, incontinence, vaginal bleeding, discharge or other problems with urination. Musculoskeletal Denies joint pain, swelling or redness. No decreased range of motion. Integumentary Denies chronic rashes, inflammation, ulcerations or skin changes. Neurologic Denies headache, blurred vision, and no areas of focal weakness or numbness. Normal gait. No sensory problems. Psychiatric Denies insomnia, depression, lester or mood swings. Vital Signs: Performed on Feb 09, 2021 11:17 Height - 63.00 in Weight - 193.5 lbs (LOW) BSA - 1.91 sq.m BMI - 34.28 (HIGH) Temperature - 97.0 F (LOW) Pulse - 72 /min Respiration - 18 /min BP - 89/59 mm(hg) (LOW) O2 Sat - 96 % Pain - 8,2 - Ambulatory/capable of all self-care, unable to perform any work activities. Up and about more than 50% of waking hours. (ECOG) Physical Examination: Constitutional Alert, oriented, no acute distress. Skin pink, warm and dry. Head Normocephalic; atraumatic. Eyes Conjunctivae and sclerae are clear and without icterus. Pupils are reactive and equal. ENMT No oral exudates, ulcers, masses, thrush or mucositis. Oropharynx clear. Tongue normal. Neck Supple without masses or thyromegaly. No jugular venous distension. Respiratory Lungs are clear to auscultation without rhonchi or wheezing. Cardiovascular Regular rate and rhythm of heart without murmurs,clicks, gallops or rubs. Abdomen Non-tender, non-distended, no masses or ascites. Back/Spine Non-tender to palpation. Extremities No visible deformities, no cyanosis, clubbing or edema. Musculoskeletal No tenderness or swelling, normal range of motion without obvious weakness. Integumentary No rashes or lesions. Neurologic No sensory or motor deficits, normal cerebellar function, normal gait. Psychiatric Alert and oriented times three. Coherent speech. Verbalizes understanding of our discussions today. Laboratory:Test performed on Feb 09, 2021 12:20 Potassium 6.4 mmol/L Test performed on Feb 09, 2021 09:33 LDH (Total) 239 U/L Sodium 132 mmol/L Uric Acid 4.5 mg/dL Chloride 102 mmol/L CO2 23 mmol/L Anion Gap 13.7 BUN 24 mg/dL Creatinine 1.6 mg/dL Cr Clearance (Est) 51.16 mL/min eGFR 32.8 mL/min Glucose 169 mg/dL Osmolality - Calculated 282 mOsm/kg Calcium 9.1 mg/dL Protein, Total 6.7 g/dL Albumin 4.0 g/dL Globulin 2.7 g/dL Bilirubin, Total 0.2 mg/dL ALT (SGPT) 16 U/L AST (SGOT) 17 U/L Alkaline Phosphatase 82 IU/L WBC 6.3 10 3/uL RBC 2.98 10 6/uL HGB 9.7 g/dL HCT 29.6 % MCV 99.3 fL MCH 32.6 pg MCHC 32.8 g/dL RDW 14.5 % Platelet Count 171 10 3/cmm MPV 9.5 fL Neutrophils 4.92 10 3/uL Lymphocytes 0.7 10 3/uL Monocytes 0.5 10 3/uL Eosinophils 0.2 10 3/uL Basophils 0.0 10 3/uL Neutrophil % 77.9 % Lymphocyte % 11.1 % Monocyte % 7.4 % Eosinophil % 2.5 % Basophils % 0.6 % NRBC % 0 % Impression: Small lymphocytic lymphoma with prominent confluent proliferation centers per right axillary lymph node biopsy done on 12/18/2018. 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 Stable 1.2 cm irregular right lower lobe pulmonary nodule. An additional 3 mm right upper lobe pulmonary nodule has remained stable Mild intra-abdominal and pelvic lymphadenopathy with no significant change since 04/03/2018, largest lymph node 1.4 cm in the periportal area. No splenomegaly. Lab workup done on 01/27/2019 shows white blood count 13.1 absolute lymphocytes 5.21 Hemoglobin 12.8 hematocrit 39.1 platelets 234,000 CMP within normal limits Mrs Long's recent CT scan of neck/chest/abdomen/pelvis from 05/19/2020 shows progressive central lymphadenopathy as well as cervical, supraclavicular and axillary lymph node no with some discomfort on the right axilla due to enlarging lymph node. She was also having vague B symptoms e.g. off and on mild night sweating and fever initial weight loss. At this point, because of progressive lymphadenopathy but no organomegaly and vague B symptoms, she was started her on treatment with ibrutinib 420 mg p.o. daily. Mrs Long started allopurinol and ibrutinib on June 03, 2020. History of chronic arthritis Clinically, Mrs Long had been doing reasonably well but presents with persistent off and on night sweats but no recurrent fever. She also reports some weight loss which could be multifactorial. She states overall she is not feeling well and progressive cervical lymphadenopathy seen on physical exam as well as \ 12-19-2020 CT scan of neck. CT of the chest/abdomen/pelvis from 12/12/2020 also reported significant increase in size and number of axillary, supraclavicular and mediastinal lymph nodes since October 02, 2018 and also abdominal, mesenteric and retroperitoneal lymphadenopathy that has not improved since May 19, 2020. The lymph nodes in the pelvis had increased in size by 2 to 3 mm in diameter. 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 discussed the side effects and possible benefits associated with this regimen. Side effects include but not limited to bone marrow suppression, which can increase risk for life-threatening infection and bleeding, hair loss, allergic reaction, endocrinopathy especially with obinutuzumab. Her treatment plan will consist of: obinutuzumab 100 mg on cycle 1 day 1 followed by 900 mg on day 2 and then 1000 mg on day 8 and 15 and then add venetoclax on day 22 with cycle 1 is 20 mg p.o. daily for 1 week and 5-week ramp-up schedule as per protocol, if tolerated to 400 mg p.o. daily with second cycle of obinutuzumab 12 mg q. 28 days. As patient has history of gout, she was restarted on allopurinol and we will monitor her closely for tumor lysis with electrolytes and patient was advised to maintain hydration. She will also have infection prophylaxis with Valtrex; Diflucan; ciprofloxacin or Bactrim. Plan: PROBLEMS ADDRESSED TODAY 1. Small lymphocytic lymphoma A. Today's labs reviewed in detail discussed with Ms. Long and a copy was given to her. WBC 6.3, hemoglobin 9.7, platelets 1 31,000 ANC is 4920. Potassium 6 7 with repeat at 6.4 creatinine is 1.6. Random glucose 169 LFTs are normal. A LDH and uric acid very quested to be added to blood in lab to rule out tumor lysis syndrome. B. Her planned cycle 2 obintuzumab will be held due to the hyperkalemia. 2. HYPERCALCEMIA calcium 6.7 with redraw rpeorted at 6.4. A. Mrs. Long was given 1 L of saline while we are waiting on repeat potassium. Once that potassium was verified that it continued to be significantly elevated she was referred to the emergency room for treatment of her hyperkalemia. It was recommended that this be done under cardiac monitoring. 3. Followup Plan A.. We will plan to see her back in 1 week with CBC CMP. B. Her uric acid was normal at 4.5 LDH was 239. C. Mrs. Long was instructed to contact us in the interim should questions or problems arise. Signed By: Lottie mSith-, AOBRENNAN Castano MD <<Signature on File>>
== END 2021-02-09 06:03 | disposition home or self-care (01) ==
LOC: ONCMED 06:03
PROVIDERS: PCP Family Medicine; Visit Provider Nurse Practitioner
DX: C83.04 Small cell B-cell lymphoma, lymph nodes of axilla and upper limb (principal); E87.5 Hyperkalemia; T45.1X5A Adverse effect of antineoplastic and immunosuppressive drugs, initial encounter; E83.52 Hypercalcemia; Z79.899 Other long term (current) drug therapy
CPT/HCPCS: 80053; 83615; 84132; 84550; 85025; 96361; 96374; 99215; J1170; J7030

== ENCOUNTER 2021-02-09 14:21 | Emergency (ER) | payer MEDICAID, SELFPAY ==
[2021-02-09 14:27] VITALS: BP 115/65; PULSE 79; RESP 18; TEMP 36.5; O2SAT 98; BMI 34.2
--- NOTE | 2021-02-09 14:34 | ECG_ITS ---
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 Measurements Intervals [place] Rate: 68 P: 52 CA: 192 QRS: 70 QRSD: 96 T: 59 QT: 386 QTc: 411 Interpretive Statements SINUS RHYTHM No previous ECG available for comparison Electronically Signed On 02-09-2021 17:13:10 [employer]ANGER by Chandrakant Quinn M.D. [id number]
[2021-02-09 14:52] LABS: Basophils % 0.5 %; Eosinophils # 0.2 10^3/uL (0.0-0.8); Eosinophils % 2.4 %; Hematocrit 28.7 % (37.0-47.0); Hemoglobin 9.5 g/dL (11.5-15.3); Lymphocytes # 1.3 10^3/uL (0.8-4.8); Lymphocytes % 20.6 %; Mean Corpuscular HGB Conc 33.1 g/dL (30.0-36.0); Mean Corpuscular Hemoglobin 33.3 pg (28.0-34.0); Mean Corpuscular Volume 100.7 fL (81-99); Mean Platelet Volume 8.9 fL (7.4-10.4); Monocytes # 0.5 10^3/uL (0.2-0.9); Monocytes % 7.9 %; Neutrophils # 4.22 10^3/uL (1.8-7.7); Neutrophils % 68.1 %; Nucleated Red Blood Cells % 0 %; Platelet Count 164 10^3/cmm (130-400); Red Blood Count 2.85 10^6/uL (4.1-5.3); Red Cell Distribution Width 14.5 % (12.1-15.1); White Blood Count 6.2 10^3/uL (4.0-10.0)
[2021-02-09 15:11] LABS: Alanine Aminotransferase 15 U/L (0-33); Albumin Level 3.8 g/dL (3.5-5.2); Alkaline Phosphatase 79 IU/L (35-105); Anion Gap 12.6 (5-19); Aspartate Amino Transferase 17 U/L (0-32); Blood Urea Nitrogen 19 mg/dL (8-23); Calcium 8.4 mg/dL (8.5-10.5); Carbon Dioxide 22 mmol/L (22-29); Chloride 103 mmol/L (98-107); Creatine Phosphokinase 149 U/L (26-192); Globulin 2.4 g/dL (1.3-4.6); Glomerular Filtration Rate 35.3 mL/min (90-130); Glucose 113 mg/dL (65-115); Magnesium 1.8 mg/dL (1.7-2.3); Osmolality Calculated 277 mOsm/kg (285-295); Potassium 5.6 mmol/L (3.5-5.1); Sodium 132 mmol/L (136-145); Total Bilirubin 0.2 mg/dL (0.15-1.2); Total Protein 6.2 g/dL (6.6-8.7)
[2021-02-09 15:12] VITALS: PULSE 72; RESP 16; O2SAT 100
[2021-02-09 15:12] LABS: Add Urine Microscopic? NO
[2021-02-09 15:16] LABS: Bilirubin Urine Neg (Negative); Blood Urine Neg (Negative); Glucose Urine UA Norm (Normal); Ketones Urine Negative (Negative); Leukocyte Esterase Urine Negative (Negative); Nitrate Urine Negative (Negative); Protein Urine Neg (Negative); Specific Gravity, Urine 1.005 (1.005-1.030); Urine Appearance Clear (CLEAR); Urine Color Yellow (Yellow); Urobilinogen Urine Norm (Negative); pH Urine 6 (5-7)
--- NOTE | 2021-02-09 16:04 | PC.PHAR ---
PT STATES SHE TAKES CARE OF HER OWN MEDICATIONS-PT STATES SHE IS TAKING ATENOLOL 25MG PO DAILY-EXT MED HISTORY SHOWS FILLED ON 01/10/21 25MG BID-PT STATES SHE TAKES LASIX 40 MG PO DAILY-EXT MED HISTORY SHOWS LAST FILLED ON 01/10/21 40MG PO BID DIRECTED-PT STATES SHE TAKES GABAPENTIN 400MG PO DAILY@20 EXT MED HISTORY SHOWS LAST FILLED ON 01/10/21 400MG PO QM AND 800MG PO QPM-PT STATES SHE TAKES METFORMIN 500MG BID-[facility] STATES THEY LAST FILLED IN JAN 2020 BUT THEN RX WAS CANCELED-PT STATES SHE TAKES OMEPRAZOLE 20MG PO DAILY-EXT MED HISTORY SHOWS LAST FILLED ON 01/28/21 20MG BID-PT STATES SHE IS TAKING SULFASALAZINE AND TAKES 2 TABS PO BID-PT STATES SHE IS TAKING A TITRATING DOSE OF VENETOCLAX PT STATES SHE IS TAKING THE 50MG DAILY THIS WEEK
--- NOTE | 2021-02-09 16:20 | ED_ITS ---
HPI - General Adult General: Chief complaint: General Medical Stated complaint: ELEVATED POTASSIUM PER DR MCCAULEY Time Seen by Provider: 02/09/21 14:25 Source: patient and old records reviewed Mode of arrival: ambulatory Limitations: no limitations History of Present Illness: HPI narrative: 60-year-old with history of small cell lymphoma, on immunotherapy, referred to the ED by her oncologist because of acute hyperkalemia. Initial potassium was 6.7, redraw was 6.4. The patient was given a liter of saline and referred to the ED. She denies any palpitations or dizziness. She denies any symptoms currently. Her oncologist had discussed with her that most likely the acute rise in potassium was secondary to her chemotherapy. She has a history of chronic renal insufficiency, hypertension, diabetes, and hypothyroidism. She is not on any potassium supplements. Associated symptoms: Deny chest pain, dyspnea, nausea, rash, palpitations or vomiting Review of Systems General: Reports: 10 or more systems reviewed and unremarkable except in HPI and below Const: Denies: fever(s), chills, body aches or change in appetite Eyes: Denies: change in vision ENMT: Denies: throat pain Card: Denies: chest pain, palpitations, irregular heart rhythm, edema or lightheadedness Resp: Denies: dyspnea, productive cough, non-productive cough or wheezing GI: Denies: abdominal pain, nausea or vomiting : Denies: difficulty voiding, dysuria or urinary frequency Skin/Breast: Denies: rash, pruritus or erythema PFSH ED PFSH: Medical History CHF (congestive heart failure), NYHA class III High risk medication use Immunization counseling Inflammatory arthritis Small lymphocytic lymphoma Surgical History H/O dilation and curettage History of appendectomy History of bladder repair surgery History of hysterectomy History of neck surgery titanium in neck History of tubal ligation Family History Mother Cancer lung cancer Father Cancer colon and lung cancer Other Hypertension Migraine Rheumatoid arthritis Denies family history of Diabetes Lupus Chronic kidney disease (CKD) Anesthesia complication Bleeding disorder Lung disease Stroke Social History Smoking and tobacco status: current every day smoker Quit status (tobacco): has tried quititng Second hand smoke exposure: Yes Smoking risk assessment/counseling performed?: No Alcohol intake: never Desire information about alcohol rehabilitation?: No Counseling given: No Desire information about substance/drug rehabilitation?: No Counseling given: No Household members: spouse Marital status: Current occupational status: disabled History of recent travel: No Physical Exam Const: COMMON NORMALS: no acute distress, patient oriented x3 and no limitations GENERAL APPEARANCE: cooperative and comfortable HENMT: COMMON NORMALS: normocephalic HEAD & SCALP: normocephalic FACE & SINUS: normal facial exam and face symmetric Eye: COMMON NORMALS: Equal, round and reactive pupils present, EOMs intact bilaterally, conjunctivae normal and no scleral icterus CONJUNCTIVA: Yes conjunctivae normal PUPIL: Yes Equal, round and reactive pupils present Neck/C-Spine: COMMON NORMALS: full ROM and no lymphadenopathy Chest: COMMONS NORMALS: normal inspection of the chest CHEST: Yes Vascular access present Resp: COMMON NORMALS: normal respiratory effort, No use of accessory muscles and clear to auscultation bilaterally EFFORT & INSPECTION: Yes able to speak in complete sentences AUSCULTATION: clear to auscultation bilaterally Cardio: COMMON NORMALS: regular rate, regular rhythm, S1 normal heart sound present and S2 normal heart sound present RATE: regular rate RHYTHM: regular rhythm HEART SOUNDS: S1 normal heart sound present and S2 normal heart sound present GI: COMMON NORMALS: Soft to palpation, non-tender and No hepatosplenomegaly present PALPATION: Yes Soft to palpation and Yes No hepatosplenomegaly present Extremity: COMMON NORMALS: normal to inspection, full ROM, capillary refill normal and no clubbing, cyanosis or edema Neuro: COMMON NORMALS: patient oriented x3 Skin: COMMON NORMALS: no rashes or lesions noted, no wounds and turgor normal GENERAL SKIN EXAM: no rashes or lesions noted and turgor normal Course Vital Signs: Vital signs: Vital Signs Temperature 97.7 F 02/09/21 14:27 Pulse Rate 72 02/09/21 15:12 Respiratory Rate 16 02/09/21 15:12 Blood Pressure 115/65 02/09/21 14:27 Pulse Oximetry 100 02/09/21 15:12 MDM - General Adult MDM Narrative: Medical decision making narrative: 60-year-old female with acute hyperkalemia. Potassium here is 5.6. Patient is asymptomatic. She has received 1 L saline bolus prior to arrival. Med list reviewed, will recommend that she discontinue lisinopril, her blood pressure was low normal while she was here, anyways. She can continue atenolol. She needs to make sure that she is no longer taking spironolactone, only Lasix. Instructed to drink extra water and take an additional dose of Lasix when she gets home. Follow-up with oncology as scheduled. Strict instructions to return immediately if she develops chest pain, palpitations, nausea, vomiting, abdominal pain, or any other concerning changes. Lab Data: Labs: Lab Results 02/09/21 02/09/21 02/09/21 Range/Units 14:45 14:45 15:03 WBC 6.2 (4.0-10.0) 10^3/ uL RBC 2.85 L (4.1-5.3) 10^6/u L Hgb 9.5 L (11.5-15.3) g/dL Hct 28.7 L (37.0-47.0) % MCV 100.7 H (81-99) fL MCH 33.3 (28.0-34.0) pg MCHC 33.1 (30.0-36.0) g/dL RDW 14.5 (12.1-15.1) % Plt Count 164 (130-400) 10^3/c mm MPV 8.9 (7.4-10.4) fL Neut % (Auto) 68.1 % Lymph % (Auto) 20.6 % [place] % (Auto) 7.9 % Eos % (Auto) 2.4 % Baso % (Auto) 0.5 % Neut # (Auto) 4.22 (1.8-7.7) 10^3/u L Lymph # (Auto) 1.3 (0.8-4.8) 10^3/u L [place]ancock # (Auto) 0.5 (0.2-0.9) 10^3/u L Eos # (Auto) 0.2 (0.0-0.8) 10^3/u L Baso # (Auto) 0.0 (0.0-0.1) 10^3/u L Nucleated RBC % (a uto) 0 % Nucleated RBCs # 0.0 /100WBC Sodium 132 L (136-145) mmol/L Potassium 5.6 H (3.5-5.1) mmol/L Chloride 103 (98-107) mmol/L Carbon Dioxide 22 (22-29) mmol/L Anion Gap 12.6 (5-19) BUN 19 (8-23) mg/dL Creatinine 1.5 H (0.5-0.9) mg/dL GFR Calculation 35.3 L (90-130) mL/min Glucose 113 (65-115) mg/dL Calculated Osmolal ity 277 L (285-295) mOsm/k g Calcium 8.4 L (8.5-10.5) mg/dL Magnesium 1.8 (1.7-2.3) mg/dL Total Bilirubin 0.2 (0.15-1.2) mg/dL AST 17 (0-32) U/L ALT 15 (0-33) U/L Alkaline Phosphata se 79 (35-105) IU/L Creatine Kinase 149 (26-192) U/L Total Protein 6.2 L (6.6-8.7) g/dL Albumin 3.8 (3.5-5.2) g/dL Globulin 2.4 (1.3-4.6) g/dL Urine Color Yellow (Yellow) Urine Appearance Clear (CLEAR) Urine pH 6 (5-7) Ur Specific Gravit y 1.005 (1.005-1.030) Urine Protein Neg (Negative) Urine Glucose (UA) Norm (Normal) Urine Ketones Negative (Negative) Urine Blood Neg (Negative) Urine Nitrate Negative (Negative) Urine Bilirubin Neg (Negative) Urine Urobilinogen Norm (Negative) mg/dL Ur Leukocyte Francine ase Negative (Negative) Discharge Plan Discharge Patient Disposition: Home Clinical Impression: Hyperkalemia, Small lymphocytic lymphoma Chronic kidney insufficiency Qualifiers: Chronic kidney disease stage: unspecified stage Qualified Code(s): N18.9 - Chronic kidney disease, unspecified Condition: Stable Prescriptions: Discontinued lisinopril 20 mg tablet 20 mg PO DAILY@07 RF: 0 spironolactone 50 mg tablet 50 mg PO DAILY@07 RF: 0 No Action omeprazole 20 mg capsule,delayed release(DR/EC) See Rx Instructions .ROUTE .COMPLEX RF: 0 atenolol 25 mg tablet See Rx Instructions .ROUTE .COMPLEX RF: 0 allopurinol 100 mg tablet 100 mg PO TID@,,20 RF: 0 lovastatin 40 mg tablet 40 mg PO DAILY@07 RF: 0 liothyronine 5 mcg tablet 5 mcg PO DAILY@07 RF: 0 glipizide 5 mg tablet 5 mg PO BID@,20 RF: 0 furosemide 40 mg tablet See Rx Instructions .ROUTE .COMPLEX RF: 0 gabapentin 400 mg capsule See Rx Instructions PO BID RF: 0 fluconazole 100 mg tablet 100 mg PO DAILY@07 RF: 0 tizanidine 4 mg Tablet 4 mg PO BEDTIME PRN (Reason: Spasms) RF: 0 prochlorperazine maleate 10 mg tablet 10 mg PO Q4H PRN (Reason: Nausea) RF: 0 valacyclovir 500 mg tablet 500 mg PO DAILY@07 RF: 0 sulfamethoxazole-trimethoprim 800-160 mg tablet See Rx Instructions .ROUTE .COMPLEX RF: 0 Aspir-81 81 mg Tablet,Delayed Release (Dr/Ec) 81 mg PO PRN RF: 0 lqzcodbulp-aszdhagxqcbyc-jznn 50-325-40 mg tablet 1 tab PO Q6H PRN (Reason: Migraine Headache) RF: 0 oxycodone-acetaminophen [Percocet] 10-325 mg tablet 1 tab PO Q6H PRN (Reason: Pain) RF: 0 trazodone 100 mg tablet 100 mg PO BEDTIME RF: 0 Euthyrox 150 mcg tablet 150 mcg PO DAILY@07 RF: 0 lorazepam 1 mg tablet 1 mg PO TID PRN (Reason: Nausea) RF: 0 ProAir HFA 90 mcg/actuation Hfa Aerosol Inhaler 2 puff INHALATION Q6H PRN (Reason: Shortness Of Breath) RF: 0 Claritin 10 mg Tablet 10 mg PO PRN RF: 0 Mucinex 600 mg Tablet Extended Release 12hr 600 mg PO PRN RF: 0 sulfasalazine 500 mg tablet See Rx Instructions .ROUTE .COMPLEX RF: 0 Gazyva See Rx Instructions .ROUTE .COMPLEX RF: 0 venetoclax See Rx Instructions .ROUTE .COMPLEX RF: 0 metformin 500 mg Tablet See Rx Instructions .ROUTE .COMPLEX RF: 0 Discharge Orders: Discharge ED (Routine); Ordered 02/09/21 Ordered By: Wanda Raphael Referrals: Ciro Alberts [Primary Care Provider] - Discharge Diet: Advance as tolerated and Diabetic Discharge Activity: Resume usual activity Patient Instructions: Hyperkalemia (ED) Activity Restrictions/Additional Instructions: Follow-up as scheduled with ER oncologist. Stop taking lisinopril Make sure you are not taking spironolactone anymore. Drink extra water this afternoon and take an additional dose of Lasix when you get home. Return immediately to the ER if you develop chest pain, difficulty breathing, palpitations, nausea or vomiting. Coding Level of Care Code ED [employer]ist for Joann [employer] Exam Comprehensive
[2021-02-09 16:31] VITALS: BP 108/70; PULSE 70; RESP 18; O2SAT 100
[2021-02-09 18:03] LABS: Hepatitis A Antibody IgM Non-Reactive (Nonreactive); Hepatitis B Core IgM Non-Reactive (Nonreactive); Hepatitis B Surface Antigen Non-Reactive (Nonreactive); Hepatitis C Virus Antibody Non-Reactive (Nonreactive)
[2021-02-09 19:30] LABS: HIV 1 & 2 Antibody Non-Reactive (Non-Reactiv); HIV 1 & 2 Antigen Non-Reactive (Non-Reactiv)
== END 2021-02-09 17:19 | disposition home or self-care (01) ==
PROVIDERS: Emergency Provider Family Medicine; PCP Family Medicine
DX: E87.5 Hyperkalemia (principal); C83.00 Small cell B-cell lymphoma, unspecified site; Z79.82 Long term (current) use of aspirin; N18.9 Chronic kidney disease, unspecified; F17.210 Nicotine dependence, cigarettes, uncomplicated
CPT/HCPCS: 36415; 80053; 80074; 81003; 82550; 83735; 85025; 87806; 93005; 99283

== ENCOUNTER 2021-02-13 06:26 | Outpatient (CLI) | payer MEDICAID, SELFPAY ==
[2021-02-13 13:44] LABS: Basophils % 0.5 %; Eosinophils # 0.1 10^3/uL (0.0-0.8); Eosinophils % 2.4 %; Hemoglobin 10.1 g/dL (11.5-15.3); Lymphocytes % 17.1 %; Mean Corpuscular HGB Conc 33.7 g/dL (30.0-36.0); Mean Corpuscular Hemoglobin 32.6 pg (28.0-34.0); Mean Corpuscular Volume 96.8 fL (81-99); Mean Platelet Volume 9.3 fL (7.4-10.4); Monocytes # 0.4 10^3/uL (0.2-0.9); Monocytes % 6.5 %; Nucleated Red Blood Cells % 0 %; Platelet Count 229 10^3/cmm (130-400); Red Cell Distribution Width 13.9 % (12.1-15.1); White Blood Count 5.9 10^3/uL (4.0-10.0)
[2021-02-13 14:12] LABS: Alanine Aminotransferase 19 U/L (0-33); Albumin Level 4.2 g/dL (3.5-5.2); Alkaline Phosphatase 83 IU/L (35-105); Anion Gap 15.4 (5-19); Aspartate Amino Transferase 22 U/L (0-32); Blood Urea Nitrogen 18 mg/dL (8-23); Carbon Dioxide 24 mmol/L (22-29); Chloride 93 mmol/L (98-107); Globulin 2.8 g/dL (1.3-4.6); Glomerular Filtration Rate 45.7 mL/min (90-130); Glucose 257 mg/dL (65-115); Osmolality Calculated 277 mOsm/kg (285-295); Potassium 4.4 mmol/L (3.5-5.1); Sodium 128 mmol/L (136-145); Total Bilirubin 0.2 mg/dL (0.15-1.2)
== END 2021-02-13 06:27 | disposition home or self-care (01) ==
LOC: ONCMED 06:28
PROVIDERS: PCP Family Medicine; Visit Provider Internal Medicine Hematology & Oncology
DX: C83.00 Small cell B-cell lymphoma, unspecified site (principal); E87.5 Hyperkalemia; Z51.81 Encounter for therapeutic drug level monitoring; Z79.899 Other long term (current) drug therapy
CPT/HCPCS: 36591; 80053; 85025

== ENCOUNTER 2021-02-28 05:33 | Outpatient (RCR) | payer MEDICAID, SELFPAY ==
[2021-02-14] MEDS: sodium chloride 0.9% 500 ML IV (09:30)
--- NOTE | 2021-02-17 11:32 | ONC FU_ITS ---
Dr. Castano follow up note Patient: Indira Long Unit #: [id number]: 1960 Dicatated By: Yovanny Castano M.D.Date of Visit:Feb 14, 2021 Onc Med Follow-up/Prog Note History of Present Illness: Mrs. Long is a 60-year-old female with long-standing history of small cervical, bilateral axillary lymphadenopathy. The adenopathy was confirmed with CT scan of chest abdomen pelvis done on 10/03/2018. The CT showed mild bilateral axillary lymphadenopathy largest being 1 cm; mildly enlarged abdominal and pelvic lymph nodes, no significant change when compared with CT scan done on 04/03/2018 and no splenomegaly. There was a stable 1.2 cm irregular right lower lobe lung nodule and additional 3 mm right upper lobe lung nodule has remained stable. 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 Mammogram done on 02/11/2019 showed scattered fibroglandular densities. Occasional bilateral breast benign-appearing calcification. 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 PMH: Sleep apnea but noncompliant with CPAP machine Interim History: Mr Long presented to her PCP with complaints of fullness in the neck-more on the left side but no dysphagia. She was also complaining of chronic lower back pain, patient said she has history of bulging disks . Follow-up CT scan of neck/chest/abdomen/pelvis done on May 19, 2020 showed numerous enlarged lymph nodes throughout both bilateral cervical chains. Supraclavicular and diffuse abdominal lymphadenopathy-with the largest conglomeration of lymph node in the upper abdomen measuring 3.6 x 2.2 cm. There was enlarged periaortic, retroperitoneal lymph nodes additionally enlarged iliac chain pelvic sidewall lymph nodes and inguinal lymphadenopathy splenic granulomas. Patient had a bilateral mammogram done on May 09, 2020 which showed extensive right axillary lymphadenopathy largest being 4.2 x 1.5 x 4 cm. She was started on ibrutinib 420 mg p.o. daily. On June 03, 2020, along with allopurinol, Put on hold for 2 weeks on July 15, 2020, Because of off and on palpitation Eventually discontinued Follow-up echo done on October 06, 2020 shows ejection fraction 62%, She also recently presented with progressive off and on mild night sweats; off and on fever, earlier history of weight loss but now gaining. She was also complaining of discomfort in the right axilla because of enlarging lymphadenopathy and neck fullness but no dysphagia, no shortness of breath. No nausea or vomiting, no diarrhea or constipation. Because of progressive fullness and persistent off and on night sweats but no fever but weight loss, patient was not sure whether there was due to new medication started by rheumatology or disease, CT scan of neck chest abdomen pelvis was done on December 19, 2020 which shows overall cervical lymphadenopathy is progressed compared to May 19, 2020 with some lymph nodes more prominent and larger. Supraclavicular, internal mammary anterior mediastinal lymph nodes and axillary lymph nodes are slightly progressed CT scan of abdomen pelvis showed extensive lymphadenopathy in the largest lymph node near celiac plexus 3.3 x 2.0 cm. recommended treatment with Obinutuzumab and venetoclax.Which was started on January 04, 2021 Came for follow-up denies any specific complaint except generalized weakness and fatigue, patient was recently admitted to hospital with severe hyperkalemia which improved with IV fluids and diuresis, now denies any fever chills denies any nausea or vomiting denies any diarrhea or constipation denies any night sweats denies any recurrent fever denies any weight loss denies any jaundice denies any skin rash denies any shortness of breath start taking venetoclax 100 mg p.o. daily yesterday, last dose of obinutuzumab was given on January 25, 2021 because of intolerance and electrolyte abnormality, requiring hospitalization, patient could not maintain her treatment schedule. Medications: Atenolol 1 Tablet (of 25 mg) Oral daily, Euthyrox 1 Tablet (of 150 mcg) Oral daily, glipiZIDE 1 Tablet Oral t.i.d., Lasix 1 Tablet (of 40 mg) Oral daily, Levothyroxine Sodium 1 Tablet (of 137 mcg) Oral daily, Liothyronine Sodium 1 Tablet (of 5 mcg) Oral daily, Lovastatin 1 Tablet (of 40 mg) Oral daily, Omeprazole 1 Tablet (of 20 mg) Tablet, enteric coated Oral b.i.d., traZODone HCl 1 Tablet (of 100 mg) Oral daily PRN Allergies: Pneumococcal 13-Shanon Conj Vacc Review of Systems: Review of Systems is not available for this patient. Vital Signs: Performed on Feb 14, 2021 08:13 Height - 63.00 in Weight - 189.8 lbs (LOW) BSA - 1.89 sq.m BMI - 33.62 (HIGH) Temperature - 97.6 F (LOW) Pulse - 83 /min Respiration - 18 /min BP - 122/54 mm(hg) O2 Sat - 99 % Pain - 8 Performance Status: 2 - Ambulatory/capable of all self-care, unable to perform any work activities. Up and about more than 50% of waking hours. (ECOG) Physical Examination: ENMT - No mouth sores, no thrush, no jaundice, significant improvement in bilateral cervical/right leg lymphadenopathy, Respiratory - Lungs are clear to auscultation, Cardiovascular - Regular rate and rhythm of heart, Abdomen - Soft, bowel sounds present, Extremities - No visible edema. Lab/Imaging: Test performed on Feb 09, 2021 12:20 Potassium 6.4 mmol/L Test performed on Feb 09, 2021 09:33 LDH (Total) 239 U/L Sodium 132 mmol/L Uric Acid 4.5 mg/dL Chloride 102 mmol/L CO2 23 mmol/L Anion Gap 13.7 BUN 24 mg/dL Creatinine 1.6 mg/dL Cr Clearance (Est) 51.16 mL/min eGFR 32.8 mL/min Glucose 169 mg/dL Osmolality - Calculated 282 mOsm/kg Calcium 9.1 mg/dL Protein, Total 6.7 g/dL Albumin 4.0 g/dL Globulin 2.7 g/dL Bilirubin, Total 0.2 mg/dL ALT (SGPT) 16 U/L AST (SGOT) 17 U/L Alkaline Phosphatase 82 IU/L WBC 6.3 10 3/uL RBC 2.98 10 6/uL HGB 9.7 g/dL HCT 29.6 % MCV 99.3 fL MCH 32.6 pg MCHC 32.8 g/dL RDW 14.5 % Platelet Count 171 10 3/cmm MPV 9.5 fL Neutrophils 4.92 10 3/uL Lymphocytes 0.7 10 3/uL Monocytes 0.5 10 3/uL Eosinophils 0.2 10 3/uL Basophils 0.0 10 3/uL Neutrophil % 77.9 % Lymphocyte % 11.1 % Monocyte % 7.4 % Eosinophil % 2.5 % Basophils % 0.6 % NRBC % 0 % Test performed on Nov 21, 2020 15:58 Hepatitis B Core Ab, Total NO RED TOP SPECIMEN IN LAB ST Hepatitis B Surface Ab NO RED TOP SPECIMEN IN LAB ST Test performed on Nov 10, 2020 09:23 Manual Lymphocytes 0 % Manual Monocytes 2 % Manual Eosinophils 1 % Manual Basophils 1 % Impression: Small lymphocytic lymphoma with prominent confluent proliferation centers per right axillary lymph node biopsy done on 12/18/2018. 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 Stable 1.2 cm irregular right lower lobe pulmonary nodule. An additional 3 mm right upper lobe pulmonary nodule has remained stable Mild intra-abdominal and pelvic lymphadenopathy with no significant change since 04/03/2018, largest lymph node 1.4 cm in the periportal area. No splenomegaly. Lab workup done on 01/27/2019 shows white blood count 13.1 absolute lymphocytes 5.21 Hemoglobin 12.8 hematocrit 39.1 platelets 234,000 CMP within normal limits Mrs Long's recent CT scan of neck/chest/abdomen/pelvis from 05/19/2020 shows progressive central lymphadenopathy as well as cervical, supraclavicular and axillary lymph node no with some discomfort on the right axilla due to enlarging lymph node. She was also having vague B symptoms e.g. off and on mild night sweating and fever initial weight loss. At this point, because of progressive lymphadenopathy but no organomegaly and vague B symptoms, she was started her on treatment with ibrutinib 420 mg p.o. daily. Mrs Long started allopurinol and ibrutinib on June 03, 2020. History of chronic arthritis Clinically, Mrs Long had been doing reasonably well but presents with persistent off and on night sweats but no recurrent fever. She also reports some weight loss which could be multifactorial. She states overall she is not feeling well and progressive cervical lymphadenopathy seen on physical exam as well as \ 12-19-2020 CT scan of neck. CT of the chest/abdomen/pelvis from 12/12/2020 also reported significant increase in size and number of axillary, supraclavicular and mediastinal lymph nodes since October 02, 2018 and also abdominal, mesenteric and retroperitoneal lymphadenopathy that has not improved since May 19, 2020. The lymph nodes in the pelvis had increased in size by 2 to 3 mm in diameter. 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 discussed the side effects and possible benefits associated with this regimen. Side effects include but not limited to bone marrow suppression, which can increase risk for life-threatening infection and bleeding, hair loss, allergic reaction, endocrinopathy especially with obinutuzumab. Her treatment plan will consist of: obinutuzumab 100 mg on cycle 1 day 1 followed by 900 mg on day 2 and then 1000 mg on day 8 and 15 and then add venetoclax on day 22 with cycle 1 is 20 mg p.o. daily for 1 week and 5-week ramp-up schedule as per protocol, if tolerated to 400 mg p.o. daily with second cycle of obinutuzumab 12 mg q. 28 days. As patient has history of gout, she was restarted on allopurinol and we will monitor her closely for tumor lysis with electrolytes and patient was advised to maintain hydration. She will also have infection prophylaxis with Valtrex; Diflucan; ciprofloxacin or Bactrim. Plan: Discussed with patient regarding her labs white blood count 5.9 hemoglobin 10.1 hematocrit 30.0 platelets 229,000, CMP within normal limit except sodium 128, creatinine 1.2 and glucose 257 and her potassium is now normal at 4.4 Clinically, patient is doing reasonably well but now with generalized weakness and fatigue, will consider One Touch blood sugar and manage with regular insulin in the meantime we will give her hydration with 500 cc normal saline, Patient is reluctant to continue with treatment because of related side effects and toxicity, at this point, we will refer her to [facility] for evaluation for clinical trial or second opinion. Patient was advised to continue venetoclax as long as she is tolerating well evaluation at [place] return to clinic in 2 weeks with CBC CMP Signed By: Yovanny Castano M.D. <<Signature on File>>
[2021-02-28 09:07] LABS: Basophils % 0.4 %; Eosinophils # 0.1 10^3/uL (0.0-0.8); Eosinophils % 0.8 %; Hematocrit 30.8 % (37.0-47.0); Hemoglobin 10.1 g/dL (11.5-15.3); Lymphocytes # 0.9 10^3/uL (0.8-4.8); Lymphocytes % 11.1 %; Mean Corpuscular HGB Conc 32.8 g/dL (30.0-36.0); Mean Corpuscular Hemoglobin 33.4 pg (28.0-34.0); Mean Platelet Volume 9.6 fL (7.4-10.4); Monocytes # 0.5 10^3/uL (0.2-0.9); Monocytes % 6.6 %; Neutrophils # 6.37 10^3/uL (1.8-7.7); Neutrophils % 80.8 %; Nucleated Red Blood Cells % 0 %; Platelet Count 194 10^3/cmm (130-400); Red Blood Count 3.02 10^6/uL (4.1-5.3); Red Cell Distribution Width 15.2 % (12.1-15.1); White Blood Count 7.9 10^3/uL (4.0-10.0)
[2021-02-28 09:23] LABS: Alanine Aminotransferase 17 U/L (0-33); Albumin Level 4.1 g/dL (3.5-5.2); Alkaline Phosphatase 84 IU/L (35-105); Anion Gap 13.3 (5-19); Aspartate Amino Transferase 15 U/L (0-32); Blood Urea Nitrogen 13 mg/dL (8-23); Calcium 8.9 mg/dL (8.5-10.5); Carbon Dioxide 24 mmol/L (22-29); Chloride 102 mmol/L (98-107); Globulin 2.5 g/dL (1.3-4.6); Glomerular Filtration Rate 56.4 mL/min (90-130); Glucose 222 mg/dL (65-115); Osmolality Calculated 287 mOsm/kg (285-295); Potassium 4.3 mmol/L (3.5-5.1); Sodium 135 mmol/L (136-145); Total Bilirubin 0.2 mg/dL (0.15-1.2); Total Protein 6.6 g/dL (6.6-8.7)
--- NOTE | 2021-03-07 22:57 | ONC FU_ITS ---
[facility] Patient Note Patient: Indira Long Unit #: [id number]: 1960 Dictated By: Lottie SmithDate of Visit: Feb 28, 2021 Onc MED Follow-Up/Prog Note Chief Complaint: Low-grade lymphoma History of Present Illness: Mrs. Long is a 60-year-old female with long-standing history of small cervical, bilateral axillary lymphadenopathy. The adenopathy was confirmed with CT scan of chest abdomen pelvis done on 10/03/2018. The CT showed mild bilateral axillary lymphadenopathy largest being 1 cm; mildly enlarged abdominal and pelvic lymph nodes, no significant change when compared with CT scan done on 04/03/2018 and no splenomegaly. There was a stable 1.2 cm irregular right lower lobe lung nodule and additional 3 mm right upper lobe lung nodule has remained stable. 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 Mammogram done on 02/11/2019 showed scattered fibroglandular densities. Occasional bilateral breast benign-appearing calcification. 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 PMH: Sleep apnea but noncompliant with CPAP machine Interim History: Mrs Long presented to her PCP with complaints of fullness in the neck-more on the left side but no dysphagia. She was also complaining of chronic lower back pain, patient said she has history of bulging disks . Follow-up CT scan of neck/chest/abdomen/pelvis done on May 19, 2020 showed numerous enlarged lymph nodes throughout both bilateral cervical chains. Supraclavicular and diffuse abdominal lymphadenopathy-with the largest conglomeration of lymph node in the upper abdomen measuring 3.6 x 2.2 cm. There was enlarged periaortic, retroperitoneal lymph nodes additionally enlarged iliac chain pelvic sidewall lymph nodes and inguinal lymphadenopathy splenic granulomas. Patient had a bilateral mammogram done on May 09, 2020 which showed extensive right axillary lymphadenopathy largest being 4.2 x 1.5 x 4 cm. She was started on ibrutinib 420 mg p.o. daily. On June 03, 2020, along with allopurinol, the ibrutiinib was put on hold for 2 weeks. On July 15, 2020, it was discontinued due to palpitations. Follow-up echo done on October 06, 2020 shows ejection fraction 62%, She also recently presented with progressive off and on mild night sweats; off and on fever, earlier history of weight loss but then gaining. She was also complaining of discomfort in the right axilla because of enlarging lymphadenopathy and neck fullness but no dysphagia, no shortness of breath. No nausea or vomiting, no diarrhea or constipation. Because of progressive fullness and persistent off and on night sweats but no fever but weight loss, patient was not sure whether there was due to new medication started by rheumatology or disease, CT scan of neck chest abdomen pelvis was done on December 19, 2020 which shows overall cervical lymphadenopathy is progressed compared to May 19, 2020 with some lymph nodes more prominent and larger. Supraclavicular, internal mammary anterior mediastinal lymph nodes and axillary lymph nodes are slightly progressed CT scan of abdomen pelvis showed extensive lymphadenopathy in the largest lymph node near celiac plexus 3.3 x 2.0 cm. Her recommended treatment plan is Obinutuzumab and venetoclax. She began her first cycle on January 04, 2021. Came for follow-up denies any specific complaint except generalized weakness and fatigue, patient was recently admitted to hospital with severe hyperkalemia which improved with IV fluids and diuresis, now denies any fever chills denies any nausea or vomiting denies any diarrhea or constipation denies any night sweats denies any recurrent fever denies any weight loss denies any jaundice denies any skin rash denies any shortness of breath. Her last follow-up with Dr. Castano was on February 14, 2021. She had started taking venetoclax 100 mg p.o. on 02/13/2021, Her last dose of obinutuzumab was given on January 25, 2021. She did have acute hyperkalemia on 2020-requiring treatment in the emergency room. Her potassium was 6.7 with a redraw reported at 6.4. She was given a liter of saline and the clinic and referred to the emergency room for further treatment. Consistent cardiac monitoring was not available for treatment of the hypercalcemia in the oncology clinic. Her repeat potassium in the ER was 5.6 and she was asymptomatic. Her lisinopril was discontinued and she was advised to make sure she was no longer taking spironolactone either. She is encouraged to drink extra water and take an additional dose of Lasix upon arrival back home. She was discharged with instructions to return if she had any symptoms. Her follow-up potassium on 02/13/2021 was 4.4. Mrs. Em is here today for follow-up. She states she does have follow-up with Karlos scheduled March 09, 2021. She reports she did increase her venetoclax to 400 mg on Saturday. She states since starting that she is felt worse every day. She is draggy she is having nausea and stomach discomfort. She is having no diarrhea or constipation no urinary symptoms but states she just feels bad in general. She is draggy. She also had some sinus pressure in her head ears are ringing . She denies any further pain. She has had no vomiting. She has had no hematuria. She denies any hemoptysis. She denies fever or chills. She states her appetite is fair. She has no other concerns today. Her ECOG is 1. Past Medical History: Anxiety Chronic obstructive pulmonary disease Congestive heart failure Gastroesophageal reflux disease History of urinary calculi Hyperlipidemia Hypertension Hypothyroidism Osteoarthritis Type II diabetes Past Surgical History: Appendectomy Bladder suspension Cholecystectomy Hysterectomy Nasal polypectomy Tubal ligation Allergies: Pneumococcal 13-Shanon Conj Vacc Medications: Atenolol 1 Tablet (of 25 mg) Oral daily Euthyrox 1 Tablet (of 150 mcg) Oral daily glipiZIDE 1 Tablet Oral t.i.d. Lasix 1 Tablet (of 40 mg) Oral daily Levothyroxine Sodium 1 Tablet (of 137 mcg) Oral daily Liothyronine Sodium 1 Tablet (of 5 mcg) Oral daily Lovastatin 1 Tablet (of 40 mg) Oral daily Omeprazole 1 Tablet (of 20 mg) Tablet, enteric coated Oral b.i.d. traZODone HCl 1 Tablet (of 100 mg) Oral daily PRN Family History: Ms. Long's mother at age 69: lung cancer. Ms. Long's father at age 53: colon cancer. Ms. Long has 2 brothers: 2 alive. Ms. Long's first brother's lymphoma. Another brother's pancreatic cancer. She has 1 sister who is alive: breast cancer. Social History: Ms. Long is and she is unemployed. She is a daily smoker who has smoked 1.0 pack/day for 26 years. She has no history of drinking. She has indicated exposure to the following products: cigarettes. Review Of Symptoms: Constitutional Denies worsening fevers, chills, night sweats, excessive fatigue or weight loss. Fatigue but no worse. Allergic/Immunologic No reactions. Eyes Denies significant visual changes. No diplopia. No amaurosis. ENMT Denies changes in hearing, sore throat, mouth sores, difficulty or changes in swallowing ability, and/or sinus drainage. She states she has had some pressure in her head and her ears have been ringing like there is fluid there . She does have a history of seasonal allergies. Hematologic/Lymphatic Denies easy bruising or bleeding. She states she has nodes in her neck and right axilla that she could feel but they are much better now. Respiratory Denies any new or worsening dyspnea on exertion, chest pain, cough or hemoptysis. Denies orthopnea. Cardiovascular Denies anginal chest pain, palpitations or orthopnea. Gastrointestinal Denies vomiting, diarrhea, GI bleeding, or constipation. Denies change in bowel habits and/or stool color, no heartburn or early satiety. She states she has had nausea with the 400 mg dosing of the Venetoclax. Genitourinary (F) No hematuria, hesitancy, incontinence, vaginal bleeding, discharge or other problems with urination. Musculoskeletal Denies joint pain, swelling or redness. No decreased range of motion. Integumentary Denies chronic rashes, inflammation, ulcerations or skin changes. Neurologic Denies headache, blurred vision, and no areas of focal weakness or numbness. Normal gait. No sensory problems. Psychiatric Denies insomnia, depression, lester or mood swings. Vital Signs: Performed on Feb 28, 2021 09:36 Height - 63.00 in Weight - 190 lbs (HIGH) BSA - 1.89 sq.m BMI - 33.66 (HIGH) Temperature - 97.4 F (LOW) Pulse - 68 /min Respiration - 18 /min BP - 119/78 mm(hg) O2 Sat - 96 % Pain - 7,1 - No physically strenuous activity, but ambulatory and able to carry out light or sedentary work (e.g. office work, light house work). (ECOG) Physical Examination: Constitutional Alert, oriented, no acute distress. Skin pink, warm and dry. Head Normocephalic; atraumatic. Eyes Conjunctivae and sclerae are clear and without icterus. Pupils are reactive and equal. ENMT No oral exudates, ulcers, masses, thrush or mucositis. Oropharynx clear. Tongue normal. Neck Supple without masses or thyromegaly. No jugular venous distension. Hematologic/Lymphatic No petechiae or purpura. Bilateral enlarged lymph nodes in the cervical and supraclavicular areas have improved dramatically. Right axilla adenopathy has essentially resolved as well. Respiratory Lungs are clear to auscultation without rhonchi or wheezing. Cardiovascular Regular rate and rhythm of heart without murmurs,clicks, gallops or rubs. Abdomen Non-tender, non-distended, no masses or ascites. Back/Spine Non-tender to palpation. Extremities No visible deformities, no cyanosis, clubbing or edema. Musculoskeletal No tenderness or swelling, normal range of motion without obvious weakness. Integumentary No rashes or lesions. Neurologic No sensory or motor deficits, normal cerebellar function, normal gait. Psychiatric Alert and oriented times three. Coherent speech. Verbalizes understanding of our discussions today. Laboratory:Test performed on Feb 28, 2021 08:25 Sodium 135 mmol/L Potassium 4.3 mmol/L Chloride 102 mmol/L CO2 24 mmol/L Anion Gap 13.3 BUN 13 mg/dL Creatinine 1.0 mg/dL Cr Clearance (Est) 80.38 mL/min eGFR 56.4 mL/min Glucose 222 mg/dL Osmolality - Calculated 287 mOsm/kg Calcium 8.9 mg/dL Protein, Total 6.6 g/dL Albumin 4.1 g/dL Globulin 2.5 g/dL Bilirubin, Total 0.2 mg/dL ALT (SGPT) 17 U/L AST (SGOT) 15 U/L Alkaline Phosphatase 84 IU/L WBC 7.9 10 3/uL RBC 3.02 10 6/uL HGB 10.1 g/dL HCT 30.8 % MCV 102.0 fL MCH 33.4 pg MCHC 32.8 g/dL RDW 15.2 % Platelet Count 194 10 3/cmm MPV 9.6 fL Neutrophils 6.37 10 3/uL Lymphocytes 0.9 10 3/uL Monocytes 0.5 10 3/uL Eosinophils 0.1 10 3/uL Basophils 0.0 10 3/uL Neutrophil % 80.8 % Lymphocyte % 11.1 % Monocyte % 6.6 % Eosinophil % 0.8 % Basophils % 0.4 % NRBC % 0 % Test performed on Feb 09, 2021 09:33 LDH (Total) 239 U/L Uric Acid 4.5 mg/dL Test performed on Nov 21, 2020 15:58 Hepatitis B Core Ab, Total NO RED TOP SPECIMEN IN LAB ST Hepatitis B Surface Ab NO RED TOP SPECIMEN IN LAB ST Test performed on Nov 10, 2020 09:23 Manual Lymphocytes 0 % Manual Monocytes 2 % Manual Eosinophils 1 % Manual Basophils 1 % Impression: Small lymphocytic lymphoma with prominent confluent proliferation centers per right axillary lymph node biopsy done on 12/18/2018. 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 Stable 1.2 cm irregular right lower lobe pulmonary nodule. An additional 3 mm right upper lobe pulmonary nodule has remained stable Mild intra-abdominal and pelvic lymphadenopathy with no significant change since 04/03/2018, largest lymph node 1.4 cm in the periportal area. No splenomegaly. Lab workup done on 01/27/2019 shows white blood count 13.1 absolute lymphocytes 5.21 Hemoglobin 12.8 hematocrit 39.1 platelets 234,000 CMP within normal limits Mrs Long's recent CT scan of neck/chest/abdomen/pelvis from 05/19/2020 shows progressive central lymphadenopathy as well as cervical, supraclavicular and axillary lymph node no with some discomfort on the right axilla due to enlarging lymph node. She was also having vague B symptoms e.g. off and on mild night sweating and fever initial weight loss. At this point, because of progressive lymphadenopathy but no organomegaly and vague B symptoms, she was started her on treatment with ibrutinib 420 mg p.o. daily. Mrs Long started allopurinol and ibrutinib on June 03, 2020. History of chronic arthritis Clinically, Mrs Long had been doing reasonably well but presents with persistent off and on night sweats but no recurrent fever. She also reports some weight loss which could be multifactorial. She states overall she is not feeling well and progressive cervical lymphadenopathy seen on physical exam as well as \ 12-19-2020 CT scan of neck. CT of the chest/abdomen/pelvis from 12/12/2020 also reported significant increase in size and number of axillary, supraclavicular and mediastinal lymph nodes since October 02, 2018 and also abdominal, mesenteric and retroperitoneal lymphadenopathy that has not improved since May 19, 2020. The lymph nodes in the pelvis had increased in size by 2 to 3 mm in diameter. 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 discussed the side effects and possible benefits associated with this regimen. Side effects include but not limited to bone marrow suppression, which can increase risk for life-threatening infection and bleeding, hair loss, allergic reaction, endocrinopathy especially with obinutuzumab. Her treatment plan will consist of: obinutuzumab 100 mg on cycle 1 day 1 followed by 900 mg on day 2 and then 1000 mg on day 8 and 15 and then add venetoclax on day 22 with cycle 1 is 20 mg p.o. daily for 1 week and 5-week ramp-up schedule as per protocol, if tolerated to 400 mg p.o. daily with second cycle of obinutuzumab 12 mg q. 28 days. As patient has history of gout, she was restarted on allopurinol and we will monitor her closely for tumor lysis with electrolytes and patient was advised to maintain hydration. She will also have infection prophylaxis with Valtrex; Diflucan; ciprofloxacin or Bactrim. Plan: PROBLEMS ADDRESSED TODAY 1. Small lymphocytic lymphoma A. Today's labs reviewed in detail discussed with Ms. Long and a copy was given to her. WBC 7.9, hemoglobin 10.1, platelets 294,000, ANC is 6370. Sodium 135 potassium 4.3 creatinine 1.0, random glucose 222 LFTs are normal. LDH was not drawn today. B. We will proceed with just the venetoclax for now. I have asked her to hold for 1 day then resume back at 200 mg daily as she is clearly having intolerance of the 400 mg daily. She is had declining performance that is persistent nausea and stomach pain. C. She is due for consult at [facility] on March 09, 2021. D. Her last dose of obinutuzumab was January 25, 2021. 2. Mild fluid buildup in the tympanic membranes bilaterally. Most likely seasonal allergy. A. We will have her try Singulair 10 mg daily as [id number] and histamines are not effective for her at this point. 3. Follow-up plan. A. We will plan to see her back on March 23, 2021. B. I have asked for CBC CMP, LDH at Dr. Alberts's office on the March 21, 2021. C. Mrs. Long is instructed to contact us in interim should questions or problems arise. Signed By: Lottie Smith-, [facility] Yovanny Castano MD <<Signature on File>>
== END 2021-03-01 23:59 | disposition home or self-care (01) ==
LOC: ONCMED 05:33
PROVIDERS: Internal Medicine Hematology & Oncology; PCP Family Medicine; Visit Provider Nurse Practitioner
DX: C83.04 Small cell B-cell lymphoma, lymph nodes of axilla and upper limb (principal); R53.1 Weakness; R53.83 Other fatigue; E87.5 Hyperkalemia; T45.1X5A Adverse effect of antineoplastic and immunosuppressive drugs, initial encounter; J30.2 Other seasonal allergic rhinitis; H93.13 Tinnitus, bilateral; Z51.81 Encounter for therapeutic drug level monitoring; Z79.899 Other long term (current) drug therapy
CPT/HCPCS: 36591; 80053; 85025; 96365; 99214; 99215; J7040

== ENCOUNTER 2021-03-23 06:19 | Outpatient (RCR) | payer MEDICAID, SELFPAY ==
--- NOTE | 2021-03-23 15:10 | ONC FU_ITS ---
Dr. Castano follow up note Patient: Indira Long Unit #: [id number]: 1960 Dicatated By: Yovanny Castano M.D.Date of Visit:Mar 23, 2021 Onc Med Follow-up/Prog Note History of Present Illness: Mrs. Long is a 60-year-old female with long-standing history of small cervical, bilateral axillary lymphadenopathy. The adenopathy was confirmed with CT scan of chest abdomen pelvis done on 10/03/2018. The CT showed mild bilateral axillary lymphadenopathy largest being 1 cm; mildly enlarged abdominal and pelvic lymph nodes, no significant change when compared with CT scan done on 04/03/2018 and no splenomegaly. There was a stable 1.2 cm irregular right lower lobe lung nodule and additional 3 mm right upper lobe lung nodule has remained stable. 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 Mammogram done on 02/11/2019 showed scattered fibroglandular densities. Occasional bilateral breast benign-appearing calcification. 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 PMH: Sleep apnea but noncompliant with CPAP machine Interim History: Mrs Long presented to her PCP with complaints of fullness in the neck-more on the left side but no dysphagia. She was also complaining of chronic lower back pain, patient said she has history of bulging disks . Follow-up CT scan of neck/chest/abdomen/pelvis done on May 19, 2020 showed numerous enlarged lymph nodes throughout both bilateral cervical chains. Supraclavicular and diffuse abdominal lymphadenopathy-with the largest conglomeration of lymph node in the upper abdomen measuring 3.6 x 2.2 cm. There was enlarged periaortic, retroperitoneal lymph nodes additionally enlarged iliac chain pelvic sidewall lymph nodes and inguinal lymphadenopathy splenic granulomas. Patient had a bilateral mammogram done on May 09, 2020 which showed extensive right axillary lymphadenopathy largest being 4.2 x 1.5 x 4 cm. She was started on ibrutinib 420 mg p.o. daily. On June 03, 2020, along with allopurinol, the ibrutiinib was put on hold for 2 weeks. On July 15, 2020, it was discontinued due to palpitations. Follow-up echo done on October 06, 2020 shows ejection fraction 62%, She also recently presented with progressive off and on mild night sweats; off and on fever, earlier history of weight loss but then gaining. She was also complaining of discomfort in the right axilla because of enlarging lymphadenopathy and neck fullness but no dysphagia, no shortness of breath. No nausea or vomiting, no diarrhea or constipation. Because of progressive fullness and persistent off and on night sweats but no fever but weight loss, patient was not sure whether there was due to new medication started by rheumatology or disease, CT scan of neck chest abdomen pelvis was done on December 19, 2020 which shows overall cervical lymphadenopathy is progressed compared to May 19, 2020 with some lymph nodes more prominent and larger. Supraclavicular, internal mammary anterior mediastinal lymph nodes and axillary lymph nodes are slightly progressed CT scan of abdomen pelvis showed extensive lymphadenopathy in the largest lymph node near celiac plexus 3.3 x 2.0 cm. Her recommended treatment plan is Obinutuzumab and venetoclax. She began her first cycle on January 04, 2021. She had started taking venetoclax 100 mg p.o. on 02/13/2021, Her last dose of obinutuzumab was given on January 25, 2021. She did have acute hyperkalemia on 2020-requiring treatment in the emergency room. Her potassium was 6.7 with a redraw reported at 6.4. She was given a liter of saline and the clinic and referred to the emergency room for further treatment. Consistent cardiac monitoring was not available for treatment of the hypercalcemia in the oncology clinic. Her repeat potassium in the ER was 5.6 and she was asymptomatic. Her lisinopril was discontinued and she was advised to make sure she was no longer taking spironolactone either. She is encouraged to drink extra water and take an additional dose of Lasix upon arrival back home. She was discharged with instructions to return if she had any symptoms. Her follow-up potassium on 02/13/2021 was 4.4. Patient was referred to [facility] for second opinion which she was seen by Dr. Joanna Ray on March 09, 2021 and her recommendations were, considering CLL with deletion 17 P, chemotherapy is generally ineffective in this patient and most effective treatment are to BTK inhibitor and venetoclax, as patient developed cardiac arrhythmia with ibrutinib given initially, so her recommendation was either dose modification or trying alternative BT K inhibitor and that would be acalabrutinib 100 mg twice a day which works in a similar fashion to ibrutinib but with a low risk of arrhythmias. And other option would be considering single agent venetoclax even at low-dose. And if patient agreed, she can be considered for clinical trial which include novel agents or CAR T-cell therapy., Considering patient's excellent response to the treatment and no symptoms at this point other option was offered observation and treatment when there is a disease progression. Came for follow-up, denies any specific complaint except generalized weakness and fatigue but no nausea vomiting, no diarrhea constipation, no night sweats, no recurrent fever, no progressive peripheral lymphadenopathy, no weight loss, no melena or hematochezia, no nausea or vomiting, no abdominal fullness, patient was very pleased with evaluation at [facility] Medications: Atenolol 1 Tablet (of 25 mg) Oral daily, Euthyrox 1 Tablet (of 150 mcg) Oral daily, glipiZIDE 1 Tablet Oral t.i.d., Lasix 1 Tablet (of 40 mg) Oral daily, Levothyroxine Sodium 1 Tablet (of 137 mcg) Oral daily, Liothyronine Sodium 1 Tablet (of 5 mcg) Oral daily, Lovastatin 1 Tablet (of 40 mg) Oral daily, Omeprazole 1 Tablet (of 20 mg) Tablet, enteric coated Oral b.i.d., traZODone HCl 1 Tablet (of 100 mg) Oral daily PRN Allergies: Pneumococcal 13-Shanon Conj Vacc Review of Systems: Review of Systems is not available for this patient. Vital Signs: Performed on Mar 23, 2021 12:40 Height - 63.00 in Weight - 183.6 lbs (LOW) BSA - 1.86 sq.m BMI - 32.52 (HIGH) Temperature - 98.3 F (LOW) Pulse - 63 /min Respiration - 18 /min BP - 158/89 mm(hg) (HIGH) O2 Sat - 97 % Pain - 8 Performance Status: 1 - No physically strenuous activity, but ambulatory and able to carry out light or sedentary work (e.g. office work, light house work). (ECOG) Physical Examination: ENMT - No mouth sores, no thrush, no jaundice, shotty bilateral cervical lymphadenopathy, Respiratory - Lungs are clear to auscultation, Cardiovascular - Regular rate and rhythm of heart, Abdomen - Soft, bowel sounds present, Extremities - No visible edema. Lab/Imaging: Test performed on Feb 28, 2021 08:25 Sodium 135 mmol/L Potassium 4.3 mmol/L Chloride 102 mmol/L CO2 24 mmol/L Anion Gap 13.3 BUN 13 mg/dL Creatinine 1.0 mg/dL Cr Clearance (Est) 80.38 mL/min eGFR 56.4 mL/min Glucose 222 mg/dL Osmolality - Calculated 287 mOsm/kg Calcium 8.9 mg/dL Protein, Total 6.6 g/dL Albumin 4.1 g/dL Globulin 2.5 g/dL Bilirubin, Total 0.2 mg/dL ALT (SGPT) 17 U/L AST (SGOT) 15 U/L Alkaline Phosphatase 84 IU/L WBC 7.9 10 3/uL RBC 3.02 10 6/uL HGB 10.1 g/dL HCT 30.8 % MCV 102.0 fL MCH 33.4 pg MCHC 32.8 g/dL RDW 15.2 % Platelet Count 194 10 3/cmm MPV 9.6 fL Neutrophils 6.37 10 3/uL Lymphocytes 0.9 10 3/uL Monocytes 0.5 10 3/uL Eosinophils 0.1 10 3/uL Basophils 0.0 10 3/uL Neutrophil % 80.8 % Lymphocyte % 11.1 % Monocyte % 6.6 % Eosinophil % 0.8 % Basophils % 0.4 % NRBC % 0 % Test performed on Feb 09, 2021 09:33 LDH (Total) 239 U/L Uric Acid 4.5 mg/dL Test performed on Nov 21, 2020 15:58 Hepatitis B Core Ab, Total NO RED TOP SPECIMEN IN LAB ST Hepatitis B Surface Ab NO RED TOP SPECIMEN IN LAB ST Test performed on Nov 10, 2020 09:23 Manual Lymphocytes 0 % Manual Monocytes 2 % Manual Eosinophils 1 % Manual Basophils 1 % Impression: Small lymphocytic lymphoma with prominent confluent proliferation centers per right axillary lymph node biopsy done on 12/18/2018. 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 Stable 1.2 cm irregular right lower lobe pulmonary nodule. An additional 3 mm right upper lobe pulmonary nodule has remained stable Mild intra-abdominal and pelvic lymphadenopathy with no significant change since 04/03/2018, largest lymph node 1.4 cm in the periportal area. No splenomegaly. Lab workup done on 01/27/2019 shows white blood count 13.1 absolute lymphocytes 5.21 Hemoglobin 12.8 hematocrit 39.1 platelets 234,000 CMP within normal limits Mrs Long's recent CT scan of neck/chest/abdomen/pelvis from 05/19/2020 shows progressive central lymphadenopathy as well as cervical, supraclavicular and axillary lymph node no with some discomfort on the right axilla due to enlarging lymph node. She was also having vague B symptoms e.g. off and on mild night sweating and fever initial weight loss. At this point, because of progressive lymphadenopathy but no organomegaly and vague B symptoms, she was started her on treatment with ibrutinib 420 mg p.o. daily. Mrs Long started allopurinol and ibrutinib on June 03, 2020. History of chronic arthritis Clinically, Mrs Long had been doing reasonably well but presents with persistent off and on night sweats but no recurrent fever. She also reports some weight loss which could be multifactorial. She states overall she is not feeling well and progressive cervical lymphadenopathy seen on physical exam as well as \ 12-19-2020 CT scan of neck. CT of the chest/abdomen/pelvis from 12/12/2020 also reported significant increase in size and number of axillary, supraclavicular and mediastinal lymph nodes since October 02, 2018 and also abdominal, mesenteric and retroperitoneal lymphadenopathy that has not improved since May 19, 2020. The lymph nodes in the pelvis had increased in size by 2 to 3 mm in diameter. 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 discussed the side effects and possible benefits associated with this regimen. Side effects include but not limited to bone marrow suppression, which can increase risk for life-threatening infection and bleeding, hair loss, allergic reaction, endocrinopathy especially with obinutuzumab. Her treatment plan will consist of: obinutuzumab 100 mg on cycle 1 day 1 followed by 900 mg on day 2 and then 1000 mg on day 8 and 15 and then add venetoclax on day 22 with cycle 1 is 20 mg p.o. daily for 1 week and 5-week ramp-up schedule as per protocol, if tolerated to 400 mg p.o. daily with second cycle of obinutuzumab 12 mg q. 28 days. As patient has history of gout, she was restarted on allopurinol and we will monitor her closely for tumor lysis with electrolytes and patient was advised to maintain hydration. She will also have infection prophylaxis with Valtrex; Diflucan; ciprofloxacin or Bactrim Obinutuzumab/venetoclax was discontinued on January 25, 2021 because of intolerance and electrolyte imbalance, patient was referred to [facility] for second opinion which she was seen on March 09, [address] Ray who recommended either modified dose of ibrutinib or switching her to acalabrutinib 100 mg p.o. twice a day or trying venetoclax even at low doses or observation Plan: Discussed with patient regarding her labs white blood count 7.9 hemoglobin 10.1 hematocrit 30.8 platelets 194,000 ANC 6370 CMP within normal limit except sodium 135 Clinically, patient doing well with no new signs symptoms including B symptoms and her follow-up CBC shows white blood count and platelets within normal limits and stable mild/moderate microcytic anemia and on exam there is no evidence of obvious peripheral lymphadenopathy except mild shotty cervical lymphadenopathy. , At this point, will consider repeating CT scan of neck chest abdomen pelvis and if there is no significant central lymphadenopathy or evidence of disease progression, then we will monitor as her CBC also looks reasonable except mild anemia which could be multifactorial and will consider basic anemia work-up which include iron studies and B12 folic acid level and reticulocyte count. Patient return to clinic after CT scan of neck chest abdomen pelvis, if it shows no evidence of disease progression or significant lymphadenopathy or organomegaly, will consider observation on the other hand if there is a evidence of disease progression, will consider starting her on acalabrutinib 100 mg p.o. twice a day Signed By: Yovanny Castano M.D. <<Signature on File>>
== END 2021-03-31 23:59 | disposition home or self-care (01) ==
LOC: ONCMED 06:19
PROVIDERS: PCP Family Medicine; Visit Provider Nurse Practitioner
DX: C83.00 Small cell B-cell lymphoma, unspecified site (principal); C78.01 Secondary malignant neoplasm of right lung; R61 Generalized hyperhidrosis; R63.4 Abnormal weight loss; M89.49 Other hypertrophic osteoarthropathy, multiple sites; Z79.899 Other long term (current) drug therapy
CPT/HCPCS: 99215

== ENCOUNTER 2021-03-31 13:15 | Outpatient (CLI) | payer MEDICAID, SELFPAY ==
--- NOTE | 2021-03-31 | CT_ITS ---
WS: [id number] CT NECK TECHNIQUE: Contrast-enhanced CT of the neck with coronal and sagittal reformatted images. CLINICAL INFORMATION: LYMPHOMA RESTAGING COMPARISON: December 19, 2020 May 19, 2020 DLP: 1118.[address] scans at [facility] use at least one of these dose optimization techniques: automat ed exposure control; mA and/or kV adjustment per patient size (includes targeted exams where dose is matched to clinical indication); or iterative reconstruction. FINDINGS: Previously described diffuse cervical lymphadenopathy has slightly improved compared to the prior exa mination December 19, 2020 consistent with interval response to therapy. Numerous and slightly promine nt cervical lymph nodes throughout both cervical chains. No pathologic lymphadenopathy today. Numerou s normal sized supraclavicular lymph nodes. Parotid glands are normal in appearance. Normal submandibular glands. Normal posterior nasopharynx. N o parapharyngeal fat. No evidence of supraglottic or glottic mass. Normal subglottic airway. Lung api umm are well aerated. Straightening of the normal cervical lordosis with ACDF C5-C7. Partially visualized intracranial cont ents are normal. Mastoid air cells well aerated. Paranasal sinuses are well aerated. CT/CT neck w con* 30834 IMPRESSION: 1. Previously described diffuse cervical lymphadenopathy has significantly imp roved consistent with interval response to therapy. 2. Numerous slightly prominent cervical lymph nodes throughout both cervical c hains not pathologically enlarged and again improved from previous. 3. Normal salivary glands. 4. No evidence of supraglottic or glottic mass.
[2021-03-31] MEDS: iohexol 300 mg/mL 100 mL Btl IV (13:51)
== END 2021-03-31 13:16 | disposition home or self-care (01) ==
LOC: RADWPI 13:17
PROVIDERS: PCP Family Medicine; Visit Provider Internal Medicine Hematology & Oncology
DX: C83.00 Small cell B-cell lymphoma, unspecified site (principal)
CPT/HCPCS: 70491; Q9967

== ENCOUNTER 2021-04-03 11:43 | Outpatient (CLI) | payer MEDICAID, SELFPAY ==
--- NOTE | 2021-04-03 11:52 | CT_ITS ---
WS: [id number] CT CHEST, ABDOMEN, AND PELVIS TECHNIQUE: Contrast-enhanced CT of the chest, abdomen, and pelvis with coronal and sagittal reformatt ed images. CLINICAL INFORMATION: RESTAGING EVALUATION/HX OF LYMPHOMA COMPARISON: CT December 12, 2020 DLP: 1595.[address] scans at [facility] use at least one of these dose optimization techniques: automat ed exposure control; mA and/or kV adjustment per patient size (includes targeted exams where dose is matched to clinical indication); or iterative reconstruction. CT CHEST: Compared to the prior examination October 21, 2020 Interval improvement in the mediastinal, hilar, p araesophageal, and axillary lymphadenopathy. Residual slightly prominent bilateral axillary lymph nod es although significantly improved from previous. Largest lymph nodes today measure approximately 1.5 CM in the left axilla. Both lungs are well aerated. No acute pulmonary infiltrates. No suspicious pulmonary parenchymal abno rmalities. No focal consolidation or pleural fluid. Proximal main pulmonary arteries are normal. Norm al caliber thoracic aorta.. CT ABDOMEN AND PELVIS: Diffuse interval improvement in the abdomen and pelvic lymphadenopathy in all regions consistent with interval response to therapy. Significant improvement in the previously described bulky upper abdomi nal and periaortic lymphadenopathy. Periaortic and retroperitoneal lymph nodes nearly resolved with a few residual normal caliber lymph nodes. Previously described pelvic and pelvic sidewall lymphadeno kiki has significantly improved and nearly resolved. No inguinal lymphadenopathy. Diffuse fatty infiltration of the liver. Cholecystectomy. Normal GE junction. Fatty atrophy of the pa ncreas. Splenic granulomas. Adrenal glands are normal. Normal renal parenchymal enhancement. Mild pavan al parenchymal cortical atrophy. No hydronephrosis. Normal caliber abdominal aorta. No evidence of sm all or large bowel obstruction. CT/CT chest abd pel w con* IMPRESSION: 1. Significant improvement in the adenopathy chest abdomen pelvis consistent w ith interval response to therapy. 2. Mediastinal and hilar lymphadenopathy is significantly improved. Bilateral axillary lymphadenopathy has significantly improved with a few residual promine nt lymph nodes measuring up to 1.5 cm. 3. Significant improvement in the adenopathy abdomen and pelvis. Previous desc ribed bulky upper abdominal and periaortic lymphadenopathy has essentially reso lved with a few normal size lymph nodes. 4. Previously described pelvic lymphadenopathy has essentially resolved compar ed to previous. 5. Diffuse fatty infiltration liver. 6. Prior cholecystectomy.
[2021-04-03] MEDS: iodixanol 320 mg/mL 100mL Btl IV (13:48)
== END 2021-04-03 11:44 | disposition home or self-care (01) ==
LOC: RAD 11:46
PROVIDERS: PCP Family Medicine; Visit Provider Internal Medicine Hematology & Oncology
DX: C83.00 Small cell B-cell lymphoma, unspecified site (principal); Z90.49 Acquired absence of other specified parts of digestive tract; K76.0 Fatty (change of) liver, not elsewhere classified
CPT/HCPCS: 71260; 74177

== ENCOUNTER → 2021-08-17 14:20 | Outpatient (BNVA) | payer MEDICAID, SELFPAY | PROVIDERS: PCP Family Medicine; Visit Provider Surgery | DX: Z20.822 Contact with and (suspected) exposure to COVID-19 (principal); C83.00 Small cell B-cell lymphoma, unspecified site | CPT/HCPCS: 87635 ==

== ENCOUNTER 2021-09-12 08:39 | Day surgery (SDC) | payer MEDICAID, SELFPAY ==
[2021-09-11 10:16] VITALS: BMI 33.2
--- NOTE | 2021-09-12 09:08 | ANES.PREANE2 ---
Pre-Anesthetic Assessment Pre-Anesthetic Assessment: Height/Weight: Height 1.6 m Weight 85.094 kg Preop Diagnosis: Lymphoma Proposed Procedure: Operation Date: 09/12/21 09:55 Proposed Procedures p Portacath Removal 63045 C83.00(Not Applicable) - Nitin Agarwal MD Familial anesthetic complications: None Was Beta Jerald taken within 24 hours: N/A Was Clonidine taken within 24 hours: N/A Last intake: > 8 hrs Social: Social History: Tobacco and No alcohol Exam: Pre-Anes Outpt Exam: alert, oriented x 3, clear to auscultation bilaterally and regular rate & rhythm Airway: MP: 2 Dentition: Full CV/HEM: CV/HEM: CHF (Class II) and HTN Comments: Echo 2020 CONCLUSIONS 1. Normal left ventricular size, systolic function and wall thickness, with no diagnostic regional wall motion abnormalities. Left ventricular ejection fraction is estimated at 62 %. Normal diastolic function. 2. Normal right ventricular size and systolic function. 3. Normal pulmonary artery pressure. 4. No significant pulmonary artery pressure. 5. No prior similar studies to compare. GI: GI: GERD Metabolic: Metabolic: DM and Hyperlipidemia Musc/skel: Comments: inflammatory arthritis Anesthetic Plan: ASA status: 4 Anesthesia: MAC Risk of > 500 ml blood loss (7ml/kg in children): No PFSH Anesthesia PFSH: Medical History CHF (congestive heart failure), NYHA class III Diabetes High risk medication use History of nonmelanoma skin cancer Immunization counseling Inflammatory arthritis Joint pain Small lymphocytic lymphoma Thyroid disease Surgical History H/O dilation and curettage History of appendectomy History of bladder repair surgery History of hysterectomy History of neck surgery titanium in neck History of tubal ligation Hx of cholecystectomy Family History Mother Cancer lung cancer Father Cancer colon and lung cancer Other Hypertension Migraine Rheumatoid arthritis Denies family history of Diabetes Lupus Chronic kidney disease (CKD) Anesthesia complication Bleeding disorder Lung disease Stroke Social History Smoking and tobacco status: current every day smoker Quit status (tobacco): has tried quititng Second hand smoke exposure: Yes Smoking risk assessment/counseling performed?: No Alcohol intake: never Desire information about alcohol rehabilitation?: No Counseling given: No Desire information about substance/drug rehabilitation?: No Counseling given: No Household members: spouse Marital status: Current occupational status: disabled History of recent travel: No Data Anesthesia Cardiac Studies: Cardiac Event Monitor 09/14/20
[2021-09-12 09:18] VITALS: BP 155/75; PULSE 68; RESP 15; TEMP 36.4; O2SAT 96
[2021-09-12 09:27] LABS: Glucose Point of Care 104 mg/dL (70-110)
[2021-09-12] MEDS: sodium chloride 0.9% 1,000 ML 30 ML IV (09:27)
--- NOTE | 2021-09-12 10:05 | W.PM.OPSUD ---
Surgery/Procedure H&P Update DATE OF PROCEDURE: September 12, 2021 DATE H&P PERFORMED: 08/17/21 H&P UPDATE INFORMATION: I have reviewed H&P completed within last 30 days, I have examined patient prior to procedure and No changes to prior documentation PREOP DIAGNOSIS: UNDESIRED PORT A CATH PRIMARY INDICATION FOR PROCEDURE: THE SAME PLANNED PROCEDURE: Operation Date: 09/12/21 09:55 Proposed Procedures p Portacath Removal 01245 C83.00(Not Applicable) - Nitin Agarwal MD
[2021-09-12] MEDS: lidocaine 2% INJ 20 mL INJECTION (10:40)
--- NOTE | 2021-09-12 11:09 | PM.OP ---
Operative Report Date of procedure: September 12, 2021 Pre-op Diagnosis: UNDESIRED PORT A CATH Post-op diagnosis: same Procedure Done: Explantation of right subclavian vein PowerPort Surgeon: Nitin Agarwal Elevator Examiner: Surgical Patricia Gill natural resources technician student Medical student Monique Argueta Circulating nurse Francesca Benedict Anesthesia: MAC (livestock inspector Beau) Estimated blood loss (mL): 5 Condition: stable Disposition: same day Brief History: Undesired port a cath Procedure: After identifying the patient in the holding area, informed consent per chart ,patient was then transferred to the operative suite, was placed in supine position, IV propofol was infused by the anesthesia provider and both arms were tucked, prep and drape of left upper chest region was done usual sterile technique. Time-out was done verifying the patient's name/date of /planned procedure and destination after the procedure, all were in agreement. I started by injection of lidocaine 2% at the site of the planned incision started by an transverse incision including the previous scar of the catheter placement located at the right upper chest, after dissection of the port was then explanted easily, noticed that the port was sideways, at this point the catheter freed then was removed at the same time direct pressure was applied at the site of the right subclavian stick to prevent bleeding. Thorough irrigation of the right upper chest wound was done followed by hemostasis.Closure using 3/0 Vicryl as subdermal sutures was achieved , followed by 4-0 Monocryl to approximate for subcuticular closure, followed by surgical glue and dry dressing Patient tolerated the procedure well, count of instruments, needles and sponges were completed at the end of the procedure.And then patient was transferred to the recovery area in stable condition. I Was present for the whole entire procedure
[2021-09-12 11:13] VITALS: BP 134/80; PULSE 69; RESP 18; TEMP 36.8; O2SAT 95
[2021-09-12 11:15] VITALS: BP 133/80; PULSE 73; RESP 18; O2SAT 96
--- NOTE | 2021-09-12 11:15 | P.PCN_ITS ---
PACU note PACU note: VSS, Good respiratory effort, report to VOLTMETER OPERATOR Post-Anesthesia Exam: awake
--- NOTE | 2021-09-12 11:15 | PM.PACU ---
PACU note PACU note: VSS, Good respiratory effort, report to SLOT OPERATIONS MANAGER Post-Anesthesia Exam: awake
[2021-09-12 11:20] VITALS: BP 147/63; PULSE 69; RESP 18; TEMP 36.8; O2SAT 95
[2021-09-12 11:29] VITALS: BP 129/69; PULSE 67; RESP 16; TEMP 36.2; O2SAT 94
[2021-09-12 11:44] VITALS: BP 131/81; PULSE 68; RESP 16; TEMP 36.6; O2SAT 95
== END 2021-09-12 12:00 | disposition home or self-care (01) ==
PROVIDERS: PCP Family Medicine; Visit Provider Surgery
PROC: (CPT 36589; principal; 2021-09-12 09:45)
DX: Z45.2 Encounter for adjustment and management of vascular access device (principal); I11.0 Hypertensive heart disease with heart failure; I50.9 Heart failure, unspecified; K21.9 Gastro-esophageal reflux disease without esophagitis; E11.9 Type 2 diabetes mellitus without complications; E78.5 Hyperlipidemia, unspecified; F17.210 Nicotine dependence, cigarettes, uncomplicated; Z79.82 Long term (current) use of aspirin
CPT/HCPCS: 36590; 36416; 82962; J0690; J2250; J2704; J3010; J7030

== ENCOUNTER → 2021-09-21 13:03 | Outpatient (BNVA) | payer MEDICAID, SELFPAY | PROVIDERS: PCP Family Medicine; Referring Provider Family Medicine; Visit Provider Internal Medicine | DX: E03.9 Hypothyroidism, unspecified (principal) | CPT/HCPCS: 99204 ==

== ENCOUNTER 2021-09-25 11:43 | Inpatient (IN) | payer MEDICAID, SELFPAY ==
[2021-09-25] VITALS (15 sets, daily range): BP systolic 84–157; BP diastolic 46–74; PULSE 67–95; RESP 16–31; TEMP 36.9–38.7; O2SAT 88–98; BMI 30.8
--- NOTE | 2021-09-25 12:46 | ECG_ITS ---
[facility] Test Date: 2021-09-25 Pat Name: Indira Long Department: Room: Gender: Female Sleep Tech: : 1960 Requested By: Abram Norwood Order Number: [id number] Eros MD: Patrick Schwartz M.D. Measurements Intervals [place] Rate: 78 P: 24 DE: 161 QRS: 30 QRSD: 101 T: 34 QT: 382 QTc: 437 Interpretive Statements SINUS RHYTHM NONSPECIFIC T-WAVE ABNORMALITY Compared to ECG 02/09/2021 14:39:28 T-wave abnormality now present Electronically Signed On 09-25-2021 23:48:28 CDT by Patrick Schwartz M.D. [id number]
--- NOTE | 2021-09-25 12:46 | XR_ITS ---
WS: [id number] Exam: XR chest 1V portable [id number] Date/Time of Exam: 09/25/2021 12:46 PM Reason For Exam: dyspnea/cough Comparison 12/13/2020. There are patchy groundglass infiltrates throughout the left lung as well as the upper lobe of the ri ght lung. This would suggest pneumonia. Heart size is normal. No pleural effusions or pneumothorax. T he mediastinum is not widened. Fusion hardware noted in the lower cervical spine. XR/XR chest 1V portable [id number] IMPRESSION: 1. Patchy groundglass infiltrates throughout the left lung as well as the upper lobe of the right lung suspicious for active pneumonia. The pattern is nonspec ific but this could be seen with Covid pneumonia.
--- NOTE | 2021-09-25 12:53 | ECG_ITS ---
[facility] Test Date: 2021-09-25 Pat Name: Indira Long Department: Room: Gender: Female Bdc Manager: : 1960 Requested By: Narciso Ang Order Number: [id number] Reading MD: Patrick Schwartz M.D. Measurements Intervals [place] Rate: 63 P: 87 MA: 173 QRS: 30 QRSD: 98 T: 49 QT: 421 QTc: 434 Interpretive Statements SINUS RHYTHM NONSPECIFIC ST & T-WAVE ABNORMALITY Compared to ECG 09/25/2021 13:13:03 No significant changes Electronically Signed On 09-25-2021 23:49:01 CDT by Patrick Schwartz M.D. [id number]
--- NOTE | 2021-09-25 13:24 | W.ED.GENADLT ---
HPI - General Adult General: Chief complaint: Weakness Stated complaint: COUGH/N,V/HEADACHE/COLD CHILLS Time Seen by Provider: 09/25/21 12:51 History of Present Illness: HPI narrative: Patient is a 61-year-old female with history of lymphoma in remission s/p port removal on 09/12 presenting to emergency room for cough, shortness of breath, fever since then. Patient tells me that she went to see her doctor and was prescribed Levaquin and doxycycline 4 days ago. Has been compliant with her medicine but despite that, she has had dyspnea fever and worsening cough. Patient presents the emergency room for evaluation. On arrival, patient is satting at 88% on room air. Patient has no complaints of chest pain, abdominal complaints nausea/vomiting. For mild headache and diffuse body ache. Onset: 09/12/2021 Duration: 2 weeks Location:home Severity: moderate Review of Systems Narrative: Constitutional: +fever, no chills. HEENT: No vision changes CV: No chest pain, no palpitations PULM: +cough, +dyspnea. GI: No abdominal pain, no N/V/D. : No dysuria MSKEL: No muscle pain SKIN: No new rashes, no lesions. NEURO: +headache, no focal weakness. HEME: No visible bruises PSYCH: Normal mood PFSH ED PFSH: Medical History CHF (congestive heart failure), NYHA class III Echocardiogram October 2020 shows EF of 62% with normal diastolic function normal PA pressures COVID-19 Diabetes High risk medication use History of nonmelanoma skin cancer Inflammatory arthritis Joint pain Posterior tibial tendon dysfunction (PTTD) of right lower extremity Small lymphocytic lymphoma Thyroid disease Surgical History H/O dilation and curettage History of appendectomy History of bladder repair surgery History of hysterectomy History of neck surgery titanium in neck History of removal of Port-a-Cath September 2021 History of tubal ligation Hx of cholecystectomy Family History Mother Cancer lung cancer Father Cancer colon and lung cancer Other Hypertension Migraine Rheumatoid arthritis Denies family history of Diabetes Lupus Chronic kidney disease (CKD) Anesthesia complication Bleeding disorder Lung disease Stroke Social History Quit status (tobacco): has tried quititng Second hand smoke exposure: Yes Smoking risk assessment/counseling performed?: No Alcohol intake: never Desire information about alcohol rehabilitation?: No Counseling given: No Desire information about substance/drug rehabilitation?: No Counseling given: No Household members: spouse Marital status: Current occupational status: disabled History of recent travel: No Female Reproductive History: Date of last menstrual period: 02/23/21 Physical Exam Narrative: EXAM NARRATIVE: Head: Atraumatic Eyes: PERRL, conjunctiva without injection ENT: Dry membrane moist NECK: Supple, ROM intact LUNGS: Coarse breath sounds b/l CV: RRR ABDOMEN: Soft, nontender in all quadrants EXTREMITY: Normal ROM SKIN: No rash or erythema, +previous port site dry/clean/intact NEURO: Awake and alert, no focal motor deficits PSYCH: Normal mood and affect Course Vital Signs: Vital signs: Vital Signs Temperature 98.1 F 09/28/21 16:00 Pulse Rate 85 09/28/21 20:58 Respiratory Rate 20 H 09/28/21 20:58 Blood Pressure 118/64 09/28/21 20:00 Pulse Oximetry 94 09/28/21 20:58 MDM - General Adult MDM Narrative: Medical decision making narrative: 61-year-old female with a history of lymphoma in remission presenting to the emergency room with fever, cough, shortness of breath despite taking Levaquin doxycycline x4 days. On arrival, patient is febrile to 100 degrees, tachypneic to 20s, with coarse breath sounds bilaterally. No increased work of breathing requiring NIPPV or intubation at this time. Workup: CBC, BMP, lactic acid, troponin, bnp, covid AG/PCR, XR chest Intervention: IVF, tylenol, vancomycin and cefepime, and azithromycin She is neutropenic today with ANC of 0.8. BP has been holding after 2 L of fluids. Patient admitted to hospital for antibiotics and sepsis work-up. Covid antigen negative. Disposition: Admission Lab Data: Labs: Lab Results 09/25/21 09/25/21 09/25/21 04:34 13:12 13:12 WBC 2.2 10^3/uL L 10^ 3/uL (4.0-10.0) RBC 3.86 10^6/uL L 10 ^6/uL (4.1-5.3) Hgb 12.0 g/dL g/dL (11.5-15.3) Hct 36.4 % L % (37.0-47.0) MCV 94.3 fl fl (81-99) MCH 31.1 pg pg (28.0-34.0) MCHC 33.0 g/dL g/dL (30.0-36.0) RDW 13.4 % % (12.1-15.1) Plt Count 247 10^3/cmm 10^3 /cmm (130-400) MPV 9.6 fL fL (7.4-10.4) Lymph % (Auto) Not Reportable [place] % (Auto) Not Reportable Lymph # (Auto) Not Reportable [place] # (Auto) Not Reportable Total Counted 100 (0-100) Atypical Lymphs % 4.0 % % (0-5) Absolute Neutrophi ls 0.9 10^3/cmm L 10 ^3/cmm (1.4-6.5) Segmented Neutroph ils 30 % % Abs Segm Neuts (Ma n) 0.7 10/cmm L 10/c mm (1.6-7.1) Band Neutrophils 13.0 % % Abs Band Neuts (Ma n) 0.3 10^3/cmm 10^3 /cmm (0.0-1.2) Absolute Lymphocyt es 0.8 10^3/cmm L 10 ^3/cmm (1.2-3.4) Lymphocytes (Manua l) 31 % % Monocytes (Manual) 17.0 % % Absolute Monocytes 0.4 10^3/cmm 10^3 /cmm (0.1-0.6) Eosinophils (Manua l) 0 % % Absolute Eosinophi ls 0.0 10^3/cmm 10^3 /cmm (0.0-0.7) Basophils (Manual) 0.0 % % Absolute Basophils 0.0 10^3/cmm 10^3 /cmm (0.0-0.2) Metamyelocytes 5.0 % % Platelet Estimate Normal (Normal) D-Dimer Sodium 134 mmol/L L mmol /L (136-145) Potassium 4.0 mmol/L mmol/L (3.5-5.1) Chloride 95 mmol/L L mmol/ L (98-107) Carbon Dioxide 26 mmol/L mmol/L (22-29) Anion Gap 17.0 (5-19) BUN 24 mg/dL H mg/dL (8-23) Creatinine 1.3 mg/dL H mg/dL (0.5-0.9) GFR Calculation 41.5 mL/min L mL/ min (90-130) Glucose 95 mg/dL mg/dL (65-115) Calculated Osmolal ity 282 mOsm/kg L mOs m/kg (285-295) Lactate Calcium 9.0 mg/dL mg/dL (8.5-10.5) Iron TIBC % Saturation Unsat Iron Binding Total Bilirubin 0.4 mg/dL mg/dL (0.15-1.2) AST 28 U/L U/L (0-32) ALT 25 U/L U/L (0-33) Alkaline Phosphata se 76 IU/L IU/L (35-105) Troponin T Baselin e Troponin T 120 Min [place] Troponin T NT-Pro-B Natriuret Pep 233 pg/mL H pg/mL (0-125) Total Protein 6.3 g/dL L g/dL (6.6-8.7) Albumin 3.7 g/dL g/dL (3.5-5.2) Globulin 2.6 g/dL g/dL (1.3-4.6) Procalcitonin TSH Free T4 Free T3 Leuk/Lym Spec Type Cancelled Leuk/Lym Clinical Info Cancelled Leuk/Lymph Viabili ty Cancelled Leuk/Lym Sample De scrip Cancelled Leuk/Lym # of Michael ers Cancelled Leuk/Lym Markers Cancelled Leuk/Lym Gating St rategy Cancelled Leuk/Lym Interpret ation Cancelled Lyme Ab (Western B lot) Nasal/Oral COVID-1 9 PCR E. chaffeensis IgG Ab E. chaffeensis IgM Ab E. chaffeensis Int erp E. chaffeensis Com ment SARS-CoV-2 Ag (Rap id) 09/25/21 09/25/21 09/25/21 13:12 13:12 13:12 WBC RBC Hgb Hct MCV MCH MCHC RDW Plt Count MPV Lymph % (Auto) [place] % (Auto) Lymph # (Auto) [place] # (Auto) Total Counted Atypical Lymphs % Absolute Neutrophi ls Segmented Neutroph ils Abs Segm Neuts (Ma n) Band Neutrophils Abs Band Neuts (Ma n) Absolute Lymphocyt es Lymphocytes (Manua l) Monocytes (Manual) Absolute Monocytes Eosinophils (Manua l) Absolute Eosinophi ls Basophils (Manual) Absolute Basophils Metamyelocytes Platelet Estimate D-Dimer Sodium Potassium Chloride Carbon Dioxide Anion Gap BUN Creatinine GFR Calculation Glucose Calculated Osmolal ity Lactate 0.9 mmol/L mmol/L (0.5-2.2) Calcium Iron 19 ug/dL L ug/dL (37-145) TIBC 277 mcg/dl mcg/dl % Saturation 6.8 % L % (20-50) Unsat Iron Binding 258 ug/dL ug/dL (112-347) Total Bilirubin AST ALT Alkaline Phosphata se Troponin T Baselin e 17 ng/L H ng/L (0-10) Troponin T 120 Min [place] Troponin T NT-Pro-B Natriuret Pep Total Protein Albumin Globulin Procalcitonin 0.29 ng/mL ng/mL (0-0.5) TSH 0.13 uIU/mL L uIU /mL (0.27-4.20) Free T4 Free T3 Leuk/Lym Spec Type Leuk/Lym Clinical Info Leuk/Lymph Viabili ty Leuk/Lym Sample De scrip Leuk/Lym # of Michael ers Leuk/Lym Markers Leuk/Lym Gating St rategy Leuk/Lym Interpret ation Lyme Ab (Western B lot) Nasal/Oral COVID-1 9 PCR E. chaffeensis IgG Ab E. chaffeensis IgM Ab E. chaffeensis Int erp E. chaffeensis Com ment SARS-CoV-2 Ag (Rap id) 09/25/21 09/25/21 09/25/21 13:12 13:20 13:20 WBC RBC Hgb Hct MCV MCH MCHC RDW Plt Count MPV Lymph % (Auto) [place] % (Auto) Lymph # (Auto) [place] # (Auto) Total Counted Atypical Lymphs % Absolute Neutrophi ls Segmented Neutroph ils Abs Segm Neuts (Ma n) Band Neutrophils Abs Band Neuts (Ma n) Absolute Lymphocyt es Lymphocytes (Manua l) Monocytes (Manual) Absolute Monocytes Eosinophils (Manua l) Absolute Eosinophi ls Basophils (Manual) Absolute Basophils Metamyelocytes Platelet Estimate D-Dimer 9.24 ug/mIFEU H u g/mIFEU (0-0.59) Sodium Potassium Chloride Carbon Dioxide Anion Gap BUN Creatinine GFR Calculation Glucose Calculated Osmolal ity Lactate Calcium Iron TIBC % Saturation Unsat Iron Binding Total Bilirubin AST ALT Alkaline Phosphata se Troponin T Baselin e Troponin T 120 Min [place] Troponin T NT-Pro-B Natriuret Pep Total Protein Albumin Globulin Procalcitonin TSH Free T4 Free T3 Leuk/Lym Spec Type Leuk/Lym Clinical Info Leuk/Lymph Viabili ty Leuk/Lym Sample De scrip Leuk/Lym # of Michael ers Leuk/Lym Markers Leuk/Lym Gating St rategy Leuk/Lym Interpret ation Lyme Ab (Western B lot) Nasal/Oral COVID-1 9 PCR Detected H E. chaffeensis IgG Ab E. chaffeensis IgM Ab E. chaffeensis Int erp E. chaffeensis Com ment SARS-CoV-2 Ag (Rap id) Negative (Negative) 09/25/21 09/25/21 09/25/21 13:37 14:39 14:39 WBC RBC Hgb Hct MCV MCH MCHC RDW Plt Count MPV Lymph % (Auto) [place] % (Auto) Lymph # (Auto) [place] # (Auto) Total Counted Atypical Lymphs % Absolute Neutrophi ls Segmented Neutroph ils Abs Segm Neuts (Ma n) Band Neutrophils Abs Band Neuts (Ma n) Absolute Lymphocyt es Lymphocytes (Manua l) Monocytes (Manual) Absolute Monocytes Eosinophils (Manua l) Absolute Eosinophi ls Basophils (Manual) Absolute Basophils Metamyelocytes Platelet Estimate D-Dimer Sodium Potassium Chloride Carbon Dioxide Anion Gap BUN Creatinine GFR Calculation Glucose Calculated Osmolal ity Lactate Calcium Iron TIBC % Saturation Unsat Iron Binding Total Bilirubin AST ALT Alkaline Phosphata se Troponin T Baselin e Troponin T 120 Min [place] 14.37 ng/L H ng/L (0-10) Delta Troponin T -2.63 ABS# L ABS# (0-10) NT-Pro-B Natriuret Pep Total Protein Albumin Globulin Procalcitonin TSH Free T4 2.55 ng/dL H ng/d L (0.82-1.77) Free T3 2.2 PG/ML PG/ML (2.0-4.4) Leuk/Lym Spec Type Leuk/Lym Clinical Info Leuk/Lymph Viabili ty Leuk/Lym Sample De scrip Leuk/Lym # of Michael ers Leuk/Lym Markers Leuk/Lym Gating St rategy Leuk/Lym Interpret ation Lyme Ab ([place] B lot) <0.90 index index Nasal/Oral COVID-1 9 PCR E. chaffeensis IgG Ab <1:64 E. chaffeensis IgM Ab <1:20 E. chaffeensis Int erp See note E. chaffeensis Com ment Not Reportable SARS-CoV-2 Ag (Rap id) Imaging Data^: Other Imaging: Radiologist's impression: [address] [id number] ReportSigned Patient: Edinson oLng #: [id number]: 1960cct#:[id number]/Sex: 61 / FADM Date: 09/25/21Loc: ERRoom/Bed:Attending Dr: Ordering Provider/Ordering MD: Abram Huerta DO Date of Service: 09/25/21 Procedure(s): XR chest 1V portable [id number] Accession Number(s): [id number] Report Number: [id number] WS: [id number] Exam: XR chest 1V portable [id number] Date/Time of Exam: 09/25/2021 12:46 PM Reason For Exam: dyspnea/cough Comparison 12/13/2020. There are patchy groundglass infiltrates throughout the left lung as well as the upper lobe of the right lung. This would suggest pneumonia. Heart size is normal. No pleural effusions or pneumothorax. The mediastinum is not widened. Fusion hardware noted in the lower cervical spine. XR/XR chest 1V portable [id number] IMPRESSION: 1. Patchy groundglass infiltrates throughout the left lung as well as the upper lobe of the right lung suspicious for active pneumonia. The pattern is nonspecific but this could be seen with Covid pneumonia. Dictated By:Zelayaigned By:Jus Andrade Date/Time:09/25/21 1254DD/ 1252 Discharge Plan Discharge Patient Disposition: Admitted As Inpatient Admit Provider: Ever Gomez Clinical Impression: Acute dyspnea, Fever, Febrile neutropenia Condition: Stable Coding Level of Care Code ED Customer Service Cashier for Joann Talley
[2021-09-25 13:27] LABS: Hematocrit 36.4 % (37.0-47.0); Mean Corpuscular Hemoglobin 31.1 pg (28.0-34.0); Mean Corpuscular Volume 94.3 fl (81-99); Mean Platelet Volume 9.6 fL (7.4-10.4); Platelet Count 247 10^3/cmm (130-400); Red Blood Count 3.86 10^6/uL (4.1-5.3); Red Cell Distribution Width 13.4 % (12.1-15.1); White Blood Count 2.2 10^3/uL (4.0-10.0)
[2021-09-25] MEDS: acetaminophen 500 mg Tablet 1000 MG PO (13:29)
[2021-09-25] MEDS: azithromycin 250 mg Tablet 500 MG PO (13:29)
[2021-09-25] MEDS: cefepime 1,000 MG in sodium chloride 0.9% (plus) 50 ML 100 MG IV (13:34)
[2021-09-25] MEDS: sodium chloride 0.9% 1,000 ML 999 ML IV ×2 (13:38→14:45)
[2021-09-25 13:50] LABS: Lactate (Lactic Acid level) 0.9 mmol/L (0.5-2.2)
[2021-09-25 13:52] LABS: Troponin(5th) Baseline 17 ng/L (0-10)
[2021-09-25 14:01] LABS: Slide Review Slide Review Perform
[2021-09-25 14:02] LABS: Alanine Aminotransferase 25 U/L (0-33); Albumin Level 3.7 g/dL (3.5-5.2); Alkaline Phosphatase 76 IU/L (35-105); Aspartate Amino Transferase 28 U/L (0-32); Blood Urea Nitrogen 24 mg/dL (8-23); Carbon Dioxide 26 mmol/L (22-29); Chloride 95 mmol/L (98-107); Globulin 2.6 g/dL (1.3-4.6); Glomerular Filtration Rate 41.5 mL/min (90-130); Glucose 95 mg/dL (65-115); NT Pro B Type Natriuretic Pept 233 pg/mL (0-125); Osmolality Calculated 282 mOsm/kg (285-295); Sodium 134 mmol/L (136-145); Total Bilirubin 0.4 mg/dL (0.15-1.2); Total Protein 6.3 g/dL (6.6-8.7)
[2021-09-25 14:06] LABS: Absolute Segmented Neutrophil 0.7 10/cmm (1.6-7.1); Band Neutrophils Absolute 0.3 10^3/cmm (0.0-1.2); Eosinophils 0 %; Lymphocytes 31 %; Lymphocytes Absolute 0.8 10^3/cmm (1.2-3.4); Monocytes Absolute 0.4 10^3/cmm (0.1-0.6); Platelet Estimate Normal (Normal); Segmented Neutrophils 30 %; Total Cells Counted 100 (0-100)
[2021-09-25 14:07] LABS: Absolute Neutrophil 0.9 10^3/cmm (1.4-6.5)
[2021-09-25] MEDS: vancomycin 1,000 MG in sodium chloride 0.9% 250 ML 250 MG IV (14:13)
[2021-09-25 14:35] LABS: SARS Covid-2 Antigen Negative (Negative)
--- NOTE | 2021-09-25 14:50 | CT_ITS ---
WS: [id number] CTA CHEST WITH CT ABDOMEN AND PELVIS. HISTORY: Sepsis and possible PE. TECHNIQUE: CT angiogram is performed through the chest. Additional imaging is performed through the a bdomen and pelvis with IV contrast. Sagittal and coronal reformats have been submitted. MIP imaging also reviewed. All CT scans at [facility] use at least one of these dose optimization techniqu es: automated exposure control; mA and/or kV adjustment per patient size (includes targeted exams whe re dose is matched to clinical indication); or iterative reconstruction. Contrast: Visipaque 95 cc IV. DLP: 1428.28 mGy.cm COMPARISON: 04/03/2021 Chest CTA: Poor opacification of the pulmonary artery. There are filling defects consistent with pulm onary emboli in multiple branches of the RIGHT lower lobe pulmonary artery. There may be additional p ulmonary emboli but there is very poor opacification. There is extensive bilateral, multilobar areas of groundglass attenuation and consolidations. Moderat e atherosclerosis aorta. Reactive mediastinal and hilar lymphadenopathy. Mild enlargement of the LEFT heart chambers. No pericardial effusions. Abdomen CT: Hepatic steatosis. Hepatic and splenic granulomata. Prior cholecystectomy. Spleen is norm al. No adrenal mass. Mild bilateral perinephric stranding with no obstruction. Mild atherosclerosis a william. There are small lymph nodes in the upper abdomen surrounding the celiac axis. Prior appendectomy. No GI tract obstruction. Pelvic CT: No free fluid or adenopathy. Prior hysterectomy. CT/CT angio chest w abd pel w con IMPRESSION: 1. Acute pulmonary emboli RIGHT lower arterial distribution. 2. Multi lobar groundglass and focal consolidations consistent with pneumonia. 3. Reactive mediastinal and hilar adenopathy. There are a few additional lymph nodes surrounding the celiac axis which are enlarged with mild progression sin ce 04/03/2021. Recommend follow-up CT chest and abdomen after acute episode resol ves to be sure there is no progression of these lymph nodes. 4. Prior cholecystectomy. 5. Mild perinephric stranding. 6. No ascites.
--- NOTE | 2021-09-25 14:53 | ECG_ITS ---
Test Date: 2021-09-25 Pat Name: Indira Long Department: Room: Gender: Female Carver Hand: : 1960 Requested By: Narciso Ang Order Number: [id number] Reading MD: Patrick Schwartz M.D. Measurements Intervals [place] Rate: 63 P: 73 IA: 163 QRS: 31 QRSD: 98 T: 51 QT: 431 QTc: 443 Interpretive Statements SINUS RHYTHM NONSPECIFIC ST & T-WAVE ABNORMALITY Compared to ECG 09/25/2021 15:46:37 No significant changes Electronically Signed On 09-25-2021 23:56:25 CDT by Patrick Schwartz M.D. [id number]
[2021-09-25 15:14] LABS: Troponin 5 2HR 14.37 ng/L (0-10)
[2021-09-25 15:16] LABS: Troponin 5 2HR Delta -2.63 ABS# (0-10)
--- NOTE | 2021-09-25 15:18 | PC.PHAR ---
Addendum entered by Zeina Pacheco 09/25/21 15:45: PT STATES SHE HASNT TAKEN THE BACTRIM DS ON SAT AND SINCE MAY Original Note: PT STATES SHE TAKES CARE OF HER OWN MEDICATIONS-PT STATES SHE STILL TAKES ALLOPURINOL 100MG BID LAST FILLED ON 07/22/21 30D/S FOR 300MG DAILY-PT STATES SHE TAKES ATENOLOL 25MG BID LAST FILLED ON 04/04/21 30D/S-PT STATES SHE TAKES GABAPENTIN 400MG HS RX LAST FILLED ON 04/04/21 400MG PO QAM 800MG QPM-TIZANIDINE 4MG BID LAST FILLED 06/01/21 30D/S PT STATES SHE TAKES 4MG HS-NOTES ARE MADE IN THE PHARMACY COMMENTS
[2021-09-25 15:30] LABS: D Dimer 9.24 ug/mIFEU (0-0.59)
[2021-09-25] MEDS: iodixanol 320 mg/mL 100mL Btl IV (15:31)
[2021-09-25 15:37] LABS: Procalcitonin 0.29 ng/mL (0-0.5); Thyroid Stimulating Hormone 0.13 uIU/mL (0.27-4.20)
[2021-09-25 15:48] LABS: Iron 19 ug/dL (37-145); Percent Saturation 6.8 % (20-50); Total Iron Binding Capacity 277 mcg/dl; Unsaturated Iron Binding 258 ug/dL (112-347)
--- NOTE | 2021-09-25 16:06 | PC.NURSE ---
Called and gave report to Derik RIVERA. Pr going to room 103-1. Ready at 416
--- NOTE | 2021-09-25 16:10 | PM.HP ---
Providers/Chief Complaint Primary Care Provider: Ciro Alberts Chief Complaint: COUGH/N,V/HEADACHE/COLD CHILLS History of Present Illness Indira Long is a 61 year old female with past medical history of large B-cell lymphoma in remission with last chemotherapy over a year ago, s/p port removal earlier this month on September 12, history of sleep apnea not compliant with CPAP, hyperlipidemia, hypertension, hypothyroidism, recent COVID-19 infection in August 2021 presented to the ER today with complaints of not feeling well for over 10 days along with mild cough with expectoration with occasional fevers at home for last 3 days. Patient denies any sick contacts, dysuria, diarrhea, headache, dizziness, confusion. She denies any recent travels or changes in her medications. Blood work in the ER showed a white blood 2.2, hemoglobin of 12, platelet count of 247 with ANC of 0.9, chemistry showing sodium of 134, chloride of 95, creatinine of 1.3, BUN of 24, AST/ALT of 28/25. In the ER on presentation she had soft blood pressures with systolic in 84 for which she received around 1 L fluid bolus after which her blood pressures improved to 100/55. On examination patient lying comfortably in bed on 3 L oxygen supplementation saturating 93% in no acute distress. She states there has been no changes in her medications recently. She continues to take valacyclovir 500 mg daily, fluconazole 100 mg daily. Was recently started on Levaquin and doxycycline by her primary care provider around a week ago. Has been on prednisone 20 mg twice daily for around 5 days as per the primary care provider. Last took Bactrim in May 2021. Review of Systems General: Reports: 10 or more systems reviewed and unremarkable except in HPI and below Const: Denies: fever(s), chills, body aches, change in appetite, change in weight, malaise, night sweats, diaphoresis, change in sleep pattern, daytime sleepiness or snoring Eyes: Denies: change in vision, blurry vision, photophobia, eye discomfort or eye discharge ENMT: Denies: throat pain, enlarged tonsils, hoarseness, mouth pain, oral sores, dry mouth, tinnitus, nasal congestion or post nasal drip Card: Denies: chest pain, palpitations, irregular heart rhythm, edema, swelling of feet/ankles, lightheadedness, syncope, pre-syncope, dyspnea on exertion, orthopnea, leg pain with exertion or acrocyanosis Resp: Denies: dyspnea, productive cough, non-productive cough, wheezing, stridor, pain on inspiration, change in phlegm color, hemoptysis or chest congestion GI: Denies: abdominal pain, nausea, vomiting, hematemesis, coffee ground emesis, dysphagia, heartburn, diarrhea, constipation, bloating, GI cramping, change in bowel habits, pain on defecation, hematochezia or melena : Denies: flank pain, dysuria, urinary frequency, urinary urgency, urinary hesitancy, nocturia or hematuria Musc: Denies: neck pain, back pain, extremity pain, joint pain, joint swelling, joint redness, joint stiffness or limited range of motion Neuro: Denies: headache(s), numbness in extremities, weakness in extremities, sensory changes, lack of coordination, difficulty walking, frequent falls, dizziness, vertigo, confusion, Slurred speech present, difficulty communicating thoughts or seizure-like activity Psych: Denies: anxiety, depression, mood swings, panic attacks, hopelessness or irritability Endo: Denies: polyuria, polydipsia, tired all the time, cold intolerance, excessive sweating, flushing or heat intolerance Rajeev/Lymph: Denies: easy bruising or easy bleeding All/Imm: Denies: tongue swelling, facial swelling or acute wheezing Medications/Allergies Home Medications Medication Instructions Recorded Confirmed Last Taken Type allopurinol 100 mg tablet 100 mg PO BID tab 09/14/20 09/25/21 09/25/21 07:00 History atenolol 25 mg tablet 25 mg PO BID 09/14/20 09/25/21 09/12/21 06:45 History furosemide 40 mg tablet 40 mg PO BID 09/14/20 09/25/21 09/25/21 History gabapentin 400 mg capsule 400 mg PO BEDTIME 09/14/20 09/25/21 09/11/21 History glipizide 5 mg tablet 5 mg PO BID@09/14/20 09/25/21 09/25/21 History liothyronine 5 mcg tablet 5 mcg PO BID 09/14/20 09/25/21 09/25/21 07:00 History lovastatin 40 mg tablet 40 mg PO DAILY@07 09/14/20 09/25/2121 07:00 History omeprazole 20 mg capsule,delayed 20 mg PO QAM 09/14/20 09/25/21 09/25/21 History release albuterol sulfate [ProAir HFA] 2 puff INHALATION Q6H PRN 02/09/21 09/25/21 09/09/21 History aspirin 81 mg PO PRN 02/09/21 09/25/21 09/09/21 History zncbbmzrcr-emcxwnmotcjys-wzyu 1 tab PO Q6H PRN 02/09/21 09/25/21 09/04/21 History fluconazole 100 mg PO DAILY@07 02/09/21 09/25/21 09/25/21 History guaifenesin [Mucinex] 600 mg PO Q12H PRN 02/09/21 09/25/21 Unknown History loratadine [Claritin] 10 mg PO DAILY PRN 02/09/21 09/25/21 Unknown History oxycodone-acetaminophen [Percocet] 1 tab PO Q6H PRN 02/09/21 09/25/21 09/25/21 History prochlorperazine maleate 10 mg PO Q4H PRN 02/09/21 09/25/21 Unknown History tizanidine 4 mg PO BEDTIME 02/09/21 09/25/21 09/24/21 History trazodone 100 mg PO BEDTIME 02/09/21 09/25/21 09/11/21 History valacyclovir 500 mg PO DAILY@02/09/21 09/25/21 09/25/21 07:00 History ascorbic acid (vitamin C) [Vitamin 500 mg PO DAILY 09/11/21 09/25/21 09/22/21 History C] bupropion HCl 150 mg PO BID 09/25/21 09/25/21 09/25/21 07:00 History codeine-guaifenesin 10 ml PO Q4H PRN 09/25/21 09/25/21 Unknown History doxycycline hyclate 100 mg PO BID 09/25/21 09/25/21 09/25/21 07:00 History levofloxacin 500 mg tablet 500 mg PO DAILY 09/25/21 09/25/21 09/25/21 07:00 History levothyroxine [Euthyrox] 200 mcg PO QAM 09/25/21 09/25/21 09/25/21 History meclizine 25 mg PO TID PRN 09/25/21 09/25/21 Unknown History montelukast 10 mg PO DAILY PRN 09/25/21 09/25/21 Unknown History prednisone 20 mg PO BID 09/25/21 09/25/21 09/23/21 History FINISHED 09/23/21 Allergies Allergy/AdvReac Type Severity Reaction Status Date / Time adhesive tape Allergy blisters Verified 09/25/21 15:22 pneumonia vaccine Allergy Intermediate rash all Uncoded 09/15/21 15:03 over and all of arm swollen significantly PFSH Acute PFSH: Medical History (Updated 09/25/21 @ 16:40 by Ever Gomez MD) CHF (congestive heart failure), NYHA class III Echocardiogram October 2020 shows EF of 62% with normal diastolic function normal PA pressures Diabetes High risk medication use History of nonmelanoma skin cancer Inflammatory arthritis Joint pain Posterior tibial tendon dysfunction (PTTD) of right lower extremity Small lymphocytic lymphoma Thyroid disease Surgical History (Updated 09/25/21 @ 16:27 by Ever Gomez MD) H/O dilation and curettage History of appendectomy History of bladder repair surgery History of hysterectomy History of neck surgery titanium in neck History of removal of Port-a-Cath September 2021 History of tubal ligation Hx of cholecystectomy Family History Mother Cancer lung cancer Father Cancer colon and lung cancer Other Hypertension Migraine Rheumatoid arthritis Denies family history of Diabetes Lupus Chronic kidney disease (CKD) Anesthesia complication Bleeding disorder Lung disease Stroke Social History Quit status (tobacco): has tried quititng Second hand smoke exposure: Yes Smoking risk assessment/counseling performed?: No Alcohol intake: never Desire information about alcohol rehabilitation?: No Counseling given: No Desire information about substance/drug rehabilitation?: No Counseling given: No Household members: spouse Marital status: Current occupational status: disabled History of recent travel: No Female Reproductive History: Date of last menstrual period: 02/23/21 Vitals/I&O/Wt Last Vital Signs Temp 98.5 F 09/25/21 14:45 Pulse 70 09/25/21 14:45 Resp 17 09/25/21 14:45 BP 100/55 09/25/21 14:45 Pulse Ox 93 09/25/21 14:45 09/25/21 09/25/21 09/25/21 06:59 14:59 22:59 Intake Total 50 / 50 Balance 50 / 50 Weight last 48 hrs Weight 78.925 kg Physical Exam Narrative: EXAM NARRATIVE: General: No acute distress, AO x3, on 3 L oxygen supplementation HEENT: PERRLA, pupils bilaterally equal and reactive Chest: Bronchial breath sounds bilaterally, rhonchi present diffuse all over lung mcguire, equal good air entry bilaterally CVS: S1-S2 regular, no murmurs, no tachycardia, no gallops, no rubs Abdomen: Soft, nontender, no organomegaly, bowel sounds present Neuro: No focal deficits, no facial deformity, AO x3, power 5/5 in all limbs Data : 09/25/21 13:12 09/25/21 13:12 Micro: Microbiology 09/25/21 13:13 Blood Culture - Preliminary Blood SPECIMEN COLLECTED 09/25/21 13:13 Blood Culture - Preliminary Blood SPECIMEN COLLECTED A&P Assessment and plan (1) Hypoxia: Status: Acute (2) Sepsis: Status: Acute (3) Febrile neutropenia: Status: Acute (4) Pulmonary embolism: Status: Acute (5) Pneumonia: Status: Acute (6) Small lymphocytic lymphoma: Status: Resolved (7) CHF (congestive heart failure), NYHA class III: Status: Acute Qualifiers: Congestive heart failure type: unspecified Qualified Code(s): I50.9 - Heart failure, unspecified (8) History of removal of Port-a-Cath: Status: Acute Additional A&P Information Sepsis: Criteria met with tachycardia, hypotension, leukopenia on admission. Post fluid resuscitation. Keep mean arterial pressure over 65. Normal saline at 75 cc/h. Febrile neutropenia: ANC 0.9. Last chemotherapy over a year ago for small lymphocytic lymphoma. No clear etiology for neutropenia. Patient did have Covid recently which was self-limited and got better without any treatment even monoclonal antibodies. Check respiratory viral panel, flu swab to rule out post viral leukopenia. Check tick panel. Medical reconciliation done for neutropenia inducing medications. Check peripheral smear, flow cytometry for leukemia lymphoma. Check CT abdomen pelvis to monitor for lymphadenopathy and possible source of infection along with pulmonary embolism. Check procalcitonin, MRSA swab, blood culture, urinalysis, urine Legionella, bacterial antigen, urine culture, sputum culture. Start patient on broad-spectrum antibiotics with cefepime, vancomycin, Levaquin. Will de-escalate antibiotics as per culture results. Continue oral prophylactic treatment with valacyclovir and fluconazole. Hypoxia: Most likely combination of pneumonia and pulmonary embolism seen on CT chest and pelvis. No signs of congestive heart failure currently. DuoNebs every 6 hour, budesonide twice daily. Pulmonary medicine: Start on full dose anticoagulation with Lovenox 1 mg/kg body weight every 12 hourly. Check lower limb Dopplers. Echocardiogram. Oxygen supplementation keeping saturation over 90%. History of congestive heart failure: Last echocardiogram in system from October 2020 shows an EF of 55% with normal diastolic function. Currently euvolemic. We will monitor for fluid overload. Type 2 diabetes mellitus: Check HbA1c. Stop OHA's. Start insulin sliding scale at low-dose protocol. Hypertension: Goal blood pressure less than 140/90 mmHg. Currently blood pressure soft. Hold antihypertensives. Full code. Cardiac carb consistent diet. Full dose Lovenox will help with DVT prophylaxis as well. Protonix for PUD prophylaxis Attestations Medical Necessity Statement*: Midnights for management of sepsis secondary to febrile neutropenia, pulmonary embolism, hypoxia Time Spent in Patient Care: Greater than 35 minutes (>than 50% of time spent in counselling and/or direct pt care on unit). Coding Level of Care Code Acute Talend Developer for [facility] Diagnoses Hypoxia R09.02 Sepsis A41.9 Febrile neutropenia D70.9; R50.81 Pulmonary embolism I26.99 Pneumonia J18.9 Small lymphocytic lymphoma C83.00 CHF (congestive heart failure), NYHA class III I50.9 Congestive heart failure type: unspecified History of removal of Port-a-Cath Z98.890
--- NOTE | 2021-09-25 16:30 | PC.NURSE ---
FROM ER Pt is alert, oriented. denies any pain. complains of feeling weak. on 3 LPM NC. aferbrile T-98.4 orally. BP 128/71. NS running at 75 ml/hr. call light placed to pt.
[2021-09-25] MEDS: sodium chloride 0.9% 1,000 ML 75 ML IV (16:50)
[2021-09-25 17:01] LABS: Glucose Point of Care 64 mg/dL (70-110)
[2021-09-25] MEDS: enoxaparin 80 mg/0.8 mL Syringe SUBCUT (17:08)
[2021-09-25] MEDS: ferrous gluconate 324 mg Tablet PO (17:08)
[2021-09-25] MEDS: allopurinol 100 mg Tablet PO (17:09)
[2021-09-25 17:47] LABS: LAB Peripheral Smear Sent for Review
[2021-09-25] MEDS: ondansetron 2 mg/ML SDV 2 mL 4 MG IVP (19:32)
[2021-09-25] MEDS: acetaminophen 325 mg Tablet 650 MG PO (19:57)
[2021-09-25] MEDS: liothyronine 5 mcg Tablet PO (19:58)
[2021-09-25] MEDS: budesonide 0.5 mg/2 mL Neb INHALATION (20:05)
[2021-09-25] MEDS: ipratropium-albuterol 3 mL Neb INHALATION (20:05)
--- NOTE | 2021-09-25 20:12 | PC.NURSE ---
right upper chest scar from previous removal of her aliza cath 2 weeks ago.
[2021-09-25 20:20] LABS: Glucose Point of Care 103 mg/dL (70-110)
[2021-09-25 20:20] LABS: Glucose Point of Care 89 mg/dL (70-110)
[2021-09-25 21:31] LABS: Free T4 Free Thyroxine 2.55 ng/dL (0.82-1.77); T3 Free 2.2 PG/ML (2.0-4.4)
[2021-09-25] MEDS: tizanidine 4 mg Tablet PO (21:37)
[2021-09-25] MEDS: gabapentin 400 mg Capsule PO (21:37)
[2021-09-25] MEDS: trazodone 100 mg Tablet PO (21:37)
[2021-09-25] MEDS: buPROPion SR (12 HR) 150 mg Tablet PO (21:37)
[2021-09-25 22:17] LABS: Add Urine Microscopic? YES; Bilirubin Urine Neg (Negative); Blood Urine 2+ (Negative); Glucose Urine UA Norm (Normal); Ketones Urine Negative (Negative); Leukocyte Esterase Urine Negative (Negative); Nitrate Urine Negative (Negative); Protein Urine 1+ (Negative); Specific Gravity, Urine 1.015 (1.005-1.030); Urine Appearance Clear (CLEAR); Urine Color Yellow (Yellow); Urobilinogen Urine Norm (Negative); pH Urine 5 (5-7)
[2021-09-25 22:18] LABS: Add Urine Culture? No; Bacteria Urine TRACE /hpf; RBC Urine 0-4 /hpf (0-2); Squamous Epithelial Cell Urine 0-4 /hpf (0-5)
[2021-09-25 22:30] LABS: Influenza A by IFA Negative (Negative); Influenza B by IFA Negative (Negative)
[2021-09-26] VITALS (25 sets, daily range): BP systolic 100–142; BP diastolic 50–78; PULSE 60–103; RESP 14–44; TEMP 36.9–39.2; O2SAT 87–96
[2021-09-26] MEDS: cefepime 1,000 MG in sodium chloride 0.9% (plus) 50 ML 100 MG IV ×2 (03:24→16:45)
[2021-09-26] MEDS: acetaminophen 325 mg Tablet 650 MG PO ×3 (03:37→16:00)
[2021-09-26] MEDS: ipratropium-albuterol 3 mL Neb INHALATION ×5 (04:40→23:56)
[2021-09-26 05:10] LABS: Basophils % 0.5 %; Eosinophils % 0.5 %; Hematocrit 31.6 % (37.0-47.0); Hemoglobin 10.5 g/dL (11.5-15.3); Lymphocytes # 0.5 10^3/uL (0.8-4.8); Lymphocytes % 23.1 %; Mean Corpuscular HGB Conc 33.2 g/dL (30.0-36.0); Mean Corpuscular Hemoglobin 31.5 pg (28.0-34.0); Mean Corpuscular Volume 94.9 fl (81-99); Mean Platelet Volume 9.4 fL (7.4-10.4); Monocytes # 0.3 10^3/uL (0.2-0.9); Monocytes % 11.3 %; Neutrophils % 63.2 %; Nucleated Red Blood Cells % 0 %; Platelet Count 188 10^3/cmm (130-400); Red Blood Count 3.33 10^6/uL (4.1-5.3); Red Cell Distribution Width 13.4 % (12.1-15.1); White Blood Count 2.2 10^3/uL (4.0-10.0)
[2021-09-26 05:29] LABS: Chol HDL Ratio 4.04 mg/dL (0.0-4.40); Cholesterol 97 mg/dL (0-200); HDL Cholesterol 24 mg/dL (60-100); LDL Cholesterol Calculated 50 mg/dL (50-129); Triglycerides 114 mg/dL (0-150); VLDL Cholestrol Calculation 23 mg/dL (0-30)
[2021-09-26 05:35] LABS: Alanine Aminotransferase 18 U/L (0-33); Albumin Level 2.9 g/dL (3.5-5.2); Alkaline Phosphatase 57 IU/L (35-105); Anion Gap 13.9 (5-19); Aspartate Amino Transferase 24 U/L (0-32); Blood Urea Nitrogen 17 mg/dL (8-23); Calcium 8.5 mg/dL (8.5-10.5); Carbon Dioxide 23 mmol/L (22-29); Chloride 102 mmol/L (98-107); Globulin 2.7 g/dL (1.3-4.6); Glomerular Filtration Rate 72.7 mL/min (90-130); Glucose 58 mg/dL (65-115); Magnesium 1.5 mg/dL (1.7-2.3); Osmolality Calculated 279 mOsm/kg (285-295); Phosphorus 2.5 mg/dL (2.5-4.5); Potassium 3.9 mmol/L (3.5-5.1); Sodium 135 mmol/L (136-145); Total Bilirubin 0.3 mg/dL (0.15-1.2); Total Protein 5.6 g/dL (6.6-8.7)
--- NOTE | 2021-09-26 06:00 | XR_ITS ---
WS: [id number] Exam: XR chest 1V portable [id number] Date/Time of Exam: 09/26/2021 6:00 AM Reason For Exam: covid Comparison 09/25/2021. Increasing infiltrates noted in the left lung as well as the upper lobe of the right lung. The lungs are fully inflated. No pleural effusions. Normal cardiomediastinal silhouette. Bony structures are in tact. XR/XR chest 1V portable [id number] IMPRESSION: 1. Increased infiltrates in the left lung and upper lobe of the right lung sinc e prior study.
[2021-09-26] MEDS: levothyroxine 200 mcg Tablet PO (06:28)
[2021-09-26] MEDS: fluconazole 100 mg Tablet PO (06:28)
[2021-09-26] MEDS: atorvastatin 40 mg Tablet 20 MG PO (06:28)
[2021-09-26] MEDS: enoxaparin 80 mg/0.8 mL Syringe SUBCUT ×2 (06:28→17:10)
[2021-09-26] MEDS: valACYclovir 1,000 mg Tablet 500 MG PO (06:29)
[2021-09-26 06:41] LABS: Estmated Average Glucose 140; Hemoglobin A1C 6.5 % (4.0-6.0)
[2021-09-26 07:41] LABS: Glucose Point of Care 60 mg/dL (70-110)
--- NOTE | 2021-09-26 07:49 | PC.NURSE ---
BG is 60 [place] Juice 8 oz given
[2021-09-26] MEDS: budesonide 0.5 mg/2 mL Neb INHALATION ×2 (08:52→20:47)
[2021-09-26] MEDS: ferrous gluconate 324 mg Tablet PO ×2 (09:25→17:10)
[2021-09-26] MEDS: aspirin 81 mg EC Tablet PO (09:25)
[2021-09-26] MEDS: allopurinol 100 mg Tablet PO ×2 (09:25→17:10)
[2021-09-26] MEDS: pantoprazole DR 40 mg Tablet PO (09:25)
[2021-09-26] MEDS: levoFLOXacin 500 mg Tablet PO (09:25)
[2021-09-26] MEDS: liothyronine 5 mcg Tablet PO ×2 (09:26→17:10)
[2021-09-26] MEDS: buPROPion SR (12 HR) 150 mg Tablet PO ×2 (10:00→20:36)
[2021-09-26] MEDS: ondansetron 2 mg/ML SDV 2 mL 4 MG IVP (10:01)
[2021-09-26 10:37] LABS: Glucose Point of Care 124 mg/dL (70-110)
[2021-09-26] MEDS: FUROsemide 10 mg/mL SDV 4mL 40 MG IVP (12:03)
[2021-09-26 12:08] LABS: Glucose Point of Care 101 mg/dL (70-110)
[2021-09-26 13:18] LABS: Lyme AB Screen <0.90 index
[2021-09-26 13:22] LABS: NT Pro B Type Natriuretic Pept 651 pg/mL (0-125); Procalcitonin 0.22 ng/mL (0-0.5)
[2021-09-26 13:33] LABS: C Reactive Protein 214.6 mg/L (0.0-4.9); Ferritin 964 ng/mL (15-150); Lactate Dehydrogenase 427 U/L (135-214)
[2021-09-26 13:50] LABS: HIV 1 & 2 Antibody Non-Reactive (Non-Reactiv); HIV 1 & 2 Antigen Non-Reactive (Non-Reactiv)
[2021-09-26 14:01] LABS: Hepatitis A Antibody IgM Non-Reactive (Nonreactive); Hepatitis B Core AB, Total Non-Reactive (Nonreactive); Hepatitis C Virus Antibody Non-Reactive (Nonreactive)
[2021-09-26 14:05] LABS: Hepatitis B Surface AB < 3.5 (11.5-1000); Hepatitis B Surface Antigen Non-Reactive (Nonreactive)
--- NOTE | 2021-09-26 14:52 | P.PN_ITS ---
Subjective Subjective: Interval history: Overnight patient had a rough night. T-max of 102.5 Fahrenheit. She was complaining of nausea and had one episode of vomiting with 3-4 episodes of diarrhea. Currently on 7 L high flow nasal cannula saturating 94%. Denies any difficulty in breathing. Able to have complete conversations. Denies any chest pain. Vitals/I&O/Wt Last Vital Signs Temp 99.3 F 09/26/21 13:40 Pulse 103 H 09/26/21 13:40 Resp 16 09/26/21 13:40 BP 110/66 09/26/21 13:40 Pulse Ox 92 09/26/21 13:40 09/25/21 09/26/21 09/26/21 22:59 06:59 14:59 Intake Total 150 / 200 472 / 472 Output Total 900 / 900 Balance 150 / 200 -428 / -428 Weight last 48 hrs Weight 81.737 kg Weight 78.925 kg Physical Exam Narrative: EXAM NARRATIVE: General: No acute distress, AO x3, on 7 L oxygen supplementation HEENT: PERRLA, pupils bilaterally equal and reactive Chest: Bronchial breath sounds bilaterally, rhonchi present diffuse all over lung mcguire, equal good air entry bilaterally CVS: S1-S2 regular, no murmurs, no tachycardia, no gallops, no rubs Abdomen: Soft, nontender, no organomegaly, bowel sounds present Neuro: No focal deficits, no facial deformity, AO x3, power 5/5 in all limbs Data : 09/26/21 04:34 09/26/21 04:34 Micro: Microbiology 09/25/21 13:13 Blood Culture - Preliminary Blood NEGATIVE TO DATE 09/25/21 13:13 Blood Culture - Preliminary Blood NEGATIVE TO DATE 09/25/21 21:45 MRSA Culture - Final Nose 09/26/21 12:15 Blood Culture - Preliminary Blood SPECIMEN COLLECTED 09/26/21 12:27 Blood Culture - Preliminary Blood SPECIMEN COLLECTED 09/25/21 21:45 Bacterial Antigens - Final Urine Kidney 09/25/21 21:45 Legionella Urinary Antigen - Final Urine,Voided A&P Assessment and plan (1) Hypoxia: Status: Acute (2) Sepsis: Status: Acute (3) Febrile neutropenia: Status: Acute (4) Pulmonary embolism: Status: Acute (5) Pneumonia: Status: Acute (6) Small lymphocytic lymphoma: Status: Resolved (7) CHF (congestive heart failure), NYHA class III: Status: Acute Qualifiers: Congestive heart failure type: unspecified Qualified Code(s): I50.9 - Heart failure, unspecified (8) History of removal of Port-a-Cath: Status: Acute Additional A&P Information Sepsis: Criteria met with tachycardia, hypotension, leukopenia on admission. Post fluid resuscitation. Keep mean arterial pressure over 65. Stop IV fluids. Febrile neutropenia: ANC improved. Currently 1400. Neutropenia seems to have resolved. Last chemotherapy over a year ago for small lymphocytic lymphoma. No clear etiology for neutropenia. Patient did have Covid recently which was self-limited and got better without any treatment even monoclonal antibodies. Tick panel, respiratory viral panel, leukemia/lymphoma flow cytometry awaited. Flu swab negative. MRSA negative, urine Legionella, bacterial antigen negative. Pro-Mick within normal limits. Blood culture preliminary negative. Repeat blood cultures given for fever of more than 102 overnight. Sputum culture, check stool studies for C. difficile. For now continue with cefepime, vancomycin, Levaquin. Continue chronic oral prophylactic treatment with valacyclovir and fluconazole. Check inflammatory viral markers including ESR, CRP, ferritin. Check LDH, fungi tell. COVID-19 PCR sent from the ER. Continue with isolation precautions. Hypoxia: Most likely combination of pneumonia and pulmonary embolism seen on CT chest and pelvis. No signs of congestive heart failure currently. DuoNebs every 6 hour, budesonide twice daily. Check proBNP. IV Lasix 40 mg stat. Echocardiogram done in the past shows EF 62% with no regional wall motion abnormality, without valvular disorders. Repeat echocardiogram done results are awaited. Pulmonary medicine: Continue with full dose Lovenox at 1 mg/kg body weight every 12 hourly. Oxygen supplementation keeping saturation over 90%. History of congestive heart failure: Last echocardiogram in system from October 2020 shows an EF of 55% with normal diastolic function. As above. Type 2 diabetes mellitus: HbA1c 6.5. Continues to have hypoglycemia. Hypoglycemia protocol. Sliding scale every 4 hourly. For now switch from carb consistent to cardiac diet. Hypertension: Goal blood pressure less than 140/90 mmHg. Blood pressures better. Hold antihypertensives. Full code. Cardiac diet. Full dose Lovenox will help with DVT prophylaxis as well. Protonix for PUD prophylaxis Attestations Medical Necessity Statement*: Requires further hospitalization for management of hypoxic respiratory failure, sepsis in setting of febrile neutropenia, recent COVID-19 infection Time Spent in Patient Care: Greater than 35 minutes (>than 50% of time spe nt in counselling and/or direct pt care on unit) . 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
[2021-09-26] MEDS: vancomycin 1,000 MG in sodium chloride 0.9% 250 ML 250 MG IV (15:32)
--- NOTE | 2021-09-26 16:19 | USCV_ITS ---
Indira Long Age: 61 Gender: F : 1960 Exam Date: 09/26/2021 06:22 Ordering Phys: Ever Gomez MD Technologist: SOFY [place] [facility] [place]: PULMONARY EMBOLISM BP: 142 / 64 HR: 78 Rhythm: Sinus Technical Quality: Adequate MEASUREMENTS (Male / Female) Normal Values 2D ECHO LV Diastolic Diameter PLAX 4.0 cm 4.2 - 5.9 / 3.9 - 5.3 cm LV Systolic Diameter PLAX 3.0 cm IVS Diastolic Thickness 1.3 cm 0.6 - 1.0 / 0.6 - 0.9 cm IVS Systolic Thickness 1.5 cm LVPW Diastolic Thickness 1.2 cm 0.6 - 1.0 / 0.6 - 0.9 cm LVPW Systolic Thickness 1.6 cm LVOT Diameter 2.0 cm LV Ejection Fraction 2D Teich 49.4 % LV Ejection Fraction MOD 2C 44.5 % LV Ejection Fraction 2C AL 46.4 % LA Diameter 2.6 cm LA Width 3.1 cm LA Height 3.6 cm RA Width 3.1 cm RA Height 4.5 cm Aorta at Sinotubular Diameter 2.3 cm DOPPLER AV Peak Velocity 119.0 cm/s LVOT Peak Velocity 107.0 cm/s AV Area Cont Eq vti 3.2 cm squared AV Area Cont Eq pk 2.9 cm squared MV Area PHT 3.9 cm squared Mitral E to A Ratio 1.0 MV E' Velocity 37.5 cm/s Mitral E to MV E' Ratio 5.2 Mitral E to LV E' Lateral Ratio 4.9 Mitral E to LV E' Septal Ratio 5.5 TR Peak Velocity 253.0 cm/s TR Peak Gradient 25.6 mmHg TV Peak E Velocity 43.0 cm/s PV Peak Velocity 103.0 cm/s RV Acceleration Time 0.1 s RV Ejection Time 0.3 s RV AcT/ET 0.4 FINDINGS Left Ventricle Normal left ventricular size and systolic function, EF 60% (visual).no regional wall motion abnormalities.Grade I/IV diastolic dysfunction (abnormal relaxation filling pattern), normal to mildly elevated filling pressures. Mild left ventricular hypertrophy. Right Ventricle The right ventricle is normal in size and function. Right Atrium The right atrium is normal in size. Left Atrium The left atrium is normal in size. Mitral Valve Thickened mitral valve. Trace mitral valve regurgitation. Aortic Valve No gross abnormalities noted Tricuspid Valve No gross abnormalities noted Pulmonic Valve No gross abnormalities noted Pericardium Normal pericardium without effusion. Left-sided pleural effusion is noted Aorta Normal ascending aorta dimension. CONCLUSIONS Normal left ventricular size and systolic function, EF 60% (visual).no regional wall motion abnormalities.Grade I/IV diastolic dysfunction (abnormal relaxation filling pattern), normal to mildly elevated filling pressures. Mild left ventricular hypertrophy. Thickened mitral valve. Trace mitral valve regurgitation. There is no pericardial effusion. Left-sided pleural effusion is noted Technically difficult study because of the poor ultrasonic window. Dr Patrick Schwartz MD FACC (Electronically Signed) Final Date: 26 September 2021 22:26 S
--- NOTE | 2021-09-26 16:19 | USCV_ITS ---
Indira Long Age: 61 Gender: F : 1960 Exam Date: 09/26/2021 06:39 Ordering Phys: Ever Gomez MD Technologist: SOFY Exam Location: [facility] – [place] Indication: PULMONARY EMBOLISM HISTORY: Pulmonary embolism. PROCEDURES: Venous duplex imaging was performed in bilateral lower extremities. The following venous structures were evaluated: common femoral vein, profunda vein, proximal portion of the greater saphenous vein, superficial femoral vein, and the popliteal vein. In addition, the posterior tibial and peroneal trunk were evaluated. FINDINGS: Normal 2-D Doppler and augmentation and compressibility throughout the lower extremity venous structures. Additional imaging through the proximal calf veins also reveals no thrombus. Limited evaluation of the greater saphenous vein is patent with no thrombus. CONCLUSIONS No DVT bilateral lower extremities. Dr. Gabi Quinn DO (Electronically Signed) Final Date: 26 September 2021 09:03 S
[2021-09-26 16:44] LABS: Coronavirus Test Green County Detected
[2021-09-26 17:32] LABS: Glucose Point of Care 114 mg/dL (70-110)
[2021-09-26] MEDS: dexamethasone 4 mg/mL INJ 6 MG IVP (18:49)
[2021-09-26] MEDS: ascorbic acid 500 mg Tablet PO (18:49)
[2021-09-26 18:50] LABS: Creatine Phosphokinase 96 U/L (26-192)
[2021-09-26 19:52] LABS: ABG PCO2 36.1 mmHg (35-45); ABG PH Result 7.47 (7.35-7.45); Alveolar-Arterial Oxygen Gradi 44.5 mmHg (5-10); Arterial Blood Gas Hematocrit 34.5 % (37-47); Base Excess ABG 2.9 mmol/L (-2.0-2.0); Blood Gas Allen Test Pos; Blood Gas Sample Site Radial, left; Blood Gas Sample Type Arterial; Carboxyhemoglobin 0.8 %THgb (0.4-20.1); HCO3 ABG 26.5 mmol/L (22-26); HGB O2 Sat 91.3 % (95-100); Ionized Calcium Level - ABG 1.2 mmol/L (1.1-1.4); Methemoglobin 0.9 % (0.4-1.5); Oxygen Device HAG; Oxygen Saturation ABG 92.9; PO2 ABG 60.2 mmHg (80.0-100.0); Potassium Level - ABG 3.6 mmol/L (3.5-5.0); Total Hemoglobin 11.3 g/dL (12-16)
--- NOTE | 2021-09-26 20:21 | PC.NURSE ---
Shift Note Frequent safety and comfort rounds continue. Orders and/or nursing care completed as indicated. Patient monitored for response to intervention and treatment(s). Education provided includes antibiotics, oxygen therapy, increase appetite, shaikh catheter placement. Patient and/or food service representative verbalizes understanding. Will continue to monitor.
[2021-09-26] MEDS: remdesivir 200 MG in sodium chloride 0.9% (100 ml) 100 ML 100 MG IV (20:31)
[2021-09-26] MEDS: trazodone 100 mg Tablet PO (20:32)
[2021-09-26] MEDS: tizanidine 4 mg Tablet PO (20:32)
[2021-09-26] MEDS: gabapentin 400 mg Capsule PO (20:32)
[2021-09-26 20:37] LABS: Glucose Point of Care 201 mg/dL (70-110)
[2021-09-27] VITALS (37 sets, daily range): BP systolic 95–144; BP diastolic 45–78; PULSE 73–113; RESP 14–41; TEMP 36.6–38; O2SAT 85–95
[2021-09-27] MEDS: cefepime 1,000 MG in sodium chloride 0.9% (plus) 50 ML 100 MG IV ×2 (03:49→14:40)
[2021-09-27] MEDS: fluconazole 100 mg Tablet PO (05:10)
[2021-09-27] MEDS: atorvastatin 40 mg Tablet 20 MG PO (05:10)
[2021-09-27] MEDS: valACYclovir 1,000 mg Tablet 500 MG PO (05:11)
[2021-09-27] MEDS: levothyroxine 200 mcg Tablet PO (05:11)
[2021-09-27] MEDS: enoxaparin 80 mg/0.8 mL Syringe SUBCUT ×2 (05:12→17:46)
[2021-09-27 05:33] LABS: Basophils % 0.3 %; Hematocrit 31.7 % (37.0-47.0); Hemoglobin 10.5 g/dL (11.5-15.3); Lymphocytes # 0.4 10^3/uL (0.8-4.8); Mean Corpuscular HGB Conc 33.1 g/dL (30.0-36.0); Mean Corpuscular Hemoglobin 30.8 pg (28.0-34.0); Monocytes # 0.2 10^3/uL (0.2-0.9); Monocytes % 3.9 %; Neutrophils # 5.32 10^3/uL (1.8-7.7); Neutrophils % 89.3 %; Nucleated Red Blood Cells % 0 %; Platelet Count 209 10^3/cmm (130-400); Red Blood Count 3.41 10^6/uL (4.1-5.3); Red Cell Distribution Width 13.2 % (12.1-15.1)
[2021-09-27 06:04] LABS: Alanine Aminotransferase 18 U/L (0-33); Albumin Level 2.7 g/dL (3.5-5.2); Alkaline Phosphatase 68 IU/L (35-105); Anion Gap 13.7 (5-19); Aspartate Amino Transferase 33 U/L (0-32); Blood Urea Nitrogen 16 mg/dL (8-23); C Reactive Protein 295.6 mg/L (0.0-4.9); Calcium 8.9 mg/dL (8.5-10.5); Carbon Dioxide 24 mmol/L (22-29); Chloride 97 mmol/L (98-107); Creatinine Clr Calc Pharmacy 83.7711; Globulin 3.1 g/dL (1.3-4.6); Glomerular Filtration Rate 84.8 mL/min (90-130); Glucose 216 mg/dL (65-115); Osmolality Calculated 280 mOsm/kg (285-295); Potassium 3.7 mmol/L (3.5-5.1); Sodium 131 mmol/L (136-145); Total Bilirubin 0.3 mg/dL (0.15-1.2); Total Protein 5.8 g/dL (6.6-8.7)
[2021-09-27 06:32] LABS: Glucose Point of Care 204 mg/dL (70-110)
--- NOTE | 2021-09-27 06:46 | NUR.SHIFT ---
Shift Note Frequent safety and comfort rounds continue. Orders and/or nursing care completed as indicated. Patient monitored for response to intervention and treatment. Bedtime SS insulin held d/t pt not eating. Education provided includes importance of eating when on insulin and glucose management. Patient and/or territory account representative verbalizes understanding. Will continue to monitor.
[2021-09-27 06:57] LABS: Procalcitonin 0.25 ng/mL (0-0.5)
[2021-09-27] MEDS: budesonide 0.5 mg/2 mL Neb INHALATION ×2 (07:44→20:53)
[2021-09-27] MEDS: ipratropium-albuterol 3 mL Neb INHALATION ×2 (07:45→11:42)
[2021-09-27] MEDS: ferrous gluconate 324 mg Tablet PO ×2 (07:57→17:45)
[2021-09-27] MEDS: levoFLOXacin 500 mg Tablet PO (07:57)
[2021-09-27] MEDS: FUROsemide 10 mg/mL SDV 4mL 40 MG IVP (07:57)
[2021-09-27] MEDS: zinc gluconate 50 mg Tablet PO (07:58)
[2021-09-27] MEDS: insulin lispro 100 unit/1 mL SUBCUT ×2 (07:59→20:34)
[2021-09-27] MEDS: liothyronine 5 mcg Tablet PO ×2 (07:59→17:52)
[2021-09-27] MEDS: pantoprazole DR 40 mg Tablet PO (07:59)
[2021-09-27] MEDS: allopurinol 100 mg Tablet PO ×2 (07:59→17:46)
[2021-09-27] MEDS: ascorbic acid 500 mg Tablet PO ×2 (08:01→17:46)
[2021-09-27] MEDS: aspirin 81 mg EC Tablet PO (08:01)
[2021-09-27] MEDS: buPROPion SR (12 HR) 150 mg Tablet PO ×2 (08:03→20:38)
--- NOTE | 2021-09-27 10:30 | XR_ITS ---
WS: [id number] Exam: XR chest 1V portable [id number] Date/Time of Exam: 09/27/2021 10:30 AM Reason For Exam: ards Comparison 09/26/2021. There is been significant clearing of bilateral infiltrates since the prior study. Minimal residual i nfiltrates are noted. Normal cardiomediastinal structures. No pneumothorax or pleural effusion. Monit oring leads superimpose the chest. XR/XR chest 1V portable [id number] IMPRESSION: 1. Previously noted bilateral pulmonary infiltrates have almost completely reso lved since the previous study.
[2021-09-27] MEDS: morphine 4 mg/mL SDV 1 mL 1 MG IVP ×3 (10:40→20:35)
[2021-09-27] MEDS: lanolin oint 7 gm 1 APPLIC TOPICAL (10:40)
[2021-09-27 12:21] LABS: Glucose Point of Care 156 mg/dL (70-110)
--- NOTE | 2021-09-27 12:35 | PM.CONSULT ---
Providers/Reason For Consult Consulting Physician/Specialty*: Rickey Rousseau MD /Pulmonary Critical Care Reason for Consult*: Acute hypoxemic respiratory failure Requesting Physician: Ever Gomez MD Attending Physician: Ever Gomez MD Primary Care Provider: Ciro Alberts History of Present Illness History of Present Illness Upon review of chart Ms. Indira Long is a 61 year old female with PMH large B-cell lymphoma in remission with last chemotherapy over a year ago, s/p port removal earlier this month on September 12, 2021, h/o sleep apnea noncompliant with CPAP, hyperlipidemia, hypertension, hypothyroidism with recent COVID-19 infection in August 2021 self-limited and improved without any treatment, presented to ER on 09/25/2021 with complaints of not feeling well for over 10 days along with mild productive cough, occasional fevers at home for 3 days.Patient denies any sick contacts, dysuria, diarrhea, headache, dizziness, confusion, any recent travels or changes in her medications. She states there has been no changes in her medications recently. She continues to take valacyclovir 500 mg daily, fluconazole 100 mg daily. Was recently started on Levaquin and doxycycline by her primary care provider around a week ago. Has been on prednisone 20 mg twice daily for around 5 days as per the primary care provider. First 2 days after admission patient was persistently febrile, initial blood work showed white count 2.2K with absolute neutrophil count 900 and soft blood pressures in ER which improved with fluid bolus. Her Covid PCR was positive on 08/17/2021 and again positive during this admission 09/21/2021,.also noted patient CRPIs 295, BNP 654, procalcitonin 0.25. UA negative. Yesterday chest x-ray showed worsening bilateral infiltrates. And CTA chest abdomen pelvis showed filling defects consistent with pulmonary emboli in multiple branches of right lower lobe pulmonary artery. There is extensive bilateral, multilobar areas of groundglass attenuation and consolidations. Mild enlargement of left heart chambers.. Mild perinephric stranding. Venous Doppler did not reveal any DVT. Echocardiogram on revealed normal LV size and systolic function with EF 60%. No regional wall motion abnormalities noted. Grade 1 diastolic dysfunction with normal to mildly elevated filling pressures. Mild LVH. Thickened mitral valve. Trace MV regurgitation. No pericardial effusion. Left-sided pleural effusion noted. Cultures so far negative, RSV pending, tick panel pending, histoplasma pending, beta D glucan pending, negative influenza, negative MRSA negative Legionella and bacterial antigens and HIV. Patient is on high flow 45 L 65% saturating 94%. ABG showed PaO2 60. She had one episode of vomiting and 3-4 episodes of diarrhea yesterday. Today morning labs showed a WBC 6000 and neutrophils improved to 5300. Currently she is on cefepime, vancomycin, Levaquin and to continue valacyclovir and fluconazole. Currently she is on Lovenox for PE. Patient received 1 dose Lasix yesterday and she is net -1.1 L over last 24 hours today morning chest x-ray showed significantly improved bilateral infiltrates. She received another dose of Lasix today. Pulmonary consult requested for hypoxic respiratory failure and and to evaluate if patient would benefit from bronchoscopy. -Patient seen at bedside today-seen lying on bed-not seen in respiratory distress -Although her chest x-ray improved-she is currently still on 45 L and 65% high flow nasal cannula and saturating 92% -Appears anxious about bronchoscopy and says she is tired of lying down on bed -Other labs and imaging reviewed Review of Systems General: Reports: 10 or more systems reviewed and unremarkable except in HPI and below Meds/Allergies Home Medications and Allergies Home Medications Medication Instructions Recorded Confirmed Last Taken Type allopurinol 100 mg tablet 100 mg PO BID tab 09/14/20 09/25/21 09/25/21 07:00 History atenolol 25 mg tablet 25 mg PO BID 09/14/20 09/25/21 09/12/21 06:45 History furosemide 40 mg tablet 40 mg PO BID 09/14/20 09/25/21 09/25/21 History gabapentin 400 mg capsule 400 mg PO BEDTIME 09/14/20 09/25/21 09/11/21 History glipizide 5 mg tablet 5 mg PO BID@09/14/20 09/25/21 09/25/21 History liothyronine 5 mcg tablet 5 mcg PO BID 09/14/20 09/25/21 09/25/21 07:00 History lovastatin 40 mg tablet 40 mg PO DAILY@07 09/14/20 09/25/21 09/25/21 07:00 History omeprazole 20 mg capsule,delayed 20 mg PO QAM 09/14/20 09/25/2109/25/21 History release albuterol sulfate [ProAir HFA] 2 puff INHALATION Q6H PRN 02/09/21 09/25/21 09/09/21 History aspirin 81 mg PO PRN 02/09/21 09/25/21 09/09/21 History wltxhwknbe-[id number]-vmcw 1 tab PO Q6H PRN 02/09/21 09/25/21 09/04/21 History fluconazole 100 mg PO DAILY@07 02/09/21 09/25/21 09/25/21 History guaifenesin [Mucinex] 600 mg PO Q12H PRN 02/09/21 09/25/21 Unknown History loratadine [Claritin] 10 mg PO DAILY PRN 02/09/21 09/25/21 Unknown History oxycodone-acetaminophen [Percocet] 1 tab PO Q6H PRN 02/09/21 09/25/21 09/25/21 History prochlorperazine maleate 10 mg PO Q4H PRN 02/09/21 09/25/21 Unknown History tizanidine 4 mg PO BEDTIME 02/09/21 09/25/21 09/24/21 History trazodone 100 mg PO BEDTIME 02/09/21 09/25/21 09/11/21 History valacyclovir 500 mg PO DAILY@02/09/21 09/25/21 09/25/21 07:00 History ascorbic acid (vitamin C) [Vitamin 500 mg PO DAILY 09/11/21 09/25/21 09/22/21 History C] bupropion HCl 150 mg PO BID 09/25/21 09/25/21 09/25/21 07:00 History codeine-guaifenesin 10 ml PO Q4H PRN 09/25/21 09/25/21 Unknown History doxycycline hyclate 100 mg PO BID 09/25/21 09/25/21 09/25/21 07:00 History levofloxacin 500 mg tablet 500 mg PO DAILY 09/25/21 09/25/21 09/25/21 07:00 History levothyroxine [Euthyrox] 200 mcg PO QAM 09/25/21 09/25/21 09/25/21 History meclizine 25 mg PO TID PRN 09/25/21 09/25/21 Unknown History montelukast 10 mg PO DAILY PRN 09/25/21 09/25/21 Unknown History prednisone 20 mg PO BID 09/25/21 09/25/21 09/23/21 History FINISHED 09/23/21 Allergies Allergy/AdvReac Type Severity Reaction Status Date / Time adhesive tape Allergy blisters Verified 09/25/21 15:22 pneumonia vaccine Allergy Intermediate rash all Uncoded 09/15/21 15:03 over and all of arm swollen significantly Current Medications Current Medications Generic Name Dose Route Start Last Admin Trade Name Freq PRN Reason Stop Dose Admin Acetaminophen 650 mg 09/25/21 16:30 09/26/21 16:00 Acetaminophen 325 Mg Tablet PO 650 mg Q6H PRN Administration Mild/Mod Pain Or Temp >/= 101 Albuterol/Ipratropium 3 ml 09/26/21 20:00 09/27/21 11:42 Ipratropium-Albuterol 3 Ml Neb INHALATION 3 ml Q4H.RESPIRATORY OKSANA Administration Allopurinol 100 mg 09/25/21 18:00 09/27/21 07:59 Allopurinol 100 Mg Tablet PO 100 mg BID OKSANA Administration Ascorbic Acid 500 mg 09/26/21 18:00 09/27/21 08:01 Ascorbic Acid 500 Mg Tablet PO 500 mg BID OKSANA Administration Aspirin 81 mg 09/26/21 09:00 09/27/21 08:01 Aspirin 81 Mg Ec Tablet PO 81 mg DAILY OKSANA Administration Atorvastatin Calcium 20 mg 09/26/21 07:00 09/27/21 05:10 Atorvastatin 40 Mg Tablet PO 20 mg DAILY@07 OKSANA Administration Budesonide 0.5 mg 09/25/21 20:00 09/27/21 07:44 Budesonide 0.5 Mg/2 Ml Neb INHALATION 0.5 mg BID.RESPIRATORY OKSANA Administration Bupropion HCl 150 mg 09/25/21 21:00 09/27/21 08:03 Bupropion Sr (12 Hr) 150 Mg Tablet PO 150 mg BID@0900,2100 OKSANA Administration Dexamethasone 6 mg 09/26/21 18:00 09/26/21 18:49 Dexamethasone 4 Mg/Ml Inj IVP 6 mg Q24H OKSANA Administration Enoxaparin Sodium 80 mg 09/25/21 18:00 09/27/21 05:12 Enoxaparin 80 Mg/0.8 Ml Syringe SUBCUT 80 mg Q12H OKSANA Administration Ferrous Gluconate 324 mg 09/25/21 18:00 09/27/21 07:57 Ferrous Gluconate 324 Mg Tablet PO 324 mg BIDWM OKSANA Administration Fluconazole 100 mg 09/26/21 07:00 09/27/21 05:10 Fluconazole 100 Mg Tablet PO 100 mg DAILY@07 OKSANA Administration Gabapentin 400 mg 09/25/21 21:00 09/26/21 20:32 Gabapentin 400 Mg Capsule PO 400 mg BEDTIME OKSANA Administration Cefepime HCl 1,000 mg/ Sodium 50 mls @ 100 mls/hr 09/25/21 15:00 09/27/21 04:09 Chloride IV Infused Q12H OKSANA Infusion Protocol Vancomycin HCl 1,000 mg/ 250 mls @ 250 mls/hr 09/26/21 14:00 09/26/21 18:17 Sodium Chloride IV Infused Q24H OKSANA Infusion Insulin Human Lispro 0 unit 09/25/21 18:00 09/27/21 12:24 Insulin Lispro 100 Unit/1 Ml SUBCUT Not Given WM&BEDTIME OKSANA Protocol Lanolin 1 applic 09/27/21 10:12 09/27/21 10:40 Lanolin Oint 7 Gm TOPICAL 1 applic PRN PRN Administration DRYNESS Levofloxacin 500 mg 09/26/21 09:00 09/27/21 07:57 Levofloxacin 500 Mg Tablet PO 500 mg DAILY OKSANA Administration Protocol Levothyroxine Sodium 200 mcg 09/26/21 06:00 09/27/21 05:11 Levothyroxine 200 Mcg Tablet PO 200 mcg QAM OKSANA Administration Liothyronine Sodium 5 mcg 09/25/21 18:00 09/27/21 07:59 Liothyronine 5 Mcg Tablet PO 5 mcg BID OKSANA Administration Morphine Sulfate 1 mg 09/27/21 10:28 09/27/21 10:40 Morphine 4 Mg/Ml Sdv 1 Ml IVP 1 mg Q4H PRN Administration SEVERE PAIN Ondansetron HCl 4 mg 09/25/21 16:30 09/26/21 10:01 Ondansetron 2 Mg/Ml Sdv 2 Ml IVP 4 mg Q8H PRN Administration vomiting, or N/V if npo Pantoprazole Sodium 40 mg 09/26/21 09:00 09/27/21 07:[address] 40 Mg Tablet PO 40 mg DAILY OKSANA Administration Tizanidine HCl 4 mg 09/25/21 21:00 09/26/21 20:32 Tizanidine 4 Mg Tablet PO 4 mg BEDTIME OKSANA Administration Trazodone HCl 100 mg 09/25/21 21:00 09/26/21 20:32 Trazodone 100 Mg Tablet PO 100 mg BEDTIME OKSANA Administration Valacyclovir HCl 500 mg 09/26/21 07:00 09/27/21 05:11 Valacyclovir 1,000 Mg Tablet PO 500 mg DAILY@07 OKSANA Administration Zinc Gluconate 50 mg 09/27/21 09:00 09/27/21 07:58 Zinc Gluconate 50 Mg Tablet PO 50 mg DAILY OKSANA Administration PFSH Acute PFSH: Medical History CHF (congestive heart failure), NYHA class III Echocardiogram October 2020 shows EF of 62% with normal diastolic function normal PA pressures COVID-19 Diabetes High risk medication use History of nonmelanoma skin cancer Inflammatory arthritis Joint pain Posterior tibial tendon dysfunction (PTTD) of right lower extremity Small lymphocytic lymphoma Thyroid disease Surgical History H/O dilation and curettage History of appendectomy History of bladder repair surgery History of hysterectomy History of neck surgery titanium in neck History of removal of Port-a-Cath September 2021 History of tubal ligation Hx of cholecystectomy Family History Mother Cancer lung cancer Father Cancer colon and lung cancer Other Hypertension Migraine Rheumatoid arthritis Denies family history of Diabetes Lupus Chronic kidney disease (CKD) Anesthesia complication Bleeding disorder Lung disease Stroke Social History Quit status (tobacco): has tried quititng Second hand smoke exposure: Yes Smoking risk assessment/counseling performed?: No Alcohol intake: never Desire information about alcohol rehabilitation?: No Counseling given: No Desire information about substance/drug rehabilitation?: No Counseling given: No Household members: spouse Marital status: Current occupational status: disabled History of recent travel: No Female Reproductive History: Date of last menstrual period: 02/23/21 Vitals/I&O/Wt Last Vital Signs Temp 97.8 F 09/27/21 08:00 Pulse 104 H 09/27/21 11:54 Resp 19 H 09/27/21 11:43 BP 116/66 09/27/21 08:00 Pulse Ox 90 09/27/21 11:43 09/26/21 09/27/21 09/27/21 22:59 06:59 14:59 Intake Total 756 / 1228 200 / 1428 Output Total 1050 / 1950 600 / 2550 300 / 300 Balance -294 / -722 -400 / -1122 -300 / -300 Weight last 48 hrs Weight 177 lb 11.2 oz Weight 180 lb 3.2 oz Physical Exam Narrative: EXAM NARRATIVE: General: alert, NAD HEENT: conj clear, EOMI, PERRL, mmm, Neck: supple, no meningismus Heme: no cervical LAP Pulmonary: CTAB, no wheezing, rhonchi, crackles Cardiovascular: rrr, nl s1s2, no mrg Abdomen: soft, nt, nd, no r/g, bs+ Extremities: pulses +, no edema, no c/c : no CVA tenderness Skin: intact, no rash MSK: no back or neck pain Neurologic: grossly intact Urinary Catheter Management^: Garcia: Cath Placed During This Visit: yes Reason for Continuing Indwelling Catheter: Other Urinary Catheter Date of Insertion: 09/26/21 Urinary Catheter Time of Insertion: 16:28 Data Labs: Other Labs: Laboratory Results WBC 6.0 10^3/uL (4.0- 10.0) 09/27/21 05:05 RBC 3.41 10^6/uL (4.1 -5.3) L 09/27/21 05:05 Hgb 10.5 g/dL (11.5-1 5.3) L 09/27/21 05:05 Hct 31.7 % (37.0-47.0 ) L 09/27/21 05:05 MCV 93.0 fl (81-99) 09/27/21 05:05 MCH 30.8 pg (28.0-34. 0) 09/27/21 05:05 MCHC 33.1 g/dL (30.0-3 6.0) 09/27/21 05:05 RDW 13.2 % (12.1-15.1 ) 09/27/21 05:05 Plt Count 209 10^3/cmm (130 -400) 09/27/21 05:05 MPV 10.0 fL (7.4-10.4 ) 09/27/21 05:05 Neut % (Auto) 89.3 % 09/27/21 05:05 Lymph % (Auto) 6.0 % 09/27/21 05:05 Nolan % (Auto) 3.9 % 09/27/21 05:05 Eos % (Auto) 0.0 % 09/27/21 05:05 Baso % (Auto) 0.3 % 09/27/21 05:05 Neut # (Auto) 5.32 10^3/uL (1.8 -7.7) 09/27/21 05:05 Lymph # (Auto) 0.4 10^3/uL (0.8- 4.8) L 09/27/21 05:05 Nolan # (Auto) 0.2 10^3/uL (0.2- 0.9) 09/27/21 05:05 Eos # (Auto) 0.0 10^3/uL (0.0- 0.8) 09/27/21 05:05 Baso # (Auto) 0.0 10^3/uL (0.0- 0.1) 09/27/21 05:05 Nucleated RBC % (a uto) 0 % 09/27/21 05:05 Total Counted 100 (0-100) 09/25/21 13:12 Atypical Lymphs % 4.0 % (0-5) 09/25/21 13:12 Absolute Neutrophi ls 0.9 10^3/cmm (1.4 -6.5) L 09/25/21 13:12 Segmented Neutroph ils 30 % 09/25/21 13:12 Abs Segm Neuts (Ma n) 0.7 10/cmm (1.6-7 .1) L 09/25/21 13:12 Band Neutrophils 13.0 % 09/25/21 13:12 Abs Band Neuts (Ma n) 0.3 10^3/cmm (0.0 -1.2) 09/25/21 13:12 Absolute Lymphocyt es 0.8 10^3/cmm (1.2 -3.4) L 09/25/21 13:12 Lymphocytes (Manua l) 31 % 09/25/21 13:12 Monocytes (Manual) 17.0 % 09/25/21 13:12 Absolute Monocytes 0.4 10^3/cmm (0.1 -0.6) 09/25/21 13:12 Eosinophils (Manua l) 0 % 09/25/21 13:12 Absolute Eosinophi ls 0.0 10^3/cmm (0.0 -0.7) 09/25/21 13:12 Basophils (Manual) 0.0 % 09/25/21 13:12 Absolute Basophils 0.0 10^3/cmm (0.0 -0.2) 09/25/21 13:12 Metamyelocytes 5.0 % 09/25/21 13:12 Nucleated RBCs # 0.0 /100WBC 09/27/21 05:05 Platelet Estimate Normal (Normal) 09/25/21 13:12 D-Dimer 3.90 ug/mIFEU (0- 0.59) H 09/27/21 05:05 Specimen Type Arterial 09/27/21 16:29 Sample Site Radial, left 09/27/21 16:29 ABG pH 7.49 (7.35-7.45) H 09/27/21 16:29 ABG pCO2 34.3 mmHg (35-45) L 09/27/21 16:29 ABG pO2 66.6 mmHg (80.0-1 00.0) L 09/27/21 16:29 ABG HCO3 26.0 mmol/L (22-2 6) 09/27/21 16:29 ABG O2 Saturation 94.6 09/27/21 16:29 ABG Base Excess 2.9 mmol/L (-2.0- 2.0) H 09/27/21 16:29 Eric Test Pos 09/27/21 16:29 A-a O2 Gradient 45.0 mmHg (5-10) H 09/27/21 16:29 Hematocrit 39.4 % (37-47) 09/27/21 16:29 Hgb O2 Saturation 93.5 % (95-100) L 09/27/21 16:29 Carboxyhemoglobin 0.9 %THgb (0.4-20 .1) 09/27/21 16:29 Methemoglobin 0.3 % (0.4-1.5) L 09/27/21 16:29 Total Hemoglobin 12.9 g/dL (12-16) 09/27/21 16:29 Sodium 135.0 mmol/L (131 -143) 09/27/21 16:29 Potassium 3.4 mmol/L (3.5-5 .0) L 09/27/21 16:29 Glucose 107.0 mg/dL (70-1 15) 09/27/21 16:29 Ionized Calcium 1.2 mmol/L (1.1-1 .4) 09/27/21 16:29 O2 Delivery Device Hag 09/27/21 16:29 O2 Liters/Min 45.0 % 09/27/21 16:29 FiO2 65.0 % 09/27/21 16:29 Physician Office Assistant ID [email or web address] 09/27/21 16:29 Sodium 131 mmol/L (136-1 45) L 09/27/21 05:05 Potassium 3.7 mmol/L (3.5-5 .1) 09/27/21 05:05 Chloride 97 mmol/L (98-107 ) L 09/27/21 05:05 Carbon Dioxide 24 mmol/L (22-29) 09/27/21 05:05 Anion Gap 13.7 (5-19) 09/27/21 05:05 BUN 16 mg/dL (8-23) 09/27/21 05:05 Creatinine 0.7 mg/dL (0.5-0. 9) 09/27/21 05:05 GFR Calculation 84.8 mL/min (90-1 30) L 09/27/21 05:05 Glucose 216 mg/dL (65-115 ) H 09/27/21 05:05 POC Glucose 106 mg/dL (70-110 ) 09/27/21 16:59 Estimat Average Gl ucose 140 09/26/21 04:34 Hemoglobin A1c 6.5 % (4.0-6.0) H 09/26/21 04:34 Calculated Osmolal ity 280 mOsm/kg (285- 295) L 09/27/21 05:05 Lactate 0.9 mmol/L (0.5-2 .2) 09/25/21 13:12 Calcium 8.9 mg/dL (8.5-10 .5) 09/27/21 05:05 Phosphorus 2.5 mg/dL (2.5-4. 5) 09/26/21 04:34 Magnesium 1.5 mg/dL (1.7-2. 3) L 09/26/21 04:34 Iron 19 ug/dL (37-145) L 09/25/21 13:12 TIBC 277 mcg/dl 09/25/21 13:12 % Saturation 6.8 % (20-50) L 09/25/21 13:12 Unsat Iron Binding 258 ug/dL (112-34 7) 09/25/21 13:12 Ferritin 964 ng/mL (15-150 ) H 09/26/21 12:15 Total Bilirubin 0.3 mg/dL (0.15-1 .2) 09/27/21 05:05 AST 33 U/L (0-32) H 09/27/21 05:05 ALT 18 U/L (0-33) 09/27/21 05:05 Alkaline Phosphata se 68 IU/L (35-105) 09/27/21 05:05 Lactate Dehydrogen ase 427 U/L (135-214) H 09/26/21 12:15 Creatine Kinase 96 U/L (26-192) 09/26/21 18:23 Troponin T Baselin e 17 ng/L (0-10) H 09/25/21 13:12 Troponin T 120 Min norma 14.37 ng/L (0-10) H 09/25/21 14:39 Delta Troponin T -2.63 ABS# (0-10) L 09/25/21 14:39 C-Reactive Protein 295.6 mg/L (0.0-4 .9) H 09/27/21 05:05 NT-Pro-B Natriuret Pep 651 pg/mL (0-125) H 09/26/21 12:15 Total Protein 5.8 g/dL (6.6-8.7 ) L 09/27/21 05:05 Albumin 2.7 g/dL (3.5-5.2 ) L 09/27/21 05:05 Globulin 3.1 g/dL (1.3-4.6 ) 09/27/21 05:05 Triglycerides 114 mg/dL (0-150) 09/26/21 04:34 Cholesterol 97 mg/dL (0-200) 09/26/21 04:34 LDL Cholesterol, C alc 50 mg/dL (50-129) 09/26/21 04:34 Total VLDL Cholest echo 23 mg/dL (0-30) 09/26/21 04:34 HDL Cholesterol 24 mg/dL (60-100) L 09/26/21 04:34 Cholesterol/HDL Ra narda 4.04 mg/dL (0.0-4 .40) 09/26/21 04:34 Procalcitonin 0.25 ng/mL (0-0.5 ) 09/27/21 05:05 TSH 0.13 uIU/mL (0.27 -4.20) L 09/25/21 13:12 Free T4 2.55 ng/dL (0.82- 1.77) H 09/25/21 14:39 Free T3 2.2 PG/ML (2.0-4. 4) 09/25/21 14:39 Urine Color Yellow (Yellow) 09/25/21 21:45 Urine Appearance Clear (CLEAR) 09/25/21 21:45 Urine pH 5 (5-7) 09/25/21 21:45 Ur Specific Gravit y 1.015 (1.005-1.0 30) 09/25/21 21:45 Urine Protein 1+ (Negative) H 09/25/21 21:45 Urine Glucose (UA) Norm (Normal) 09/25/21 21:45 Urine Ketones Negative (Negati ve) 09/25/21 21:45 Urine Blood 2+ (Negative) H 09/25/21 21:45 Urine Nitrate Negative (Negati ve) 09/25/21 21:45 Urine Bilirubin Neg (Negative) 09/25/21 21:45 Urine Urobilinogen Norm mg/dL (Negat naren) 09/25/21 21:45 Ur Leukocyte Francine ase Negative (Negati ve) 09/25/21 21:45 Urine RBC 0-4 /hpf (0-2) H 09/25/21 21:45 Urine WBC 5-10 /hpf (0-5) H 09/25/21 21:45 Ur Squamous Epith Cells 0-4 /hpf (0-5) H 09/25/21 21:45 Amorphous Sediment Not Reportable 09/25/21 21:45 Urine Bacteria Trace /hpf (NONE) 09/25/21 21:45 Vancomycin Trough < 4.0 ug/mL (10-1 5) L 09/27/21 12:40 Leuk/Lym Spec Type Cancelled 09/25/21 04:34 Leuk/Lym Clinical Info Cancelled 09/25/21 04:34 Leuk/Lymph Viabili ty Cancelled 09/25/21 04:34 Leuk/Lym Sample De scrip Cancelled 09/25/21 04:34 Leuk/Lym # of Michael ers Cancelled 09/25/21 04:34 Leuk/Lym Markers Cancelled 09/25/21 04:34 Leuk/Lym Gating St rategy Cancelled 09/25/21 04:34 Leuk/Lym Interpret ation Cancelled 09/25/21 04:34 Lyme Ab (Western B lot) <0.90 index 09/25/21 13:37 Nasal/Oral COVID-1 9 PCR Detected H 09/25/21 13:20 Hepatitis A IgM Ab Non-reactive (No nreactive) 09/26/21 04:34 Hep Bs Antigen Non-reactive (No nreactive) 09/26/21 04:34 Hep Bs Antibody < 3.5 (11.5-1000 ) L 09/26/21 04:34 Hep B Core Total A b Non-reactive (No nreactive) 09/26/21 04:34 Hepatitis C Antibo dy Non-reactive (No nreactive) 09/26/21 04:34 HIV 1&2 Ab & HIV 1 Ag Non-reactive (No n-Reactiv) 09/26/21 04:34 HIV 1&2 Antibody Non-reactive (No n-Reactiv) 09/26/21 04:34 Influenza Type A A g Negative (Negati ve) 09/25/21 21:45 Influenza Type B A g Negative (Negati ve) 09/25/21 21:45 SARS-CoV-2 Ag (Rap id) Negative (Negati ve) 09/25/21 13:20 Impressions Chest/Abdomen/Pelvis CT 09/25/21 14:50 IMPRESSION: 1. Acute pulmonary emboli RIGHT lower arterial distribution. 2. Multi lobar groundglass and focal consolidations consistent with pneumonia. 3. Reactive mediastinal and hilar adenopathy. There are a few additional lymph nodes surrounding the celiac axis which are enlarged with mild progression since 04/03/2021. Recommend follow-up CT chest and abdomen after acute episode resolves to be sure there is no progression of these lymph nodes. 4. Prior cholecystectomy. 5. Mild perinephric stranding. 6. No ascites. Chest X-Ray 09/27/21 10:30 IMPRESSION: 1. Previously noted bilateral pulmonary infiltrates have almost completely resolved since the previous study. Micro: Micro: Microbiology 09/26/21 08:40 Stool Lactoferrin - Final Stool 09/25/21 13:13 Blood Culture - Pr eliminary Blood NEGATIVE TO FAINA E 09/25/21 13:13 Blood Culture - Pr eliminary Blood NEGATIVE TO FAINA E 09/25/21 21:45 MRSA Culture - Fin al Nose 09/26/21 12:15 Blood Culture - Pr eliminary Blood SPECIMEN COLLEC BA 09/26/21 12:27 Blood Culture - Pr eliminary Blood SPECIMEN COLLEC BA 09/25/21 21:45 Bacterial Antigens - Final Urine Kidney 09/25/21 21:45 Legionella Urinary Antigen - Final Urine,Voided A&P Assessment and plan (1) COVID-19: Status: Acute (2) Pneumonia: Status: Acute Qualifiers: Pneumonia type: due to unspecified organism Laterality: bilateral Lung location: unspecified part of lung Qualified Code(s): J18.9 - Pneumonia, unspecified organism (3) Hypoxia: Status: Acute (4) Pulmonary embolism: Status: Acute Qualifiers: Pulmonary embolism type: unspecified Chronicity: acute Acute cor pulmonale presence: unspecified Qualified Code(s): I26.99 - Other pulmonary embolism without acute cor pulmonale (5) Small lymphocytic lymphoma: Status: Resolved (6) Acute respiratory failure with hypoxia: Status: Acute (7) Ex-smoker: Status: Acute #Acute hypoxic respiratory failure-requiring high flow nasal cannula 45 L 65%-secondary to right lower lobe PE/fluid overload #Covid PCR + 08/17/2021 and again on 09/25/2021- ?? reinfection #Patient last chemo was January 25, 2021 for her small lymphocytic lymphoma #??? Presented with neutropenia with absolute neutrophil count 900 and persistent fevers-cannot rule out underlying infection #Smoker 1 pack/day for 20 years-cannot rule out underlying COPD #LIN-noncompliant with CPAP -ABG showed PaO2 66 on high flow nasal cannula 45 L 65% -CTA on admission 09/25/2021 acute pulmonary emboli in right lower lobe pulmonary artery. Extensive bilateral multilobar GGO's and consolidations. Patient is currently on Lovenox therapeutic dose for PE. -Today's chest x-ray 09/27/2021 showed significant improvement in bilateral infiltrates-Especially after receiving Lasix 40 mg for BMP > 600 and patient net -1 L; although echo 09/26/2021 reported technically difficult study because of poor ultrasonic window but visually estimated EF 60% with normal LV size and systolic function and grade 1 diastolic dysfunction. -Although based on the investigations so far PE looks more plausible for hypoxia and improvement in infiltrates on chest x-ray after receiving Lasix suggests a component of fluid overload ; COVID-19 PCR positive may indicate reinfection as well if patient did not mount immune response from previous infection and PE could very well be secondary to COVID-19. -Patient had persistent fevers and persistent lymphopenia-initial neutropenia can be seen in one third of patients with COVID-19 pneumonia as well -Procalcitonin low, MRSA nares negative, Legionella antigen negative, bacterial antigens negative, flu swab negative, blood cultures negative so far -Beta D glucan, galactomannan, induced sputum for PCP, beta D glucan, urine histoplasma, respiratory viral panel, tick panel-all pending -Fecal lactoferrin elevated suggestive of inflammatory colitis; C. difficile toxin negative -Currently she is on dexamethasone 6 mg daily, cefepime, vancomycin, levofloxacin, and for viral and fungal prophylaxis she is on valganciclovir and fluconazole; recommended to DC vancomycin if blood cultures negative for staph. -Admission CT chest/abdomen/pelvis showed mildly enlarged celiac lymph nodes-might suggest recurrence of her lymphocytic lymphoma-but there are no suspicious interstitial pattern/nodules along bronchovascular markings to suggest any lymphangitic spread. However current respiratory deterioration could be multifactorial with PE/fluid/COVID-19 seems more plausible. -Xopenex and Pulmicort nebulization, recommended out of bed to chair and incentive spirometry as tolerated -At this point we will hold off on bronchoscopy given her high FiO2 requirements and high risk of intubation and nonavailability of ICU bed. Although we have seen significant improvement in her chest x-ray infiltrates she is still requiring 45 L 65% on high flow nasal cannula--recommended to continue Lovenox for PE, Lasix 40 mg to keep her net negative and continue dexamethasone given her increasing CRP. She needs close monitoring in ICU for increasing FiO2 requirements and possible intubation if she worsens. ID were involved in the case as well and would greatly appreciate their input. Recommendations conveyed to hospitalist, RN, RT taking care of the patient Consult Attestations Medical Necessity Statement: Acute hypoxic respiratory failure secondary to PE/COVID-19/fluid overload-needs close ICU monitoring for worsening respiratory status Time Spent in Patient Care: Greater than 35 minutes (>than 50% of time spent in counselling and/or direct pt care on unit). Critical Care Time: The high probability of a clinically significant, sudden or life threatening deterioration of the patient's [respiratory] system(s) required my full and direct attention, intervention and personal management. The critical care time is as shown. This time is in addition to time spent performing any reported procedures but includes the following: [x] Data and vital sign review and interpretation [x] Patient assessment, examination and intervention [x] Documentation [x] Medication orders and management Critical Care Time (min): 45 Coding Level of Care Code New Pt Acute Cooker Soda for Chg Fwd Patient Type New History Comprehensive Exam Comprehensive Medical Decision Making High Complexity Diagnoses COVID-19 U07.1 Pneumonia J18.9 Pneumonia type: due to unspecified organism Laterality: bilateral Lung location: unspecified part of lung Hypoxia R09.02 Pulmonary embolism I26.99 Pulmonary embolism type: unspecified Chronicity: acute Acute cor pulmonale presence: unspecified Small lymphocytic lymphoma C83.00 Acute respiratory failure with hypoxia J96.01 Ex-smoker Z87.891 Time Spent (min) 45
[2021-09-27 13:38] LABS: Vancomycin Trough < 4.0 ug/mL (10-15)
[2021-09-27] MEDS: vancomycin 1,000 MG in sodium chloride 0.9% 250 ML 250 MG IV (14:21)
--- NOTE | 2021-09-27 15:23 | PM.CONSULT ---
Providers/Reason For Consult Consulting Physician/Specialty*: Keesha Valadez MD/ Infectious Disease Reason for Consult*: multifocal pneumonia, worsening respiratory status Attending Physician: Ever Gomez MD Primary Care Provider: Ciro Alberts History of Present Illness History of Present Illness Indira Long is a 61 year old female with h/o Small lymphocytic lymphoma diagnosed 12/2018 by lymph node biopsy s/p treatment with Ibrutinib (06/2020-12/2020) , venetoclax/obinutuzumab(anti CD20 Mab) combination one cycle 01/2021 (stopped due to intolerance), then on observation only since 03/2021 considering patient's good clinical response to the treatment. From Ct 04/2021, there was significant improvement in the adenopathy chest abdomen pelvis consistent with interval response to therapy. She has previously been on ppx therapy with valtrex, bactrim and fluconazole. Bactrim stopped 05/2021. She recently had port removed on 09/12/21. She started c/o fever since 09/15/2021 for which she was directed to go to urgent care. She had previously been diagnosed been COVID 19 on 08/17, reportedly recovered without complications. Presented to ER on 09/25 with persisting fever, cough and expectoration. Labs were notable for neutropenia with ANC 0.9 (last ANC normal from 01/2021), new 02 requirement of 3lpm via NC. CT CAP showed acute PE RLL, multilobar GGOs with focal consolidations, mediatsinal and hilar LAD, celiac LAD, increased since 04/2021. LE duplex negative for DVT. Negative blood and urine cx thus far. She is spiking fever t max 102F, 02 requirements have steadily increased since admission from 3lpm to heated hi flow 65% fi02 @45lpm currently. Echo with LVEF 60%, gr 1 diastolic function. Currently on treatment with cefepime, vancomycin and levofloxacin (latter started as outpatient on 09/21. Review of Systems General: Reports: 10 or more systems reviewed and unremarkable except in HPI and below Const: Denies: fever(s), chills or body aches Eyes: Denies: change in vision, blurry vision or photophobia ENMT: Reports: hoarseness; Denies: throat pain, enlarged tonsils, odynophagia or nasal congestion Card: Denies: chest pain, palpitations, irregular heart rhythm, edema, swelling of feet/ankles, lightheadedness, pre-syncope, dyspnea on exertion or orthopnea Resp: Denies: dyspnea, productive cough, non-productive cough, wheezing, stridor, pain on inspiration, change in phlegm color, hemoptysis or chest congestion GI: Denies: abdominal pain, nausea, vomiting, hematemesis, coffee ground emesis, dysphagia, heartburn, diarrhea, constipation, GI cramping, change in stool character, hematochezia or melena : Denies: flank pain, difficulty voiding, dysuria, urinary frequency, urinary urgency, urinary hesitancy or hematuria Musc: Denies: neck pain, back pain, extremity pain, joint swelling, joint warmth or deformity Neuro: Denies: headache(s), numbness in extremities, weakness in extremities, sensory changes, difficulty walking, frequent falls, dizziness, vertigo, behavioral changes, Slurred speech present or seizure-like activity Psych: Denies: anxiety, depression, suicidal ideation or homicidal ideation Endo: Denies: polyuria, polydipsia, tired all the time, cold intolerance or hot flashes Rajeev/Lymph: Denies: easy bruising or easy bleeding Meds/Allergies Home Medications and Allergies Home Medications Medication Instructions Recorded Confirmed Last Taken Type allopurinol 100 mg tablet 100 mg PO BID tab 09/14/20 09/28/21 09/25/21 07:00 History atenolol 25 mg tablet 25 mg PO BID 09/14/20 09/28/21 09/12/21 06:45 History furosemide 40 mg tablet 40 mg PO BID 09/14/20 09/28/21 09/25/21 History gabapentin 400 mg capsule 400 mg PO BEDTIME 09/14/20 09/28/21 09/11/21 History glipizide 5 mg tablet 5 mg PO BID@09/14/20 09/28/21 09/25/21 History liothyronine 5 mcg tablet 5 mcg PO BID 09/14/20 09/28/21 09/25/21 07:00 History lovastatin 40 mg tablet 40 mg PO DAILY@07 09/14/20 09/28/21 09/25/21 07:00 History omeprazole 20 mg capsule,delayed 20 mg PO QAM 09/14/20 09/28/2109/25/21 History release albuterol sulfate [ProAir HFA] 2 puff INHALATION Q6H PRN 02/09/21 09/28/21 09/09/21 History aspirin 81 mg PO PRN 02/09/21 09/28/21 09/09/21 History ekbtxlassx-qcrrehzxbhhlc-fqit 1 tab PO Q6H PRN 02/09/21 09/28/21 09/04/21 History fluconazole 100 mg PO DAILY@07 02/09/21 09/28/21 09/25/21 History guaifenesin [Mucinex] 600 mg PO Q12H PRN 02/09/21 09/28/21 Unknown History loratadine [Claritin] 10 mg PO DAILY PRN 02/09/21 09/28/21 Unknown History oxycodone-acetaminophen [Percocet] 1 tab PO Q6H PRN 02/09/21 09/28/21 09/25/21 History prochlorperazine maleate 10 mg PO Q4H PRN 02/09/21 09/28/21 Unknown History tizanidine 4 mg PO BEDTIME 02/09/21 09/28/21 09/24/21 History trazodone 100 mg PO BEDTIME 02/09/21 09/28/21 09/11/21 History valacyclovir 500 mg PO DAILY@02/09/21 09/28/21 09/25/21 07:00 History ascorbic acid (vitamin C) [Vitamin 500 mg PO DAILY 09/11/21 09/28/21 09/22/21 History C] bupropion HCl 150 mg PO BID 09/25/21 09/28/21 09/25/21 07:00 History codeine-guaifenesin 10 ml PO Q4H PRN 09/25/21 09/28/21 Unknown History doxycycline hyclate 100 mg PO BID 09/25/21 09/28/21 09/25/21 07:00 History levofloxacin 500 mg tablet 500 mg PO DAILY 09/25/21 09/28/21 09/25/21 07:00 History levothyroxine [Euthyrox] 200 mcg PO QAM 09/25/21 09/28/21 09/25/21 History meclizine 25 mg PO TID PRN 09/25/21 09/28/21 Unknown History montelukast 10 mg PO DAILY PRN 09/25/21 09/28/21 Unknown History prednisone 20 mg PO BID 09/25/21 09/28/21 09/23/21 History FINISHED 09/23/21 Allergies Allergy/AdvReac Type Severity Reaction Status Date / Time adhesive tape Allergy blisters Verified 09/28/21 15:43 pneumonia vaccine Allergy Intermediate rash all Uncoded 09/28/21 15:43 over and all of arm swollen significantly Current Medications Current Medications Generic Name Dose Route Start Last Admin Trade Name Freq PRN Reason Stop Dose Admin Acetaminophen 650 mg 09/25/21 16:30 09/26/21 16:00 Acetaminophen 325 Mg Tablet PO 650 mg Q6H PRN Administration Mild/Mod Pain Or Temp >/= 101 Allopurinol 100 mg 09/25/21 18:00 09/27/21 07:59 Allopurinol 100 Mg Tablet PO 100 mg BID OKSANA Administration Ascorbic Acid 500 mg 09/26/21 18:00 09/27/21 08:01 Ascorbic Acid 500 Mg Tablet PO 500 mg BID OKSANA Administration Aspirin 81 mg 09/26/21 09:00 09/27/21 08:01 Aspirin 81 Mg Ec Tablet PO 81 mg DAILY OKSANA Administration Atorvastatin Calcium 20 mg 09/26/21 07:00 09/27/21 05:10 Atorvastatin 40 Mg Tablet PO 20 mg DAILY@07 OKSANA Administration Budesonide 0.5 mg 09/25/21 20:00 09/27/21 07:44 Budesonide 0.5 Mg/2 Ml Neb INHALATION 0.5 mg BID.RESPIRATORY OKSANA Administration Bupropion HCl 150 mg 09/25/21 21:00 09/27/21 08:03 Bupropion Sr (12 Hr) 150 Mg Tablet PO 150 mg BID@0900,2100 OKSANA Administration Dexamethasone 6 mg 09/26/21 18:00 09/26/21 18:49 Dexamethasone 4 Mg/Ml Inj IVP 6 mg Q24H OKSANA Administration Enoxaparin Sodium 80 mg 09/25/21 18:00 09/27/21 05:12 Enoxaparin 80 Mg/0.8 Ml Syringe SUBCUT 80 mg Q12H OKSANA Administration Ferrous Gluconate 324 mg 09/25/21 18:00 09/27/21 07:57 Ferrous Gluconate 324 Mg Tablet PO 324 mg BIDWM OKSANA Administration Gabapentin 400 mg 09/25/21 21:00 09/26/21 20:32 Gabapentin 400 Mg Capsule PO 400 mg BEDTIME OKSANA Administration Cefepime HCl 1,000 mg/ Sodium 50 mls @ 100 mls/hr 09/25/21 15:00 09/27/21 14:40 Chloride IV 100 mls/hr Q12H OKSANA Administration Protocol Insulin Human Lispro 0 unit 09/25/21 18:00 09/27/21 12:24 Insulin Lispro 100 Unit/1 Ml SUBCUT Not Given WM&BEDTIME OKSANA Protocol Lanolin 1 applic 09/27/21 10:12 09/27/21 10:40 Lanolin Oint 7 Gm TOPICAL 1 applic PRN PRN Administration DRYNESS Levofloxacin 500 mg 09/26/21 09:00 09/27/21 07:57 Levofloxacin 500 Mg Tablet PO 500 mg DAILY OKSANA Administration Protocol Levothyroxine Sodium 200 mcg 09/26/21 06:00 09/27/21 05:11 Levothyroxine 200 Mcg Tablet PO 200 mcg QAM OKSANA Administration Liothyronine Sodium 5 mcg 09/25/21 18:00 09/27/21 07:59 Liothyronine 5 Mcg Tablet PO 5 mcg BID OKSANA Administration Morphine Sulfate 1 mg 09/27/21 10:28 09/27/21 10:40 Morphine 4 Mg/Ml Sdv 1 Ml IVP 1 mg Q4H PRN Administration SEVERE PAIN Ondansetron HCl 4 mg 09/25/21 16:30 09/26/21 10:01 Ondansetron 2 Mg/Ml Sdv 2 Ml IVP 4 mg Q8H PRN Administration vomiting, or N/V if npo Pantoprazole Sodium 40 mg 09/26/21 09:00 09/27/21 07:[address] 40 Mg Tablet PO 40 mg DAILY OKSANA Administration Tizanidine HCl 4 mg 09/25/21 21:00 09/26/21 20:32 Tizanidine 4 Mg Tablet PO 4 mg BEDTIME OKSANA Administration Trazodone HCl 100 mg 09/25/21 21:00 09/26/21 20:32 Trazodone 100 Mg Tablet PO 100 mg BEDTIME OKSANA Administration Valacyclovir HCl 500 mg 09/26/21 07:00 09/27/21 05:11 Valacyclovir 1,000 Mg Tablet PO 500 mg DAILY@07 OKASNA Administration Zinc Gluconate 50 mg 09/27/21 09:00 09/27/21 07:58 Zinc Gluconate 50 Mg Tablet PO 50 mg DAILY OKSANA Administration PFSH Acute PFSH: Medical History CHF (congestive heart failure), NYHA class III Echocardiogram October 2020 shows EF of 62% with normal diastolic function normal PA pressures COVID-19 Diabetes High risk medication use History of nonmelanoma skin cancer Inflammatory arthritis Joint pain Posterior tibial tendon dysfunction (PTTD) of right lower extremity Small lymphocytic lymphoma Thyroid disease Surgical History H/O dilation and curettage History of appendectomy History of bladder repair surgery History of hysterectomy History of neck surgery titanium in neck History of removal of Port-a-Cath September 2021 History of tubal ligation Hx of cholecystectomy Family History Mother Cancer lung cancer Father Cancer colon and lung cancer Other Hypertension Migraine Rheumatoid arthritis Denies family history of Diabetes Lupus Chronic kidney disease (CKD) Anesthesia complication Bleeding disorder Lung disease Stroke Social History Quit status (tobacco): has tried quititng Second hand smoke exposure: Yes Smoking risk assessment/counseling performed?: No Alcohol intake: never Desire information about alcohol rehabilitation?: No Counseling given: No Desire information about substance/drug rehabilitation?: No Counseling given: No Household members: spouse Marital status: Current occupational status: disabled History of recent travel: No Female Reproductive History: Date of last menstrual period: 02/23/21 Vitals/I&O/Wt Last Vital Signs Temp 97.8 F 09/27/21 08:00 Pulse 104 H 09/27/21 14:00 Resp 29 H 09/27/21 12:00 BP 117/60 09/27/21 12:00 Pulse Ox 93 09/27/21 12:00 09/27/21 09/27/21 09/27/21 06:59 14:59 22:59 Intake Total 200 / 1428 60 / 60 Output Total 600 / 2550 1400 / 1400 Balance -400 / -1122 -1340 / -1340 Weight last 48 hrs Weight 80.603 kg Weight 81.737 kg Physical Exam Narrative: EXAM NARRATIVE: Chart reviewed, care discussed with Dr. Gomez and Dr. Rousseau. Patient not examined. Televisit only. Urinary Catheter Management^: Garcia: Cath Placed During This Visit: yes Reason for Continuing Indwelling Catheter: Other Urinary Catheter Date of Insertion: 09/26/21 Urinary Catheter Time of Insertion: 16:28 Data Micro: Micro: Microbiology 09/26/21 08:40 Stool Lactoferrin - Final Stool Enteric Pathogens (PCR) - Final C.difficile Toxin B Gene (PCR) - Fin al 09/26/21 12:15 Blood Culture - Pr eliminary Blood NEGATIVE TO FAINA E 09/26/21 12:27 Blood Culture - Pr eliminary Blood NEGATIVE TO FAINA E 09/25/21 13:13 Blood Culture - Pr eliminary Blood NEGATIVE TO FAINA E 09/25/21 13:13 Blood Culture - Pr eliminary Blood NEGATIVE TO FAINA E 09/25/21 21:45 MRSA Culture - Fin al Nose Other Data: Attestation for Other Data: I personally reviewed and interpreted the following: Other data: Laboratory Results WBC 6.0 10^3/uL (4.0- 10.0) 09/27/21 05:05 RBC 3.41 10^6/uL (4.1 -5.3) L 09/27/21 05:05 Hgb 10.5 g/dL (11.5-1 5.3) L 09/27/21 05:05 Hct 31.7 % (37.0-47.0 ) L 09/27/21 05:05 MCV 93.0 fl (81-99) 09/27/21 05:05 MCH 30.8 pg (28.0-34. 0) 09/27/21 05:05 MCHC 33.1 g/dL (30.0-3 6.0) 09/27/21 05:05 RDW 13.2 % (12.1-15.1 ) 09/27/21 05:05 Plt Count 209 10^3/cmm (130 -400) 09/27/21 05:05 MPV 10.0 fL (7.4-10.4 ) 09/27/21 05:05 Neut % (Auto) 89.3 % 09/27/21 05:05 Lymph % (Auto) 6.0 % 09/27/21 05:05 [place] % (Auto) 3.9 % 09/27/21 05:05 Eos % (Auto) 0.0 % 09/27/21 05:05 Baso % (Auto) 0.3 % 09/27/21 05:05 Neut # (Auto) 5.32 10^3/uL (1.8 -7.7) 09/27/21 05:05 Lymph # (Auto) 0.4 10^3/uL (0.8- 4.8) L 09/27/21 05:05 [place] # (Auto) 0.2 10^3/uL (0.2- 0.9) 09/27/21 05:05 Eos # (Auto) 0.0 10^3/uL (0.0- 0.8) 09/27/21 05:05 Baso # (Auto) 0.0 10^3/uL (0.0- 0.1) 09/27/21 05:05 Nucleated RBC % (a uto) 0 % 09/27/21 05:05 Total Counted 100 (0-100) 09/25/21 13:12 Atypical Lymphs % 4.0 % (0-5) 09/25/21 13:12 Absolute Neutrophi ls 0.9 10^3/cmm (1.4 -6.5) L 09/25/21 13:12 Segmented Neutroph ils 30 % 09/25/21 13:12 Abs Segm Neuts (Ma n) 0.7 10/cmm (1.6-7 .1) L 09/25/21 13:12 Band Neutrophils 13.0 % 09/25/21 13:12 Abs Band Neuts (Ma n) 0.3 10^3/cmm (0.0 -1.2) 09/25/21 13:12 Absolute Lymphocyt es 0.8 10^3/cmm (1.2 -3.4) L 09/25/21 13:12 Lymphocytes (Manua l) 31 % 09/25/21 13:12 Monocytes (Manual) 17.0 % 09/25/21 13:12 Absolute Monocytes 0.4 10^3/cmm (0.1 -0.6) 09/25/21 13:12 Eosinophils (Manua l) 0 % 09/25/21 13:12 Absolute Eosinophi ls 0.0 10^3/cmm (0.0 -0.7) 09/25/21 13:12 Basophils (Manual) 0.0 % 09/25/21 13:12 Absolute Basophils 0.0 10^3/cmm (0.0 -0.2) 09/25/21 13:12 Metamyelocytes 5.0 % 09/25/21 13:12 Nucleated RBCs # 0.0 /100WBC 09/27/21 05:05 Platelet Estimate Normal (Normal) 09/25/21 13:12 D-Dimer 3.90 ug/mIFEU (0- 0.59) H 09/27/21 05:05 Specimen Type Arterial 09/26/21 19:40 Sample Site Radial, left 09/26/21 19:40 ABG pH 7.47 (7.35-7.45) H 09/26/21 19:40 ABG pCO2 36.1 mmHg (35-45) 09/26/21 19:40 ABG pO2 60.2 mmHg (80.0-1 00.0) L 09/26/21 19:40 ABG HCO3 26.5 mmol/L (22-2 6) H 09/26/21 19:40 ABG O2 Saturation 92.9 09/26/21 19:40 ABG Base Excess 2.9 mmol/L (-2.0- 2.0) H 09/26/21 19:40 Eric Test Pos 09/26/21 19:40 A-a O2 Gradient 44.5 mmHg (5-10) H 09/26/21 19:40 Hematocrit 34.5 % (37-47) L 09/26/21 19:40 Hgb O2 Saturation 91.3 % (95-100) L 09/26/21 19:40 Carboxyhemoglobin 0.8 %THgb (0.4-20 .1) 09/26/21 19:40 Methemoglobin 0.9 % (0.4-1.5) 09/26/21 19:40 Total Hemoglobin 11.3 g/dL (12-16) L 09/26/21 19:40 Sodium 132.0 mmol/L (131 -143) 09/26/21 19:40 Potassium 3.6 mmol/L (3.5-5 .0) 09/26/21 19:40 Glucose 121.0 mg/dL (70-1 15) H 09/26/21 19:40 Ionized Calcium 1.2 mmol/L (1.1-1 .4) 09/26/21 19:40 O2 Delivery Device Hag 09/26/21 19:40 O2 Liters/Min 30.0 % 09/26/21 19:40 FiO2 63.0 % 09/26/21 19:40 Manufacturing Worker ID Buttr 09/26/21 19:40 Sodium 131 mmol/L (136-1 45) L 09/27/21 05:05 Potassium 3.7 mmol/L (3.5-5 .1) 09/27/21 05:05 Chloride 97 mmol/L (98-107 ) L 09/27/21 05:05 Carbon Dioxide 24 mmol/L (22-29) 09/27/21 05:05 Anion Gap 13.7 (5-19) 09/27/21 05:05 BUN 16 mg/dL (8-23) 09/27/21 05:05 Creatinine 0.7 mg/dL (0.5-0. 9) 09/27/21 05:05 GFR Calculation 84.8 mL/min (90-1 30) L 09/27/21 05:05 Glucose 216 mg/dL (65-115 ) H 09/27/21 05:05 POC Glucose 156 mg/dL (70-110 ) H 09/27/21 12:08 Estimat Average Gl ucose 140 09/26/21 04:34 Hemoglobin A1c 6.5 % (4.0-6.0) H 09/26/21 04:34 Calculated Osmolal ity 280 mOsm/kg (285- 295) L 09/27/21 05:05 Lactate 0.9 mmol/L (0.5-2 .2) 09/25/21 13:12 Calcium 8.9 mg/dL (8.5-10 .5) 09/27/21 05:05 Phosphorus 2.5 mg/dL (2.5-4. 5) 09/26/21 04:34 Magnesium 1.5 mg/dL (1.7-2. 3) L 09/26/21 04:34 Iron 19 ug/dL (37-145) L 09/25/21 13:12 TIBC 277 mcg/dl 09/25/21 13:12 % Saturation 6.8 % (20-50) L 09/25/21 13:12 Unsat Iron Binding 258 ug/dL (112-34 7) 09/25/21 13:12 Ferritin 964 ng/mL (15-150 ) H 09/26/21 12:15 Total Bilirubin 0.3 mg/dL (0.15-1 .2) 09/27/21 05:05 AST 33 U/L (0-32) H 09/27/21 05:05 ALT 18 U/L (0-33) 09/27/21 05:05 Alkaline Phosphata se 68 IU/L (35-105) 09/27/21 05:05 Lactate Dehydrogen ase 427 U/L (135-214) H 09/26/21 12:15 Creatine Kinase 96 U/L (26-192) 09/26/21 18:23 Troponin T Baselin e 17 ng/L (0-10) H 09/25/21 13:12 Troponin T 120 Min [facility] 14.37 ng/L (0-10) H 09/25/21 14:39 Delta Troponin T -2.63 ABS# (0-10) L 09/25/21 14:39 C-Reactive Protein 295.6 mg/L (0.0-4 .9) H 09/27/21 05:05 NT-Pro-B Natriuret Pep 651 pg/mL (0-125) H 09/26/21 12:15 Total Protein 5.8 g/dL (6.6-8.7 ) L 09/27/21 05:05 Albumin 2.7 g/dL (3.5-5.2 ) L 09/27/21 05:05 Globulin 3.1 g/dL (1.3-4.6 ) 09/27/21 05:05 Triglycerides 114 mg/dL (0-150) 09/26/21 04:34 Cholesterol 97 mg/dL (0-200) 09/26/21 04:34 LDL Cholesterol, C alc 50 mg/dL (50-129) 09/26/21 04:34 Total VLDL Cholest echo 23 mg/dL (0-30) 09/26/21 04:34 HDL Cholesterol 24 mg/dL (60-100) L 09/26/21 04:34 Cholesterol/HDL Ra narda 4.04 mg/dL (0.0-4 .40) 09/26/21 04:34 Procalcitonin 0.25 ng/mL (0-0.5 ) 09/27/21 05:05 TSH 0.13 uIU/mL (0.27 -4.20) L 09/25/21 13:12 Free T4 2.55 ng/dL (0.82- 1.77) H 09/25/21 14:39 Free T3 2.2 PG/ML (2.0-4. 4) 09/25/21 14:39 Urine Color Yellow (Yellow) 09/25/21 21:45 Urine Appearance Clear (CLEAR) 09/25/21 21:45 Urine pH 5 (5-7) 09/25/21 21:45 Ur Specific Gravit y 1.015 (1.005-1.0 30) 09/25/21 21:45 Urine Protein 1+ (Negative) H 09/25/21 21:45 Urine Glucose (UA) Norm (Normal) 09/25/21 21:45 Urine Ketones Negative (Negati ve) 09/25/21 21:45 Urine Blood 2+ (Negative) H 09/25/21 21:45 Urine Nitrate Negative (Negati ve) 09/25/21 21:45 Urine Bilirubin Neg (Negative) 09/25/21 21:45 Urine Urobilinogen Norm mg/dL (Negat naren) 09/25/21 21:45 Ur Leukocyte Francine ase Negative (Negati ve) 09/25/21 21:45 Urine RBC 0-4 /hpf (0-2) H 09/25/21 21:45 Urine WBC 5-10 /hpf (0-5) H 09/25/21 21:45 Ur Squamous Epith Cells 0-4 /hpf (0-5) H 09/25/21 21:45 Amorphous Sediment Not Reportable 09/25/21 21:45 Urine Bacteria Trace /hpf (NONE) 09/25/21 21:45 Vancomycin Trough < 4.0 ug/mL (10-1 5) L 09/27/21 12:40 Leuk/Lym Spec Type Cancelled 09/25/21 04:34 Leuk/Lym Clinical Info Cancelled 09/25/21 04:34 Leuk/Lymph Viabili ty Cancelled 09/25/21 04:34 Leuk/Lym Sample De scrip Cancelled 09/25/21 04:34 Leuk/Lym # of Michael ers Cancelled 09/25/21 04:34 Leuk/Lym Markers Cancelled 09/25/21 04:34 Leuk/Lym Gating St rategy Cancelled 09/25/21 04:34 Leuk/Lym Interpret ation Cancelled 09/25/21 04:34 Lyme Ab (Western B lot) <0.90 index 09/25/21 13:37 Nasal/Oral COVID-1 9 PCR Detected H 09/25/21 13:20 Hepatitis A IgM Ab Non-reactive (No nreactive) 09/26/21 04:34 Hep Bs Antigen Non-reactive (No nreactive) 09/26/21 04:34 Hep Bs Antibody < 3.5 (11.5-1000 ) L 09/26/21 04:34 Hep B Core Total A b Non-reactive (No nreactive) 09/26/21 04:34 Hepatitis C Antibo dy Non-reactive (No nreactive) 09/26/21 04:34 HIV 1&2 Ab & HIV 1 Ag Non-reactive (No n-Reactiv) 09/26/21 04:34 HIV 1&2 Antibody Non-reactive (No n-Reactiv) 09/26/21 04:34 Influenza Type A A g Negative (Negati ve) 09/25/21 21:45 Influenza Type B A g Negative (Negati ve) 09/25/21 21:45 SARS-CoV-2 Ag (Rap id) Negative (Negati ve) 09/25/21 13:20 Impressions Chest/Abdomen/Pelvis CT 09/25/21 14:50 IMPRESSION: 1. Acute pulmonary emboli RIGHT lower arterial distribution. 2. Multi lobar groundglass and focal consolidations consistent with pneumonia. 3. Reactive mediastinal and hilar adenopathy. There are a few additional lymph nodes surrounding the celiac axis which are enlarged with mild progression since 04/03/2021. Recommend follow-up CT chest and abdomen after acute episode resolves to be sure there is no progression of these lymph nodes. 4. Prior cholecystectomy. 5. Mild perinephric stranding. 6. No ascites. A&P Assessment and plan (1) Pulmonary embolism: Status: Acute Qualifiers: Acute cor pulmonale presence: unspecified Chronicity: acute Pulmonary embolism type: unspecified Qualified Code(s): I26.99 - Other pulmonary embolism without acute cor pulmonale (2) Febrile neutropenia: Status: Acute (3) Multifocal pneumonia: Status: Acute Additional A&P Information Patient presenting with fever and neutropenia, multifocal pneumonia and patch GGOs. Past h/o immunotherapy with anti CD 20 Mab and BTK inhibitors, however appears per notes that last dose was in Jan 2021 for both. She remained on ppx with fluconazole, valtrex and bactrim until May 2021 (?continued chemo? neutropenia). Currently unclear duration of neutropenia , last ANC normal from 01/2021. No interim numbers available at this time. Given unclear duration of neutropenia, appearance of pleural based consolidation with surrounding ground glass, cannot exclude possibility of fungal pneumonia incl mold. Recommend changing fluconazole 100mg daily to Voriconazole for mold coverage. Voriconazole loading dose 6mg/kg iv q12h followed by 4mg/kg iv q12h. Monitor Qtc interval and LFTs. Alternate possibilities include PJP pneumonia. Check PJP PCR from induced sputum or bronch if performed (latter preferable). Recommend pulmonary consult to assess for bronchoscopy to aid diagnostics. PJP PCR, BDG, AG/GM, Mycobacterial culture, fungal cx, BAL cx from bronchoscopy. In the interim peripheral work up to include Serum beta D glucan, serum AG/Galactomannan index, Sputum cx and gram stain, fungal culture on sputum, respiratory viral panel. COVID PCR + since Mid septemeber, suspect this is likely related to continued viral shedding rather than re infection or severe manifestations one month after initial diagnosis. Patient is unvaccinated for covid 19, did not receive Mab. Okay to continue steroids for now while pending above w/up. Continue Cefepime, vancomycin (pending mrsa pcr) and levofloxacin for atypical coverage, including legionella. will follow Consult Attestations Medical Necessity Statement: per admitting note Coding Level of Care Code Acute Machine Joint Cutter for [facility] Diagnoses Pulmonary embolism I26.99 Acute cor pulmonale presence: unspecified Chronicity: acute Pulmonary embolism type: unspecified Febrile neutropenia D70.9; R50.81 Multifocal pneumonia J18.9
[2021-09-27] MEDS: sodium chloride 3.5% neb 4 mL Neb INHALATION (16:10)
--- NOTE | 2021-09-27 16:35 | PC.NURSE ---
pt was scheduled for bronchoscopy today...dr menjivar cancelled procedure.dr mishra requests transfer to icu for closer observation due to respiratory needs.
[2021-09-27 16:43] LABS: ABG PCO2 34.3 mmHg (35-45); ABG PH Result 7.49 (7.35-7.45); Arterial Blood Gas Hematocrit 39.4 % (37-47); Base Excess ABG 2.9 mmol/L (-2.0-2.0); Blood Gas Allen Test Pos; Blood Gas Sample Site Radial, left; Blood Gas Sample Type Arterial; Carboxyhemoglobin 0.9 %THgb (0.4-20.1); HGB O2 Sat 93.5 % (95-100); Ionized Calcium Level - ABG 1.2 mmol/L (1.1-1.4); Methemoglobin 0.3 % (0.4-1.5); Oxygen Device HAG; Oxygen Saturation ABG 94.6; PO2 ABG 66.6 mmHg (80.0-100.0); Potassium Level - ABG 3.4 mmol/L (3.5-5.0); Total Hemoglobin 12.9 g/dL (12-16)
--- NOTE | 2021-09-27 16:49 | P.PN_ITS ---
Subjective Subjective: Interval history: Overnight patient had a rough night. T-max of 102.5 Fahrenheit. She was complaining of nausea and had one episode of vomiting with 3-4 episodes of diarrhea. Currently on 7 L high flow nasal cannula saturating 94%. Denies any difficulty in breathing. Able to have complete conversations. Denies any chest pain. Vitals/I&O/Wt Last Vital Signs Temp 100.4 F H 09/27/21 16:00 Pulse 108 H 09/27/21 16:11 Resp 31 H 09/27/21 16:11 BP 117/60 09/27/21 12:00 Pulse Ox 92 09/27/21 16:11 09/27/21 09/27/21 09/27/21 06:59 14:59 22:59 Intake Total 200 / 1428 60 / 60 300 / 360 Output Total 600 / 2550 1400 / 1400 Balance -400 / -1122 -1340 / -1340 300 / -1040 Weight last 48 hrs Weight 80.603 kg Weight 81.737 kg Physical Exam Narrative: EXAM NARRATIVE: General: No acute distress, AO x3, on 7 L oxygen supplementation HEENT: PERRLA, pupils bilaterally equal and reactive Chest: Bronchial breath sounds bilaterally, rhonchi present diffuse all over lung mcguire, equal good air entry bilaterally CVS: S1-S2 regular, no murmurs, no tachycardia, no gallops, no rubs Abdomen: Soft, nontender, no organomegaly, bowel sounds present Neuro: No focal deficits, no facial deformity, AO x3, power 5/5 in all limbs Urinary Catheter Management^: Garcia: Cath Placed During This Visit: yes Reason for Continuing Indwelling Catheter: Other Urinary Catheter Date of Insertion: 09/26/21 Urinary Catheter Time of Insertion: 16:28 Data : 09/27/21 05:05 09/27/21 05:05 Micro: Microbiology 09/26/21 08:40 Stool Lactoferrin - Final Stool Enteric Pathogens (PCR) - Final C.difficile Toxin B Gene (PCR) - Final 09/26/21 12:15 Blood Culture - Preliminary Blood NEGATIVE TO DATE 09/26/21 12:27 Blood Culture - Preliminary Blood NEGATIVE TO DATE 09/25/21 13:13 Blood Culture - Preliminary Blood NEGATIVE TO DATE 09/25/21 13:13 Blood Culture - Preliminary Blood NEGATIVE TO DATE 09/25/21 21:45 MRSA Culture - Final Nose A&P Assessment and plan (1) Sepsis: Status: Acute (2) Hypoxia: Status: Acute (3) Multifocal pneumonia: Status: Acute (4) COVID-19: Status: Acute (5) Pulmonary embolism: Status: Acute Qualifiers: Pulmonary embolism type: unspecified Chronicity: acute Acute cor pulmonale presence: unspecified Qualified Code(s): I26.99 - Other pulmonary embolism without acute cor pulmonale (6) CHF (congestive heart failure), NYHA class III: Status: Acute Qualifiers: Congestive heart failure type: unspecified Qualified Code(s): I50.9 - Heart failure, unspecified (7) History of removal of Port-a-Cath: Status: Acute (8) Small lymphocytic lymphoma: Status: Resolved (9) Febrile neutropenia: Neutropenia has resolved. ANC normalized. Status: Acute Additional A&P Information Hypoxia: Multifactorial. Most likely a combination of infectious etiology along with pulmonary embolism. Echocardiogram results appreciated with an EF of 60%, grade 1 diastolic dysfunction, mild left ventricular hypertrophy, trace MR. No right heart strain. Continue with Lovenox full dose 1 mg/kg body weight every 12 hours for pulmonary embolism IV Lasix 40 mg stat to keep patient as net negative as possible because of ARDS. Garcia catheterization, strict input output charting. Case discussed with pulmonology. Plan for possible bronchoscopy. Patient is agreeable for bronchoscopy if needed. She is been made aware of her bronchoscopy she might need to be intubated and once intubated it is possible that it will be difficult for her to get off the vent given extensive oxygen requirement. Patient and patient's are in agreements to go ahead with bronchoscopy if needed. Appreciate Dr. Holloway and Dr. Rousseau recommendations Sepsis: Criteria met with tachycardia, hypotension, leukopenia on admission. Keep mean arterial pressure over 65. Neutropenia has resolved. Last chemotherapy over a year ago for small lymphocytic lymphoma. No clear etiology for neutropenia though could be secondary to severe sepsis versus possible recent viral infection. Patient did have Covid recently which was self-limited and got better without any treatment even monoclonal antibodies. Tick panel, respiratory viral panel, leukemia/lymphoma flow cytometry awaited. Flu swab negative. MRSA negative, urine Legionella, bacterial antigen negative. Pro-Mick within normal limits. Blood culture preliminary negative. We will request for induction of sputum for sample. Appreciate ID, pulmonology recommendations. For now continue with cefepime, vancomycin, Levaquin. Continue with valacyc lovir. Switch to voriconazole as per ID recommendations. 6 mg/kg body weight every 12 hourly loading dose today followed by 4 mg/kg body weight from tomorrow for maintenance. If patient improves can switch on to oral. Check inflammatory viral markers including ESR, CRP, ferritin. Check LDH, fungi tell. COVID-19 PCR positive. Cannot be sure if this is new Covid infection versus persistence of PCR positive from infection from last month but given patient's worsening oxygen requirement along with immunocompromise status on admission cannot rule out?infection as patient did not mount any antibody response to last infection. For now continue with dexamethasone 6 mg IV daily. Remdesivir to finish a 5-day course. Vitamin C, zinc. Continue with isolation precautions. Type 2 diabetes mellitus: HbA1c 6.5. Continues to have hypoglycemia. Hypoglycemia protocol. Sliding scale every 4 hourly. For now switch from carb consistent to cardiac diet. Hypertension: Goal blood pressure less than 140/90 mmHg. Blood pressures better. Hold antihypertensives. Full code. Mechanical soft cardiac diet. Full dose Lovenox will help with DVT prophylaxis as well. Protonix for PUD prophylaxis Guarded prognosis. Shift to ICU for worsening oxygen requirement Attestations Medical Necessity Statement*: Quires further hospitalization for management of ARDS because of multifocal pneumonia, pulmonary embolism, possible COVID-19, sepsis Critical Care Time: The high probability of a clinically significant, sudden or life threatening deterioration of the patient's [pulmonology, ID, cardiac] system(s) required my full and direct attention, intervention and personal management. The critical care time is as shown. 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
[2021-09-27 17:07] LABS: Glucose Point of Care 106 mg/dL (70-110)
[2021-09-27] MEDS: dexamethasone 4 mg/mL INJ 6 MG IVP (17:45)
[2021-09-27] MEDS: remdesivir 100 MG in sodium chloride 0.9% (100 ml) 100 ML IV (17:46)
[2021-09-27] MEDS: diclofenac 1% Topical Gel 100 gm 1 APPLIC TOPICAL (18:11)
--- NOTE | 2021-09-27 19:17 | PC.NURSE ---
transferred to icu.report given to drew beal
[2021-09-27 20:25] LABS: Glucose Point of Care 228 mg/dL (70-110)
[2021-09-27] MEDS: tizanidine 4 mg Tablet PO (20:33)
[2021-09-27] MEDS: gabapentin 400 mg Capsule PO (20:35)
[2021-09-27] MEDS: trazodone 100 mg Tablet PO (20:39)
[2021-09-27] MEDS: levalbuterol 0.63 mg/3 mL Neb INHALATION (20:53)
[2021-09-27 22:57] LABS: Glucose Point of Care 210 mg/dL (70-110)
[2021-09-28] VITALS (72 sets, daily range): BP systolic 88–135; BP diastolic 43–77; PULSE 67–130; RESP 18–37; TEMP 36.7; O2SAT 86–95
[2021-09-28] MEDS: vancomycin 1,000 MG in sodium chloride 0.9% 250 ML 250 MG IV (01:16)
[2021-09-28] MEDS: cefepime 1,000 MG in sodium chloride 0.9% (plus) 50 ML 100 MG IV ×2 (02:07→15:08)
[2021-09-28 03:57] LABS: Glucose Point of Care 291 mg/dL (70-110)
--- NOTE | 2021-09-28 05:18 | PC.NUTR ---
Shift Note Frequent safety and comfort rounds continue. Orders and/or nursing care completed as indicated. Patient monitored for response to intervention and treatment(s). Education provided includes heated high flow NC/02 safety and oxygen needs. Patient verbalizes understanding. At approximately 2215 last evening, pt's 02 sat dropped and sustained into low 80's. RT notified and 02 increased to 50L @ 75% fi02. Pt's 02 sat in low 90's since. Pt also encouraged to lie on side and did so most of shift. 02 sats improved with this position. Currently resting with eyes closed. Resp even and non labored. All vs and assessments as charted. No distress noted at this time.
[2021-09-28] MEDS: levalbuterol 0.63 mg/3 mL Neb INHALATION ×3 (05:21→20:57)
[2021-09-28] MEDS: valACYclovir 1,000 mg Tablet 500 MG PO (05:31)
[2021-09-28] MEDS: atorvastatin 40 mg Tablet 20 MG PO (05:31)
[2021-09-28] MEDS: levothyroxine 200 mcg Tablet PO (05:31)
[2021-09-28] MEDS: enoxaparin 80 mg/0.8 mL Syringe SUBCUT ×2 (05:31→18:35)
[2021-09-28] MEDS: morphine 4 mg/mL SDV 1 mL 1 MG IVP ×2 (05:40→09:46)
[2021-09-28 05:41] LABS: Basophils % 0.2 %; Hemoglobin 10.5 g/dL (11.5-15.3); Lymphocytes # 0.4 10^3/uL (0.8-4.8); Lymphocytes % 4.7 %; Mean Corpuscular HGB Conc 32.8 g/dL (30.0-36.0); Mean Corpuscular Hemoglobin 30.9 pg (28.0-34.0); Mean Corpuscular Volume 94.1 fl (81-99); Mean Platelet Volume 10.2 fL (7.4-10.4); Monocytes # 0.3 10^3/uL (0.2-0.9); Monocytes % 2.9 %; Neutrophils # 7.93 10^3/uL (1.8-7.7); Neutrophils % 91.4 %; Nucleated Red Blood Cells % 0 %; Platelet Count 192 10^3/cmm (130-400); Red Cell Distribution Width 13.5 % (12.1-15.1); White Blood Count 8.7 10^3/uL (4.0-10.0)
--- NOTE | 2021-09-28 06:00 | XR_ITS ---
WS: [id number] PORTABLE CHEST HISTORY: covid COMPARISON: 09/27/2021 Significant interval development of diffuse opacifications throughout both lungs. Patient is also rot ated causing deviation of the mediastinum to the RIGHT. There is a wedge-shaped area of increased den sity over the RIGHT lower lung field. This could be external to the patient or focal area of atelecta sis. Small RIGHT pleural effusion is likely. No pneumothorax. Heart is normal size. Mediastinum/Aorta: Mild widening of the mediastinum due to adjacent airspace disease. No osseous abnormality seen. XR/XR chest 1V portable [id number] IMPRESSION: 1. Significant progression of bilateral pulmonary opacifications since the mos t recent examination of 09/27/2021. 2. Wedge-shaped area of increased density at the RIGHT lung base is probably a telectasis.
[2021-09-28 06:12] LABS: Alanine Aminotransferase 15 U/L (0-33); Albumin Level 2.7 g/dL (3.5-5.2); Alkaline Phosphatase 77 IU/L (35-105); Anion Gap 14.6 (5-19); Aspartate Amino Transferase 31 U/L (0-32); Blood Urea Nitrogen 26 mg/dL (8-23); Calcium 8.9 mg/dL (8.5-10.5); Carbon Dioxide 25 mmol/L (22-29); Chloride 98 mmol/L (98-107); Globulin 3.1 g/dL (1.3-4.6); Glomerular Filtration Rate 84.8 mL/min (90-130); Glucose 254 mg/dL (65-115); Osmolality Calculated 291 mOsm/kg (285-295); Potassium 3.6 mmol/L (3.5-5.1); Sodium 134 mmol/L (136-145); Total Bilirubin 0.3 mg/dL (0.15-1.2); Total Protein 5.8 g/dL (6.6-8.7)
[2021-09-28 07:36] LABS: Glucose Point of Care 249 mg/dL (70-110)
[2021-09-28] MEDS: ferrous gluconate 324 mg Tablet PO (07:36)
[2021-09-28] MEDS: insulin lispro 100 unit/1 mL SUBCUT ×4 (07:36→21:25)
[2021-09-28] MEDS: FUROsemide 10 mg/mL SDV 10mL 60 MG IVP (09:30)
[2021-09-28] MEDS: zinc gluconate 50 mg Tablet PO (09:30)
[2021-09-28] MEDS: ascorbic acid 500 mg Tablet PO (09:30)
[2021-09-28] MEDS: buPROPion SR (12 HR) 150 mg Tablet PO (09:30)
[2021-09-28] MEDS: pantoprazole DR 40 mg Tablet PO (09:30)
[2021-09-28] MEDS: levoFLOXacin 500 mg Tablet PO (09:30)
[2021-09-28] MEDS: liothyronine 5 mcg Tablet PO (09:30)
[2021-09-28] MEDS: aspirin 81 mg EC Tablet PO (09:30)
[2021-09-28] MEDS: allopurinol 100 mg Tablet PO (09:30)
--- NOTE | 2021-09-28 09:56 | P.PN_ITS ---
Subjective Subjective: Interval history: Indira awakens easily. She reports she is short of breath whenever she moves. Dry cough. Feels like she aches all over. Medications: Reviewed: Yes Vitals/I&O/Wt Last Vital Signs Temp 98.1 F 09/28/21 08:00 Pulse 79 09/28/21 08:00 Resp 18 09/28/21 09:46 BP 135/77 09/28/21 08:00 Pulse Ox 92 09/28/21 09:46 09/27/21 09/28/21 09/28/21 22:59 06:59 14:59 Intake Total 1190 / 1250 910 / 2160 100 / 100 Output Total 550 / 1950 650 / 2600 Balance 640 / -700 260 / -440 100 / 100 Weight last 48 hrs Weight 77.337 kg Weight 80.603 kg Physical Exam Narrative: EXAM NARRATIVE: General exam moderate respiratory distress Neck is supple Cardiovascular regular rate and rhythm Lungs a few dry crackles bilaterally. Diminished breath sounds are noted. Abdomen is soft with positive bowel sounds Extremities no cyanosis clubbing or edema, cap refill brisk Urinary Catheter Management^: Garcia: Cath Placed During This Visit: yes Reason for Continuing Indwelling Catheter: Accurate Measurement of Urinary Output in Critically Ill Patients Urinary Catheter Date of Insertion: 09/26/21 Urinary Catheter Time of Insertion: 16:28 Data : 09/28/21 05:13 09/28/21 05:13 Micro: Microbiology 09/26/21 08:40 Stool Lactoferrin - Final Stool Enteric Pathogens (PCR) - Final C.difficile Toxin B Gene (PCR) - Final 09/26/21 12:15 Blood Culture - Preliminary Blood NEGATIVE TO DATE 09/26/21 12:27 Blood Culture - Preliminary Blood NEGATIVE TO DATE Other data: Chest x-ray by my read markedly worsened, atelectasis noted. A&P Assessment and plan (1) Sepsis: Currently on vancomycin, cefepime, Levaquin, voriconazole No evidence currently of any hypotension Cultures negative to date, MRSA PCR negative. Consider discontinuation of vancomycin. Will discuss with pulmonary. Status: Acute (2) Hypoxia: Marked worsening of hypoxia, likely multifactorial. Certainly for the most part secondary to infiltrative pneumonia. It is not delineated whether this is bacterial or viral. Pulmonary embolism also plays a part. Status: Acute (3) Multifocal pneumonia: Antibiotics and antifungals are as above. Likely vancomycin can be discontinued today. Possible bronchoscopy today Appreciate infectious disease consultation. Multiple studies pending including galactomannan Suspect intubation may be needed. Status: Acute (4) COVID-19: Currently on remdesivir and dexamethasone Status: Acute (5) Pulmonary embolism: On full dose anticoagulation with Lovenox Status: Acute Qualifiers: Pulmonary embolism type: unspecified Chronicity: acute Acute cor pulmonale presence: unspecified Qualified Code(s): I26.99 - Other pulmonary embolism without acute cor pulmonale (6) CHF (congestive heart failure), NYHA class III: Lasix 60 mg IV x1 today Echocardiogram demonstrated preserved ejection fraction Status: Acute Qualifiers: Congestive heart failure type: unspecified Qualified Code(s): I50.9 - Heart failure, unspecified (7) History of removal of Port-a-Cath: Status: Acute (8) Small lymphocytic lymphoma: Possible recurrence. Will need outpatient follow-up Status: Resolved (9) Febrile neutropenia: Neutropenia has resolved. ANC normalized. Status: Acute Additional A&P Information Pulmonary embolism, on full dose anticoagulation Type 2 diabetes, sliding scale insulin Hypertension, antihypertensives held currently Full code On valacyclovir for prophylaxis Lovenox will suffice for DVT prophylaxis Protonix for GI prophylaxis Attestations Medical Necessity Statement*: Needs continued hospitalization secondary to respiratory failure requiring high amount of FiO2 Critical Care Time: Critical Care Time (min): 43 Other Attestations: The high probability of a clinically significant, sudden or life threatening deterioration of the patient's [pulmonary, infectious disease] system(s) required my full and direct attention, intervention and personal management. The critical care time is as shown. 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
--- NOTE | 2021-09-28 10:08 | PC.CHAP ---
Pastoral Care Encounter/Spiritual Assessment Type of Contact [] Declined observer gravity prospecting visit [] Patient/Family/Request visit [] Outpatient visit [] Follow-up visit [] Physician referral [] Code/Alert [x] Routine visit [] Staff referral [] Actively dying [] Patient sleeping [] Family support [] [] Out of room [] Palliative care [] [] Receiving care in room [] Pre-surgical visit [] Trauma [] Long length of stay [x] ICU visit [x] Other: quarantined.. prayed at the door Relational/Emotional Strength [] Patient feels connected with others/family/visitors/staff [] Distress [] Loneliness/isolation [] Abandonment Spirituality of Patient [] Person of Rocio [] Attends Taoist of their Rocio [] Believes in Prayer [] Reads Bible or Confucianism materials [] There are Spiritual issues to be addressed [employer] Interventions [x] Prayer [x] Active listening [x] Non-anxious presence x] Spiritual/emotional support [] Crisis/trauma care [] Spiritual counseling [] Bereavement support [] Provided bereavement packet [] Provided Bible/devotional materials [] Provided toy/stuffed animal, coloring book to patient or family member [] Provided Communion [] Anointing/[place] [] Salvation [x] Completed spiritual assessment [] Other: Impact on Illness or Injury [] Angry [] Fearful [] Anxious [] Often cries [] Exhaustion [] Unable to work [] Unable to attend yazidi [] Unable to walk/stand [] Unable to read [] Unable to drive [] Unable to eat/drink [] Unable to sleep [] Unable to be with family [] Patient intubated [] Other: Summary Time spent with patient
[2021-09-28] MEDS: midazolam 1 mg/mL INJ 2 mL 2 MG IVP ×2 (13:15→16:15)
[2021-09-28 13:21] LABS: Glucose Point of Care 391 mg/dL (70-110)
[2021-09-28] MEDS: fentaNYL 50 mcg/mL INJ 2mL IVP (13:51)
[2021-09-28] MEDS: lidocaine 1% INJ 20 mL XX (13:53)
--- NOTE | 2021-09-28 14:20 | XR_ITS ---
WS: [id number] Exam: XR chest 1V portable [id number] Date/Time of Exam: 09/28/2021 2:26 PM Reason For Exam: ET TUBE AND POST BRONCH Comparison with previous study on the same day at 0518 hours. There is been significant improvement of previously noted infiltrates in both lungs since prior study . There are still diffuse interstitial infiltrates noted bilaterally. An endotracheal tube is been pl aced and ends about 6 cm above the nuzhat in good position. Heart size remains normal. The mediastinu m is not widened. No pleural effusions or pneumothorax. An enteric tube is been placed and ends in th e body the stomach. The side-port of the tube is slightly below the GE junction. The tube could be ad vanced another 4 to 5 cm for optimal position. Fusion hardware noted in the lower cervical spine. XR/XR chest 1V portable [id number] IMPRESSION: 1. Significant improvement of previously noted bilateral pulmonary infiltrates. 2. ET tube in satisfactory position. 3. An enteric tube is been placed and extends into the stomach. The side-port o f the tube is just below the expected region of the GE junction. The tube could be advanced another 4 to 5 cm for optimal position.
[2021-09-28] MEDS: budesonide 0.5 mg/2 mL Neb INHALATION ×2 (14:31→20:15)
[2021-09-28] MEDS: propofol 1,000 MG/100 ML INJ 4.64 MG IV (14:45)
--- NOTE | 2021-09-28 14:45 | PM.ACPR ---
Procedure/Consent Time out: Time Out Performed: Yes Consent: Consent for Procedure: Consent obtained from other (indicate) (Verbally obtained from her ) Procedure Narrative: Name of the procedure: Endotracheal intubation. Indication: Acute hypoxic respiratory failure. Medications: Etomidate 20 mg, rocuronium 100 mg Procedure: The patient was positioned optimally. The patient was oxygenated with 100% oxygen with high flow nasal cannula and facemask additionally. After appropriate medications were given, the video laryngoscope blade was introduced and advanced till vocal cords were visualized. The endotracheal tube was advanced through the vocal cords under direct visualization. There was fogging of the ET tube, positive change in end-tidal CO2 monitor, bilateral chest rise, bilateral positive breath sound. The ET tube was secured at 21 cm at the lips. Complications: There was no immediate complications. Chest x-ray: ET tube is in good position Acute Procedures Epistaxis Control: Time out performed: Yes
[2021-09-28] MEDS: rocuronium 10 mg/mL INJ 5mL 100 MG IVP ×2 (14:55→18:20)
--- NOTE | 2021-09-28 15:07 | PM.ACPR ---
Procedure/Consent Time out: Time Out Performed: Yes Consent: Consent for Procedure: Consent obtained from other (indicate) () Procedure Narrative: Name of the procedure: Bronchoscopy with inspection of the airway, bronchoalveolar lavage. Indication: Acute hypoxic respiratory failure in the setting of multifocal pneumonia requiring intubation and COVID-19. Medication: The patient is on intravenous fentanyl drip propofol Description of the procedure: Consent was obtained for the bronchoscopy procedure from her . The patient was intubated for acute hypoxic respiratory failure. 1% lidocaine 5 mL was introduced through the ET tube. The bronchoscope was as far advanced through the ET tube into the lower trachea. The lower trachea appeared erythematous. The nuzhat was sharp. In a systematic manner bilateral airways were then examined. The bronchoscope was introduced into the right mainstem bronchus. The right upper lobe, middle lobe and lower lobe bronchi were examined up to the third subsegmental level. No endobronchial lesion was identified. The bronchoscope was then introduced into the left mainstem bronchus. The left upper lobe, lingula and lower lobe segmental bronchi up to the third subsegmental level are examined. The patient had mild thick sticky mucus throughout the airways. Airway erythema was noted bilaterally. Bronchoalveolar lavage was performed from the right middle lobe bronchus. 60 cc of fluid was administered, fluid return was 25 mL. The fluid was cloudy. Mucus was noted in the fluid collection. Specimen was sent for Gram stain and culture, fungal stain and culture, AFB stain and culture, Aspergillus galactomannan, histoplasma galactomannan, PCP stain and PCP PCR. The sample was also sent for cell count and differential. Complications: No immediate complication was noted. Postprocedure chest x-ray did not reveal any pneumothorax. Acute Procedures Epistaxis Control: Time out performed: Yes
--- NOTE | 2021-09-28 15:45 | PM.PN ---
Subjective Subjective: Interval history: The patient was seen and examined today. She appeared tired on 85% high flow nasal cannula. Chest x-ray today revealed worsening infiltrate. The decision was made to electively intubate the patient for the purpose of bronchoscopic evaluation. Following bronchoscopy after intubation the chest x-ray revealed better aeration. Her microbiologic work-up has been negative so far. Blood culture had been negative. Nasal MRSA PCR was negative. Legionella urinary antigen was negative as well. Her SARS-CoV-2 PCR is being positive. Bedside ultrasound revealed good ejection fraction. MV E by E prime was 5. IVC not dilated. No evidence of RV dysfunction. Bilateral B-lines right greater than left on lung ultrasound. Medications: Reviewed: Yes Vitals/I&O/Wt Last Vital Signs Temp 98.1 F 09/28/21 08:00 Pulse 130 H 09/28/21 14:36 Resp 18 09/28/21 14:36 BP 135/77 09/28/21 08:00 Pulse Ox 95 09/28/21 14:36 09/28/21 09/28/21 09/28/21 06:59 14:59 22:59 Intake Total 910 / 2160 100 / 100 Output Total 650 / 2600 Balance 260 / -440 100 / 100 Weight last 48 hrs Weight 170 lb 8 oz Weight 177 lb 11.2 oz Physical Exam Narrative: EXAM NARRATIVE: General: Patient was tachypneic and tired Neck: No JVD, no cervical or supraclavicular lymphadenopathy. Respiratory: Auscultation: Reduced breath sound bilaterally, crackles at lung bases no wheezing or rhonchi Cardiovascular: Regular rate and rhythm, S1-S2 present, no murmur, no peripheral edema. Abdomen: Soft, nontender, nondistended, positive bowel sound Skin: No rash Neuro: Patient is awake and alert however appears tired. No gross motor deficit Urinary Catheter Management^: Garcia: Cath Placed During This Visit: yes Reason for Continuing Indwelling Catheter: Accurate Measurement of Urinary Output in Critically Ill Patients Urinary Catheter Date of Insertion: 09/26/21 Urinary Catheter Time of Insertion: 16:28 Data : 09/28/21 05:13 09/28/21 05:13 Micro: Microbiology 09/26/21 08:40 Stool Lactoferrin - Final Stool Enteric Pathogens (PCR) - Final Parasite Antigen Panel - Final C.difficile Toxin B Gene (PCR) - Final 09/26/21 12:15 Blood Culture - Preliminary Blood NEGATIVE TO DATE 09/26/21 12:27 Blood Culture - Preliminary Blood NEGATIVE TO DATE Attestation for Other Data: I personally reviewed and interpreted the following: Other data: I have reviewed the patient's laboratory, microbiologic and radiologic data. Please see the subjective for detail. A&P Assessment and plan (1) Acute respiratory failure with hypoxia: This is a 61-year-old lady who presented to the hospital with acute hypoxic respiratory failure in the setting of multilobar pneumonia. Her oxygen requirement had gotten worse today. The patient was on 85% high flow nasal cannula. She was intubated electively for bronchoscopic evaluation. I have reviewed the patient's chart in detail. The patient had never been neutropenic. The last blood work I have is from January 2021 and the patient was not neutropenic at that time. It would be extremely unusual for her to develop an invasive fungal infection. During bronchoscopic evaluation I had not seen any evidence of tracheobronchial aspergillosis. The CT scan of the chest reveals areas of consolidation and groundglass opacities. There is no areas with halo sign. Additionally, with invasive aspergillosis I would expect the patient to be in septic shock which she is not. The patient is on voriconazole. Would recommend getting EKG and monitoring QTC twice a day. Her nasal MRSA PCR is negative. The patient is currently on cefepime. Although the urine Legionella antigen was negative, it would be reasonable to add Levaquin for the time being. As the Legionella urine antigen could be false negative. The patient has a previous diagnosis of B-cell lymphoma. The radiologic appearance is absolutely not consistent with malignant spread of the disease. The patient has a SARS-CoV-2 PCR positivity. This is very intriguing as the patient had a positive PCR in August as well. The primary concern is whether the positive PCR is a continuation of her prior infection or this is a secondary infection. The patient had her port removed on September 12. Interestingly, I could not find any SARS-CoV-2 testing at that time. The CT scan of the chest shows areas of consolidation and groundglass opacities. The involvement of the lung parenchyma is more peripheral than central. This would be consistent with COVID-19. Additionally, atypical infection on top of COVID-19 is a possibility. Bedside echocardiogram did not reveal any evidence of cardiogenic pulmonary edema. Status: Acute (2) COVID-19: Patient is currently on remdesivir and dexamethasone. I have low suspicion for invasive fungal infection, therefore continue with dexamethasone would be the right choice. Status: Acute (3) Multifocal pneumonia: See above Status: Acute (4) Pulmonary embolism: The patient has evidence of right lower pulmonary artery acute DVT. Currently she is fully anticoagulated. There is no lower extremity DVT. We will continue the supportive care for the next 24 hours. If necessary the patient will be proned. Status: Acute Qualifiers: Pulmonary embolism type: unspecified Chronicity: acute Acute cor pulmonale presence: unspecified Qualified Code(s): I26.99 - Other pulmonary embolism without acute cor pulmonale Attestations Medical Necessity Statement*: Will defer to the primary team Coding Level of Care Code Acute Cost Control Specialist for [facility] Diagnoses Acute respiratory failure with hypoxia J96.01 COVID-19 U07.1 Multifocal pneumonia J18.9 Pulmonary embolism I26.99 Pulmonary embolism type: unspecified Chronicity: acute Acute cor pulmonale presence: unspecified Time Spent (min) 37
[2021-09-28 16:52] LABS: E. Chaffeensis AB IGG <1:64; E. Chaffeensis AB IGM <1:20
[2021-09-28 16:57] LABS: ABG PCO2 51.2 mmHg (35-45); ABG PH Result 7.34 (7.35-7.45); Alveolar-Arterial Oxygen Gradi 56.3 mmHg (5-10); Arterial Blood Gas Hematocrit 39.5 % (37-47); Base Excess ABG 0.8 mmol/L (-2.0-2.0); Blood Gas Allen Test Pos; Blood Gas Operator Identificat BD; Blood Gas Sample Site Brachial, right; Blood Gas Sample Type Arterial; Blood Gas Tidal Volume 0.35; Carboxyhemoglobin 0.7 %THgb (0.4-20.1); HCO3 ABG 27.4 mmol/L (22-26); HGB O2 Sat 87.8 % (95-100); Ionized Calcium Level - ABG 1.2 mmol/L (1.1-1.4); Methemoglobin 0.7 % (0.4-1.5); Oxygen Device VENT; Oxygen Saturation ABG 89.1; PO2 ABG 62.3 mmHg (80.0-100.0); Potassium Level - ABG 2.9 mmol/L (3.5-5.0); Total Hemoglobin 12.9 g/dL (12-16)
[2021-09-28] MEDS: midazolam 1 mg/mL INJ 2 mL 4 MG IVP (17:03)
[2021-09-28 17:58] LABS: Apprearance, Bronch Wash Cloudy (CLEAR); Color, Bronc Wash Slight Pink
[2021-09-28 18:00] LABS: Bronch Source Right Middle Lobe
[2021-09-28 18:14] LABS: Total Cells Counted Bronch 100
[2021-09-28 18:15] LABS: PATH Referral Yes
[2021-09-28] MEDS: dexamethasone 4 mg/mL INJ 6 MG IVP (18:35)
--- NOTE | 2021-09-28 18:36 | PM.ACPR ---
Procedure/Consent Time out: Time Out Performed: Yes Consent: Consent for Procedure: Emergency procedure Procedure Narrative: Name of the Procedure: Left Internal Jugular Central venous catheter placement under ultrasound guidance. Indication: Need for vasopressors Anesthesiia: Lidocaine 1%, 5 ml Description of the procedure: The left IJ vein was identified with the Ultrasound from collapsibility and lack of pulsatility. The site was prepared using sterile technique. The skin and subcuteneous tissue was anesthetized using lidocaine. The introducer needle was advanced under US guidance till flash back was noted. Dark, non pulsatile blood noted. Using seldinger technique the CVC was put in.Blood return was noted in all ports. Catheter was secured with suture and covered with transparent dressing. Complications: None Acute Procedures Epistaxis Control: Time out performed: Yes
--- NOTE | 2021-09-28 18:38 | XRR_ITS ---
PROCEDURE INFORMATION: Exam: XR Chest Exam date and time: 09/28/2021 6:38 PM Age: 61 years old Clinical indication: Other vascular access device placement or adjustment; Central line, non-tunnelled; Additional info: Cvl line placement TECHNIQUE: Imaging protocol: XR of the chest. Views: 1 view. COMPARISON: CR XR chest 1V portable [id number] 09/28/2021 2:32 PM FINDINGS: Tubes, catheters and devices: Left neck central venous catheter terminates in the distal superior vena cava. Endotracheal tube and enteric tube are in good position. Lungs: Diffuse ground-glass alveolar opacities and diffusely increased interstitial lung markings similar to comparison imaging. Pleural spaces: Unremarkable. No pleural effusion. No pneumothorax. Heart/Mediastinum: Unremarkable. No cardiomegaly. Bones/joints: Lower cervical spine ACDF noted. XR/XR chest 1V portable [id number] IMPRESSION: Satisfactory central venous catheter placement. Radiation Dose CTDIVOL = (mGy): DLP = (mGy-cm)
[2021-09-28 18:58] LABS: Anion Gap 15.1 (5-19); Blood Urea Nitrogen 31 mg/dL (8-23); Calcium 9.1 mg/dL (8.5-10.5); Carbon Dioxide 27 mmol/L (22-29); Chloride 96 mmol/L (98-107); Glomerular Filtration Rate 84.8 mL/min (90-130); Glucose 278 mg/dL (65-115); Osmolality Calculated 297 mOsm/kg (285-295); Potassium 3.1 mmol/L (3.5-5.1); Sodium 135 mmol/L (136-145)
[2021-09-28] MEDS: sodium chloride 0.9% 1,000 ML 999 ML (19:00)
[2021-09-28] MEDS: remdesivir 100 MG in sodium chloride 0.9% (100 ml) 100 ML IV (19:11)
[2021-09-28 19:13] LABS: Glucose Point of Care 281 mg/dL (70-110)
[2021-09-28] MEDS: propofol 1,000 MG/100 ML INJ 23.2 MG IV ×2 (20:06→23:42)
[2021-09-28] MEDS: cisatracurium 100 MG in sodium chloride 0.9% 50 ML IV (21:00)
[2021-09-28 21:25] LABS: Glucose Point of Care 287 mg/dL (70-110)
[2021-09-28] MEDS: gabapentin 400 mg Capsule PO (21:25)
[2021-09-29] VITALS (52 sets, daily range): BP systolic 87–135; BP diastolic 52–78; PULSE 52–116; RESP 18–26; TEMP 36.3–36.6; O2SAT 89–98
[2021-09-29] MEDS: cefepime 1,000 MG in sodium chloride 0.9% (plus) 50 ML 100 MG IV ×2 (02:44→15:18)
[2021-09-29] MEDS: propofol 1,000 MG/100 ML INJ 23.2 MG IV ×2 (03:32→08:40)
[2021-09-29 04:00] LABS: ABG PCO2 49.7 mmHg (35-45); ABG PH Result 7.34 (7.35-7.45); Arterial Blood Gas Hematocrit 39.4 % (37-47); Base Excess ABG 0.6 mmol/L (-2.0-2.0); Blood Gas Allen Test Pos; Blood Gas Sample Site Radial, left; Blood Gas Sample Type Arterial; Blood Gas Tidal Volume 0.38; Oxygen Device VENT
[2021-09-29 04:27] LABS: Glucose Point of Care 348 mg/dL (70-110)
[2021-09-29] MEDS: levothyroxine 200 mcg Tablet PO (05:00)
[2021-09-29] MEDS: enoxaparin 80 mg/0.8 mL Syringe SUBCUT ×2 (05:00→17:41)
--- NOTE | 2021-09-29 05:04 | PC.NURSE ---
TOF 2100 - 4 2300 - 3 0100 - 4 0300 - 3 0500 - 2
[2021-09-29 05:17] LABS: Basophils # 0.1 10^3/uL (0.0-0.1); Basophils % 0.2 %; Hematocrit 34.6 % (37.0-47.0); Hemoglobin 11.5 g/dL (11.5-15.3); Lymphocytes # 0.4 10^3/uL (0.8-4.8); Lymphocytes % 1.9 %; Mean Corpuscular HGB Conc 33.2 g/dL (30.0-36.0); Mean Corpuscular Hemoglobin 31.6 pg (28.0-34.0); Mean Corpuscular Volume 95.1 fl (81-99); Mean Platelet Volume 10.3 fL (7.4-10.4); Monocytes # 0.5 10^3/uL (0.2-0.9); Monocytes % 2.5 %; Neutrophils # 19.24 10^3/uL (1.8-7.7); Neutrophils % 94.5 %; Nucleated Red Blood Cells % 0 %; Platelet Count 306 10^3/cmm (130-400); Red Blood Count 3.64 10^6/uL (4.1-5.3); White Blood Count 20.4 10^3/uL (4.0-10.0)
[2021-09-29 05:37] LABS: Alanine Aminotransferase 15 U/L (0-33); Albumin Level 2.8 g/dL (3.5-5.2); Alkaline Phosphatase 110 IU/L (35-105); Anion Gap 17.1 (5-19); Aspartate Amino Transferase 22 U/L (0-32); Blood Urea Nitrogen 27 mg/dL (8-23); Calcium 9.3 mg/dL (8.5-10.5); Carbon Dioxide 25 mmol/L (22-29); Chloride 100 mmol/L (98-107); Globulin 3.2 g/dL (1.3-4.6); Glomerular Filtration Rate 84.8 mL/min (90-130); Glucose 352 mg/dL (65-115); Osmolality Calculated 307 mOsm/kg (285-295); Potassium 3.1 mmol/L (3.5-5.1); Sodium 139 mmol/L (136-145); Total Bilirubin 0.4 mg/dL (0.15-1.2)
[2021-09-29] MEDS: levalbuterol 0.63 mg/3 mL Neb INHALATION ×3 (05:58→22:00)
[2021-09-29] MEDS: atorvastatin 40 mg Tablet 20 MG PO (06:08)
[2021-09-29] MEDS: valACYclovir 1,000 mg Tablet 500 MG PO (06:08)
--- NOTE | 2021-09-29 07:00 | XRR_ITS ---
PROCEDURE INFORMATION: Exam: XR Chest Exam date and time: 09/29/2021 7:00 AM Age: 61 years old Clinical indication: Shortness of breath; Additional info: Resp failure TECHNIQUE: Imaging protocol: XR of the chest. Views: 1 view. Total images: 1 COMPARISON: CR XR chest 1V portable [id number] 09/28/2021 6:46 PM FINDINGS: Tubes, catheters and devices: Endotracheal tube in satisfactory position tip above the nuzhat. Nasogastric tube tip below the diaphragm out of the field of view. Left internal jugular central venous catheter tip distal SVC level. EKG leads. Lungs: Interval decrease in the ground-glass interstitial lung disease bilateral lung bases of presumed resolving active interstitial pneumonitis and/or interstitial edema. No visible consolidated alveolar airspace disease. Pleural spaces: No pleural effusion. No pneumothorax. Heart/Mediastinum: Cardiac structures and configuration with mild arteriosclerosis. Bones/joints: Unremarkable. XR/XR chest 1V portable [id number] IMPRESSION: 1. Improving cardiopulmonary status. 2. Interval decrease in the ground-glass interstitial lung disease bilateral lung bases of presumed resolving active interstitial pneumonitis and/or interstitial edema. Radiation Dose CTDIVOL = (mGy): DLP = (mGy-cm)
[2021-09-29 07:23] LABS: Glucose Point of Care 408 mg/dL (70-110)
[2021-09-29] MEDS: lidocaine 1% 5 ML in potassium chloride premix 100 ML 25 ML IV (07:45)
[2021-09-29 07:51] LABS: Magnesium 2.2 mg/dL (1.7-2.3)
[2021-09-29] MEDS: insulin lispro 100 unit/1 mL SUBCUT ×4 (08:04→20:01)
[2021-09-29] MEDS: allopurinol 100 mg Tablet PO ×2 (08:15→17:41)
[2021-09-29] MEDS: buPROPion SR (12 HR) 150 mg Tablet PO (08:15)
[2021-09-29] MEDS: liothyronine 5 mcg Tablet PO ×2 (08:15→17:41)
[2021-09-29] MEDS: pantoprazole DR 40 mg Tablet PO (08:15)
[2021-09-29] MEDS: aspirin 81 mg EC Tablet PO (08:15)
[2021-09-29] MEDS: levoFLOXacin 500 mg Tablet PO (08:15)
[2021-09-29] MEDS: budesonide 0.5 mg/2 mL Neb INHALATION ×2 (08:40→22:00)
--- NOTE | 2021-09-29 09:12 | P.PN_ITS ---
Subjective Subjective: Interval history: Reymundo is sedated, paralyzed and prone. Medications: Reviewed: Yes Vitals/I&O/Wt Last Vital Signs Temp 97.4 F L 09/29/21 08:30 Pulse 110 H 09/29/21 08:53 Resp 24 H 09/29/21 08:40 BP 105/57 09/29/21 08:30 Pulse Ox 98 09/29/21 08:40 09/28/21 09/29/21 09/29/21 22:59 06:59 14:59 Intake Total 943.350 / 1383.767 843.091 / 2226.858 196.535 / 196.535 Output Total 2200 / 2200 650 / 2850 Balance -1256.650 / -816.233 193.091 / -623.142 196.535 / 196.535 Weight last 48 hrs Weight 77.337 kg Physical Exam Narrative: EXAM NARRATIVE: General exam sedated, paralyzed in prone Neck is supple Cardiovascular regular rate and rhythm Lungs relatively clear today Abdomen is soft with positive bowel sounds Extremities no cyanosis clubbing or edema, cap refill brisk Urinary Catheter Management^: Garcia: Cath Placed During This Visit: yes Reason for Continuing Indwelling Catheter: Accurate Measurement of Urinary Output in Critically Ill Patients Urinary Catheter Date of Insertion: 09/26/21 Urinary Catheter Time of Insertion: 16:28 Data : 09/29/21 04:30 09/29/21 04:30 Micro: Microbiology 09/28/21 13:55 Gram Stain - Final Lung Right Middle Lobe 09/26/21 08:40 Stool Lactoferrin - Final Stool Enteric Pathogens (PCR) - Final Parasite Antigen Panel - Final C.difficile Toxin B Gene (PCR) - Final A&P Assessment and plan (1) Pulmonary embolism: On full dose anticoagulation with Lovenox Status: Acute Qualifiers: Pulmonary embolism type: unspecified Chronicity: acute Acute cor pulmonale presence: unspecified Qualified Code(s): I26.99 - Other pulmonary embolism without acute cor pulmonale (2) Febrile neutropenia: Neutropenia has resolved. ANC normalized. White blood cell count has increased substantially Status: Acute (3) Multifocal pneumonia: Antibiotics and antifungals are as above. Vancomycin discontinued 09/28 Bronchoscopy performed 09/28. Appreciate pulmonary consultation. Gram stain demonstrated no organisms Appreciate infectious disease consultation. Multiple studies pending including galactomannan, pneumocystis Intubated 09/28 and proning session 09/28 through 09/29 FiO2 has improved significantly Currently on Levaquin p.o., cefepime IV, voriconazole Covid PCR is positive. Currently on dexamethasone 6 mg IV every 24 hours. Finishing 5 days of remdesivir MRSA PCR negative Status: Acute Additional A&P Information Respiratory failure. This is secondary to multifocal pneumonia. Currently on vent, proned, volume control to reduce barotrauma. Pulmonary following. Hypokalemia. Supplement today orally as well as IV. Check magnesium level. This was checked and normal. Sepsis. Resolved. However, secondary to multiple sedative medications needed for respiratory failure she is currently on norepinephrine. History of CHF. Currently appears compensated. No diuretic needed today. History of lymphocytic lymphoma. Possible recurrence. Will need outpatient follow-up. Type 2 diabetes. Sliding scale insulin. Change to moderate. Lantus 10 units daily. May need to increase further if feedings are initiated. Hypertension. antihypertensives discontinued currently Full code Lovenox will suffice for DVT prophylaxis Protonix for GI prophylaxis Note she is currently on valacyclovir for prophylaxis as well secondary to her underlying immunodeficiency Attestations Medical Necessity Statement*: Needs continued hospitalization secondary to respiratory failure requiring mechanical ventilation. Critical Care Time: Critical Care Time (min): 31 Other Attestations: The high probability of a clinically significant, sudden or life threatening deterioration of the patient's [pulmonary, infectious disease, vascular] system(s) required my full and direct attention, intervention and personal management. The critical care time is as shown. This time is in ad dition to time spent performing any reported procedures but includes the following: [x] Data and vital sign review and interpretation [x] Patient assessment, examination and intervention [x] Documentation [x] Medication orders and management Coding Level of Care Code Acute Principal Account Clerk for [facility] Diagnoses Pulmonary embolism I26.99 Pulmonary embolism type: unspecified Chronicity: acute Acute cor pulmonale presence: unspecified Febrile neutropenia D70.9; R50.81 Multifocal pneumonia J18.9
[2021-09-29] MEDS: potassium chloride oral liq 20 mEq/15 mL UDC 40 MEQ PO (09:13)
--- NOTE | 2021-09-29 09:27 | PC.RESP ---
SPUTUM sent to lab
[2021-09-29] MEDS: insulin glargine 100 units/1 mL 10 UNIT SUBCUT (09:40)
--- NOTE | 2021-09-29 09:58 | PC.CHAP ---
Pastoral Care Encounter/Spiritual Assessment Type of Contact [] Declined range aid visit [] Patient/Family/Request visit [] Outpatient visit [] Follow-up visit [] Physician referral [] Code/Alert [x] Routine visit [] Staff referral [] Actively dying [] Patient sleeping [] Family support [] [] Out of room [] Palliative care [] [x] Receiving care in room [] Pre-surgical visit [] Trauma [] Long length of stay [x] ICU visit [] Other: Relational/Emotional Strength [] Patient feels connected with others/family/visitors/staff [] Distress [] Loneliness/isolation [] Abandonment Spirituality of Patient [] Person of Rocio [] Attends Yarsanism of their Rocio [] Believes in Prayer [] Reads Bible or Orthodox materials [] There are Spiritual issues to be addressed Grooming Assistant Interventions [x] Prayer [] Active listening [] Non-anxious presence [] Spiritual/emotional support [] Crisis/trauma care [] Spiritual counseling [] Bereavement support [] Provided bereavement packet [] Provided Bible/devotional materials [] Provided toy/stuffed animal, coloring book to patient or family member [] Provided Communion [] Anointing/[place] [] Salvation [x] Completed spiritual assessment [] Other: Impact on Illness or Injury [] Angry [] Fearful [] Anxious [] Often cries [] Exhaustion [] Unable to work [] Unable to attend evangelical [] Unable to walk/stand [] Unable to read [] Unable to drive [] Unable to eat/drink [] Unable to sleep [] Unable to be with family [] Patient intubated [] Other: Summary Time spent with patient
--- NOTE | 2021-09-29 10:15 | PC.NURSE ---
Rounded with Dr. Singleton around 0730. Orders changed for Humalog sliding scale. Family called around 0940 and 1013. Gave update on patient condition. Explained to family that the oxygen given to patient has been lowered. Explained to family why the patient is proned. Updated about Dr pino.
[2021-09-29 11:19] LABS: Glucose Point of Care 338 mg/dL (70-110)
[2021-09-29] MEDS: propofol 1,000 MG/100 ML INJ 27.84 MG IV ×4 (11:51→22:34)
--- NOTE | 2021-09-29 12:35 | P.PN_ITS ---
Subjective Subjective: Interval history: The patient was seen and examined. She is intubated, sedated, paralyzed and in prone position. The blood gas this morning revealed a significant improvement of her oxygenation in prone positioning. The patient was on 50% FiO2 on volume control mechanical ventilation. I trended down to 40% and oxygen saturation stayed 96%. The prelim work-up from the bronchoscopy is negative so far. The plan is for her to undergo deproning at 5 PM today. Medications: Reviewed: Yes Vitals/I&O/Wt Last Vital Signs Temp 97.4 F L 09/29/21 08:30 Pulse 110 H 09/29/21 08:53 Resp 22 H 09/29/21 10:45 BP 105/57 09/29/21 08:30 Pulse Ox 96 09/29/21 10:45 09/28/21 09/29/21 09/29/21 22:59 06:59 14:59 Intake Total 943.350 / 1383.767 843.091 / 2226.858 421.578 / 421.578 Output Total 2200 / 2200 650 / 2850 300 / 300 Balance -1256.650 / -816.233 193.091 / -623.142 121.578 / 121.578 Weight last 48 hrs Weight 170 lb 8 oz Physical Exam Narrative: EXAM NARRATIVE: General: Patient is intubated, sedated, paralyzed in prone position Respiratory: Auscultation: Reduced breath sound bilaterally with fine crackles at the bases, no wheezing or rhonchi Cardiovascular: Regular rate and rhythm, S1-S2 present, no murmur, no peripheral edema. Abdomen: Soft, positive bowel sound Skin: No rash Neuro: Unable to assess Urinary Catheter Management^: Garcia: Cath Placed During This Visit: yes Reason for Continuing Indwelling Catheter: Accurate Measurement of Urinary Output in Critically Ill Patients Urinary Catheter Date of Insertion: 09/26/21 Urinary Catheter Time of Insertion: 16:28 Data : 09/29/21 04:30 09/29/21 04:30 Micro: Microbiology 09/28/21 13:55 Gram Stain - Final Lung Right Middle Lobe Bronchial Washings Culture - Preliminary 09/26/21 08:40 Stool Lactoferrin - Final Stool Enteric Pathogens (PCR) - Final Parasite Antigen Panel - Final C.difficile Toxin B Gene (PCR) - Final Attestation for Other Data: I personally reviewed and interpreted the following: Other data: I have reviewed the patient's laboratory, [place] and neurologic data. The patient has leukocytosis likely secondary to the steroid therapy. She is receiving potassium supplementation due to hypokalemia. Hyperglycemia. A&P Assessment and plan (1) Acute respiratory failure with hypoxia: This is a 61-year-old lady who presented to the hospital with acute hypoxic respiratory failure in the setting of multilobar pneumonia. The patient is doing very well regarding her oxygenation. The patient is in volume control mechanical ventilation. I will able to reduce her FiO2 to 40%. Once the patient is supine, if her oxygen requirement stays less than 50%, the patient can be un paralyzed. At that point, her sedation should be optimized. The first medication that should be discontinued is Versed. If necessary the patient can be started on a Precedex drip in addition to propofol and fentanyl. If the patient continues to make recovery, she could be a candidate for extubation within the next 24 to 48 hours. The patient was extremely dry yesterday when I attempted central line placement. I am going to give her LR at 75 cc for 1.5 L. Status: Acute (2) COVID-19: Patient is currently on remdesivir and dexamethasone. Status: Acute (3) Multifocal pneumonia: See above Status: Acute (4) Pulmonary embolism: The patient has evidence of right lower pulmonary artery acute DVT. Currently she is fully anticoagulated. There is no lower extremity DVT. Status: Acute Qualifiers: Pulmonary embolism type: unspecified Chronicity: acute Acute cor pulmonale presence: unspecified Qualified Code(s): I26.99 - Other pulmonary embolism without acute cor pulmonale (5) Shock: This is likely secondary to a combination of events. The patient is on multiple sedative medications which is likely responsible for the vasodilatory shock. There had been no evidence of obstructive shock from the pulmonary embolism. The patient is also somewhat volume depleted. The IV fluid will likely help. Status: Acute Attestations Medical Necessity Statement*: Will defer to the primary team Coding Level of Care Code Acute Client Service Manager for [facility] Diagnoses Acute respiratory failure with hypoxia J96.01 COVID-19 U07.1 Multifocal pneumonia J18.9 Pulmonary embolism I26.99 Pulmonary embolism type: unspecified Chronicity: acute Acute cor pulmonale presence: unspecified Shock R57.9 Time Spent (min) 33
--- NOTE | 2021-09-29 12:41 | PC.NURSE ---
Dr Holloway rounded. Got orderes to turn off Versed when patient is supine at 1700, if oxygen requirements do not increase. Informed Dr. Holloway that gastric residual at 1227 was 430 mL.
--- NOTE | 2021-09-29 13:18 | PC.NURSE ---
Repositioned with assistance of respiratory therapy.
[2021-09-29 15:13] LABS: Glucose Point of Care 310 mg/dL (70-110)
[2021-09-29 15:16] LABS: Alanine Aminotransferase 13 U/L (0-33); Albumin Level 2.5 g/dL (3.5-5.2); Alkaline Phosphatase 84 IU/L (35-105); Aspartate Amino Transferase 16 U/L (0-32); Blood Urea Nitrogen 26 mg/dL (8-23); Calcium 9.5 mg/dL (8.5-10.5); Carbon Dioxide 24 mmol/L (22-29); Chloride 102 mmol/L (98-107); Globulin 3.1 g/dL (1.3-4.6); Glomerular Filtration Rate 72.7 mL/min (90-130); Glucose 305 mg/dL (65-115); Osmolality Calculated 300 mOsm/kg (285-295); Sodium 137 mmol/L (136-145); Total Bilirubin 0.3 mg/dL (0.15-1.2); Total Protein 5.6 g/dL (6.6-8.7)
[2021-09-29 17:12] LABS: Adenovirus Not Detected (Not Detected); Human Metapneumovirus Not Detected (Not Detected); Human Parainflu Virus 1 Not Detected (Not Detected); Human Parainflu Virus 2 Not Detected (Not Detected); Human Parainflu Virus 3 Not Detected (Not Detected); Human Rsv A Not Detected (Not Detected); Influenza A Not Detected (Not Detected); Influenza B Not Detected (Not Detected); Rhinovirus/Enterovirus Not Detected (Not Detected)
[2021-09-29 17:17] LABS: RMSF IGG NOT DETECTED; RMSF IGM NOT DETECTED
--- NOTE | 2021-09-29 17:21 | PC.NURSE ---
Patient in supine position with help of respiratory therapist and other nurses.
[2021-09-29] MEDS: remdesivir 100 MG in sodium chloride 0.9% (100 ml) 100 ML IV (17:42)
[2021-09-29] MEDS: dexamethasone 4 mg/mL INJ 6 MG IVP (17:42)
[2021-09-29 18:02] LABS: Glucose Point of Care 289 mg/dL (70-110)
--- NOTE | 2021-09-29 19:03 | PC.NURSE ---
Shift Note Frequent safety and comfort rounds continue. Orders and/or nursing care completed as indicated. Patient monitored for response to intervention and treatment(s). Education provided includes medication, new results, and care plan. Patient will need reinforcement. Family called at 1850. Update given. Explained that if oxygen requirements do not increase then there is a chance of extubation within 24 to 48 hours, per Dr. Holloway. Explained the hematoma at the central line site. Patient supine at 1700 and tolerated well. Report given to night nurse. Goal is to turn Versed off around 2300 to 2400. TOF 0700 3 1200 3 1600 3 BIS 0800 43 1000 42 1200 35 1600 40
[2021-09-29 19:46] LABS: Glucose Point of Care 304 mg/dL (70-110)
[2021-09-29] MEDS: gabapentin 400 mg Capsule PO (20:04)
[2021-09-29] MEDS: tizanidine 4 mg Tablet PO (20:05)
[2021-09-29] MEDS: trazodone 100 mg Tablet PO (20:05)
[2021-09-30] VITALS (79 sets, daily range): BP systolic 77–149; BP diastolic 42–67; PULSE 41–78; RESP 20–23; TEMP 36.1–37.1; O2SAT 88–97
[2021-09-30] MEDS: propofol 1,000 MG/100 ML INJ 27.84 MG IV (02:14)
[2021-09-30] MEDS: cefepime 1,000 MG in sodium chloride 0.9% (plus) 50 ML 100 MG IV ×2 (03:03→15:33)
[2021-09-30 04:24] LABS: Glucose Point of Care 301 mg/dL (70-110)
[2021-09-30 04:32] LABS: ABG PCO2 46.5 mmHg (35-45); ABG PH Result 7.39 (7.35-7.45); Arterial Blood Gas Hematocrit 43.8 % (37-47); Base Excess ABG 2.1 mmol/L (-2.0-2.0); Blood Gas Allen Test Pos; Blood Gas Sample Site Radial, left; Blood Gas Sample Type Arterial; Blood Gas Tidal Volume 0.38; HCO3 ABG 27.8 mmol/L (22-26); Oxygen Device VENT; PO2 ABG 59.4 mmHg (80.0-100.0)
[2021-09-30 05:50] LABS: Basophils % 0.1 %; Hematocrit 27.4 % (37.0-47.0); Lymphocytes # 0.3 10^3/uL (0.8-4.8); Lymphocytes % 3.5 %; Mean Corpuscular HGB Conc 32.8 g/dL (30.0-36.0); Mean Corpuscular Hemoglobin 31.7 pg (28.0-34.0); Mean Corpuscular Volume 96.5 fl (81-99); Mean Platelet Volume 10.5 fL (7.4-10.4); Monocytes # 0.2 10^3/uL (0.2-0.9); Monocytes % 2.5 %; Neutrophils # 7.55 10^3/uL (1.8-7.7); Neutrophils % 93.3 %; Nucleated Red Blood Cells % 0 %; Platelet Count 146 10^3/cmm (130-400); Red Blood Count 2.84 10^6/uL (4.1-5.3); Red Cell Distribution Width 14.1 % (12.1-15.1); White Blood Count 8.1 10^3/uL (4.0-10.0)
--- NOTE | 2021-09-30 06:00 | XRR_ITS ---
PROCEDURE INFORMATION: Exam: XR Chest Exam date and time: 09/30/2021 6:00 AM Age: 61 years old Clinical indication: Shortness of breath; Patient HX: F/u covid pneumonia. Intubated. TECHNIQUE: Imaging protocol: XR of the chest. Views: 1 view. COMPARISON: CR XR chest 1V portable [id number] 09/29/2021 7:20 PM FINDINGS: Tubes, catheters and devices: An endotracheal tube is placed with its tip approximately 3.6 cm from the nuzhat. A nasogastric tube is present with its tip in the proximal stomach. EKG leads overlie the chest. Lungs: There are increased interstitial opacities present predominately within the lower hemithoraces bilaterally, finding that is similar to that present on 09/29/2021. Pleural spaces: Unremarkable. No pleural effusion. No pneumothorax. Heart/Mediastinum: Unremarkable. No cardiomegaly. Vasculature: A left internal jugular vein central venous line is placed with its tip at the level of the superior vena cava. Bones/joints: Unremarkable. XR/XR chest 1V portable [id number] IMPRESSION: 1. Bilateral interstitial infiltrates are seen in the mid lower hemithoraces compatible with a continuing interstitial pneumonia. These findings are similar to those present in yesterday's examination. 2. Stable position of life support tubing. Radiation Dose CTDIVOL = (mGy): DLP = (mGy-cm)
[2021-09-30] MEDS: levalbuterol 0.63 mg/3 mL Neb INHALATION ×3 (06:13→20:15)
[2021-09-30] MEDS: levothyroxine 200 mcg Tablet PO (06:13)
[2021-09-30] MEDS: enoxaparin 80 mg/0.8 mL Syringe SUBCUT ×2 (06:14→17:02)
[2021-09-30] MEDS: atorvastatin 40 mg Tablet 20 MG PO (06:14)
[2021-09-30] MEDS: valACYclovir 1,000 mg Tablet 500 MG PO (06:14)
[2021-09-30 06:21] LABS: Alanine Aminotransferase 14 U/L (0-33); Alkaline Phosphatase 73 IU/L (35-105); Anion Gap 11.8 (5-19); Aspartate Amino Transferase 17 U/L (0-32); Blood Urea Nitrogen 27 mg/dL (8-23); Carbon Dioxide 25 mmol/L (22-29); Chloride 106 mmol/L (98-107); Globulin 2.7 g/dL (1.3-4.6); Glomerular Filtration Rate 84.8 mL/min (90-130); Glucose 257 mg/dL (65-115); Osmolality Calculated 300 mOsm/kg (285-295); Potassium 4.8 mmol/L (3.5-5.1); Sodium 138 mmol/L (136-145); Total Bilirubin 0.3 mg/dL (0.15-1.2); Total Protein 4.7 g/dL (6.6-8.7)
[2021-09-30] MEDS: propofol 1,000 MG/100 ML INJ 18.56 MG IV ×2 (07:32→11:50)
[2021-09-30 07:45] LABS: Glucose Point of Care 294 mg/dL (70-110)
[2021-09-30] MEDS: lactulose oral liq 20 gm/30 mL UDC 10 GM PO (08:01)
[2021-09-30] MEDS: pantoprazole DR 40 mg Tablet PO (08:01)
[2021-09-30] MEDS: allopurinol 100 mg Tablet PO ×2 (08:01→17:02)
[2021-09-30] MEDS: aspirin 81 mg EC Tablet PO (08:01)
[2021-09-30] MEDS: levoFLOXacin 500 mg Tablet PO (08:02)
[2021-09-30] MEDS: insulin lispro 100 unit/1 mL SUBCUT ×4 (08:02→20:02)
[2021-09-30] MEDS: insulin glargine 100 units/1 mL 10 UNIT SUBCUT (08:03)
[2021-09-30] MEDS: liothyronine 5 mcg Tablet PO ×2 (08:04→17:03)
[2021-09-30] MEDS: budesonide 0.5 mg/2 mL Neb INHALATION ×2 (08:12→20:11)
[2021-09-30 11:36] LABS: Glucose Point of Care 345 mg/dL (70-110)
[2021-09-30 15:50] LABS: ABG PCO2 44.5 mmHg (35-45); ABG PH Result 7.39 (7.35-7.45); Arterial Blood Gas Hematocrit 28.4 % (37-47); Base Excess ABG 1.8 mmol/L (-2.0-2.0); Blood Gas Allen Test Pos; Blood Gas Operator Identificat CAK; Blood Gas Sample Site Radial, left; Blood Gas Sample Type Arterial; Blood Gas Tidal Volume 0.38; Oxygen Device VENT; PO2 ABG 75.2 mmHg (80.0-100.0)
--- NOTE | 2021-09-30 16:33 | P.PN_ITS ---
Subjective Subjective: Interval history: patient was seen and examined this morning.Currently intubated and sedated,completed proning session.Repeat ABG in the afternoon Ph: 7.39, PCO2: 44,PO2:75.2, FIO2: 45 %. Sinus Bradycardia on telemetry. Currently she is net: 900 cc positive. Am xray chest : reviewed Her other vitals and labs have been reviewed. Medications: Reviewed: Yes Vitals/I&O/Wt Last Vital Signs Temp 98.8 F 09/30/21 04:00 Pulse 45 L 09/30/21 15:30 Resp 20 H 09/30/21 14:49 BP 131/63 09/30/21 15:30 Pulse Ox 95 09/30/21 15:30 09/30/21 09/30/21 09/30/21 06:59 14:59 22:59 Intake Total 656.000 / 2516.053 1745.354 / 1745.354 150 / 1895.354 Output Total 725 / 1500 Balance -69.000 / 3160.308 9138.354 / 1745.354 150 / 1895.354 Weight last 48 hrs Weight 74.503 kg Physical Exam HENMT: COMMON NORMALS: normocephalic and atraumatic HEAD & SCALP: normocephalic and atraumatic Chest: CHEST: Yes Symmetrical chest wall rise Resp: OTHER: Coarse Breath sound B/L Cardio: COMMON NORMALS: regular rate, regular rhythm, S1 normal heart sound present, S2 normal heart sound present, No gallops present (Cardio), No murmurs present (Cardio), No rub (Cardio) and Peripheral pulses 2+ throughout RATE: regular rate RHYTHM: regular rhythm HEART SOUNDS: S1 normal heart sound present and S2 normal heart sound present PERIPHERAL PULSES: Peripheral pulses 2+ throughout GI: COMMON NORMALS: Normal to inspection, nondistended, normoactive bowel sounds present, Soft to palpation, non-tender, No hepatosplenomegaly present and no masses AUSCULTATION: Yes normoactive bowel sounds PALPATION: Yes Soft to palpation and Yes No hepatosplenomegaly present RECTAL EXAM: deferred Extremity: COMMON NORMALS: no clubbing, cyanosis or edema and no pedal edema Urinary Catheter Management^: Garcia: Cath Placed During This Visit: yes Reason for Continuing Indwelling Catheter: Accurate Measurement of Urinary Output in Critically Ill Patients Urinary Catheter Date of Insertion: 09/26/21 Urinary Catheter Time of Insertion: 16:28 Data : 09/30/21 05:20 09/30/21 05:20 Micro: Microbiology 09/25/21 13:13 Blood Culture - Final Blood NO GROWTH AFTER 5 DAYS 09/25/21 13:13 Blood Culture - Final Blood NO GROWTH AFTER 5 DAYS 09/29/21 08:50 Gram Stain - Final Sputum - Endotracheal Tube Aspirate Sputum Culture - Preliminary 09/28/21 13:55 Gram Stain - Final Lung Right Middle Lobe Bronchial Washings Culture - Preliminary A&P Assessment and plan (1) Pulmonary embolism: Continue Lovenox 80 mg sc q12 h daily Status: Acute Qualifiers: Pulmonary embolism type: unspecified Chronicity: acute Acute cor pulmonale presence: unspecified Qualified Code(s): I26.99 - Other pulmonary embolism without acute cor pulmonale (2) Febrile neutropenia: Resolved. Normal ANC Status: Acute (3) Multifocal pneumonia: Covid PCR is positive MRSA PCR negative s/p Bronchoscopy performed 09/28. Appreciate pulmonary consultation. Gram stain demonstrated no organisms. Currently on ,levofloxacin, cefepime and voriconazole Vancomycin discontinued 09/28 Currently on dexamethasone 6 mg IV every 24 hours. Completed 5 days of remdesivir. Intubated 09/28 and proning session 09/28 through 09/29 Appreciate infectious disease consultation. Multiple studies pending including galactomannan, pneumocystis Status: Acute Additional A&P Information Respiratory failure. 2/2 multifocal pneumonia. Currently on vent.VC/AC Pulmonary following. Hypokalemia. Supplement today orally as well as IV. Check magnesium level. This was checked and normal. Sepsis. Resolved. However, secondary to multiple sedative medications needed for respiratory failure she is currently on norepinephrine. History of CHF. Currently appears compensated. Lasix 20 mg I.V today History of lymphocytic lymphoma. Possible recurrence. Will need outpatient follow-up. Type 2 diabetes. Sliding scale insulin. Change to moderate. Lantus 10 units daily. May need to increase further if feedings are initiated. Hypertension. antihypertensives discontinued currently Full code Lovenox will suffice for DVT prophylaxis Protonix for GI prophylaxis on valacyclovir for prophylaxis as well secondary to her underlying immunodefi ciency Attestations Medical Necessity Statement*: Patient needs to be in the hospital for the management of PNA Coding Level of Care Code Acute Media Senior Recruiter for Chg Fwd Diagnoses Pulmonary embolism I26.99 Pulmonary embolism type: unspecified Chronicity: acute Acute cor pulmonale presence: unspecified Febrile neutropenia D70.9; R50.81 Multifocal pneumonia J18.9
[2021-09-30] MEDS: dexamethasone 4 mg/mL INJ 6 MG IVP (17:02)
[2021-09-30] MEDS: FUROsemide 10 mg/mL SDV 2mL 20 MG IVP (17:02)
[2021-09-30] MEDS: remdesivir 100 MG in sodium chloride 0.9% (100 ml) 100 ML IV (17:03)
[2021-09-30 17:43] LABS: Glucose Point of Care 349 mg/dL (70-110)
--- NOTE | 2021-09-30 18:31 | PC.NURSE ---
Shift Note Frequent safety and comfort rounds continue. Orders and nursing care completed as indicated. Patient turned every two hours, oral care provided at this time with help of other nursing staff. Dr. Garcia notified this nurse of not placing patient in prone position today with plans to possibly extubate tomorrow. Family called and updated on plan of care and patient status, will call again tomorrow. Pt recieved last dose of remdesiver this evening. Patient monitored for response to intervention and treatments. Education provided to family (due to patient intubated and sedated) includes frequent position changing, risk of dvt, new medications. Family verbalized understanding. Will continue to monitor.
--- NOTE | 2021-09-30 19:32 | PC.NURSE ---
Davide() updated on patient status-oxygenation, vital signs, and future extubation plans.
[2021-09-30] MEDS: trazodone 100 mg Tablet PO (20:03)
[2021-09-30] MEDS: gabapentin 400 mg Capsule PO (20:03)
[2021-09-30] MEDS: tizanidine 4 mg Tablet PO (20:03)
[2021-09-30 20:18] LABS: Glucose Point of Care 355 mg/dL (70-110)
[2021-09-30] MEDS: propofol 1,000 MG/100 ML INJ 9.28 MG IV (21:25)
[2021-10-01] VITALS (73 sets, daily range): BP systolic 75–129; BP diastolic 45–75; PULSE 51–94; RESP 12–20; TEMP 36.3–36.8; O2SAT 90–97
[2021-10-01 00:48] LABS: Glucose Point of Care 338 mg/dL (70-110)
[2021-10-01] MEDS: cefepime 1,000 MG in sodium chloride 0.9% (plus) 50 ML 100 MG IV ×2 (03:09→14:21)
[2021-10-01 03:20] LABS: Glucose Point of Care 331 mg/dL (70-110)
[2021-10-01] MEDS: levalbuterol 0.63 mg/3 mL Neb INHALATION ×3 (05:25→20:29)
[2021-10-01] MEDS: propofol 1,000 MG/100 ML INJ 9.28 MG IV (05:25)
[2021-10-01 05:49] LABS: ABG PCO2 44.4 mmHg (35-45); ABG PH Result 7.43 (7.35-7.45); Arterial Blood Gas Hematocrit 17.1 % (37-47); Base Excess ABG 4.5 mmol/L (-2.0-2.0); Blood Gas Allen Test Pos; Blood Gas Sample Site Radial, left; Blood Gas Sample Type Arterial; Blood Gas Tidal Volume 0.38; Carboxyhemoglobin 0.7 %THgb (0.4-20.1); HCO3 ABG 29.2 mmol/L (22-26); HGB O2 Sat 96.4 % (95-100); Oxygen Device VENT; PO2 ABG 83.4 mmHg (80.0-100.0); Total Hemoglobin 5.6 g/dL (12-16)
[2021-10-01] MEDS: enoxaparin 80 mg/0.8 mL Syringe SUBCUT ×2 (06:02→17:08)
[2021-10-01] MEDS: levothyroxine 200 mcg Tablet PO (06:02)
[2021-10-01] MEDS: valACYclovir 1,000 mg Tablet 500 MG PO (06:03)
[2021-10-01] MEDS: atorvastatin 40 mg Tablet 20 MG PO (06:04)
--- NOTE | 2021-10-01 06:30 | NUR.SHIFT ---
Decreased fentanyl, see titrations, patient begining to grimace with activity-turns and suction. Not following commands at this time. VSS, no signs of distress at this time. Updated family on patient condition.
[2021-10-01] MEDS: budesonide 0.5 mg/2 mL Neb INHALATION ×2 (08:00→20:25)
[2021-10-01 08:06] LABS: Glucose Point of Care 284 mg/dL (70-110)
[2021-10-01] MEDS: allopurinol 100 mg Tablet PO ×2 (08:26→17:09)
[2021-10-01] MEDS: aspirin 81 mg EC Tablet PO (08:27)
[2021-10-01] MEDS: pantoprazole DR 40 mg Tablet PO (08:27)
[2021-10-01] MEDS: levoFLOXacin 500 mg Tablet PO (08:27)
[2021-10-01] MEDS: insulin lispro 100 unit/1 mL SUBCUT ×4 (08:28→21:04)
[2021-10-01] MEDS: insulin glargine 100 units/1 mL 10 UNIT SUBCUT (08:30)
[2021-10-01] MEDS: liothyronine 5 mcg Tablet PO ×2 (09:24→17:11)
[2021-10-01 11:45] LABS: Glucose Point of Care 280 mg/dL (70-110)
[2021-10-01 11:54] LABS: Basophils % 0.1 %; Hematocrit 30.3 % (37.0-47.0); Hemoglobin 9.8 g/dL (11.5-15.3); Lymphocytes # 0.3 10^3/uL (0.8-4.8); Lymphocytes % 2.3 %; Mean Corpuscular HGB Conc 32.3 g/dL (30.0-36.0); Mean Corpuscular Hemoglobin 31.1 pg (28.0-34.0); Mean Corpuscular Volume 96.2 fl (81-99); Mean Platelet Volume 10.5 fL (7.4-10.4); Monocytes # 0.5 10^3/uL (0.2-0.9); Monocytes % 3.7 %; Neutrophils % 93.1 %; Nucleated Red Blood Cells % 0 %; Platelet Count 216 10^3/cmm (130-400); Red Blood Count 3.15 10^6/uL (4.1-5.3); Red Cell Distribution Width 14.4 % (12.1-15.1); White Blood Count 13.8 10^3/uL (4.0-10.0)
[2021-10-01 12:19] LABS: Anion Gap 12.7 (5-19); Blood Urea Nitrogen 37 mg/dL (8-23); Calcium 9.4 mg/dL (8.5-10.5); Carbon Dioxide 28 mmol/L (22-29); Chloride 108 mmol/L (98-107); Glomerular Filtration Rate 63.4 mL/min (90-130); Glucose 258 mg/dL (65-115); Osmolality Calculated 316 mOsm/kg (285-295); Potassium 4.7 mmol/L (3.5-5.1); Sodium 144 mmol/L (136-145)
[2021-10-01] MEDS: dexamethasone 4 mg/mL INJ 6 MG IVP (17:08)
--- NOTE | 2021-10-01 17:15 | PM.PN ---
Subjective Subjective: Interval history: patient was seen and examined this morning.Currently intubated and sedated. Am ABG:Ph:7.43 , PCO2: 44,PO2:83 , FIO2: 45 %.She is currently on minimal ventilator support, tolerated CPAP pressure support well. On minimal sedation. Likely to be extubated in the morning. Medications: Reviewed: Yes Vitals/I&O/Wt Last Vital Signs Temp 98.2 F 10/01/21 08:00 Pulse 86 10/01/21 14:00 Resp 18 10/01/21 15:39 BP 100/62 10/01/21 13:30 Pulse Ox 94 10/01/21 15:39 10/01/21 10/01/21 10/01/21 06:59 14:59 22:59 Intake Total 281.334 / 2379.808 159.834 / 159.834 Output Total 600 / 1975 Balance -318.666 / 404.808 159.834 / 159.834 Weight last 48 hrs Weight 75.296 kg Weight 74.503 kg Physical Exam HENMT: COMMON NORMALS: normocephalic and atraumatic HEAD & SCALP: normocephalic and atraumatic Chest: CHEST: Yes Symmetrical chest wall rise Resp: OTHER: Coarse Breath sound B/L Cardio: COMMON NORMALS: regular rate, regular rhythm, S1 normal heart sound present, S2 normal heart sound present, No gallops present (Cardio), No murmurs present (Cardio), No rub (Cardio) and Peripheral pulses 2+ throughout RATE: regular rate RHYTHM: regular rhythm HEART SOUNDS: S1 normal heart sound present and S2 normal heart sound present PERIPHERAL PULSES: Peripheral pulses 2+ throughout GI: COMMON NORMALS: Normal to inspection, nondistended, normoactive bowel sounds present, Soft to palpation, non-tender, No hepatosplenomegaly present and no masses AUSCULTATION: Yes normoactive bowel sounds PALPATION: Yes Soft to palpation and Yes No hepatosplenomegaly present RECTAL EXAM: deferred Extremity: COMMON NORMALS: no clubbing, cyanosis or edema and no pedal edema Urinary Catheter Management^: Garcia: Cath Placed During This Visit: yes Reason for Continuing Indwelling Catheter: Accurate Measurement of Urinary Output in Critically Ill Patients Urinary Catheter Date of Insertion: 09/26/21 Urinary Catheter Time of Insertion: 16:28 Data : 10/01/21 11:43 10/01/21 11:43 Micro: Microbiology 09/26/21 12:15 Blood Culture - Final Blood NO GROWTH AFTER 5 DAYS 09/26/21 12:27 Blood Culture - Final Blood NO GROWTH AFTER 5 DAYS 09/29/21 08:50 Gram Stain - Final Sputum - Endotracheal Tube Aspirate Sputum Culture - Final 09/28/21 13:55 Gram Stain - Final Lung Right Middle Lobe Bronchial Washings Culture - Final 09/25/21 13:13 Blood Culture - Final Blood NO GROWTH AFTER 5 DAYS 09/25/21 13:13 Blood Culture - Final Blood NO GROWTH AFTER 5 DAYS A&P Assessment and plan (1) Pulmonary embolism: Continue Lovenox 80 mg sc q12 h daily Status: Acute Qualifiers: Pulmonary embolism type: unspecified Chronicity: acute Acute cor pulmonale presence: unspecified Qualified Code(s): I26.99 - Other pulmonary embolism without acute cor pulmonale (2) Febrile neutropenia: Resolved. Normal ANC Status: Acute (3) Multifocal pneumonia: Covid PCR is positive MRSA PCR negative s/p Bronchoscopy performed 09/28. Appreciate pulmonary consultation. Gram stain demonstrated no organisms. Currently on ,levofloxacin, cefepime and voriconazole Vancomycin discontinued 09/28 Currently on dexamethasone 6 mg IV every 24 hours. Completed 5 days of remdesivir. Intubated 09/28 and proning session 09/28 through 09/29 Appreciate infectious disease consultation. Multiple studies pending including galactomannan, pneumocystis Status: Acute Additional A&P Information Respiratory failure. 2/2 multifocal pneumonia. Currently on vent.VC/AC Pulmonary following. Hypokalemia. Supplement today orally as well as IV. Check magnesium level. This was checked and normal. Sepsis. Resolved. However, secondary to multiple sedative medications needed for respiratory failure she is currently on norepinephrine. History of CHF. Currently appears compensated. Lasix 20 mg I.V today History of lymphocytic lymphoma. Possible recurrence. Will need outpatient follow-up. Type 2 diabetes. Sliding scale insulin. Change to moderate. Lantus 10 units daily. May need to increase further if feedings are initiated. Hypertension. antihypertensives discontinued currently Full code Lovenox will suffice for DVT prophylaxis Protonix for GI prophylaxis on valacyclovir for prophylaxis as well secondary to her underlying immunodeficiency Attestations Medical Necessity Statement*: in Hospital for management of pneumonia. Coding Level of Care Code Acute Senior Escrow Officer for Chg Fwd Diagnoses Pulmonary embolism I26.99 Pulmonary embolism type: unspecified Chronicity: acute Acute cor pulmonale presence: unspecified Febrile neutropenia D70.9; R50.81 Multifocal pneumonia J18.9
--- NOTE | 2021-10-01 18:14 | PC.NURSE ---
Shift Note Frequent safety and comfort rounds continue. Orders and nursing care completed as indicated. Pt sedation turn off for possible extubation this afternoon, vitals stable but was unable to respond noted to be very drowsy. Plans to try to extubate tomorrow per physician's orders. Pt on very minimal sedation currently, see mar. Family called and updated on patient's status and plan of care. frequent position changes occurred throughout day along with oral care with assistance of other nursing staff and RT. Will continue to monitor.
[2021-10-01 19:42] LABS: Glucose Point of Care 230 mg/dL (70-110)
[2021-10-01 19:42] LABS: Glucose Point of Care 224 mg/dL (70-110)
[2021-10-01] MEDS: tizanidine 4 mg Tablet PO (21:04)
[2021-10-01] MEDS: buPROPion SR (12 HR) 150 mg Tablet PO (21:04)
[2021-10-01] MEDS: gabapentin 400 mg Capsule PO (21:04)
[2021-10-01] MEDS: trazodone 100 mg Tablet PO (21:04)
[2021-10-01 23:06] LABS: Glucose Point of Care 219 mg/dL (70-110)
[2021-10-02] VITALS (63 sets, daily range): BP systolic 97–151; BP diastolic 52–88; PULSE 48–108; RESP 12–18; TEMP 35.6–36.7; O2SAT 90–100
[2021-10-02] MEDS: cefepime 1,000 MG in sodium chloride 0.9% (plus) 50 ML 100 MG IV ×2 (02:38→14:22)
[2021-10-02 03:36] LABS: Basophils % 0.1 %; Hematocrit 28.7 % (37.0-47.0); Hemoglobin 9.1 g/dL (11.5-15.3); Lymphocytes # 0.3 10^3/uL (0.8-4.8); Lymphocytes % 3.8 %; Mean Corpuscular HGB Conc 31.7 g/dL (30.0-36.0); Mean Corpuscular Hemoglobin 31.2 pg (28.0-34.0); Mean Corpuscular Volume 98.3 fl (81-99); Mean Platelet Volume 10.9 fL (7.4-10.4); Monocytes # 0.1 10^3/uL (0.2-0.9); Monocytes % 1.9 %; Neutrophils # 7.03 10^3/uL (1.8-7.7); Nucleated Red Blood Cells % 0 %; Platelet Count 161 10^3/cmm (130-400); Red Blood Count 2.92 10^6/uL (4.1-5.3); Red Cell Distribution Width 14.6 % (12.1-15.1); White Blood Count 7.6 10^3/uL (4.0-10.0)
[2021-10-02 03:53] LABS: Glucose Point of Care 304 mg/dL (70-110)
[2021-10-02 03:56] LABS: Anion Gap 11.8 (5-19); Blood Urea Nitrogen 44 mg/dL (8-23); Calcium 9.3 mg/dL (8.5-10.5); Carbon Dioxide 29 mmol/L (22-29); Chloride 108 mmol/L (98-107); Glomerular Filtration Rate 72.7 mL/min (90-130); Glucose 258 mg/dL (65-115); Magnesium 2.4 mg/dL (1.7-2.3); Osmolality Calculated 318 mOsm/kg (285-295); Potassium 4.8 mmol/L (3.5-5.1); Sodium 144 mmol/L (136-145)
[2021-10-02] MEDS: levalbuterol 0.63 mg/3 mL Neb INHALATION ×3 (04:30→21:27)
[2021-10-02 05:17] LABS: ABG PH Result 7.42 (7.35-7.45); Arterial Blood Gas Hematocrit 19.4 % (37-47); Base Excess ABG 5.1 mmol/L (-2.0-2.0); Blood Gas Allen Test Pos; Blood Gas Sample Type Arterial; PO2 ABG 69.3 mmHg (80.0-100.0)
[2021-10-02 05:18] LABS: Blood Gas Sample Site Radial, left; Blood Gas Tidal Volume 0.38; Oxygen Device VENT
[2021-10-02] MEDS: enoxaparin 80 mg/0.8 mL Syringe SUBCUT ×2 (05:23→17:02)
[2021-10-02] MEDS: levothyroxine 200 mcg Tablet PO (05:23)
--- NOTE | 2021-10-02 06:25 | PC.NURSE ---
Shift Note Frequent safety and comfort rounds continue. Pt repositioned q 2 hours and oral cares were performed. Orders and nursing care completed as indicated. Patient monitored for response to intervention and treatment. Education provided includes pain management. Patient needs reinforcement. Will continue care.
[2021-10-02] MEDS: atorvastatin 40 mg Tablet 20 MG PO (06:30)
[2021-10-02] MEDS: valACYclovir 1,000 mg Tablet 500 MG PO (06:30)
[2021-10-02] MEDS: propofol 1,000 MG/100 ML INJ 5 MG IV (07:10)
[2021-10-02 07:26] LABS: Glucose Point of Care 344 mg/dL (70-110)
[2021-10-02] MEDS: aspirin 81 mg EC Tablet PO (08:43)
[2021-10-02] MEDS: pantoprazole DR 40 mg Tablet PO (08:43)
[2021-10-02] MEDS: allopurinol 100 mg Tablet PO ×2 (08:43→17:02)
[2021-10-02] MEDS: levoFLOXacin 500 mg Tablet PO (08:43)
[2021-10-02] MEDS: insulin lispro 100 unit/1 mL SUBCUT ×4 (08:43→20:17)
[2021-10-02] MEDS: insulin glargine 100 units/1 mL 8 UNIT SUBCUT ×2 (08:44→20:17)
[2021-10-02] MEDS: budesonide 0.5 mg/2 mL Neb INHALATION ×2 (08:44→21:28)
[2021-10-02] MEDS: liothyronine 5 mcg Tablet PO ×2 (08:45→17:02)
[2021-10-02] MEDS: FUROsemide 10 mg/mL SDV 4mL 40 MG IVP (08:58)
--- NOTE | 2021-10-02 09:10 | PC.CHAP ---
Pastoral Care Encounter/Spiritual Assessment Type of Contact [] Declined industrial sales manager visit [] Patient/Family/Request visit [] Outpatient visit [] Follow-up visit [] Physician referral [] Code/Alert [x] Routine visit [] Staff referral [] Actively dying [] Patient sleeping [] Family support [] [] Out of room [] Palliative care [] [] Receiving care in room [] Pre-surgical visit [] Trauma [] Long length of stay [x] ICU visit [x] Other: isolated Relational/Emotional Strength [] Patient feels connected with others/family/visitors/staff [] Distress [] Loneliness/isolation [] Abandonment Spirituality of Patient [] Person of Rocio [] Attends Restorationism of their Rocio [] Believes in Prayer [] Reads Bible or Voodoo materials [] There are Spiritual issues to be addressed Pulp And Paper Tester Interventions [x] Prayer [] Active listening [] Non-anxious presence [] Spiritual/emotional support [] Crisis/trauma care [] Spiritual counseling [] Bereavement support [] Provided bereavement packet [] Provided Bible/devotional materials [] Provided toy/stuffed animal, coloring book to patient or family member [] Provided Communion [] Anointing/Cory [] Salvation [x] Completed spiritual assessment [] Other: Impact on Illness or Injury [] Angry [] Fearful [] Anxious [] Often cries [] Exhaustion [] Unable to work [] Unable to attend sikh [] Unable to walk/stand [] Unable to read [] Unable to drive [] Unable to eat/drink [] Unable to sleep [] Unable to be with family [] Patient intubated [] Other: Summary Time spent with patient
[2021-10-02 11:16] LABS: Glucose Point of Care 281 mg/dL (70-110)
--- NOTE | 2021-10-02 16:05 | PM.PN ---
Subjective Subjective: Interval history: Patient was seen this morning, she remained intubated, sedated overnight, this morning sedation is been weaning down, overnight she has remained afebrile, normotensive, Patient was reexamined throughout the day, her sedation has been weaned off, she remains drowsy, follows commands at times, still under the effect of sedation, advised nurses continue to hold sedation for the next 24 hours, will attempt to extubate later on this afternoon if her mentation improves Vitals/I&O/Wt Last Vital Signs Temp 98.1 F 10/02/21 08:00 Pulse 75 10/02/21 14:00 Resp 17 10/02/21 14:05 BP 110/59 10/02/21 12:00 Pulse Ox 93 10/02/21 14:05 10/02/21 10/02/21 10/02/21 06:59 14:59 22:59 Intake Total 150 / 409.834 161.458 / 161.458 100 / 261.458 Output Total 875 / 875 1000 / 1000 Balance -725 / -465.166 -838.542 / -838.542 100 / -738.542 Weight last 48 hrs Weight 73.981 kg Weight 75.296 kg Physical Exam Narrative: EXAM NARRATIVE: Intubated, on sedation Eye: COMMON NORMALS: Equal, round and reactive pupils present PUPIL: Yes Equal, round and reactive pupils present Resp: COMMON NORMALS: normal respiratory effort, No retractions, No use of accessory muscles and clear to auscultation bilaterally AUSCULTATION: clear to auscultation bilaterally Cardio: COMMON NORMALS: regular rate, regular rhythm, S1 normal heart sound present and S2 normal heart sound present RATE: regular rate RHYTHM: regular rhythm HEART SOUNDS: S1 normal heart sound present and S2 normal heart sound present GI: COMMON NORMALS: Normal to inspection, nondistended, normoactive bowel sounds present, Soft to palpation and non-tender PALPATION: Yes Soft to palpation Extremity: COMMON NORMALS: no pedal edema Urinary Catheter Management^: Garcia: Cath Placed During This Visit: yes Reason for Continuing Indwelling Catheter: Accurate Measurement of Urinary Output in Critically Ill Patients Urinary Catheter Date of Insertion: 09/26/21 Urinary Catheter Time of Insertion: 16:28 Data : 10/03/21 04:30 10/03/21 04:30 Micro: Microbiology 09/26/21 12:15 Blood Culture - Final Blood NO GROWTH AFTER 5 DAYS 09/26/21 12:27 Blood Culture - Final Blood NO GROWTH AFTER 5 DAYS A&P Assessment and plan (1) Pulmonary embolism: Continue Lovenox 80 mg sc q12 h daily Status: Acute Qualifiers: Acute cor pulmonale presence: unspecified Chronicity: acute Pulmonary embolism type: unspecified Qualified Code(s): I26.99 - Other pulmonary embolism without acute cor pulmonale (2) Febrile neutropenia: Resolved. Normal ANC Status: Acute (3) Multifocal pneumonia: Covid PCR is positive MRSA PCR negative s/p Bronchoscopy performed 09/28. Appreciate pulmonary consultation. Gram stain demonstrated no organisms. Currently on ,levofloxacin, cefepime and voriconazole and valacyclovir Vancomycin discontinued 09/28 Currently on dexamethasone 6 mg IV every 24 hours. Completed 5 days of remdesivir. Intubated 09/28 and proning session 09/28 through 09/29 Appreciate infectious disease consultation. Multiple studies pending including galactomannan, pneumocystis Plan on CT of the chest Status: Acute Additional A&P Information Respiratory failure. 2/2 multifocal pneumonia. Currently on vent.VC/AC Pulmonary following. Hypokalemia. Supplement today orally as well as IV. Check magnesium level. This was checked and normal. Sepsis. Resolved. However, secondary to multiple sedative medications needed for respiratory failure she is currently on norepinephrine. History of CHF. Currently appears compensated. Lasix 20 mg I.V today History of lymphocytic lymphoma. Possible recurrence. Will need outpatient follow-up. Type 2 diabetes. Sliding scale insulin. Change to moderate. Lantus 10 units daily. May need to increase further if feedings are initiated. Hypertension. antihypertensives discontinued currently Full code Lovenox will suffice for DVT prophylaxis Protonix for GI prophylaxis on valacyclovir for prophylaxis as well secondary to her underlying immunodeficiency Attestations Medical Necessity Statement*: patient requires hospitalization for respiratory failure Coding Level of Care Code Acute Telephone Claims Representative for [facility] Fwd Exam Detailed Diagnoses Pulmonary embolism I26.99 Acute cor pulmonale presence: unspecified Chronicity: acute Pulmonary embolism type: unspecified Febrile neutropenia D70.9; R50.81 Multifocal pneumonia J18.9
[2021-10-02 16:56] LABS: Glucose Point of Care 155 mg/dL (70-110)
[2021-10-02] MEDS: dexamethasone 4 mg/mL INJ 6 MG IVP (17:02)
--- NOTE | 2021-10-02 18:10 | PC.NURSE ---
Shift Note Frequent safety and comfort rounds continue. Orders and nursing care completed as indicated. Sedation turned off early this am with plans of extubation, see mar. Frequent position changes and oral care given every 2 hours with help of other nursing staff. Pt had 1,375ml out in urine this shift. Patient took serval hours to become more alert and awake. Pt extubated this evening by RT Sarai. Patient noted to be on 6L NC at 93%. Patient monitored for response to intervention and treatment. Will continue to monitor.
[2021-10-02 19:36] LABS: Glucose Point of Care 155 mg/dL (70-110)
[2021-10-02] MEDS: trazodone 100 mg Tablet PO (20:14)
[2021-10-02] MEDS: tizanidine 4 mg Tablet PO (20:14)
[2021-10-02] MEDS: gabapentin 400 mg Capsule PO (20:14)
[2021-10-02] MEDS: buPROPion SR (12 HR) 150 mg Tablet PO (22:06)
[2021-10-03] VITALS (50 sets, daily range): BP systolic 122–163; BP diastolic 66–95; PULSE 72–115; RESP 15–20; TEMP 36.6–38.3; O2SAT 86–94
[2021-10-03 00:23] LABS: Glucose Point of Care 204 mg/dL (70-110)
[2021-10-03] MEDS: cefepime 1,000 MG in sodium chloride 0.9% (plus) 50 ML 100 MG IV ×2 (03:11→14:00)
[2021-10-03 03:26] LABS: Glucose Point of Care 238 mg/dL (70-110)
[2021-10-03] MEDS: levalbuterol 0.63 mg/3 mL Neb INHALATION ×3 (04:34→20:30)
[2021-10-03 05:13] LABS: Basophils % 0.1 %; Hematocrit 29.3 % (37.0-47.0); Hemoglobin 9.3 g/dL (11.5-15.3); Lymphocytes # 0.3 10^3/uL (0.8-4.8); Lymphocytes % 2.7 %; Mean Corpuscular HGB Conc 31.7 g/dL (30.0-36.0); Mean Corpuscular Volume 97.7 fl (81-99); Mean Platelet Volume 10.8 fL (7.4-10.4); Monocytes # 0.2 10^3/uL (0.2-0.9); Monocytes % 2.3 %; Neutrophils # 9.27 10^3/uL (1.8-7.7); Neutrophils % 93.4 %; Nucleated Red Blood Cells % 0 %; Platelet Count 179 10^3/cmm (130-400); Red Cell Distribution Width 14.5 % (12.1-15.1); White Blood Count 9.9 10^3/uL (4.0-10.0)
[2021-10-03 05:37] LABS: NT Pro B Type Natriuretic Pept 300 pg/mL (0-125); Procalcitonin 0.06 ng/mL (0-0.5)
[2021-10-03 05:47] LABS: Anion Gap 13.4 (5-19); Blood Urea Nitrogen 51 mg/dL (8-23); C Reactive Protein 34.3 mg/L (0.0-4.9); Calcium 9.5 mg/dL (8.5-10.5); Carbon Dioxide 29 mmol/L (22-29); Chloride 108 mmol/L (98-107); Glomerular Filtration Rate 84.8 mL/min (90-130); Glucose 232 mg/dL (65-115); Osmolality Calculated 323 mOsm/kg (285-295); Phosphorus 3.1 mg/dL (2.5-4.5); Potassium 4.4 mmol/L (3.5-5.1); Sodium 146 mmol/L (136-145)
[2021-10-03] MEDS: enoxaparin 80 mg/0.8 mL Syringe SUBCUT ×2 (06:02→17:23)
[2021-10-03] MEDS: valACYclovir 1,000 mg Tablet 500 MG PO (06:02)
[2021-10-03] MEDS: levothyroxine 200 mcg Tablet PO (06:02)
[2021-10-03] MEDS: atorvastatin 40 mg Tablet 20 MG PO (06:02)
[2021-10-03 07:37] LABS: Glucose Point of Care 260 mg/dL (70-110)
[2021-10-03] MEDS: insulin glargine 100 units/1 mL 8 UNIT SUBCUT (07:49)
[2021-10-03] MEDS: insulin lispro 100 unit/1 mL SUBCUT ×4 (07:50→21:26)
[2021-10-03] MEDS: levoFLOXacin 500 mg Tablet PO (07:50)
[2021-10-03] MEDS: allopurinol 100 mg Tablet PO ×2 (07:50→17:23)
[2021-10-03] MEDS: liothyronine 5 mcg Tablet PO ×2 (07:51→17:24)
[2021-10-03] MEDS: aspirin 81 mg EC Tablet PO (07:51)
[2021-10-03] MEDS: pantoprazole DR 40 mg Tablet PO (07:51)
[2021-10-03] MEDS: buPROPion SR (12 HR) 150 mg Tablet PO ×2 (07:56→21:02)
[2021-10-03] MEDS: budesonide 0.5 mg/2 mL Neb INHALATION ×2 (08:32→19:48)
--- NOTE | 2021-10-03 09:00 | CT_ITS ---
WS: [id number] CT CHEST TECHNIQUE: Noncontrast CT of the chest with coronal and sagittal reformatted images. CLINICAL INFORMATION: pna COMPARISON: CT September 25, 2021 DLP: 877.[address] scans at [facility] use at least one of these dose optimization techniques: automated e xposure control; mA and/or kV adjustment per patient size (includes targeted exams where dose is matc hed to clinical indication); or iterative reconstruction. FINDINGS: Diffuse bilateral hazy groundglass infiltrates have progressed compared to the prior examination. Pre viously described areas of partial consolidation have improved. Slight atelectasis right lower lobe. No dense consolidation today. No significant pleural fluid. Normal caliber thoracic aorta. Aortic calcification. Improved previously described prominent anterior mediastinal peribronchial and hilar lymph nodes likely reactive. No axillary lymphadenopathy. Inflammatory stranding and edema involving the left thoracic inlet soft tissues about the left jugula r vein may be due to recent line placement/removal. Associated hematoma and induration in this area. No evidence of airway narrowing. Prior cholecystectomy. Adrenal glands are normal. Normal GE junction. CT/CT chest wo con [id number] IMPRESSION: 1. Diffuse hazy bilateral groundglass infiltrates have progressed compared to previous. Recommend correlation for pneumonia. Consider COVID 19 pneumonia. 2. No focal consolidation or pleural fluid 3. Improved anterior mediastinal and hilar lymphadenopathy likely reactive. 4. Hematoma with inflammatory stranding and edema in the left neck at the thor acic inlet likely due to recent central catheter removal. No airway narrowing. Notified El Hammer MD at 10/03/2021 11:31 AM.
[2021-10-03 11:58] LABS: Glucose Point of Care 218 mg/dL (70-110)
[2021-10-03] MEDS: nystatin 100,000 unit/mL UDC 5 mL 500000 UNIT PO ×3 (13:57→21:02)
--- NOTE | 2021-10-03 14:11 | P.PN_ITS ---
Subjective Subjective: Interval history: Yesterday late in the afternoon, did well with her spontaneous breathing trial, remained on CPAP, 40%, following commands, patient was extubated, onto nasal cannula, tolerated well, following commands, monitored throughout the night Patient was seen this morning, she tells me that she is breathing okay, she has some shortness of breath, has some cough, no fevers, she feels weak, remained afebrile overnight, 6 L Vitals/I&O/Wt Last Vital Signs Temp 97.8 F 10/03/21 11:00 Pulse 105 H 10/03/21 13:24 Resp 15 10/03/21 13:15 BP 136/74 10/03/21 12:30 Pulse Ox 92 10/03/21 13:15 10/02/21 10/03/21 10/03/21 22:59 06:59 14:59 Intake Total 100 / 261.458 150 / 411.458 240 / 240 Output Total 375 / 1375 750 / 2125 Balance -275 / -1113.542 -600 / -1713.542 240 / 240 Weight last 48 hrs Weight 74.48 kg Weight 73.981 kg Physical Exam Const: COMMON NORMALS: no acute distress ORIENTATION/CONSCIOUSNESS: Yes awake, Yes oriented to person and Yes oriented to place; not oriented to time Resp: COMMON NORMALS: normal respiratory effort, No retractions, No use of accessory muscles and clear to auscultation bilaterally AUSCULTATION: clear to auscultation bilaterally Cardio: COMMON NORMALS: regular rate, regular rhythm, S1 normal heart sound present and S2 normal heart sound present RATE: regular rate RHYTHM: regular rhythm HEART SOUNDS: S1 normal heart sound present and S2 normal heart sound present GI: COMMON NORMALS: Normal to inspection, nondistended, normoactive bowel sounds present, Soft to palpation and non-tender PALPATION: Yes Soft to palpation Extremity: COMMON NORMALS: no pedal edema Neuro: SENSORIUM/ORIENTATION: Yes oriented to person, Yes oriented to place and No oriented to time Urinary Catheter Management^: Garcia: Cath Placed During This Visit: yes Reason for Continuing Indwelling Catheter: Accurate Measurement of Urinary Output in Critically Ill Patients Urinary Catheter Date of Insertion: 09/26/21 Urinary Catheter Time of Insertion: 16:28 Data : 10/03/21 04:30 10/03/21 04:30 A&P Assessment and plan (1) Pulmonary embolism: Continue Lovenox 80 mg sc q12 h daily Status: Acute Qualifiers: Pulmonary embolism type: unspecified Chronicity: acute Acute cor pulmonale presence: unspecified Qualified Code(s): I26.99 - Other pulmonary embolism without acute cor pulmonale (2) Febrile neutropenia: Resolved. Normal ANC Status: Acute (3) Multifocal pneumonia: Covid PCR is positive MRSA PCR negative s/p Bronchoscopy performed 09/28. Gram stain demonstrated no organisms. Currently on ,levofloxacin, cefepime and voriconazole and valacyclovir Vancomycin discontinued 09/28 Currently on dexamethasone 6 mg IV every 24 hours. Completed 5 days of remdesivir. Intubated 09/28 and proning session 09/28 through 09/29 Extubated 10/02/2021 Speech swallow eval PT OT Will moved to general medical floors Appreciate infectious disease consultation. Multiple studies pending including galactomannan, pneumocystis Plan on CT of the chest Central line removed, hematoma bedside, pressure applied, pressure bandage, continue to monitor for bleeding as on Lovenox as above Status: Acute Additional A&P Information Respiratory failure. 2/2 multifocal pneumonia. Currently on 6 L nasal cannula Pulmonary following. Replace potassium and phosphorus and magnesium as needed Sepsis. Resolved. History of CHF. Currently appears compensated. Lasix as needed History of lymphocytic lymphoma. Possible recurrence. Will need outpatient follow-up. Type 2 diabetes. Sliding scale insulin. Change to moderate. Lantus 12 units twice daily. May need to increase further if feedings are initiated. Hypertension. antihypertensives discontinued currently Full code Lovenox will suffice for DVT prophylaxis Protonix for GI prophylaxis on valacyclovir for prophylaxis as well secondary to her underlying immunodeficiency Attestations Medical Necessity Statement*: Patient requires hospitalization for pulmonary embolism, multifocal pneumonia, respiratory failure secondary COVID-19, Coding Level of Care Code Acute Elementary Instructional Coach for [facility] Fw Diagnoses Pulmonary embolism I26.99 Pulmonary embolism type: unspecified Chronicity: acute Acute cor pulmonale presence: unspecified Febrile neutropenia D70.9; R50.81 Multifocal pneumonia J18.9
[2021-10-03] MEDS: dexamethasone 4 mg/mL INJ 6 MG IVP (17:22)
--- NOTE | 2021-10-03 17:58 | PC.NURSE ---
Shift Note Frequent safety and comfort rounds continue. Orders and nursing care completed as indicated. Patient turned every two hours with help of other nursing staff. Mrs. Long received a bath and linen change this am this am. Orders for PT, ST, and OT see nursing team notes.Central line removed this am. Site appeared swollen and bruised. Patient verbalized tenderness at site, physician notified. Dressing dry and intact at this time. Pt taken to CT this afternoon, see results. Orders to transfer patient to [facility], awaiting a bed at this time. Patient monitored for response to intervention and treatments. Davide called and updated on patient status. Education provided includes frequent position changing, education on new medication. Patient and , Davide, verbalized understanding. Will continue to monitor.
[2021-10-03 18:10] LABS: Glucose Point of Care 154 mg/dL (70-110)
--- NOTE | 2021-10-03 20:10 | PC.NURSE ---
Transfer Note Patient transferred to [facility] from ICU via bed. Handoff report given to CANDIDO Dominguez. Patient oriented to environment and equipment. Covering service notified. Orders reviewed and will continue to monitor. Family and/or patient intake representative notified. All patient belongings transferred and placed at bedside. Transferred on 6LNC, VSS.
[2021-10-03 20:38] LABS: Aspergillus AG,EIA,Serum NOT DETECTED; Aspergillus Galactomannan Inde <0.50
[2021-10-03 20:42] LABS: Glucose Point of Care 200 mg/dL (70-110)
--- NOTE | 2021-10-03 20:43 | PC.NURSE ---
TRANSFER NOTE: PATIENT TRANSFERRED VIA BED FROM ICU TO MED/SURG. HAND OFF PRIVIDED BY NICOLE CHURCH. PATIENT ORIENTED TO ROOM.
[2021-10-03] MEDS: insulin glargine 100 units/1 mL 12 UNIT SUBCUT (21:02)
[2021-10-03] MEDS: trazodone 100 mg Tablet PO (21:02)
[2021-10-03] MEDS: gabapentin 400 mg Capsule PO (21:02)
[2021-10-03] MEDS: tizanidine 4 mg Tablet PO (21:02)
[2021-10-04] VITALS (14 sets, daily range): BP systolic 92–153; BP diastolic 52–85; PULSE 78–125; RESP 16–22; TEMP 36.6–37.6; O2SAT 85–95
[2021-10-04 00:36] LABS: Glucose Point of Care 221 mg/dL (70-110)
[2021-10-04 04:01] LABS: Glucose Point of Care 232 mg/dL (70-110)
[2021-10-04 04:02] LABS: Legionella Specimen Source BRONCH
[2021-10-04] MEDS: cefepime 1,000 MG in sodium chloride 0.9% (plus) 50 ML 100 MG IV ×2 (04:17→15:00)
[2021-10-04] MEDS: levalbuterol 0.63 mg/3 mL Neb INHALATION ×3 (05:34→22:13)
[2021-10-04 06:16] LABS: Basophils % 0.1 %; Hematocrit 29.7 % (37.0-47.0); Hemoglobin 9.4 g/dL (11.5-15.3); Lymphocytes # 0.3 10^3/uL (0.8-4.8); Lymphocytes % 3.1 %; Mean Corpuscular HGB Conc 31.6 g/dL (30.0-36.0); Mean Corpuscular Hemoglobin 31.4 pg (28.0-34.0); Mean Corpuscular Volume 99.3 fl (81-99); Mean Platelet Volume 11.2 fL (7.4-10.4); Monocytes # 0.2 10^3/uL (0.2-0.9); Monocytes % 2.2 %; Neutrophils % 92.5 %; Nucleated Red Blood Cells % 0 %; Platelet Count 186 10^3/cmm (130-400); Red Blood Count 2.99 10^6/uL (4.1-5.3); Red Cell Distribution Width 14.4 % (12.1-15.1); White Blood Count 9.4 10^3/uL (4.0-10.0)
[2021-10-04] MEDS: enoxaparin 80 mg/0.8 mL Syringe SUBCUT (06:39)
[2021-10-04] MEDS: levothyroxine 200 mcg Tablet PO (06:40)
[2021-10-04] MEDS: valACYclovir 1,000 mg Tablet 500 MG PO (06:40)
[2021-10-04] MEDS: atorvastatin 40 mg Tablet 20 MG PO (06:40)
[2021-10-04 06:41] LABS: NT Pro B Type Natriuretic Pept 609 pg/mL (0-125)
[2021-10-04 06:52] LABS: Blood Urea Nitrogen 45 mg/dL (8-23); C Reactive Protein 109.6 mg/L (0.0-4.9); Calcium 9.7 mg/dL (8.5-10.5); Chloride 108 mmol/L (98-107); Glomerular Filtration Rate 84.8 mL/min (90-130); Glucose 241 mg/dL (65-115); Magnesium 2.2 mg/dL (1.7-2.3); Osmolality Calculated 323 mOsm/kg (285-295); Phosphorus 3.2 mg/dL (2.5-4.5); Potassium 4.5 mmol/L (3.5-5.1); Sodium 147 mmol/L (136-145)
[2021-10-04] MEDS: insulin lispro 100 unit/1 mL SUBCUT ×4 (08:25→21:10)
[2021-10-04] MEDS: pantoprazole DR 40 mg Tablet PO (08:25)
[2021-10-04] MEDS: buPROPion SR (12 HR) 150 mg Tablet PO ×2 (08:25→21:10)
[2021-10-04] MEDS: acetaminophen 325 mg Tablet 650 MG PO (08:25)
[2021-10-04] MEDS: levoFLOXacin 500 mg Tablet PO (08:25)
[2021-10-04] MEDS: allopurinol 100 mg Tablet PO ×2 (08:25→17:12)
[2021-10-04] MEDS: nystatin 100,000 unit/mL UDC 5 mL 500000 UNIT PO ×4 (08:25→21:10)
[2021-10-04] MEDS: aspirin 81 mg EC Tablet PO (08:25)
[2021-10-04] MEDS: liothyronine 5 mcg Tablet PO ×2 (08:28→17:12)
[2021-10-04] MEDS: budesonide 0.5 mg/2 mL Neb INHALATION ×2 (09:10→22:13)
--- NOTE | 2021-10-04 10:03 | PM.PN ---
Subjective Subjective: Interval history: infectious disease progress note interim events noted Vitals/I&O/Wt Last Vital Signs Temp 98.6 F 10/04/21 08:00 Pulse 99 10/04/21 09:15 Resp 16 10/04/21 09:11 BP 139/82 10/04/21 08:00 Pulse Ox 92 10/04/21 09:15 10/03/21 10/04/21 10/04/21 22:59 06:59 14:59 Intake Total 250 / 540 150 / 690 240 / 240 Output Total 550 / 550 750 / 1300 Balance -300 / -10 -600 / -610 240 / 240 Weight last 48 hrs Weight 80.002 kg Weight 74.48 kg Physical Exam Urinary Catheter Management^: Garcia: Cath Placed During This Visit: yes Reason for Continuing Indwelling Catheter: Accurate Measurement of Urinary Output in Critically Ill Patients Urinary Catheter Date of Insertion: 09/26/21 Urinary Catheter Time of Insertion: 16:28 Data : 10/11/21 03:30 10/11/21 03:30 Micro: Microbiology 09/28/21 13:55 Mycobacterial Smear - Preliminary Body Fluids - Bronchial A&P Additional A&P Information d/c levaquin and voriconzole (Ag/GM negative) CT with diffuse GGOs no focal consolidation pending serologies, PJP w/up, will follow up with results Attestations Medical Necessity Statement*: per admitting note Coding Level of Care Code Acute Customer Solutions Coordinator for Joann Talley
--- NOTE | 2021-10-04 10:25 | CT_ITS ---
WS: [id number] CT NECK TECHNIQUE: Contrast-enhanced CT of the neck with coronal and sagittal reformatted images. CLINICAL INFORMATION: rihgt neck swelling, central line removal COMPARISON: None. DLP: 423.[address] scans at [facility] use at least one of these dose optimization techniques: automated e xposure control; mA and/or kV adjustment per patient size (includes targeted exams where dose is matc hed to clinical indication); or iterative reconstruction. FINDINGS: Small amount of pneumomediastinum has developed since the CT chest yesterday. No pneumothorax visuali zed in the lung apices. Recommend correlation with history of positive pressure ventilation. Extensiv e mixed density hematoma extends from the thoracic inlet to the mastoid skull base deep to the sterno cleidomastoid likely due to previous central line placement/removal. Associated compression of the ad jacent jugular vein. Hematoma measures approximately 3.8 x 3.2 x 9.3 cm AP by transverse by craniocau aleena. Associated induration and inflammatory stranding in the left neck. No critical airway impingement. Mild left to right mass effect on the subglottic airway at the thorac ic inlet. Supraglottic airway is patent. Mild mucosal thickening right mastoid air cells. Left mastoid air cells are well aerated. Paranasal s inuses are well aerated. Normal parotid glands. Normal submandibular glands. Prior postoperative moran ges ACDF C5-C7. CT/CT neck w con* [id number] IMPRESSION: 1. Small amount of pneumomediastinum has developed since yesterday. No pneumot horax in the lung apices. 2. Persistent groundglass infiltrates in the lung apices. 3. Extensive hematoma extending from the thoracic inlet to the mastoid skull b ase deep to the sternocleidomastoid. Surrounding inflammatory stranding and julio ma. Associated compression of the adjacent jugular vein. 4. No drainable abscess or fluid collection. 5. No critical airway impingement. Mild left to right mass effect on the subgl ottic airway at the thoracic inlet. Message left for El Hammer MD at 10/04/2021 3:06 PM. Discussed with El Hammer MD at 10/04/2021 3:17 PM.
[2021-10-04] MEDS: insulin glargine 100 units/1 mL 12 UNIT SUBCUT ×2 (10:26→20:59)
[2021-10-04 12:32] LABS: Glucose Point of Care 323 mg/dL (70-110)
[2021-10-04] MEDS: iohexol 350 mg/mL 100 mL Btl IV (14:40)
--- NOTE | 2021-10-04 16:02 | P.PN_ITS ---
Subjective Subjective: Interval history: Patient was seen this morning, she sitting up in bed, she is on 6 L, she tells me that she is feeling a lot better, she is developing left sided neck pain and left-sided neck swelling, more pain with range of motion denies any chest pain, no shortness of breath, no lightheadedness, no dizziness, Vitals/I&O/Wt Last Vital Signs Temp 97.8 F 10/04/21 12:00 Pulse 121 H 10/04/21 15:58 Resp 22 H 10/04/21 15:58 BP 153/79 10/04/21 15:58 Pulse Ox 95 10/04/21 15:58 10/04/21 10/04/21 10/04/21 06:59 14:59 22:59 Intake Total 150 / 690 480 / 480 50 / 530 Output Total 750 / 1300 Balance -600 / -610 480 / 480 50 / 530 Weight last 48 hrs Weight 80.002 kg Weight 74.48 kg Physical Exam Const: COMMON NORMALS: no acute distress and patient oriented x3 Neck/C-Spine: OTHER: Left neck swelling, extending posteriorly, with slight erythema, skin discoloration, extending posteriorly to cervical spine, measuring 10 cm long, 3 cm deep Resp: COMMON NORMALS: normal respiratory effort, No retractions, No use of accessory muscles and clear to auscultation bilaterally AUSCULTATION: clear to auscultation bilaterally Cardio: COMMON NORMALS: regular rate, regular rhythm, S1 normal heart sound present and S2 normal heart sound present RATE: regular rate RHYTHM: regular rhythm HEART SOUNDS: S1 normal heart sound present and S2 normal heart sound present GI: COMMON NORMALS: Normal to inspection, nondistended, normoactive bowel sounds present, Soft to palpation and non-tender PALPATION: Yes Soft to palpation Extremity: COMMON NORMALS: no pedal edema Neuro: COMMON NORMALS: patient oriented x3 Psych: COMMON NORMALS: mental status grossly normal Urinary Catheter Management^: Garcia: Cath Placed During This Visit: yes Reason for Continuing Indwelling Catheter: Accurate Measurement of Urinary Output in Critically Ill Patients Urinary Catheter Date of Insertion: 09/26/21 Urinary Catheter Time of Insertion: 16:28 Data : 10/04/21 05:51 10/04/21 05:51 Micro: Microbiology 09/28/21 13:55 Mycobacterial Smear - Preliminary Body Fluids - Bronchial A&P Assessment and plan (1) Pulmonary embolism: Lovenox currently on hold Status: Acute Qualifiers: Pulmonary embolism type: unspecified Chronicity: acute Acute cor pulmonale presence: unspecified Qualified Code(s): I26.99 - Other pulmonary embolism without acute cor pulmonale (2) Febrile neutropenia: Resolved. Normal ANC Status: Acute (3) Multifocal pneumonia: Covid PCR is positive MRSA PCR negative s/p Bronchoscopy performed 09/28. Gram stain demonstrated no organisms. Currently on cefepime for total 10 days, voriconazole has been stopped, continue valacyclovir for now Vancomycin discontinued 09/28 Currently on dexamethasone 6 mg IV every 24 hours. Completed 5 days of remdesivir. Intubated 09/28 and proning session 09/28 through 09/29 Extubated 10/02/2021 Speech swallow eval PT OT Currently on general medical floors Appreciate infectious disease consultation. Multiple studies pending including galactomannan, pneumocystis Central line removed, large hematoma, pressure applied, pressure bandage, continue to monitor for bleeding as on Lovenox as above Status: Acute (4) Hematoma of neck: -Right central line placement CT of the neck shows 3. Extensive hematoma extending from the thoracic inlet to the mastoid skull base deep to the sternocleidomastoid. Surrounding inflammatory stranding and edema. Associated compression of the adjacent jugular vein. 4. No drainable abscess or fluid collection. 5. No critical airway impingement. Mild left to right mass effect on the subglottic airway at the thoracic inlet. -Currently denies any shortness of breath, on 6 L, -Hemoglobin stable at 9.4 -We will hold Lovenox -Continue to monitor clinical site -Monitor for fevers, monitor for abscess -On cefepime as above Status: Acute (5) Pneumomediastinum: -Seen on CT of the neck, avoid positive pressure ventilation we will get a chest x-ray, daily chest x-ray Status: Acute (6) Acute respiratory failure with hypoxia: Status: Acute (7) COVID-19: Status: Acute (8) Sepsis: Status: Acute Additional A&P Information d/c levaquin and voriconzole CT with diffuse GGOs no focal consolidation pending serologies, PJP w/up Attestations Medical Necessity Statement*: Patient requires hospitalization for pulmonary embolism, multifocal pneumonia, hematoma left neck, pneumomediastinum Coding Level of Care Code Acute Donor Services Technician for Chg Fwd Diagnoses Pulmonary embolism I26.99 Pulmonary embolism type: unspecified Chronicity: acute Acute cor pulmonale presence: unspecified Febrile neutropenia D70.9; R50.81 Multifocal pneumonia J18.9 Hematoma of neck S10.93XA Pneumomediastinum J98.2 Acute respiratory failure with hypoxia J96.01 COVID-19 U07.1 Sepsis A41.9
--- NOTE | 2021-10-04 16:12 | XRR_ITS ---
PROCEDURE INFORMATION: Exam: XR Chest Exam date and time: 10/04/2021 4:12 PM Age: 61 years old Clinical indication: Shortness of breath; Additional info: SOB TECHNIQUE: Imaging protocol: XR of the chest. Views: 1 view. COMPARISON: CT chest wo con [id number] 10/03/2021 11:05 AM FINDINGS: Lungs: Interval worsening of diffuse, bilateral ground-glass opacities with interval development of alveolar airspace disease in the left upper lobe and both right and left lower lobes. Pleural spaces: No pleural effusion. No pneumothorax. Heart/Mediastinum: Stable moderate enlargement of the cardiac silhouette. Mediastinal contours are unremarkable. Bones/joints: Stable changes consistent with fusion from C6 through T1. Stable degenerative changes in the spine and shoulders. XR/XR chest 1V portable [id number] IMPRESSION: 1. Interval worsening of diffuse, bilateral ground-glass opacities with interval development of alveolar airspace disease in the left upper lobe and both right and left lower lobes. Findings are concerning for worsening pneumonia, including atypical and viral organisms. Recommend followup chest imaging to insure resolution of these findings. 2. Incidental/nonacute findings are listed in the report. Radiation Dose CTDIVOL = (mGy): DLP = (mGy-cm)
[2021-10-04 17:05] LABS: INR 1.32 (0.8-1.2)
[2021-10-04] MEDS: dexamethasone 4 mg/mL INJ 6 MG IVP (17:12)
[2021-10-04] MEDS: FUROsemide 10 mg/mL SDV 4mL 40 MG IVP (17:12)
[2021-10-04 18:00] LABS: Glucose Point of Care 235 mg/dL (70-110)
[2021-10-04 20:32] LABS: Fungitell 1-3-B Glucan Assay 54 pg/mL; Interpretation NEGATIVE
[2021-10-04 20:56] LABS: Anion Gap 13.5 (5-19)
[2021-10-04 20:57] LABS: Carbon Dioxide 30 mmol/L (22-29)
[2021-10-04 20:58] LABS: Glucose Point of Care 215 mg/dL (70-110)
[2021-10-04] MEDS: gabapentin 400 mg Capsule PO (21:10)
[2021-10-04] MEDS: trazodone 100 mg Tablet PO (21:10)
[2021-10-04] MEDS: tizanidine 4 mg Tablet PO (21:10)
[2021-10-05] VITALS (19 sets, daily range): BP systolic 110–134; BP diastolic 70–81; PULSE 76–133; RESP 18–26; TEMP 36.4–37.7; O2SAT 88–97
[2021-10-05] MEDS: levalbuterol 0.63 mg/3 mL Neb INHALATION ×3 (04:41→21:59)
[2021-10-05] MEDS: cefepime 1,000 MG in sodium chloride 0.9% (plus) 50 ML 100 MG IV ×2 (05:07→15:49)
[2021-10-05 06:19] LABS: Basophils % 0.2 %; Hematocrit 28.1 % (37.0-47.0); Lymphocytes # 0.3 10^3/uL (0.8-4.8); Lymphocytes % 3.2 %; Mean Corpuscular Volume 96.9 fl (81-99); Mean Platelet Volume 11.3 fL (7.4-10.4); Monocytes # 0.2 10^3/uL (0.2-0.9); Neutrophils # 8.77 10^3/uL (1.8-7.7); Neutrophils % 91.4 %; Nucleated Red Blood Cells % 0.2 %; Platelet Count 182 10^3/cmm (130-400); Red Cell Distribution Width 14.2 % (12.1-15.1); White Blood Count 9.6 10^3/uL (4.0-10.0)
[2021-10-05] MEDS: valACYclovir 1,000 mg Tablet 500 MG PO (06:26)
[2021-10-05] MEDS: levothyroxine 200 mcg Tablet PO (06:26)
[2021-10-05] MEDS: atorvastatin 40 mg Tablet 20 MG PO (06:27)
[2021-10-05 06:42] LABS: Alanine Aminotransferase 34 U/L (0-33); Albumin Level 2.6 g/dL (3.5-5.2); Alkaline Phosphatase 90 IU/L (35-105); Anion Gap 10.6 (5-19); Aspartate Amino Transferase 46 U/L (0-32); Blood Urea Nitrogen 42 mg/dL (8-23); C Reactive Protein 124.5 mg/L (0.0-4.9); Carbon Dioxide 35 mmol/L (22-29); Chloride 104 mmol/L (98-107); Glomerular Filtration Rate 72.7 mL/min (90-130); Glucose 201 mg/dL (65-115); Magnesium 2.3 mg/dL (1.7-2.3); Osmolality Calculated 316 mOsm/kg (285-295); Potassium 4.6 mmol/L (3.5-5.1); Sodium 145 mmol/L (136-145); Total Bilirubin 0.6 mg/dL (0.15-1.2); Total Protein 5.6 g/dL (6.6-8.7)
[2021-10-05 06:47] LABS: NT Pro B Type Natriuretic Pept 556 pg/mL (0-125); Procalcitonin 0.12 ng/mL (0-0.5)
--- NOTE | 2021-10-05 07:37 | PC.NURSE ---
I reported the low 02 level to the nurse. 88%
[2021-10-05] MEDS: budesonide 0.5 mg/2 mL Neb INHALATION ×2 (08:39→19:31)
--- NOTE | 2021-10-05 09:01 | XR_ITS ---
WS: [id number] Portable AP upright chest, 10/05/2021 Clinical Data: sob Comparison: Portable chest, 10/04/2021 Findings: The bilateral pulmonary opacities remain the same. The heart is enlarged. Monitor leads on the chest wall. There is an anterior cervical disc fusion. XR/XR chest 1V portable [id number] Impression: No change in bilateral pulmonary opacities and cardiomegaly.
--- NOTE | 2021-10-05 09:01 | USCV_ITS ---
Indira Long Age: 61 Gender: F : 1960 Exam Date: 10/05/2021 10:15 Ordering Phys: El Hammer MD Technologist: Cassius Reynoso [place] [facility] [place] Indication: BLE SWELLING HISTORY: Lower extremity swelling. PROCEDURES: Venous duplex imaging was performed in bilateral lower extremities. The following venous structures were evaluated: common femoral vein, profunda vein, proximal portion of the greater saphenous vein, superficial femoral vein, and the popliteal vein. In addition, the posterior tibial and peroneal trunk were evaluated. Serial compression, augmentation maneuvers, and spectral Doppler flow evaluation were performed. FINDINGS: No evidence of DVT seen in any vessel visualized at this time. CONCLUSIONS No evidence of right lower extremity DVT. No evidence of left lower extremity DVT. Reji Campos MD (Electronically Signed) Final Date: 05 October 2021 13:35 S
[2021-10-05] MEDS: insulin lispro 100 unit/1 mL SUBCUT ×4 (09:15→21:52)
[2021-10-05] MEDS: nystatin 100,000 unit/mL UDC 5 mL 500000 UNIT PO ×4 (09:16→21:52)
[2021-10-05] MEDS: insulin glargine 100 units/1 mL 12 UNIT SUBCUT (09:16)
[2021-10-05] MEDS: pantoprazole DR 40 mg Tablet PO (09:16)
[2021-10-05] MEDS: aspirin 81 mg EC Tablet PO (09:16)
[2021-10-05] MEDS: buPROPion SR (12 HR) 150 mg Tablet PO ×2 (09:16→21:53)
[2021-10-05] MEDS: allopurinol 100 mg Tablet PO ×2 (09:16→17:32)
[2021-10-05 10:37] LABS: Glucose Point of Care 279 mg/dL (70-110)
[2021-10-05 11:43] LABS: Glucose Point of Care 301 mg/dL (70-110)
--- NOTE | 2021-10-05 15:04 | P.PN_ITS ---
Subjective Subjective: Interval history: Yesterday afternoon, patient had returned from CT scan, he is on 6 L, and she is noted to have oxygen saturations in the low 60s, she is immediately put on heated high flow, 40 L, 60%, I reexamined her in the afternoon she is alert oriented x3, denies any shortness of breath, denies any choking, no coughing, no lightheadedness, dizziness Patient was examined this morning, currently she is on 40 L 80%, she is alert oriented x3, follows all commands, continues to feel weak, but denies any shortness of breath, no lightheadedness, dizziness, no nausea, no vomiting, her neck pain and her neck swelling has gotten better according to her, she did have some low-grade fevers overnight she tells me Medications: Reviewed: Yes Vitals/I&O/Wt Last Vital Signs Temp 98.9 F 10/05/21 11:45 Pulse 111 H 10/05/21 14:05 Resp 24 H 10/05/21 14:05 BP 114/77 10/05/21 11:45 Pulse Ox 93 10/05/21 14:05 10/05/21 10/05/21 10/05/21 06:59 14:59 22:59 Intake Total 50 / 780 120 / 120 Output Total 625 / 2825 Balance -575 / -2045 120 / 120 Weight last 48 hrs Weight 78.018 kg Weight 80.002 kg Physical Exam Const: COMMON NORMALS: no acute distress and patient oriented x3 Neck/C-Spine: OTHER: Left neck swelling, extending posteriorly, with slight erythema, skin discoloration, extending posteriorly to cervical spine, measuring 10 cm long, 3 cm deep Resp: COMMON NORMALS: normal respiratory effort, No retractions, No use of accessory muscles and clear to auscultation bilaterally AUSCULTATION: clear to auscultation bilaterally Cardio: COMMON NORMALS: regular rate, regular rhythm, S1 normal heart sound present and S2 normal heart sound present RATE: regular rate RHYTHM: regular rhythm HEART SOUNDS: S1 normal heart sound present and S2 normal heart sound present GI: COMMON NORMALS: Normal to inspection, nondistended, normoactive bowel sounds present, Soft to palpation and non-tender PALPATION: Yes Soft to palpation Extremity: COMMON NORMALS: no pedal edema Neuro: COMMON NORMALS: patient oriented x3 Psych: COMMON NORMALS: mental status grossly normal Urinary Catheter Management^: Garcia: Cath Placed During This Visit: yes Reason for Continuing Indwelling Catheter: Other Urinary Catheter Date of Insertion: 09/26/21 Urinary Catheter Time of Insertion: 16:28 Data : 10/05/21 05:10 10/05/21 05:10 Micro: Microbiology 10/03/21 14:35 Fungal Smear - Preliminary Urine,Voided A&P Assessment and plan (1) Pulmonary embolism: Lovenox currently on hold, due to below Status: Acute Qualifiers: Pulmonary embolism type: unspecified Chronicity: acute Acute cor pulmonale presence: unspecified Qualified Code(s): I26.99 - Other pulmonary embolism without acute cor pulmonale (2) Febrile neutropenia: Resolved. Normal ANC Status: Acute (3) Multifocal pneumonia: Acute hypoxic respiratory failure secondary to multifocal pneumonia, COVID-19 pneumonia Oxygen requirements continues to increase, on 40 L 80% Covid PCR is positive MRSA PCR negative s/p Bronchoscopy performed 09/28. Gram stain demonstrated no organisms. Currently on cefepime for total 10 days, voriconazole has been stopped, continue valacyclovir for now Vancomycin discontinued 09/28 Currently on dexamethasone 6 mg IV every 24 hours. Completed 5 days of remdesivir. Intubated 09/28 and proning session 09/28 through 09/29 Extubated 10/02/2021 Currently on heated high flow 40 L 80% Repeat bilateral lower extremity ultrasound negative for DVT Is -5 L Speech swallow eval PT OT Currently on general medical floors Appreciate infectious disease consultation. Multiple studies pending including galactomannan, pneumocystis Continues to display increased oxygen requirements, Status: Acute (4) Hematoma of neck: -Right central line placement CT of the neck shows 3. Extensive hematoma extending from the thoracic inlet to the mastoid skull base deep to the sternocleidomastoid. Surrounding inflammatory stranding and edema. Associated compression of the adjacent jugular vein. 4. No drainable abscess or fluid collection. 5. No critical airway impingement. Mild left to right mass effect on the subglottic airway at the thoracic inlet. -Currently denies any shortness of breath, on 6 L, -Hemoglobin stable at 9.0 on heated high flow -We will hold Lovenox -Continue to monitor clinical site -Monitor for fevers, monitor for abscess -On cefepime as above Status: Acute (5) Pneumomediastinum: -Seen on CT of the neck, avoid positive pressure ventilation, serial chest x-rays, currently medically managing Status: Acute (6) Acute respiratory failure with hypoxia: Status: Acute (7) COVID-19: Status: Acute (8) Sepsis: Status: Acute Additional A&P Information d/c levaquin and voriconzole CT with diffuse GGOs no focal consolidation pending serologies, PJP w/up Attestations Medical Necessity Statement*: Requires hospitalization for acute respiratory failure, multifocal pneumonia Coding Level of Care Code Acute Reporting Lead for [facility] Fwd Diagnoses Pulmonary embolism I26.99 Pulmonary embolism type: unspecified Chronicity: acute Acute cor pulmonale presence: unspecified Febrile neutropenia D70.9; R50.81 Multifocal pneumonia J18.9 Hematoma of neck S10.93XA Pneumomediastinum J98.2 Acute respiratory failure with hypoxia J96.01 COVID-19 U07.1 Sepsis A41.9
[2021-10-05 16:58] LABS: Glucose Point of Care 156 mg/dL (70-110)
[2021-10-05] MEDS: liothyronine 5 mcg Tablet PO (17:29)
[2021-10-05] MEDS: dexamethasone 4 mg/mL INJ 6 MG IVP (17:32)
[2021-10-05 19:53] LABS: Aspergillus AG,EIA DETECTED; Aspergillus AG,EIA, Index 0.52
--- NOTE | 2021-10-05 21:22 | PC.NURSE ---
i reported high pulse 110 and low 02 89 to nurse
[2021-10-05 21:48] LABS: Glucose Point of Care 336 mg/dL (70-110)
[2021-10-05] MEDS: insulin glargine 100 units/1 mL 15 UNIT SUBCUT (21:52)
[2021-10-05] MEDS: tizanidine 4 mg Tablet PO (21:53)
[2021-10-05] MEDS: gabapentin 400 mg Capsule PO (21:53)
[2021-10-05] MEDS: trazodone 100 mg Tablet PO (21:53)
[2021-10-06] VITALS (72 sets, daily range): BP systolic 56–152; BP diastolic 37–89; PULSE 67–186; RESP 16–50; TEMP 36.9–38.6; O2SAT 81–100; BMI 30.4
--- NOTE | 2021-10-06 00:56 | PC.NURSE ---
i reported low o2 89 to nurse
[2021-10-06] MEDS: cefepime 1,000 MG in sodium chloride 0.9% (plus) 50 ML 100 MG IV (04:04)
--- NOTE | 2021-10-06 04:10 | PC.NURSE ---
i reported low 02 to nurse 89
[2021-10-06 05:02] LABS: ABG PCO2 41.7 mmHg (35-45); Arterial Blood Gas Hematocrit 35.6 % (37-47); Base Excess ABG 12.4 mmol/L (-2.0-2.0); Blood Gas Allen Test Pos; Blood Gas Sample Site Radial, right; Blood Gas Sample Type Arterial; HCO3 ABG 36.1 mmol/L (22-26); PO2 ABG 45.4 mmHg (80.0-100.0)
[2021-10-06] MEDS: levalbuterol 0.63 mg/3 mL Neb INHALATION (05:41)
[2021-10-06] MEDS: valACYclovir 1,000 mg Tablet 500 MG PO (06:05)
[2021-10-06] MEDS: atorvastatin 40 mg Tablet 20 MG PO (06:05)
[2021-10-06] MEDS: levothyroxine 200 mcg Tablet PO (06:05)
[2021-10-06 06:25] LABS: Basophils % 0.2 %; Hematocrit 28.8 % (37.0-47.0); Hemoglobin 9.1 g/dL (11.5-15.3); Lymphocytes # 0.3 10^3/uL (0.8-4.8); Lymphocytes % 2.4 %; Mean Corpuscular HGB Conc 31.6 g/dL (30.0-36.0); Mean Corpuscular Hemoglobin 30.8 pg (28.0-34.0); Mean Corpuscular Volume 97.6 fl (81-99); Monocytes # 0.2 10^3/uL (0.2-0.9); Monocytes % 1.2 %; Neutrophils # 12.27 10^3/uL (1.8-7.7); Nucleated Red Blood Cells % 0 %; Platelet Count 182 10^3/cmm (130-400); Red Blood Count 2.95 10^6/uL (4.1-5.3); Red Cell Distribution Width 14.3 % (12.1-15.1); White Blood Count 13.1 10^3/uL (4.0-10.0)
[2021-10-06 06:32] LABS: Glucose Point of Care 223 mg/dL (70-110)
[2021-10-06 06:42] LABS: Lactate (Lactic Acid level) 1.5 mmol/L (0.5-2.2)
[2021-10-06 06:51] LABS: INR 1.25 (0.8-1.2)
[2021-10-06 06:58] LABS: NT Pro B Type Natriuretic Pept 760 pg/mL (0-125); Procalcitonin 0.12 ng/mL (0-0.5)
--- NOTE | 2021-10-06 07:00 | XR_ITS ---
WS: [id number] PORTABLE CHEST HISTORY: sob COMPARISON: 10/05/2021 Diffuse scattered opacifications throughout both lungs. Mild progression in the areas of consolidatio n since the prior study. No pneumothorax. No pleural effusion or pneumothorax. Cardiac size: Normal. Mediastinum/Aorta: Normal mediastinum. Prior anterior cervical fusion. Prior cholecystectomy. XR/XR chest 1V portable [id number] IMPRESSION: Mild progression of diffuse bilateral pulmonary opacifications from pneumonia.
[2021-10-06 07:10] LABS: Alanine Aminotransferase 38 U/L (0-33); Albumin Level 2.7 g/dL (3.5-5.2); Alkaline Phosphatase 131 IU/L (35-105); Anion Gap 14.3 (5-19); Aspartate Amino Transferase 74 U/L (0-32); Blood Urea Nitrogen 35 mg/dL (8-23); C Reactive Protein 123.5 mg/L (0.0-4.9); Calcium 9.8 mg/dL (8.5-10.5); Carbon Dioxide 31 mmol/L (22-29); Chloride 101 mmol/L (98-107); Creatine Phosphokinase 106 U/L (26-192); Glomerular Filtration Rate 84.8 mL/min (90-130); Glucose 203 mg/dL (65-115); Magnesium 2.1 mg/dL (1.7-2.3); Osmolality Calculated 308 mOsm/kg (285-295); Phosphorus 3.3 mg/dL (2.5-4.5); Potassium 4.3 mmol/L (3.5-5.1); Sodium 142 mmol/L (136-145); Total Bilirubin 0.7 mg/dL (0.15-1.2); Total Protein 5.7 g/dL (6.6-8.7)
[2021-10-06] MEDS: insulin glargine 100 units/1 mL 15 UNIT SUBCUT ×2 (08:27→20:23)
[2021-10-06] MEDS: allopurinol 100 mg Tablet PO ×2 (08:28→18:04)
[2021-10-06] MEDS: nystatin 100,000 unit/mL UDC 5 mL 500000 UNIT PO ×4 (08:28→20:16)
[2021-10-06] MEDS: aspirin 81 mg EC Tablet PO (08:28)
[2021-10-06] MEDS: buPROPion SR (12 HR) 150 mg Tablet PO ×2 (08:28→22:56)
[2021-10-06] MEDS: pantoprazole DR 40 mg Tablet PO (08:28)
[2021-10-06] MEDS: insulin lispro 100 unit/1 mL SUBCUT ×4 (08:28→20:23)
[2021-10-06] MEDS: liothyronine 5 mcg Tablet PO ×2 (08:29→19:08)
[2021-10-06] MEDS: budesonide 0.5 mg/2 mL Neb INHALATION (08:50)
[2021-10-06 11:18] LABS: Glucose Point of Care 250 mg/dL (70-110)
[2021-10-06] MEDS: HYDROcodone-acetaminophen 5-325 mg Tablet 1 TAB PO (12:58)
[2021-10-06] MEDS: vancomycin 1,250 MG/250 ML PIGGYBACK 250 MG IV (14:50)
[2021-10-06] MEDS: FUROsemide 10 mg/mL SDV 4mL 40 MG IVP (15:37)
[2021-10-06 16:26] LABS: ABG PCO2 38.8 mmHg (35-45); ABG PH Result 7.53 (7.35-7.45); Arterial Blood Gas Hematocrit 28.5 % (37-47); Base Excess ABG 9.1 mmol/L (-2.0-2.0); Blood Gas Allen Test Pos; Blood Gas Sample Type Arterial; HCO3 ABG 32.5 mmol/L (22-26)
[2021-10-06 16:27] LABS: Blood Gas Operator Identificat MONRO; Blood Gas Sample Site Radial, right; Oxygen Device HAG
[2021-10-06 16:38] LABS: Partial Thromboplastin Time 29.5 SECONDS (23.9-36.7)
--- NOTE | 2021-10-06 17:52 | PC.NURSE ---
Spoke with about heparin and orders received not to give heparin bolus, just start drip.
[2021-10-06] MEDS: dexamethasone 4 mg/mL INJ 6 MG IVP (18:03)
[2021-10-06] MEDS: heparin drip 25,000 UNIT/500 ML PREMIX 34.33 UNIT IV (18:11)
[2021-10-06 18:18] LABS: Glucose Point of Care 266 mg/dL (70-110)
--- NOTE | 2021-10-06 18:34 | PC.NURSE ---
1718 PT arrived from [place] with RN and RT at bedside. Connected to ICU monitor. AAOx4, makes all needs known. B PIV, c/o pain to R PIV, removed. Heparin and imipinem compatible. Both gtts started per orders. Garcia cath draining freely. Will monitor.
--- NOTE | 2021-10-06 18:39 | ECG_ITS ---
[facility] Test Date: 2021-10-06 Pat Name: Indira Long Department: Room: [facility] Gender: Female Distribution Operation Supervisor: : 1960 Requested By: El Hammer Order Number: [id number] Eros MD: MART SMILEY Measurements Intervals [place] Rate: 160 P: HI: QRS: 52 QRSD: 85 T: -60 QT: 277 QTc: 452 Interpretive Statements ATRIAL FIBRILLATION WITH RAPID VENTRICULAR RESPONSE WITH ABERRANT CONDUCTION OR VENTRICULAR PREMATURE COMPLEXES NONSPECIFIC ST & T-WAVE ABNORMALITY CRITICAL TEST RESULT Compared to ECG 09/25/2021 15:48:40 Ventricular premature complex(es) now present Aberrant conduction of supraventricular beat(s) now present Sinus rhythm no longer present T-wave abnormality still present Electronically Signed On 10-06-2021 23:56:36 CDT by MART SMILEY [id number]
--- NOTE | 2021-10-06 18:52 | PC.NURSE ---
notified Dr. Hammer of tachycardia. EKG performed Afib with RVR. Notified dr. Hammer
--- NOTE | 2021-10-06 19:04 | PC.NURSE ---
Report given to Shira RIVERA.
--- NOTE | 2021-10-06 19:07 | P.PN_ITS ---
Subjective Subjective: Interval history: Patient was seen multiple times throughout the morning, she continues to complain of shortness of breath at rest, fatigue, malaise, she tells me that she is too tired to sit up in a chair, no nausea, no vomiting, Throughout the afternoon, patient's oxygen requirements increasing, her oxygen saturations were in the low 60s to 70s at times, her telemetry monitoring had shown sinus tachycardia heart rates in the 130s, turned up to 40 L, 80% by the early afternoon I discussed my concern for increasing clinical worsening, increasing oxygen requirements, she is agreeable to ICU admission, I discussed her CODE STATUS, she tells me that she is not sure, she is wants to think on it, but for now she is okay with full code, I advised patient that if anytime she changes her mind, she will should tell us Patient will be moved down to the ICU In the ICU, patient was known to be A. fib with RVR, heart rates in the 160s, started on the Cardizem drip Vitals/I&O/Wt Last Vital Signs Temp 98.5 F 10/06/21 16:00 Pulse 120 H 10/06/21 17:50 Resp 18 10/06/21 17:50 BP 125/74 10/06/21 16:00 Pulse Ox 93 10/06/21 17:50 10/06/21 10/06/21 10/06/21 06:59 14:59 22:59 Intake Total 390 / 1080 820 / 820 370 / 1190 Output Total 1000 / 1000 2049 / 2049 Balance -610 / 80 820 / 820 -1680 / -860 Weight last 48 hrs Weight 78.018 kg Weight 78.018 kg Physical Exam Const: COMMON NORMALS: no acute distress ORIENTATION/CONSCIOUSNESS: Yes awake, Yes oriented to person, Yes oriented to place and Yes oriented to time Neck/C-Spine: OTHER: Left neck swelling, extending posteriorly, with slight erythema, skin discoloration, extending posteriorly to cervical spine, measuring 10 cm long, 3 cm deep Resp: COMMON NORMALS: normal respiratory effort, No retractions and No use of accessory muscles AUSCULTATION: crackles Cardio: COMMON NORMALS: regular rhythm, S1 normal heart sound present and S2 normal heart sound present RATE: tachycardic RHYTHM: regular rhythm HEART SOUNDS: S1 normal heart sound present and S2 normal heart sound present GI: COMMON NORMALS: Normal to inspection, nondistended, normoactive bowel sounds present, Soft to palpation and non-tender PALPATION: Yes Soft to palpation Extremity: COMMON NORMALS: no pedal edema Neuro: SENSORIUM/ORIENTATION: Yes oriented to person, Yes oriented to place and Yes oriented to time Urinary Catheter Management^: Garcia: Cath Placed During This Visit: yes Reason for Continuing Indwelling Catheter: Accurate Measurement of Urinary Output in Critically Ill Patients Urinary Catheter Date of Insertion: 09/26/21 Urinary Catheter Time of Insertion: 16:28 Data : 10/06/21 05:54 10/06/21 05:54 A&P Assessment and plan (1) Pulmonary embolism: Neck swelling has been stable for the last 72 hours, start heparin drip Status: Acute Qualifiers: Pulmonary embolism type: unspecified Chronicity: acute Acute cor pulmonale presence: unspecified Qualified Code(s): I26.99 - Other pulmonary embolism without acute cor pulmonale (2) Febrile neutropenia: Resolved. Normal ANC Status: Acute (3) Multifocal pneumonia: Acute hypoxic respiratory failure secondary to multifocal pneumonia, COVID-19 pneumonia Oxygen requirements continues to increase, on 40 L 90% Covid PCR is positive MRSA PCR negative s/p Bronchoscopy performed 09/28. Gram stain demonstrated no organisms. Currently on cefepime for total 10 days, voriconazole has been stopped, continue valacyclovir for now Resume vancomycin, Primaxin Currently on dexamethasone 6 mg IV every 24 hours. Completed 5 days of remdesivir. Intubated 09/28 and proning session 09/28 through 09/29 Extubated 10/02/2021 Repeat bilateral lower extremity ultrasound negative for DVT Is -5 L Speech swallow eval PT OT Will moved to ICU Appreciate infectious disease consultation. Multiple studies pending including galactomannan, pneumocystis Continues to display increased oxygen requirements, Status: Acute (4) Hematoma of neck: -Right central line placement CT of the neck shows 3. Extensive hematoma extending from the thoracic inlet to the mastoid skull base deep to the sternocleidomastoid. Surrounding inflammatory stranding and edema. Associated compression of the adjacent jugular vein. 4. No drainable abscess or fluid collection. 5. No critical airway impingement. Mild left to right mass effect on the subglottic airway at the thoracic inlet. -Currently denies any shortness of breath, on 6 L, -Hemoglobin stable at 9.0 on heated high flow -Resume heparin drip, continue to monitor closely -Continue to monitor clinical site -Monitor for fevers, monitor for abscess -On antibiotics as above Status: Acute (5) Pneumomediastinum: -Seen on CT of the neck, avoid positive pressure ventilation, serial chest x-rays, currently medically managing -Had evidence of pneumomediastinum, repeat chest x-rays no evidence of pneumothorax or pneumomediastinum Status: Acute (6) Acute respiratory failure with hypoxia: Status: Acute (7) COVID-19: Status: Acute (8) Sepsis: Status: Acute (9) Atrial fibrillation with RVR: -We will start on Cardizem drip, continue heparin drip as above Status: Acute Additional A&P Information d/c levaquin and voriconzole CT with diffuse GGOs no focal consolidation pending serologies, PJP w/up Attestations Medical Necessity Statement*: Patient requires hospitalization for pulmonary embolism, acute respiratory failure, neck hematoma, A. fib with RVR Coding Level of Care Code Acute Dimension [employer]ar[employer] Supervisor for Chg Fwd Diagnoses Pulmonary embolism I26.99 Pulmonary embolism type: unspecified Chronicity: acute Acute cor pulmonale presence: unspecified Febrile neutropenia D70.9; R50.81 Multifocal pneumonia J18.9 Hematoma of neck S10.93XA Pneumomediastinum J98.2 Acute respiratory failure with hypoxia J96.01 COVID-19 U07.1 Sepsis A41.9 Atrial fibrillation with RVR I48.91
[2021-10-06] MEDS: metoprolol tartrate 1 mg/1 mL SDV 5 mL 5 MG IVP (19:08)
[2021-10-06] MEDS: gabapentin 400 mg Capsule PO (20:16)
[2021-10-06] MEDS: tizanidine 4 mg Tablet PO (20:16)
[2021-10-06] MEDS: trazodone 100 mg Tablet PO (20:16)
[2021-10-06 20:21] LABS: Glucose Point of Care 250 mg/dL (70-110)
[2021-10-06] MEDS: acetaminophen 325 mg Tablet 650 MG PO (20:23)
--- NOTE | 2021-10-06 20:49 | PC.NURSE ---
During shift report AM RN notified RN that patient was in afib RVR. Patient was to receive 5mg metoprolol IV once and then start a Cardizem gtt. Medication given and Cardizem started. Heart rate noted to decrease to 140's with oxygen staying low 90's. Patient oriented during assessment, noted to febrile, but comfortable. Upon reassessment at approximately 2030, patient noted to be tachycardic in the 170's with cardizem gtt maxed at 15 mg/hr. Patient noted to be confused, diaphoretic, and states I feel like I am going to . BP stable with oxygen sats staying at low 90's on HFNC 50L/90%. Dr. Souza notifed; waiting for new orders. Will continue to monitor.
[2021-10-06 21:09] LABS: ABG PCO2 38.4 mmHg (35-45); Arterial Blood Gas Hematocrit 31.8 % (37-47); Base Excess ABG 12.7 mmol/L (-2.0-2.0); Blood Gas Allen Test Pos; Blood Gas Sample Type Arterial; Carboxyhemoglobin 1.2 %THgb (0.4-20.1); HCO3 ABG 35.7 mmol/L (22-26); HGB O2 Sat 89.5 % (95-100); Ionized Calcium Level - ABG 1.3 mmol/L (1.1-1.4); Methemoglobin 0.6 % (0.4-1.5); Oxygen Saturation ABG 91.1; PO2 ABG 55.9 mmHg (80.0-100.0); Potassium Level - ABG 3.9 mmol/L (3.5-5.0); Total Hemoglobin 10.4 g/dL (12-16)
[2021-10-06 21:10] LABS: Oxygen Device HHFNC
[2021-10-06 21:10] LABS: Alveolar-Arterial Oxygen Gradi 70.6 mmHg (5-10); Blood Gas Sample Site Radial, right
[2021-10-06 21:13] LABS: ABG PH Result 7.58 (7.35-7.45)
[2021-10-06 21:22] LABS: ABG PH Result 7.55 (7.35-7.45)
[2021-10-06] MEDS: morphine 4 mg/mL SDV 1 mL 2 MG IVP (21:23)
--- NOTE | 2021-10-06 23:03 | PC.NURSE ---
At approximately 2100 patient heart rate and BP started to trend down. Cardizem gtt titrated appropriately; at approximately 2130 Cardizem titrated off. Upon retaking BP, BP noted to be in the 60's systolic with HR sustaining around 100-120. Dr. Souza notified, orders to call back in 30 minutes with a new set of vitals and to not start pressors at this time r/t tachycardia. Patient BP continued to trend with systolic in the 60's, RN to trendelenburg patient, and RT at bedside for respiratory support. After 30 minutes attempted to call physician 4 times. Physician called back to ICU and update given. Orders to turn Bipap to 10/5, and orders for levophed given. Will continue to monitor.
[2021-10-07] VITALS (109 sets, daily range): BP systolic 65–158; BP diastolic 37–87; PULSE 55–142; RESP 16–43; TEMP 36.7–38.3; O2SAT 81–98
[2021-10-07 00:28] LABS: Partial Thromboplastin Time 72.5 SECONDS (23.9-36.7)
[2021-10-07] MEDS: vancomycin 1,250 MG/250 ML PIGGYBACK 250 MG IV ×2 (02:10→14:38)
[2021-10-07 04:30] LABS: ABG PCO2 48.8 mmHg (35-45); ABG PH Result 7.45 (7.35-7.45); Arterial Blood Gas Hematocrit 30.5 % (37-47); Base Excess ABG 8.7 mmol/L (-2.0-2.0); Blood Gas Allen Test Pos; Blood Gas Sample Site Radial, right; Blood Gas Sample Type Arterial; HCO3 ABG 33.8 mmol/L (22-26); Oxygen Device BIPAP; PO2 ABG 68.9 mmHg (80.0-100.0)
[2021-10-07 05:29] LABS: Basophils % 0.1 %; Hematocrit 27.7 % (37.0-47.0); Hemoglobin 8.7 g/dL (11.5-15.3); Lymphocytes # 0.3 10^3/uL (0.8-4.8); Lymphocytes % 1.7 %; Mean Corpuscular HGB Conc 31.4 g/dL (30.0-36.0); Mean Corpuscular Hemoglobin 31.2 pg (28.0-34.0); Mean Corpuscular Volume 99.3 fl (81-99); Mean Platelet Volume 11.5 fL (7.4-10.4); Monocytes # 0.2 10^3/uL (0.2-0.9); Monocytes % 1.1 %; Neutrophils # 15.47 10^3/uL (1.8-7.7); Neutrophils % 94.8 %; Nucleated Red Blood Cells % 0 %; Platelet Count 144 10^3/cmm (130-400); Red Blood Count 2.79 10^6/uL (4.1-5.3); Red Cell Distribution Width 14.2 % (12.1-15.1); White Blood Count 16.3 10^3/uL (4.0-10.0)
[2021-10-07 05:53] LABS: Lactate (Lactic Acid level) 1.3 mmol/L (0.5-2.2)
[2021-10-07 06:04] LABS: Procalcitonin 0.29 ng/mL (0-0.5)
[2021-10-07 06:05] LABS: INR 1.45 (0.8-1.2)
[2021-10-07] MEDS: atorvastatin 40 mg Tablet 20 MG PO (06:14)
[2021-10-07] MEDS: HYDROcodone-acetaminophen 5-325 mg Tablet 1 TAB PO ×2 (06:14→17:41)
[2021-10-07] MEDS: levothyroxine 200 mcg Tablet PO (06:14)
[2021-10-07] MEDS: valACYclovir 1,000 mg Tablet 500 MG PO (06:14)
[2021-10-07 06:17] LABS: Alanine Aminotransferase 159 U/L (0-33); Albumin Level 2.4 g/dL (3.5-5.2); Alkaline Phosphatase 205 IU/L (35-105); Anion Gap 15.3 (5-19); Aspartate Amino Transferase 204 U/L (0-32); Blood Urea Nitrogen 33 mg/dL (8-23); C Reactive Protein 190.2 mg/L (0.0-4.9); Calcium 9.1 mg/dL (8.5-10.5); Carbon Dioxide 29 mmol/L (22-29); Chloride 95 mmol/L (98-107); Creatine Phosphokinase 77 U/L (26-192); Glomerular Filtration Rate 72.7 mL/min (90-130); Glucose 194 mg/dL (65-115); Osmolality Calculated 293 mOsm/kg (285-295); Phosphorus 4.2 mg/dL (2.5-4.5); Potassium 4.3 mmol/L (3.5-5.1); Sodium 135 mmol/L (136-145); Total Bilirubin 1.3 mg/dL (0.15-1.2); Total Protein 5.4 g/dL (6.6-8.7)
[2021-10-07 06:52] LABS: NT Pro B Type Natriuretic Pept 1786 pg/mL (0-125)
--- NOTE | 2021-10-07 07:00 | XRR_ITS ---
PROCEDURE INFORMATION: Exam: XR Chest Exam date and time: 10/07/2021 7:00 AM Age: 61 years old Clinical indication: Shortness of breath; Patient HX: Covid; Additional info: SOB TECHNIQUE: Imaging protocol: XR of the chest. Views: 1 view. Total images: 1 COMPARISON: CR XR chest 1V portable [id number] 10/06/2021 6:18 AM FINDINGS: Lungs: Pulmonary vascular congestion. Bilateral pulmonary opacities are again noted and appear unchanged. Pleural spaces: Unremarkable. No pleural effusion. No pneumothorax. Heart/Mediastinum: Cardiomegaly. Bones/joints: Spinal fusion hardware noted. Osseous structures are unchanged from the prior exam. XR/XR chest 1V portable [id number] IMPRESSION: 1. Cardiomegaly with pulmonary vascular congestion. 2. Bilateral pulmonary opacities are again noted and appear unchanged. Radiation Dose CTDIVOL = (mGy): DLP = (mGy-cm)
[2021-10-07 07:18] LABS: Glucose Point of Care 207 mg/dL (70-110)
[2021-10-07] MEDS: insulin lispro 100 unit/1 mL SUBCUT ×3 (08:08→20:09)
[2021-10-07] MEDS: insulin glargine 100 units/1 mL 15 UNIT SUBCUT (08:09)
[2021-10-07] MEDS: liothyronine 5 mcg Tablet PO ×2 (08:10→17:30)
[2021-10-07] MEDS: nystatin 100,000 unit/mL UDC 5 mL 500000 UNIT PO ×4 (08:10→20:05)
[2021-10-07] MEDS: pantoprazole DR 40 mg Tablet PO (08:10)
[2021-10-07] MEDS: aspirin 81 mg EC Tablet PO (08:10)
[2021-10-07] MEDS: buPROPion SR (12 HR) 150 mg Tablet PO ×2 (08:10→20:10)
[2021-10-07] MEDS: allopurinol 100 mg Tablet PO ×2 (08:10→17:28)
[2021-10-07] MEDS: FUROsemide 10 mg/mL SDV 4mL 40 MG IVP ×2 (08:55→16:18)
[2021-10-07] MEDS: dilTIAZem 60 mg Tablet PO ×3 (09:41→21:41)
[2021-10-07] MEDS: acetaminophen 325 mg Tablet 650 MG PO ×3 (10:33→21:41)
[2021-10-07 11:29] LABS: Glucose Point of Care 139 mg/dL (70-110)
[2021-10-07 13:01] LABS: Hematocrit 26.2 % (37.0-47.0); Hemoglobin 8.6 g/dL (11.5-15.3)
--- NOTE | 2021-10-07 13:55 | PM.PN ---
Subjective Subjective: Interval history: Patient was seen this morning, she is currently in bed, she tells that she is too weak this morning, she had used BiPAP throughout the night, currently on BiPAP, did have hypotensive episodes throughout the night, was put on Levophed, currently she is alert oriented x3, she also had episodes of A. fib with RVR in the afternoon, put on a Cardizem drip, currently heart rates are in the 90s, atrial fibrillation, on Cardizem, febrile throughout the last 24 hours, follows all commands, I discussed my concerns for her worsening respiratory status, I advised her that she is at high risk of intubation in the next 12 to 24 hours, likely if she is intubated she will require a tracheostomy, PEG tube, and placement to a long-term care facility, I discussed that I will do my best to try to avoid intubation, however given how her oxygen requirements are continually increasing, she continues to have complaints of shortness of breath, poor appetite, malaise, she is a high risk of intubation. After discussing the risks and benefits she voiced understanding, all questions answered, agreed to full code, agreed to intubation, agreed to tracheostomy and PEG tube if required. Vitals/I&O/Wt Last Vital Signs Temp 100.0 F H 10/07/21 12:00 Pulse 91 10/07/21 12:00 Resp 20 H 10/07/21 12:00 BP 89/46 10/07/21 12:00 Pulse Ox 95 10/07/21 12:00 10/06/21 10/07/21 10/07/21 22:59 06:59 14:59 Intake Total 474.25 / 1294.25 748.425 / 2042.675 513.917 / 513.917 Output Total 2049 / 2049 750 / 2800 850 / 850 Balance -1575.75 / -755.75 -1.575 / -757.325 -336.083 / -336.083 Weight last 48 hrs Weight 77.564 kg Weight 78.018 kg Physical Exam Const: COMMON NORMALS: no acute distress and patient oriented x3 GENERAL APPEARANCE: ill appearing and frail appearing Neck/C-Spine: OTHER: Left neck swelling, extending posteriorly, with slight erythema, skin discoloration, extending posteriorly to cervical spine, measuring 10 cm long, 3 cm deep Resp: COMMON NORMALS: normal respiratory effort, No retractions and No use of accessory muscles AUSCULTATION: crackles and wheezes Cardio: COMMON NORMALS: regular rate, S1 normal heart sound present and S2 normal heart sound present RATE: regular rate RHYTHM: abnormal rhythm irregularly irregular HEART SOUNDS: S1 normal heart sound present and S2 normal heart sound present GI: COMMON NORMALS: Normal to inspection, nondistended, normoactive bowel sounds present, Soft to palpation and non-tender PALPATION: Yes Soft to palpation Extremity: COMMON NORMALS: no pedal edema Neuro: COMMON NORMALS: patient oriented x3 Psych: COMMON NORMALS: mental status grossly normal Urinary Catheter Management^: Garcia: Cath Placed During This Visit: yes Reason for Continuing Indwelling Catheter: Accurate Measurement of Urinary Output in Critically Ill Patients Urinary Catheter Date of Insertion: 09/26/21 Urinary Catheter Time of Insertion: 16:28 Data : 10/07/21 12:53 10/07/21 04:55 A&P Assessment and plan (1) Pulmonary embolism: Neck swelling has been stable for the last 72 hours, continue heparin drip Status: Acute Qualifiers: Pulmonary embolism type: unspecified Chronicity: acute Acute cor pulmonale presence: unspecified Qualified Code(s): I26.99 - Other pulmonary embolism without acute cor pulmonale (2) Febrile neutropenia: Resolved. Normal ANC Status: Acute (3) Multifocal pneumonia: Acute hypoxic respiratory failure secondary to multifocal pneumonia, COVID-19 pneumonia, -With acute respiratory distress syndrome -With septic shock -With A. fib with RVR -Oxygen requirements continues to increase, on 50 L, 100% Covid PCR is positive MRSA PCR negative s/p Bronchoscopy performed 09/28. Gram stain demonstrated no organisms. Aspergillus bronchiolar lavage 0.52, detected Intubated 09/28 and proning session 09/28 through 09/29 Extubated 10/02/2021 Repeat bilateral lower extremity ultrasound negative for DVT Is -6 L Speech swallow eval Repeat CT of the chest 1. Diffuse hazy bilateral groundglass infiltrates have progressed compared to previous. Recommend correlation for pneumonia. Consider COVID 19 pneumonia. 2. No focal consolidation or pleural fluid 3. Improved anterior mediastinal and hilar lymphadenopathy likely reactive. Repeat venous ultrasound negative for DVT Plan: -Given worsening respiratory status yesterday was moved to the intensive care unit -Currently on heated high flow 50 L 100% -Try to avoid BiPAP given history of pneumomediastinum, no repeat pneumomediastinum on chest x-rays -Patient is agreeable to elective intubation, tracheostomy, PEG tube if required -High risk of intubation in the next 24 hours -PICC line to be placed -Levophed as needed, maintain MAP greater than 65 -Midodrine 10 mg every 6 hours -We will give another dose of Lasix today with albumin -Continue vancomycin, Primaxin -We will add azithromycin -Given positive Aspergillus, febrile, worsening respiratory status will discuss with infectious disease about starting amphotericin B -Currently on dexamethasone 6 mg IV every 24 hours. -Completed 5 days of remdesivir -Budesonide, ipratropium -Glargine increased 20 units daily, high-dose insulin sliding scale -Heparin drip for atrial fibrillation, pulmonary embolism -Continue Cardizem drip, transition on drip, will add p.o. Cardizem -Full code -Heparin for DVT prophylaxis Status: Acute (4) Hematoma of neck: -Right central line placement CT of the neck shows 3. Extensive hematoma extending from the thoracic inlet to the mastoid skull base deep to the sternocleidomastoid. Surrounding inflammatory stranding and edema. Associated compression of the adjacent jugular vein. 4. No drainable abscess or fluid collection. 5. No critical airway impingement. Mild left to right mass effect on the subglottic airway at the thoracic inlet. -Currently denies any shortness of breath, on 6 L, -Hemoglobin stable at 9.0 on heated high flow -Resume heparin drip, continue to monitor closely -Continue to monitor clinical site -Monitor for fevers, monitor for abscess -On antibiotics as above Status: Acute (5) Pneumomediastinum: -Seen on CT of the neck, avoid positive pressure ventilation, serial chest x-rays, currently medically managing -Had evidence of pneumomediastinum, repeat chest x-rays no evidence of pneumothorax or pneumomediastinum Status: Acute (6) Acute respiratory failure with hypoxia: Status: Acute (7) COVID-19: Status: Acute (8) Sepsis: Status: Acute (9) Atrial fibrillation with RVR: -We will start on Cardizem drip, continue heparin drip as above Status: Acute (10) Septic shock: Status: Acute (11) Acute respiratory distress syndrome (ARDS) due to 2019 novel coronavirus: Status: Acute Attestations Medical Necessity Statement*: Patient requires hospitalization for acute respiratory failure sec to COVID-19, concerns for fungal pneumonia, worsening respiratory distress, sepsis, septic shock Coding Level of Care Code Acute Insights Strategist for g Fwd Diagnoses Pulmonary embolism I26.99 Pulmonary embolism type: unspecified Chronicity: acute Acute cor pulmonale presence: unspecified Febrile neutropenia D70.9; R50.81 Multifocal pneumonia J18.9 Hematoma of neck S10.93XA Pneumomediastinum J98.2 Acute respiratory failure with hypoxia J96.01 COVID-19 U07.1 Sepsis A41.9 Atrial fibrillation with RVR I48.91 Septic shock A41.9; R65.21 Acute respiratory distress syndrome (ARDS) due to 2019 novel coronavirus U07.1; J80
[2021-10-07] MEDS: budesonide 0.5 mg/2 mL Neb INHALATION ×2 (13:56→19:36)
[2021-10-07] MEDS: levalbuterol 0.63 mg/3 mL Neb INHALATION ×2 (13:56→21:12)
[2021-10-07 14:19] LABS: Vancomycin Trough 16.2 ug/mL (10-15)
[2021-10-07] MEDS: midodrine 5 mg TABLET 10 MG PO ×2 (14:39→20:07)
[2021-10-07] MEDS: azithromycin 500 MG in sodium chloride 0.9% 250 ML 250 MG IV (15:48)
[2021-10-07] MEDS: heparin drip 25,000 UNIT/500 ML PREMIX 31.21 UNIT IV (15:50)
[2021-10-07 17:06] LABS: Glucose Point of Care 206 mg/dL (70-110)
[2021-10-07] MEDS: dexamethasone 4 mg/mL INJ 6 MG IVP (17:27)
--- NOTE | 2021-10-07 17:56 | PC.NURSE ---
Shift Note Frequent safety and comfort rounds continue. Orders and/or nursing care completed as indicated. Patient monitored for response to intervention and treatment(s). Education provided includes treatment plan, medications, oxygen use and venous access. Pt and verbalize understanding. Pt up to chair per RN, student nurse and RT. O2 had to be increased to 100%, pt did fair during exercises. O2 sats stayed in low to mid 80's. After getting to chair, o2 sat increased to mid to upper 80's. Pt returned to bed per same staff after approx 1 hour d/t decreasing sats. Sats improved once pt settled into bed. New PIV placed while waiting for PICC placement to infuse several new orders. Pt and aware of her condition and the possibility of intubation in near future. aware of clinical situation. HFNC at 50L/100%. Garcia cath draining freely to BSD. Will continue to monitor.
--- NOTE | 2021-10-07 18:16 | XRR_ITS ---
PROCEDURE INFORMATION: Exam: XR Chest Exam date and time: 10/07/2021 6:16 PM Age: 61 years old Clinical indication: Device placement; Picc; Additional info: Picc placement TECHNIQUE: Imaging protocol: XR of the chest. Views: 1 view. Total images: 1 COMPARISON: CR (CHEST, ) 10/07/2021 5:49 AM FINDINGS: Tubes, catheters and devices: Right-sided PICC tip is appropriately positioned. Lungs: Pulmonary vascular congestion. Bilateral pulmonary opacities are again noted with the left-sided opacities showing interval worsening. Pleural spaces: Unremarkable. No pleural effusion. No pneumothorax. Heart/Mediastinum: Cardiomegaly. Bones/joints: Spinal fusion hardware noted. Osseous structures are unchanged from the prior exam. XR/XR chest 1V portable [id number] IMPRESSION: 1. Right-sided PICC tip is appropriately positioned. 2. Cardiomegaly with pulmonary vascular congestion. 3. Bilateral pulmonary opacities are again noted with the left-sided opacities showing interval worsening. Radiation Dose CTDIVOL = (mGy): DLP = (mGy-cm)
--- NOTE | 2021-10-07 19:05 | PC.NURSE ---
PICC Right arm ready for use.
[2021-10-07] MEDS: gabapentin 400 mg Capsule PO (20:07)
[2021-10-07] MEDS: tizanidine 4 mg Tablet PO (20:07)
[2021-10-07] MEDS: trazodone 100 mg Tablet PO (20:07)
[2021-10-07] MEDS: insulin glargine 100 units/1 mL 20 UNIT SUBCUT (20:09)
[2021-10-07 20:17] LABS: Glucose Point of Care 175 mg/dL (70-110)
[2021-10-07 20:22] LABS: Potassium 3.5 mmol/L (3.5-5.1)
[2021-10-08] VITALS (55 sets, daily range): BP systolic 90–168; BP diastolic 41–121; PULSE 56–147; RESP 16–48; TEMP 36.7–38.6; O2SAT 85–100
[2021-10-08] MEDS: vancomycin 1,250 MG/250 ML PIGGYBACK 250 MG IV ×2 (01:02→13:32)
[2021-10-08] MEDS: midodrine 5 mg TABLET 10 MG PO (01:02)
[2021-10-08] MEDS: HYDROcodone-acetaminophen 5-325 mg Tablet 1 TAB PO (01:15)
[2021-10-08] MEDS: dilTIAZem 60 mg Tablet PO (02:41)
[2021-10-08 03:46] LABS: Basophils # 0.1 10^3/uL (0.0-0.1); Basophils % 0.2 %; Hematocrit 25.1 % (37.0-47.0); Hemoglobin 8.1 g/dL (11.5-15.3); Lymphocytes # 0.2 10^3/uL (0.8-4.8); Mean Corpuscular HGB Conc 32.3 g/dL (30.0-36.0); Mean Corpuscular Hemoglobin 31.5 pg (28.0-34.0); Mean Corpuscular Volume 97.7 fl (81-99); Mean Platelet Volume 12.7 fL (7.4-10.4); Monocytes # 0.2 10^3/uL (0.2-0.9); Monocytes % 0.7 %; Neutrophils # 21.92 10^3/uL (1.8-7.7); Neutrophils % 95.6 %; Nucleated Red Blood Cells % 0 %; Platelet Count 126 10^3/cmm (130-400); Red Blood Count 2.57 10^6/uL (4.1-5.3); Red Cell Distribution Width 14.4 % (12.1-15.1)
[2021-10-08 03:54] LABS: ABG PH Result 7.48 (7.35-7.45); Arterial Blood Gas Hematocrit 21.1 % (37-47); Base Excess ABG 6.2 mmol/L (-2.0-2.0); Blood Gas Allen Test Pos; Blood Gas Sample Site Radial, right; Blood Gas Sample Type Arterial; HCO3 ABG 30.3 mmol/L (22-26); Oxygen Device NC; PO2 ABG 50.3 mmHg (80.0-100.0)
[2021-10-08] MEDS: levalbuterol 0.63 mg/3 mL Neb INHALATION ×3 (04:00→21:13)
[2021-10-08 04:01] LABS: Lactate (Lactic Acid level) 1.3 mmol/L (0.5-2.2)
[2021-10-08 04:14] LABS: INR 1.39 (0.8-1.2)
[2021-10-08 04:17] LABS: NT Pro B Type Natriuretic Pept 1962 pg/mL (0-125)
[2021-10-08 04:28] LABS: Alanine Aminotransferase 86 U/L (0-33); Albumin Level 2.7 g/dL (3.5-5.2); Alkaline Phosphatase 196 IU/L (35-105); Anion Gap 18.6 (5-19); Aspartate Amino Transferase 101 U/L (0-32); Blood Urea Nitrogen 38 mg/dL (8-23); C Reactive Protein 265.8 mg/L (0.0-4.9); Calcium 9.1 mg/dL (8.5-10.5); Carbon Dioxide 26 mmol/L (22-29); Chloride 94 mmol/L (98-107); Creatine Phosphokinase 40 U/L (26-192); Globulin 2.7 g/dL (1.3-4.6); Glomerular Filtration Rate 84.8 mL/min (90-130); Glucose 219 mg/dL (65-115); Magnesium 1.9 mg/dL (1.7-2.3); Osmolality Calculated 296 mOsm/kg (285-295); Phosphorus 4.1 mg/dL (2.5-4.5); Potassium 3.6 mmol/L (3.5-5.1); Sodium 135 mmol/L (136-145); Total Bilirubin 1.7 mg/dL (0.15-1.2); Total Protein 5.4 g/dL (6.6-8.7)
[2021-10-08 05:14] LABS: Partial Thromboplastin Time > 250.0 SECONDS (23.9-36.7)
--- NOTE | 2021-10-08 05:23 | PC.NURSE ---
Lab called, PTT greater than 250. Dr. Souza notified, new orders to hold heparin gtt and recheck ptt in 6 hours.
[2021-10-08] MEDS: valACYclovir 1,000 mg Tablet 500 MG PO (06:02)
[2021-10-08] MEDS: levothyroxine 200 mcg Tablet PO (06:02)
[2021-10-08] MEDS: atorvastatin 40 mg Tablet 20 MG PO (06:02)
--- NOTE | 2021-10-08 07:19 | PC.NURSE ---
0700 Report received, pt assessment completed. Pt on HFNC at 50L/100%, appears very SOB with pursed lip breathing noted. O2 sats in low to mid 80's with HOB elevated 45degrees. NRB 15L placed on pt. Appears to provide some relief, discussed with patient the possibility of intubation d/t continued oxygenation issues. Pt understands and is aware of the possibility. Heparin infusion is off and cardizem is infusing at 5mg/min. Pt in Cafib at this time. Garcia cath draining freely. Pt repositioned. Will monitor.
[2021-10-08 07:20] LABS: Glucose Point of Care 355 mg/dL (70-110)
[2021-10-08] MEDS: FUROsemide 10 mg/mL SDV 4mL 40 MG IVP (08:02)
[2021-10-08] MEDS: insulin lispro 100 unit/1 mL SUBCUT ×2 (08:03→11:18)
[2021-10-08] MEDS: insulin glargine 100 units/1 mL 20 UNIT SUBCUT ×2 (08:32→20:10)
--- NOTE | 2021-10-08 08:56 | PC.NURSE ---
Bipap in place, O2 sats mid 90's. Pt still has increased work of breathing, encouraged to rest and remain calm. Will monitor.
[2021-10-08] MEDS: acetaminophen 325 mg Tablet 650 MG PO (09:56)
[2021-10-08] MEDS: pantoprazole 40 mg SDV IVP ×2 (09:56→17:03)
[2021-10-08 11:09] LABS: Glucose Point of Care 194 mg/dL (70-110)
[2021-10-08 13:03] LABS: Partial Thromboplastin Time 26.1 SECONDS (23.9-36.7)
[2021-10-08] MEDS: budesonide 0.5 mg/2 mL Neb INHALATION ×2 (13:30→20:22)
[2021-10-08] MEDS: azithromycin 500 MG in sodium chloride 0.9% 250 ML 250 MG IV (13:32)
[2021-10-08 14:20] LABS: Basophils % 0.1 %; Hematocrit 23.9 % (37.0-47.0); Hemoglobin 7.8 g/dL (11.5-15.3); Lymphocytes # 0.3 10^3/uL (0.8-4.8); Lymphocytes % 1.8 %; Mean Corpuscular HGB Conc 32.6 g/dL (30.0-36.0); Mean Corpuscular Hemoglobin 31.1 pg (28.0-34.0); Mean Corpuscular Volume 95.2 fl (81-99); Mean Platelet Volume 12.5 fL (7.4-10.4); Monocytes # 0.1 10^3/uL (0.2-0.9); Monocytes % 0.8 %; Neutrophils # 14.75 10^3/uL (1.8-7.7); Neutrophils % 95.9 %; Nucleated Red Blood Cells % 0 %; Platelet Count 100 10^3/cmm (130-400); Red Blood Count 2.51 10^6/uL (4.1-5.3); Red Cell Distribution Width 14.3 % (12.1-15.1); White Blood Count 15.4 10^3/uL (4.0-10.0)
[2021-10-08 16:35] LABS: Glucose Point of Care 77 mg/dL (70-110)
--- NOTE | 2021-10-08 16:35 | P.PN_ITS ---
Subjective Subjective: Interval history: Patient was seen this morning, she is currently on BiPAP, 100% FiO2, she is alert oriented x3, follows all commands, she tells me that she feels weak, she feels more short of breath, she wants us to avoid the ventilator as much as possible, but she does understand her high risk of intubation, I initially discussed with her CODE STATUS and she wanted to be a DNR, but was okay with intubation, however after discussion with and nursing staff, she wants to resume her original wishes of remaining a full code Vitals/I&O/Wt Last Vital Signs Temp 101.0 F H 10/08/21 12:00 Pulse 94 10/08/21 14:55 Resp 26 H 10/08/21 14:55 BP 107/50 10/08/21 13:00 Pulse Ox 95 10/08/21 14:55 10/08/21 10/08/21 10/08/21 06:59 14:59 22:59 Intake Total 250 / 250 500 / 750 Output Total Balance 250 / 250 500 / 750 Weight last 48 hrs Weight 77.564 kg Weight 77.564 kg Physical Exam Const: COMMON NORMALS: no acute distress and patient oriented x3 GENERAL APPEARANCE: ill appearing and frail appearing Neck/C-Spine: OTHER: Left neck swelling, extending posteriorly, with slight erythema, skin discoloration, extending posteriorly to cervical spine, measuring 10 cm long, around the neck, stretching to the anterior chest, with increased bruising, Resp: COMMON NORMALS: normal respiratory effort, No retractions and No use of accessory muscles AUSCULTATION: crackles and wheezes Cardio: COMMON NORMALS: regular rate, regular rhythm, S1 normal heart sound present and S2 normal heart sound present RATE: regular rate RHYTHM: regular rhythm HEART SOUNDS: S1 normal heart sound present and S2 normal heart sound present GI: COMMON NORMALS: Normal to inspection, nondistended, normoactive bowel sounds present, Soft to palpation and non-tender PALPATION: Yes Soft to palpation Extremity: COMMON NORMALS: no pedal edema Neuro: COMMON NORMALS: patient oriented x3 Psych: COMMON NORMALS: mental status grossly normal Urinary Catheter Management^: Garcia: Cath Placed During This Visit: yes Reason for Continuing Indwelling Catheter: Accurate Measurement of Urinary Output in Critically Ill Patients Urinary Catheter Date of Insertion: 09/26/21 Urinary Catheter Time of Insertion: 16:28 Data : 10/08/21 14:10 10/08/21 02:35 A&P Assessment and plan (1) Pulmonary embolism: Neck swelling has been stable for the last 72 hours, but hemoglobin has decreased to 7.8, will hold heparin for now Status: Acute Qualifiers: Pulmonary embolism type: unspecified Chronicity: acute Acute cor pulmonale presence: unspecified Qualified Code(s): I26.99 - Other pulmonary embolism without acute cor pulmonale (2) Febrile neutropenia: Resolved. Normal ANC Status: Acute (3) Multifocal pneumonia: Acute hypoxic respiratory failure secondary to multifocal pneumonia, COVID-19 pneumonia, -With acute respiratory distress syndrome -With septic shock -With A. fib with RVR -With history of pneumomediastinum -Oxygen requirements continues to increase, on 50 L, 100% Covid PCR is positive MRSA PCR negative s/p Bronchoscopy performed 09/28. Gram stain demonstrated no organisms. Aspergillus bronchiolar lavage 0.52, detected Intubated 09/28 and proning session 09/28 through 09/29 Extubated 10/02/2021 Repeat bilateral lower extremity ultrasound negative for DVT Is -4.6 L Continues to be febrile Speech swallow eval Repeat CT of the chest 1. Diffuse hazy bilateral groundglass infiltrates have progressed compared to previous. Recommend correlation for pneumonia. Consider COVID 19 pneumonia. 2. No focal consolidation or pleural fluid 3. Improved anterior mediastinal and hilar lymphadenopathy likely reactive. Repeat venous ultrasound negative for DVT Plan: -Currently in ICU -Currently on heated high flow 50 L 100% -Patient is agreeable to elective intubation, tracheostomy, PEG tube if required -High risk of intubation in the next 24 hours -PICC lineplaced -Levophed as needed, maintain MAP greater than 65 -Midodrine 10 mg every 6 hours -Another dose of Lasix today -Continue vancomycin, Primaxin, azithromycin -Given positive Aspergillus, febrile, worsening respiratory status was given 1 dose of amphotericin B yesterday, -Today will resume voriconazole, had been discontinued 3 days ago, as patient's consolidation CT chest improved, but given worsening respiratory status, as pa tient remained febrile, positive Aspergillus, voriconazole 310 mg IV every 12 hours -We will consider repeating CT of the neck for possible infected hematoma or deep tissue infection based on clinical status and when patient is more clinically stable, is on antibiotics nonetheless -Decadron on hold -Completed 5 days of remdesivir -Budesonide, ipratropium -Glargine increased 20 units daily, high-dose insulin sliding scale -Heparin drip for atrial fibrillation, pulmonary embolism currently on hold -Acute on chronic anemia, multifactorial from hematoma of the neck, possible slow GI bleed, heparin drip has been stopped, monitor hemoglobin, transfuse if less than 7, Protonix, Carafate, monitor neck hematoma -Continue Cardizem drip, wean as tolerated on p.o. Cardizem -Full code -Heparin for DVT prophylaxis Status: Acute (4) Hematoma of neck: -Right central line placement CT of the neck shows 3. Extensive hematoma extending from the thoracic inlet to the mastoid skull base deep to the sternocleidomastoid. Surrounding inflammatory stranding and edema. Associated compression of the adjacent jugular vein. 4. No drainable abscess or fluid collection. 5. No critical airway impingement. Mild left to right mass effect on the subglottic airway at the thoracic inlet. -Area of swelling has improved, more bruising apparent today -Hemoglobin stable at 7.8 -Heparin drip on hold -Continue to monitor clinical site -Monitor for fevers, monitor for abscess -On antibiotics as above Status: Acute (5) Pneumomediastinum: -Seen on CT of the neck, avoid positive pressure ventilation, serial chest x-rays, currently medically managing -Had evidence of pneumomediastinum, repeat chest x-rays no evidence of pneumothorax or pneumomediastinum Status: Acute (6) Acute respiratory failure with hypoxia: Status: Acute (7) COVID-19: Status: Acute (8) Sepsis: Status: Acute (9) Atrial fibrillation with RVR: -We will start on Cardizem drip, continue heparin drip as above Status: Acute (10) Septic shock: Status: Acute (11) Acute respiratory distress syndrome (ARDS) due to 2019 novel coronavirus: Status: Acute (12) Anemia: Status: Acute (13) GI bleed: Status: Acute Additional A&P Information d/c levaquin and voriconzole CT with diffuse GGOs no focal consolidation pending serologies, PJP w/up Attestations Medical Necessity Statement*: Patient requires hospitalization for acute respiratory distress syndrome secondary to COVID-19 pneumonia, concerning for underlying fungal pneumonia Coding Level of Care Code Acute Desktop Support Consultant for Chg Fwd Diagnoses Pulmonary embolism I26.99 Pulmonary embolism type: unspecified Chronicity: acute Acute cor pulmonale presence: unspecified Febrile neutropenia D70.9; R50.81 Multifocal pneumonia J18.9 Hematoma of neck S10.93XA Pneumomediastinum J98.2 Acute respiratory failure with hypoxia J96.01 COVID-19 U07.1 Sepsis A41.9 Atrial fibrillation with RVR I48.91 Septic shock A41.9; R65.21 Acute respiratory distress syndrome (ARDS) due to 2019 novel coronavirus U07.1; J80 Anemia D64.9 GI bleed K92.2
--- NOTE | 2021-10-08 17:50 | PC.NURSE ---
Pt and family aware of clinical situation. Heparin gtt on hold. Cardizem at 10. Remains on bipap. Denies any pain. Repositioned per staff. VSS at this time. Will monitor.
[2021-10-08] MEDS: morphine 4 mg/mL SDV 1 mL 2 MG IVP ×2 (19:25→23:51)
[2021-10-08 20:01] LABS: Glucose Point of Care 144 mg/dL (70-110)
[2021-10-08 20:47] LABS: Hematocrit 26.3 % (37.0-47.0); Hemoglobin 8.4 g/dL (11.5-15.3)
[2021-10-08] MEDS: dexmedetomidine 400 MCG in sodium chloride 0.9% (100 ml) 100 ML IV (21:24)
[2021-10-09] VITALS (55 sets, daily range): BP systolic 75–183; BP diastolic 40–95; PULSE 61–112; RESP 18–39; TEMP 36.6–37.7; O2SAT 81–100
[2021-10-09] MEDS: vancomycin 1,250 MG/250 ML PIGGYBACK 250 MG IV (02:22)
[2021-10-09 04:00] LABS: ABG PCO2 48.5 mmHg (35-45); ABG PH Result 7.43 (7.35-7.45); Arterial Blood Gas Hematocrit 23.2 % (37-47); Base Excess ABG 6.7 mmol/L (-2.0-2.0); Blood Gas Allen Test Pos; Blood Gas Sample Site Radial, right; Blood Gas Sample Type Arterial; HCO3 ABG 31.8 mmol/L (22-26); Oxygen Device BIPAP; PO2 ABG 83.5 mmHg (80.0-100.0)
--- NOTE | 2021-10-09 05:08 | PC.NURSE ---
Patient remains on bipap during shift. Patient noted to be very anxious at beginning of shift, attempting to take bipap off. Dr. Souza notified, presedex order. Presedex gtt started, patient noted to be more comfortable and able to tolerate bipap. Patient HR fluctuates between afib and NSR throughout shift. Afebrile. Patient unable to tolerate PO meds d/t desat episodes to 70's and patient taking 1-2 minutes to recover. Will continue to monitor.
[2021-10-09] MEDS: levalbuterol 0.63 mg/3 mL Neb INHALATION ×3 (05:13→21:14)
[2021-10-09] MEDS: pantoprazole 40 mg SDV IVP ×2 (05:20→17:40)
[2021-10-09 05:44] LABS: Lactate (Lactic Acid level) 1.3 mmol/L (0.5-2.2)
[2021-10-09 05:52] LABS: NT Pro B Type Natriuretic Pept 1745 pg/mL (0-125); Procalcitonin 0.73 ng/mL (0-0.5)
[2021-10-09 06:05] LABS: Alanine Aminotransferase 53 U/L (0-33); Albumin Level 2.5 g/dL (3.5-5.2); Alkaline Phosphatase 220 IU/L (35-105); Anion Gap 14.8 (5-19); Aspartate Amino Transferase 61 U/L (0-32); Blood Urea Nitrogen 43 mg/dL (8-23); C Reactive Protein 301.7 mg/L (0.0-4.9); Calcium 9.3 mg/dL (8.5-10.5); Carbon Dioxide 29 mmol/L (22-29); Chloride 99 mmol/L (98-107); Creatine Phosphokinase 39 U/L (26-192); Globulin 2.4 g/dL (1.3-4.6); Glomerular Filtration Rate 63.4 mL/min (90-130); Glucose 149 mg/dL (65-115); Magnesium 2.1 mg/dL (1.7-2.3); Osmolality Calculated 302 mOsm/kg (285-295); Phosphorus 4.4 mg/dL (2.5-4.5); Potassium 3.8 mmol/L (3.5-5.1); Sodium 139 mmol/L (136-145); Total Bilirubin 1.3 mg/dL (0.15-1.2); Total Protein 4.9 g/dL (6.6-8.7)
[2021-10-09 06:48] LABS: INR 1.32 (0.8-1.2)
--- NOTE | 2021-10-09 07:00 | XRR_ITS ---
PROCEDURE INFORMATION: Exam: XR Chest Exam date and time: 10/09/2021 7:00 AM Age: 61 years old Clinical indication: Shortness of breath; Additional info: SOB TECHNIQUE: Imaging protocol: XR of the chest. Views: 1 view. COMPARISON: CR (CHEST, ) 10/07/2021 6:31 PM FINDINGS: Tubes, catheters and devices: Similar position of right upper extremity central vascular catheter tip. Lungs: Similar appearance of prominent bilateral pulmonary consolidations. Pleural spaces: Unremarkable. No pleural effusion. No pneumothorax. Heart/Mediastinum: Cardiac silhouette is similar with cardiac enlargement. Bones/joints: Partial visualization of cervical metallic plate. Soft tissues: The chest is mildly rotated. XR/XR chest 1V portable [id number] IMPRESSION: Similar prominent bilateral pulmonary consolidations. Radiation Dose CTDIVOL = (mGy): DLP = (mGy-cm)
--- NOTE | 2021-10-09 08:06 | US_ITS ---
WS: [id number] RIGHT UPPER QUADRANT ULTRASOUND HISTORY: hepatobiliary, T bilirubin, mildly elevation of transaminases. COMPARISON: CT 09/25/2021. Liver: 13.3 cm in length. Coarsened echotexture throughout the liver. No mass or bile duct dilatation . Gallbladder: Prior cholecystectomy. CBD: 1.5 cm, similar diameter as compared to 09/25/2021 CT. No abnormality was noted within the pancr eatic head. Probably all related to cholecystectomy and aging. Pancreas: Normal size and echogenicity. Right kidney: 11.1 cm in length. Normal size and echogenicity. No hydronephrosis or mass. Aorta and IVC: Unremarkable abdominal aorta and IVC. No ascites. US/US abdomen limited [id number] IMPRESSION: 1. Prior cholecystectomy. 2. Moderate dilatation of the common bile duct is similar to prior studies. Pr obably related to the cholecystectomy and aging. No abnormality was noted in th e pancreas or common bile duct on 09/25/2021.
--- NOTE | 2021-10-09 08:39 | PC.NURSE ---
Shift Note Frequent safety and comfort rounds continue. Orders and/or nursing care completed as indicated. Patient monitored for response to intervention and treatment(s). Education provided includes[Reintubation, covid 19, ventilation, and skin integrity]. Patient and/or accounts payable representative [Pt's Davide, was notified of pt's current status and plan of care]. Will continue to monitor. Received bed side shift report from off going nurse. Pt's plan of care reviewed. Pt resting in bed Respirations. Respirations are more on the labored side. Pt is alert and oriented and able to make her own decisions. Pt is requesting to be reintubated. Pt appears mentally and physically exhausted at this point. Pt does have precedex at 0.7 to help keep her calm. Dr. Holloway was notified and is planning to reintubate pt around 12pm-1pm. Pt's was notified of current plan of care. Pt's is in agreeance with reintubating pt. Bed in lowest and locked position, call light within reach, x's 3 rails up. Will continue to monitor pt.
[2021-10-09 08:44] LABS: Glucose Point of Care 157 mg/dL (70-110)
[2021-10-09] MEDS: dexmedetomidine 400 MCG in sodium chloride 0.9% (100 ml) 100 ML IV (08:45)
[2021-10-09 08:53] LABS: Basophils % 0.1 %; Eosinophils % 0.3 %; Hematocrit 23.9 % (37.0-47.0); Hemoglobin 7.8 g/dL (11.5-15.3); Lymphocytes # 0.5 10^3/uL (0.8-4.8); Lymphocytes % 3.8 %; Mean Corpuscular HGB Conc 32.6 g/dL (30.0-36.0); Mean Corpuscular Hemoglobin 30.8 pg (28.0-34.0); Mean Corpuscular Volume 94.5 fl (81-99); Mean Platelet Volume 13.4 fL (7.4-10.4); Monocytes # 0.2 10^3/uL (0.2-0.9); Monocytes % 1.1 %; Neutrophils # 13.19 10^3/uL (1.8-7.7); Neutrophils % 93.4 %; Nucleated Red Blood Cells % 0 %; Red Blood Count 2.53 10^6/uL (4.1-5.3); Red Cell Distribution Width 14.6 % (12.1-15.1); White Blood Count 14.1 10^3/uL (4.0-10.0)
[2021-10-09] MEDS: insulin glargine 100 units/1 mL 20 UNIT SUBCUT ×2 (08:55→22:06)
--- NOTE | 2021-10-09 09:17 | PC.OT ---
WILMA huber held this date. Nurse states patient is not appropriate for therapy due to significant oxygen desaturation during any activity and will be intubated at noon.
--- NOTE | 2021-10-09 09:28 | XRR_ITS ---
PROCEDURE INFORMATION: Exam: XR Chest Exam date and time: 10/09/2021 9:28 AM Age: 61 years old Clinical indication: Device placement; Ett placement (vent status); Additional info: Post-intubation TECHNIQUE: Imaging protocol: XR of the chest. Views: 1 view. COMPARISON: CR (CHEST, ) 10/09/2021 5:13 AM FINDINGS: Lungs: Interstitial congestion is seen in the left upper lobe Pleural spaces: Unremarkable. No pleural effusion. No pneumothorax. Heart/Mediastinum: Unremarkable. No cardiomegaly. Bones/joints: Metallic orthopedic hardware cervical spine A PICC line is present on the right side extending into the SVC. Endotracheal tube 2.7 cm above the nuzhat. NG tube extends into the stomach XR/XR chest 1V portable [id number] IMPRESSION: 1. Left upper lobe interstitial congestion. 2. Right side PICC line in the SVC 3. Endotracheal tube is above the nuzhat. 4. NG tube is in the stomach. 5. Metallic orthopedic hardware cervical spine Radiation Dose CTDIVOL = (mGy): DLP = (mGy-cm)
--- NOTE | 2021-10-09 09:45 | PC.CHAP ---
Pastoral Care Encounter/Spiritual Assessment Type of Contact [] Declined can carrier visit [] Patient/Family/Request visit [] Outpatient visit [] Follow-up visit [] Physician referral [] Code/Alert [x] Routine visit [] Staff referral [] Actively dying [] Patient sleeping [] Family support [] [] Out of room [] Palliative care [] [x] Receiving care in room [] Pre-surgical visit [] Trauma [] Long length of stay [x] ICU visit [] Other: Relational/Emotional Strength [] Patient feels connected with others/family/visitors/staff [] Distress [] Loneliness/isolation [] Abandonment Spirituality of Patient [] Person of Rocio [] Attends Caodaism of their Rocio [] Believes in Prayer [] Reads Bible or Cheondoism materials [] There are Spiritual issues to be addressed Head Waiter Interventions [x] Prayer [] Active listening [] Non-anxious presence [] Spiritual/emotional support [] Crisis/trauma care [] Spiritual counseling [] Bereavement support [] Provided bereavement packet [] Provided Bible/devotional materials [] Provided toy/stuffed animal, coloring book to patient or family member [] Provided Communion [] Anointing/[place] [] Salvation [x] Completed spiritual assessment [] Other: Impact on Illness or Injury [] Angry [] Fearful [] Anxious [] Often cries [] Exhaustion [] Unable to work [] Unable to attend orthodox [] Unable to walk/stand [] Unable to read [] Unable to drive [] Unable to eat/drink [] Unable to sleep [] Unable to be with family [] Patient intubated [] Other: Summary Time spent with patient
[2021-10-09 10:17] LABS: Platelet Count 50 10^3/cmm (130-400)
[2021-10-09 10:18] LABS: Slide Review Slide Review Perform
[2021-10-09] MEDS: midazolam 1 mg/mL INJ 2 mL 2 MG IVP (12:16)
[2021-10-09] MEDS: succinylcholine 20 mg/mL SDV 10mL 75 MG IVP (12:16)
[2021-10-09] MEDS: propofol 1,000 MG/100 ML INJ 13.96 MG IV (12:18)
[2021-10-09 12:47] LABS: LAB Peripheral Smear Sent for Review
[2021-10-09 13:03] LABS: Glucose Point of Care 205 mg/dL (70-110)
[2021-10-09] MEDS: insulin lispro 100 unit/1 mL SUBCUT ×2 (13:08→18:17)
[2021-10-09] MEDS: azithromycin 500 MG in sodium chloride 0.9% 250 ML 250 MG IV (13:10)
[2021-10-09 13:46] LABS: ABG PCO2 51.8 mmHg (35-45); ABG PH Result 7.35 (7.35-7.45); Arterial Blood Gas Hematocrit 30.5 % (37-47); Base Excess ABG 2.4 mmol/L (-2.0-2.0); Blood Gas Operator Identificat GD; Blood Gas Sample Site Radial, right; Blood Gas Sample Type Arterial; Blood Gas Tidal Volume 0.36; HCO3 ABG 28.6 mmol/L (22-26); Oxygen Device VENT; PO2 ABG 74.4 mmHg (80.0-100.0)
[2021-10-09 14:09] LABS: Vancomycin Trough 28.4 ug/mL (10-15)
[2021-10-09 14:10] LABS: INR 1.46 (0.8-1.2)
[2021-10-09 14:11] LABS: Partial Thromboplastin Time 34.4 SECONDS (23.9-36.7)
[2021-10-09 14:12] LABS: Fibrinogen 265 mg/dL (174-498)
[2021-10-09] MEDS: budesonide 0.5 mg/2 mL Neb INHALATION (14:24)
[2021-10-09 14:39] LABS: D Dimer >= 20.00 ug/mIFEU (0-0.59)
[2021-10-09] MEDS: midodrine 5 mg TABLET 10 MG PO (14:40)
[2021-10-09 14:49] LABS: Hematocrit 23.8 % (37.0-47.0); Retic Production Index 0.89; Reticulocyte % 1.5 % (0.5-2.0)
[2021-10-09 15:24] LABS: Lactate Dehydrogenase 955 U/L (135-214)
[2021-10-09 15:25] LABS: Lactate Dehydrogenase 1287 U/L (135-214)
[2021-10-09] MEDS: propofol 1,000 MG/100 ML INJ 27.92 MG IV ×4 (15:43→23:57)
[2021-10-09] MEDS: dilTIAZem 60 mg Tablet PO ×2 (16:25→22:06)
[2021-10-09] MEDS: allopurinol 100 mg Tablet PO (17:39)
[2021-10-09] MEDS: liothyronine 5 mcg Tablet PO (17:42)
[2021-10-09 18:29] LABS: Glucose Point of Care 202 mg/dL (70-110)
--- NOTE | 2021-10-09 18:51 | PM.ACPR ---
Procedure/Consent Time out: Time Out Performed: Yes Consent: Consent for Procedure: Emergency procedure Procedure Narrative: Name of the procedure: Endotracheal intubation. Indication: Hypoxic respiratory failure. Medications: Etomidate and succinylcholine Procedure: The patient was positioned optimally. The patient was oxygenated with 100% oxygen with noninvasive ventilator After appropriate medications were given, the video laryngoscope blade was introduced and advanced till vocal cords were visualized. The endotracheal tube was advanced through the vocal cords under direct visualization. There was fogging of the ET tube, positive change in end-tidal CO2 monitor, bilateral chest rise, bilateral positive breath sound. The ET tube was secured at 21 cm at the lips. Complications: There was no immediate complications. Chest x-ray: ET tube 2.7 cm above the nuzhat. Acute Procedures Epistaxis Control: Time out performed: Yes
--- NOTE | 2021-10-09 19:00 | PM.PN ---
Subjective Subjective: Interval history: The patient was seen and examined multiple times during the day today. The patient was initially intubated on 09/28 for acute hypoxic respiratory failure. The patient was positive for COVID-19. She was treated with broad-spectrum antibiotic, dexamethasone, antifungal coverage and eventually extubated on 12/12. After that the patient was doing well. She was upstairs on 6 L oxygen. Unfortunately, the patient's oxygen requirement started to go up and then eventually she was brought down to the ICU initially on high flow nasal cannula 100%. Now the patient was on BiPAP 100% FiO2 saturation in the high 80s to low 90s. The patient was visibly tired and asking to get intubated. She was intubated this afternoon. Chest x-ray this morning revealed bilateral diffuse infiltrate. There is air bronchogram in the retrocardiac area. I have reviewed the patient's laboratory and metabolic data additionally the microbiologic work-up from bronchoscopy was also evaluated. Aspergillus antigen in blood was negative. The bronchoalveolar lavage antigen was mildly positive with an index of 0.52. I believe this is secondary to colonization. The negative Aspergillus antigen and blood would essentially rule out an invasive aspergillus infection. The bronchoscopic evaluation also did not grow any fungal pathogen at that time. All her blood work has yielded negative microbiologic findings. Her LDH level is almost 1300. This could be suggestive of a PCP infection however the beta D glucan level is not very high which is typically high with PCP infection as well. The PCP PCR from the bronchoalveolar lavage is not back yet. The patient also has anemia. She has developed thrombocytopenia likely secondary to consumption in the setting of a left neck hematoma as well as an abdominal hematoma. There is no evidence of DIC. Thrombocytopenia could also be secondary to sepsis. The patient had received dexamethasone IV for approximately 10 days already. The patient does have a history of large B-cell lymphoma for which her last therapy was approximately a year ago. She was on antiviral for prophylaxis. Bedside ultrasound revealed nondilated IVC. The ejection fraction appeared normal. Medications: Reviewed: Yes Vitals/I&O/Wt Last Vital Signs Temp 99.8 F H 10/09/21 16:30 Pulse 74 10/09/21 18:00 Resp 21 H 10/09/21 16:31 BP 103/49 10/09/21 18:00 Pulse Ox 96 10/09/21 18:00 10/09/21 10/09/21 10/09/21 06:59 14:59 22:59 Intake Total 762.61 / 1772.61 578.760 / 578.760 147.697 / 726.457 Output Total 450 / 975 150 / 150 Balance 312.61 / 797.61 578.760 / 578.760 -2.303 / 576.457 Weight last 48 hrs Weight 171 lb Weight 171 lb Physical Exam Narrative: EXAM NARRATIVE: General: Patient is intubated and sedated Neck: No JVD Respiratory: Auscultation: Reduced breath sound bilaterally, fine crackles at lung bases no wheezing or rhonchi Cardiovascular: Regular rate and rhythm, S1-S2 present, no murmur, no peripheral edema. Abdomen: Soft, nondistended, positive bowel sound Skin: No rash Neuro: The patient is intubated and sedated Urinary Catheter Management^: Garcia: Cath Placed During This Visit: yes Reason for Continuing Indwelling Catheter: Accurate Measurement of Urinary Output in Critically Ill Patients Urinary Catheter Date of Insertion: 09/26/21 Urinary Catheter Time of Insertion: 16:28 Data : 10/09/21 08:23 10/09/21 04:40 Micro: Microbiology 10/09/21 13:10 Gram Stain - Final Sputum - Endotracheal Tube Aspirate Attestation for Other Data: I personally reviewed and interpreted the following: Other data: I have reviewed the patient's laboratory, [place] and radiologic data. Please see the subjective for detail. A&P Assessment and plan (1) ARDS (adult respiratory distress syndrome): This is a 61-year-old lady with a fairly complicated story. Initially the patient was thought to be suffering from ARDS secondary to COVID-19. The patient at that time was paralyzed and proned with eventual extubation. The patient at 1 point was on 6 L oxygen. Since then, her oxygen requirement has continued to get worse and today before intubation the patient was on BiPAP 100% FiO2. Her latest chest x-ray has revealed diffuse bilateral infiltrate with areas of consolidation consistent with ARDS. The cause of ARDS at this point is unclear. It would be unusual for COVID-19 to be responsible for all of this especially after the patient had improved significantly. The patient had been receiving treatment with empiric antibiotic for a suspected secondary bacterial infection. The complicated part of the picture arises due to the fact that the patient was treated with chemotherapy and steroid for diffuse large B-cell lymphoma. The patient was also all prophylactic therapy with antiviral. The possible consideration for her ARDS etiology at this point includes, a secondary bacterial infection, PCP pneumonia, a fungal pathology, multisystem inflammatory syndrome from COVID-19, disseminated varicella or cytomegalovirus infection. I had performed a bronchoscopic evaluation again today. There was no obvious pus. No significant mucus was also noted. The bronchoalveolar lavage was sent for Gram stain and culture, fungal stain and culture. The BAL Aspergillus galactomannan index was 0.52. The blood index was less than 0.5. 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 I do not have the data on PCP PCR, histoplasma serology and urine antigen level, varicella PCR or cytomegalovirus PCR was not tested. The flu testing and Legionella antigen testing were negative. I am going to start the patient on linezolid instead of vancomycin tomorrow morning. We will continue with imipenem. Additionally, I am starting the patient on Bactrim till I have the PCR for PCP available. I am going to obtain cytomegalovirus quantitative DNA PCR. I also need to get varicella PCR. I am starting the patient on acyclovir empirically. I do not believe the patient has aspergillus infection however histoplasma infection cannot be ruled out completely especially in this endemic area. The patient had been receiving voriconazole, I am going to switch that to fluconazole 400 mg daily. The patient will likely receive a significant amount of volume for the Bactrim. She will need to get diuresed. The patient will undergo prone positioning after getting paralyzed for her ARDS today. Status: Acute (2) COVID-19: The patient had been treated adequately for COVID-19. She was on dexamethasone for more than 10 days. At this point we will continue to hold the dexamethasone. I am going to obtain a ferritin level today. Status: Acute (3) Septic shock: The patient is receiving intermittent Levophed. Status: Acute (4) Anemia: The anemia is likely multifactorial. However, the patient does have hematoma in her left neck as well as in the subcutaneous tissue of the abdomen. Were going to hold the heparin for now. Status: Acute (5) Thrombocytopenia: The thrombocytopenia is likely secondary to consumption and sepsis. Status: Acute (6) Pulmonary embolism: The patient suffered from pulmonary embolism. Bedside ultrasound revealed no significant dilation of the RV and good TAPSE. If the hemoglobin remains stable, once the platelet recovers, will consider starting the patient on at least subcu heparin for DVT prophylaxis. Status: Acute Qualifiers: Pulmonary embolism type: unspecified Chronicity: acute Acute cor pulmonale presence: unspecified Qualified Code(s): I26.99 - Other pulmonary embolism without acute cor pulmonale Additional A&P Information This is a fairly complicated patient with likely poor prognosis. For now, we will treat her with everything we have in our arsenal. Once more data becomes available we will optimize her medications. Attestations Medical Necessity Statement*: Will defer to the primary team Coding Level of Care Code Acute Maintenance Supervisor Mechanical for [facility] Fwd Diagnoses ARDS (adult respiratory distress syndrome) J80 COVID-19 U07.1 Septic shock A41.9; R65.21 Anemia D64.9 Thrombocytopenia D69.6 Pulmonary embolism I26.99 Pulmonary embolism type: unspecified Chronicity: acute Acute cor pulmonale presence: unspecified Time Spent (min) 55
--- NOTE | 2021-10-09 19:21 | PM.ACPR ---
Procedure/Consent Time out: Time Out Performed: Yes Consent: Consent for Procedure: Emergency procedure Procedure Narrative: Name of the procedure: Bronchoscopy with inspection of the airway, bronchoalveolar lavage and control of bleeding. Indication: Acute hypoxic respiratory failure in the setting of multifocal pneumonia requiring intubation. Medication: The patient was on sedative drips. Description of the procedure: The patient was intubated for acute hypoxic respiratory failure. 1% lidocaine 5 mL was introduced through the ET tube. The bronchoscope was advanced through the ET tube into the lower trachea.The endotracheal tube was right above the nuzhat. To the nuzhat was sharp. There was erythema present throughout bilateral airways. In a systematic manner bilateral airways were examined. The bronchoscope was introduced in the right mainstem bronchus. The right upper lobe, middle lobe and lower lobe bronchi were examined up to the third subsegmental level. No endobronchial lesions were identified. There was mild mucus. Bronchoscope was introduced in the left mainstem bronchus. The left upper lobe, lingula and lower lobe bronchi were examined up to the third subsegmental level. No endobronchial lesion or mucous was identified. There was diffuse airway erythema. Bronchoalveolar lavage was obtained from the medial segment of the right middle lobe. 60 cc of normal saline was instilled 20 mL of clear return was obtained. There is no mucous plug present. Specimen was sent for Gram stain and culture, fungal stain and culture was also sent for. Complications: No immediate complication was noted. Acute Procedures Epistaxis Control: Time out performed: Yes
[2021-10-09 19:26] LABS: Glucose Point of Care 286 mg/dL (70-110)
[2021-10-09] MEDS: sulfamethoxazole-trimeth inj 480 MG in dextrose 5 % 500 ML 500 MG IV (19:28)
[2021-10-09 20:14] LABS: Ferritin 6005 ng/mL (15-150)
--- NOTE | 2021-10-09 20:26 | PM.PN ---
Subjective Subjective: Interval history: Overnight had a difficult night, had to be started on Precedex. Quite dyspneic today. Requesting for intubation. Understands risks involved with procedure and subsequent mechanical ventilation. Some mild left lower quadrant discomfort, denies right upper quadrant pain. Discussed with her regarding continued to deterioration in her condition, critical condition, possible DIC/threat to life, possible fungal infection, thrombocytopenia with all anticoagulation in setting of PE. Progressive dyspnea, plans for intubation. Possible bronchoscopy. Vitals/I&O/Wt Last Vital Signs Temp 99.8 F H 10/09/21 16:30 Pulse 74 10/09/21 18:00 Resp 21 H 10/09/21 16:31 BP 103/49 10/09/21 18:00 Pulse Ox 96 10/09/21 18:00 10/09/21 10/09/21 10/09/21 06:59 14:59 22:59 Intake Total 762.61 / 1772.61 578.760 / 578.760 245.953 / 824.713 Output Total 450 / 975 150 / 150 Balance 312.61 / 797.61 578.760 / 578.760 95.953 / 674.713 Weight last 48 hrs Weight 77.564 kg Weight 77.564 kg Physical Exam Const: COMMON NORMALS: no acute distress and patient oriented x3 GENERAL APPEARANCE: anxious; not comfortable ORIENTATION/CONSCIOUSNESS: Yes awake HENMT: COMMON NORMALS: oropharynx normal Neck/C-Spine: COMMON NORMALS: no JVD OTHER: Left-sided neck hematoma, ecchymosis progressing to green discoloration at periphery Resp: COMMON NORMALS: normal respiratory effort and clear to auscultation bilaterally EFFORT & INSPECTION: Yes tachypneic AUSCULTATION: clear to auscultation bilaterally and diminished lung sounds Cardio: COMMON NORMALS: no JVD, regular rhythm, S1 normal heart sound present, S2 normal heart sound present and No murmurs present (Cardio) RHYTHM: regular rhythm HEART SOUNDS: S1 normal heart sound present and S2 normal heart sound present GI: COMMON NORMALS: Normal to inspection, nondistended, normoactive bowel sounds present, Soft to palpation and non-tender PALPATION: Yes Soft to palpation Extremity: COMMON NORMALS: no joint enlargement and no pedal edema Neuro: COMMON NORMALS: patient oriented x3 and moves all extremities Skin: COMMON NORMALS: no rashes or lesions noted GENERAL SKIN EXAM: no rashes or lesions noted Urinary Catheter Management^: Garcia: Cath Placed During This Visit: yes Reason for Continuing Indwelling Catheter: Accurate Measurement of Urinary Output in Critically Ill Patients Urinary Catheter Date of Insertion: 09/26/21 Urinary Catheter Time of Insertion: 16:28 Data : 10/09/21 08:23 10/09/21 04:40 Micro: Microbiology 10/09/21 13:10 Gram Stain - Final Sputum - Endotracheal Tube Aspirate A&P Assessment and plan (1) Multifocal pneumonia: Worsening hypoxic respiratory failure today, saturations in high 80s despite 100% BiPAP support. Dyspneic. Appreciate pulmonology assessment and management. Reintubated today, some ventilator dyssynchrony noted despite initial attempts at sedation. Requested additional sedation, paralytics requested for continued ventilator dyssynchrony. Discussed with pulmonology, at this time we will continue voriconazole given risk of severity of illness in case of IPA. Discussed with her regarding thrombocytopenia, possible effect of medication, although thrombocytopenia appears to have started before she was restarted on voriconazole, and although listed adverse effect includes, therapy, timing suggests against voriconazole being the culprit. Otherwise continue broad-spectrum antibiotic coverage with Primaxin, vancomycin changed to linezolid. Given clinical deterioration empirically started on Bactrim. Additional bronchoscopy performed today with additional microbiologic studies obtained. Additional infection superimposed on lung injury following severe COVID-19. -Decadron on hold -Completed 5 days of remdesivir -Budesonide, ipratropium -Heparin drip for atrial fibrillation, pulmonary embolism currently on hold -Acute on chronic anemia, multifactorial from hematoma of the neck, possible slow GI bleed, heparin drip has been stopped, monitor hemoglobin, transfuse if less than 7, Protonix, Carafate, monitor neck hematoma Status: Acute (2) Thrombocytopenia: Progressively worsening thrombocytopenia last 2 days. Possibly related to sepsis. Continue treatment empirically as above. Requested peripheral smear. Requested hemolysis studies, which appear not suggestive of hemolysis. Elevated D-dimer, possibly secondary to hematoma. Studies otherwise not suggestive of DIC at the moment. We will follow up panel tomorrow. Timing armenta does not fit HIT. Perhaps intermediate probability of HIT by 4T score, although heparin has been on hold as is due to anemia, progressive thrombocytopenia. No evidence of new thrombosis. Reviewed other medications with pharmacy. Has been receiving Tylenol will hold for now. Apart from also aspirin, not many other culprits noted that could be responsible that were started preceding the thrombocytopenia. Status: Acute (3) Cholestasis: Status: Acute (4) Pulmonary embolism: Due to neck hematoma, later today noted abdominal hematoma as well, with progressive thrombocytopenia anticoagulation is at this time withheld. Discussed with her and her . Duplex has been negative for DVT. Discussed with pulm/crit, appreciate assessment, with bedside ultrasound no signs to suggest hemodynamically significant/worsening PE. Status: Acute Qualifiers: Pulmonary embolism type: unspecified Chronicity: acute Acute cor pulmonale presence: unspecified Qualified Code(s): I26.99 - Other pulmonary embolism without acute cor pulmonale (5) Febrile neutropenia: Resolved. Normal ANC Status: Acute (6) Hematoma of neck: -Right central line placement CT of the neck shows 3. Extensive hematoma extending from the thoracic inlet to the mastoid skull base deep to the sternocleidomastoid. Surrounding inflammatory stranding and edema. Associated compression of the adjacent jugular vein. 4. No drainable abscess or fluid collection. 5. No critical airway impingement. Mild left to right mass effect on the subglottic airway at the thoracic inlet. -Area of swelling has improved, more bruising apparent today -Hemoglobin stable at 7.8 -Heparin drip on hold -Continue to monitor clinical site -Monitor for fevers, monitor for abscess -On antibiotics as above Status: Acute (7) Pneumomediastinum: -Seen on CT of the neck, avoid positive pressure ventilation, serial chest x-rays, currently medically managing -Had evidence of pneumomediastinum, repeat chest x-rays no evidence of pneumothorax or pneumomediastinum Status: Acute (8) Acute respiratory failure with hypoxia: Status: Acute (9) COVID-19: Status: Acute (10) Sepsis: Status: Acute (11) Atrial fibrillation with RVR: Cardizem enterally. Anticoagulation withheld. Status: Acute (12) Septic shock: Status: Acute (13) Acute respiratory distress syndrome (ARDS) due to 2019 novel coronavirus: Status: Acute (14) Anemia: Status: Acute (15) GI bleed: Status: Acute Attestations Medical Necessity Statement*: Continue admission due to worsening condition, worsening hypoxic respiratory failure requiring mechanical ventilatory support, persistent superimposed infection following severe COVID-19, requiring additional diagnostic assessment including bronchoscopy, microbiologic studies, empiric therapy for nonresolving pneumonia. Possible fungal pneumonia. Critical Care Time: The high probability of a clinically significant, sudden or life threatening deterioration of the patient's respiratory system(s) failure, superimposed infection following severe COVID-19, respiratory distress, acute progressive thrombocytopenia, anemia in the setting of PE required my full and direct attention, intervention and personal management. The critical care time is as shown. This time is in addition to time spent performing any reported procedures but includes the following: x Data and vital sign review and interpretation x Patient assessment, examination and intervention x Documentation x Medication orders and management Discussed with respiratory therapy, nursing staff pulmonary critical care, patient, . Critical Care Time (min): 55 Coding Level of Care Code Acute Admitting Counselor for [facility] Fwd Diagnoses Multifocal pneumonia J18.9 Thrombocytopenia D69.6 Cholestasis K83.1 Pulmonary embolism I26.99 Pulmonary embolism type: unspecified Chronicity: acute Acute cor pulmonale presence: unspecified Febrile neutropenia D70.9; R50.81 Hematoma of neck S10.93XA Pneumomediastinum J98.2 Acute respiratory failure with hypoxia J96.01 COVID-19 U07.1 Sepsis A41.9 Atrial fibrillation with RVR I48.91 Septic shock A41.9; R65.21 Acute respiratory distress syndrome (ARDS) due to 2019 novel coronavirus U07.1; J80 Anemia D64.9 GI bleed K92.2
--- NOTE | 2021-10-09 21:07 | PM.ACPR ---
Procedure/Consent Time out: Time Out Performed: Yes Consent: Consent for Procedure: Emergency procedure Procedure Narrative: Name of the Procedure: Right femoral Central venous catheter placement under ultrasound guidance. Indication: Access for vasopressor use Anesthesiia: Lidocaine 1%, 5 ml Description of the procedure: The right femoral vein was identified with the Ultrasound from collapsibility and lack of pulsatility. The site was prepared using sterile technique. The skin and subcuteneous tissue was anesthetized using lidocaine. The introducer needle was advanced under US guidance till flash back was noted. Dark, non pulsatile blood noted. Using seldinger technique the CVC was put in.Blood return was noted in all ports. Catheter was secured with suture and covered with transparent dressing. Complications: None Acute Procedures Epistaxis Control: Time out performed: Yes
--- NOTE | 2021-10-09 21:09 | PM.ACPR ---
Procedure/Consent Time out: Time Out Performed: Yes Consent: Consent for Procedure: Emergency procedure Procedure Narrative: Name of the procedure: Right femoral ultrasound-guided arterial catheter placement. Medications: Fentanyl and propofol drip. Indication: Invasive blood pressure monitoring for septic shock Description of the procedure: The site was prepared using sterile technique. The right femoral artery was identified under ultrasound guidance from pulsatility. Under ultrasound guidance the introducer needle was advanced till flash back was noted. Using Seldinger technique the left radial arterial line was inserted. The catheter was secured with 2-0 silk suture and Tegaderm. Complications: None. Acute Procedures Epistaxis Control: Time out performed: Yes
--- NOTE | 2021-10-09 21:10 | PM.PN ---
Subjective Subjective: Interval history: The patient was seen and examined. Her blood pressure dropped with a map in the 40s to 50s. The Levophed requirement has been going up. Right femoral central and arterial line was placed. We are going to add vasopressin. The patient will also be started on Solu-Cortef. Vitals/I&O/Wt Last Vital Signs Temp 99.8 F H 10/09/21 16:30 Pulse 74 10/09/21 18:00 Resp 21 H 10/09/21 16:31 BP 103/49 10/09/21 18:00 Pulse Ox 96 10/09/21 18:00 10/09/21 10/09/21 10/09/21 06:59 14:59 22:59 Intake Total 762.61 / 1772.61 578.760 / 578.760 345.953 / 924.713 Output Total 450 / 975 150 / 150 Balance 312.61 / 797.61 578.760 / 578.760 195.953 / 774.713 Weight last 48 hrs Weight 171 lb Weight 171 lb Physical Exam Urinary Catheter Management^: Garcia: Cath Placed During This Visit: yes Reason for Continuing Indwelling Catheter: Accurate Measurement of Urinary Output in Critically Ill Patients Urinary Catheter Date of Insertion: 09/26/21 Urinary Catheter Time of Insertion: 16:28 Data : 10/09/21 08:23 10/09/21 04:40 Micro: Microbiology 10/09/21 13:10 Gram Stain - Final Sputum - Endotracheal Tube Aspirate Attestations Medical Necessity Statement*: Will defer to the primary team Coding Level of Care Code Acute Offset [employer] 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
[2021-10-09 21:16] LABS: Glucose Point of Care 275 mg/dL (70-110)
[2021-10-09] MEDS: hydrocortisone 100 mg/2 mL SDV 50 MG IVP (22:05)
[2021-10-09] MEDS: gabapentin 400 mg Capsule PO (22:06)
[2021-10-09] MEDS: buPROPion SR (12 HR) 150 mg Tablet PO (22:06)
[2021-10-09] MEDS: cisatracurium 100 MG in sodium chloride 0.9% 50 ML IV (23:01)
[2021-10-10] VITALS (64 sets, daily range): BP systolic 53–138; BP diastolic 34–55; PULSE 65–127; RESP 12–32; TEMP 36.7–36.9; O2SAT 57–92
--- NOTE | 2021-10-10 | PC.NURSE ---
At shift change patients blood pressure was low. Map in 40's with levophed maxed out. Called Dr. Holloway, who gave orders for vasopressin also came to see patient. Due to hemodynamic unsalability Dr. Holloway inserted arterial and central line for fluids and medications and accurate BP measurements. Patient is currently on levophed and vasopressin. Patient started on Nimbex and beginning the stages of being prepared for proning session. Patients BP is currently stable with MAP remaining above 60.
--- NOTE | 2021-10-10 00:04 | XRR_ITS ---
PROCEDURE INFORMATION: Exam: XR Chest Exam date and time: 10/10/2021 12:04 AM Age: 61 years old Clinical indication: Shortness of breath; Additional info: Desaturation TECHNIQUE: Imaging protocol: XR of the chest. Views: 1 view. COMPARISON: CR XR chest 1V portable [id number] 10/09/2021 1:31 PM FINDINGS: Tubes, catheters and devices: Endotracheal tube tip in place 2.5 cm above the nuzhat. Enteric tube tip below the left diaphragm over the gastric bubble. Right sided PICC line with tip approaching the atrial caval junction Lungs: Mildly increased diffuse airspace infiltrates. Pleural spaces: Unremarkable. No pleural effusion. No pneumothorax. Heart/Mediastinum: Cardiomegaly. Bones/joints: Unremarkable. XR/XR chest 1V portable [id number] IMPRESSION: 1. Endotracheal tube tip in place 2.5 cm above the nuzhat. 2. Enteric tube tip below the left diaphragm over the gastric bubble. 3. Right sided PICC line with tip approaching the atrial caval junction 4. Cardiomegaly. 5. Mildly increased diffuse airspace infiltrates Radiation Dose CTDIVOL = (mGy): DLP = (mGy-cm)
--- NOTE | 2021-10-10 00:26 | PC.NURSE ---
Patient had a sudden decrease in O2 sats, and BP, received chest xray to check for a pneumothorax, no pneumo present. Called [facility] and explained the situation and asked if he would like to come visit patient. is currently on the way. O2 sats slowly beginning to return to WNL.
[2021-10-10] MEDS: sulfamethoxazole-trimeth inj 480 MG in dextrose 5 % 500 ML 500 MG IV (02:23)
[2021-10-10] MEDS: hydrocortisone 100 mg/2 mL SDV 50 MG IVP ×4 (02:26→20:46)
[2021-10-10] MEDS: dilTIAZem 60 mg Tablet PO ×4 (02:45→20:46)
--- NOTE | 2021-10-10 02:46 | PC.NURSE ---
Patients family arrived and was able to spend time with loved one, in full PPE. Dr. Schmidt currently discussing plan of care and code status with family in the waiting room.
[2021-10-10] MEDS: pantoprazole 40 mg SDV IVP ×2 (04:22→15:56)
[2021-10-10] MEDS: propofol 1,000 MG/100 ML INJ 18.62 MG IV ×4 (04:23→22:30)
[2021-10-10 04:24] LABS: ABG PCO2 59.4 mmHg (35-45); Arterial Blood Gas Hematocrit 16.8 % (37-47); Base Excess ABG -10.4 mmol/L (-2.0-2.0); Blood Gas Sample Type Arterial; HCO3 ABG 18.3 mmol/L (22-26); Oxygen Device VENT; PO2 ABG 40.2 mmHg (80.0-100.0)
--- NOTE | 2021-10-10 04:27 | PC.NURSE ---
Patient continues to desat and only oxygenating 57% on the vent at 100% FIO2. Patient is maxed out on two vasopressors. Family is aware of patients condition and decline. Family Wants to keep patient a full code until all family members have been notified and talked with.
[2021-10-10 04:40] LABS: Blood Gas Sample Site ARTLINE
[2021-10-10] MEDS: acyclovir 800 MG in sodium chloride 0.9% (100 ml) 100 ML 110 MG IV (04:40)
[2021-10-10 04:56] LABS: Basophils # 0.1 10^3/uL (0.0-0.1); Basophils % 0.2 %; Eosinophils # 0.1 10^3/uL (0.0-0.8); Eosinophils % 0.4 %; Hematocrit 23.1 % (37.0-47.0); Hemoglobin 7.2 g/dL (11.5-15.3); Lymphocytes # 0.8 10^3/uL (0.8-4.8); Mean Corpuscular HGB Conc 31.2 g/dL (30.0-36.0); Mean Corpuscular Hemoglobin 31.3 pg (28.0-34.0); Mean Corpuscular Volume 100.4 fl (81-99); Monocytes # 0.4 10^3/uL (0.2-0.9); Monocytes % 1.4 %; Neutrophils % 91.4 %; Nucleated Red Blood Cells % 0.2 %; Red Cell Distribution Width 16.2 % (12.1-15.1); White Blood Count 25.3 10^3/uL (4.0-10.0)
[2021-10-10] MEDS: levothyroxine 200 mcg Tablet PO (05:09)
[2021-10-10 05:16] LABS: Vancomycin Random 20.6 ug/mL (20.0-40.0)
[2021-10-10 05:17] LABS: Lactate (Lactic Acid level) 2.5 mmol/L (0.5-2.2)
[2021-10-10 05:29] LABS: NT Pro B Type Natriuretic Pept 1833 pg/mL (0-125); Procalcitonin 1.79 ng/mL (0-0.5)
[2021-10-10 05:42] LABS: Alanine Aminotransferase 32 U/L (0-33); Albumin Level 2.1 g/dL (3.5-5.2); Alkaline Phosphatase 244 IU/L (35-105); Aspartate Amino Transferase 49 U/L (0-32); Blood Urea Nitrogen 78 mg/dL (8-23); C Reactive Protein 308.9 mg/L (0.0-4.9); Calcium 8.4 mg/dL (8.5-10.5); Carbon Dioxide 19 mmol/L (22-29); Chloride 89 mmol/L (98-107); Glomerular Filtration Rate 18.7 mL/min (90-130); Magnesium 2.3 mg/dL (1.7-2.3); Osmolality Calculated 312 mOsm/kg (285-295); Sodium 128 mmol/L (136-145); Total Bilirubin 1.4 mg/dL (0.15-1.2); Total Protein 4.1 g/dL (6.6-8.7)
[2021-10-10 05:56] LABS: Glucose 502 mg/dL (65-115); Phosphorus 7.8 mg/dL (2.5-4.5)
[2021-10-10 05:57] LABS: Anion Gap 24.7 (5-19); Creatine Phosphokinase 322 U/L (26-192); Potassium 4.7 mmol/L (3.5-5.1)
--- NOTE | 2021-10-10 06:04 | PC.NURSE ---
Notified of critical labs, called Dr. Souza with labs of Glucose of 502, Phos 7.8, Ck 322. Received orders to start an insulin drip. Target range of 160-180.
[2021-10-10] MEDS: atorvastatin 40 mg Tablet 20 MG PO (06:09)
[2021-10-10 06:14] LABS: Platelet Count 29 10^3/cmm (130-400)
[2021-10-10 06:15] LABS: Slide Review Slide Review Perform
--- NOTE | 2021-10-10 06:31 | PC.NURSE ---
Platelets 29, Notified Dr. Souza, no new orders.
[2021-10-10 06:39] LABS: Glucose Point of Care 507 mg/dL (70-110)
[2021-10-10] MEDS: insulin regular-human 250 UNIT in sodium chloride 0.9% 250 ML 13.53 UNIT IV (06:45)
--- NOTE | 2021-10-10 07:32 | PC.OT ---
OT TREATMENT HELD TODAY DUE TO PATIENT STATUS. WILL MONITOR.
[2021-10-10 07:43] LABS: Glucose Point of Care 560 mg/dL (70-110)
[2021-10-10] MEDS: buPROPion SR (12 HR) 150 mg Tablet PO ×2 (08:05→20:46)
[2021-10-10] MEDS: aspirin 81 mg EC Tablet PO (08:05)
[2021-10-10] MEDS: allopurinol 100 mg Tablet PO (08:05)
[2021-10-10] MEDS: fluconazole 100 mg Tablet 400 MG PO (08:05)
--- NOTE | 2021-10-10 08:09 | P.PN_ITS ---
Subjective Subjective: Interval history: The patient was seen and examined this morning. There had been a significant worsening in the patient's condition overnight. She was hypotensive last night and had undergone central line and A-line placement. The patient was on vasopressin and Levophed however continues to be hypotensive with minimal urine output at this point. Blood gas this morning revealed hypercapnia hypoxia. The patient is hyperglycemic with worsening leukocytosis. She is intubated, sedated and paralyzed at this point. The patient is currently on broad-spectrum antibiotic, antifungal, antiviral, anti-PCP therapy. Medications: Reviewed: Yes Vitals/I&O/Wt Last Vital Signs Temp 98.5 F 10/10/21 07:36 Pulse 113 H 10/10/21 07:36 Resp 32 H 10/10/21 07:36 BP 118/45 10/10/21 07:36 Pulse Ox 57 L 10/10/21 04:00 10/09/21 10/10/21 10/10/21 22:59 06:59 14:59 Intake Total 1134.453 / 4581.613 9457.822 / 3251.035 0 / 0 Output Total 150 / 150 250 / 400 200 / 200 Balance 984.453 / 6070.033 5745.822 / 2851.035 -200 / -200 Weight last 48 hrs Weight 152 lb Weight 171 lb Physical Exam Narrative: EXAM NARRATIVE: General: Patient is intubated, sedated and paralyzed Neck: No JVD Respiratory: Auscultation: Reduced breath sound bilaterally, crackles bilaterally Cardiovascular: Regular rate and rhythm, S1-S2 present, no murmur, no peripheral edema. Abdomen: Soft, nondistended, positive bowel sound Skin: No rash Neuro: Unable to assess Urinary Catheter Management^: Garcia: Cath Placed During This Visit: yes Reason for Continuing Indwelling Catheter: Accurate Measurement of Urinary Output in Critically Ill Patients Urinary Catheter Date of Insertion: 09/26/21 Urinary Catheter Time of Insertion: 16:28 Data : 10/10/21 04:17 10/10/21 04:17 Micro: Microbiology 10/09/21 13:10 Gram Stain - Final Sputum - Endotracheal Tube Aspirate A&P Assessment and plan (1) ARDS (adult respiratory distress syndrome): Unfortunately, despite all intervention the patient is not doing well. Her oxygen saturation is in the high 70s. I have made ventilator changes to increase her minute ventilation and increase mean airway pressure . The patient is broadly covered with antibiotic, antiviral and antifungal. At this point, I would recommend conversation with the family. Her was here overnight. We are going to reach out to the family and it would be appropriate to focus on making her comfortable. Status: Acute (2) COVID-19: The patient had a ferritin level of 6000. This could be secondary to multisystem inflammatory syndrome or HLH. However at this point the chances of recovery is virtually absent. Status: Acute (3) Septic shock: The patient is on high-dose Levophed, vasopressin, Solu-Cortef she was hypotensive overnight with minimal urine output. Status: Acute (4) Anemia: Hemoglobin is stable however the thrombocytopenia has worsened. This is likely a systemic process. Status: Acute (5) Thrombocytopenia: The thrombocytopenia is likely secondary to consumption and sepsis. Status: Acute (6) Pulmonary embolism: The patient suffered from pulmonary embolism. Bedside ultrasound revealed no significant dilation of the RV and good TAPSE. No anticoagulation at this point. Overall, her outcome is very poor. Status: Acute Qualifiers: Pulmonary embolism type: unspecified Chronicity: acute Acute cor pulmonale presence: unspecified Qualified Code(s): I26.99 - Other pulmonary embolism without acute cor pulmonale Additional A&P Information This is a fairly complicated patient with likely poor prognosis. For now, we will treat her with everything we have in our arsenal. Once more data becomes available we will optimize her medications. Attestations Medical Necessity Statement*: Will defer to the primary team Coding Level of Care Code Acute [employer] Agent for [facility] Diagnoses ARDS (adult respiratory distress syndrome) J80 COVID-19 U07.1 Septic shock A41.9; R65.21 Anemia D64.9 Thrombocytopenia D69.6 Pulmonary embolism I26.99 Pulmonary embolism type: unspecified Chronicity: acute Acute cor pulmonale presence: unspecified Time Spent (min) 38
[2021-10-10] MEDS: levalbuterol 0.63 mg/3 mL Neb INHALATION ×3 (08:35→20:33)
[2021-10-10 08:54] LABS: Glucose Point of Care 538 mg/dL (70-110)
[2021-10-10] MEDS: linezolid premix 600 MG/300 ML PREMIX 300 MG IV ×2 (09:33→19:22)
[2021-10-10 09:58] LABS: Glucose Point of Care 493 mg/dL (70-110)
--- NOTE | 2021-10-10 10:11 | PC.NURSE ---
Updated family Contacted pt's [facility]. They are coming to see the pt. Levophed is running at 32. Vaso at 0.04. Sedation is still on. Family did state they want her comfortable but they did not specify DNR. They want to discuss it once they come to bedside.
--- NOTE | 2021-10-10 10:26 | PC.NURSE ---
Code status Spoke with pt's [facility]. They have agreed to make pt Allow [employer] . They do not want any other further measures done on the pt. Dr Nagel has been notified to order AND status.
--- NOTE | 2021-10-10 10:48 | P.PN_ITS ---
Subjective Subjective: Interval history: She is intubated, sedated. Paralyzed. Had a difficult night, worsening hypotension last night, but not requiring Levophed, currently up to 30 mg/min, vasopressin, with worsening oxygenation, worsening pneumonia on chest x-ray today. Discussing with her with regards to progressive worsening condition without good response to treatment, they would not want to escalate care, stating he would like to continue for now which she is on currently. Are getting ready to come to the hospital to see her. No cardiopulmonary resuscitation in case of cardiac arrest. Vitals/I&O/Wt Last Vital Signs Temp 98.5 F 10/10/21 07:36 Pulse 70 10/10/21 09:09 Resp 22 H 10/10/21 09:09 BP 118/45 10/10/21 07:36 Pulse Ox 90 10/10/21 09:09 10/09/21 10/10/21 10/10/21 22:59 06:59 14:59 Intake Total 1134.453 / 9340.364 8874.822 / 3505.035 161.019 / 161.019 Output Total 150 / 150 250 / 400 200 / 200 Balance 984.453 / 6408.988 0160.822 / 3105.035 -38.981 / -38.981 Weight last 48 hrs Weight 68.946 kg Weight 77.564 kg Physical Exam Const: COMMON NORMALS: no acute distress and patient oriented x3 GENERAL APPEARANCE: anxious; not comfortable ORIENTATION/CONSCIOUSNESS: Yes awake HENMT: COMMON NORMALS: oropharynx normal Neck/C-Spine: COMMON NORMALS: no JVD OTHER: Left-sided neck hematoma, ecchymosis progressing to green discoloration at periphery Resp: COMMON NORMALS: normal respiratory effort and clear to auscultation bilaterally EFFORT & INSPECTION: Yes tachypneic AUSCULTATION: clear to auscultation bilaterally and diminished lung sounds Cardio: COMMON NORMALS: no JVD, regular rhythm, S1 normal heart sound present, S2 normal heart sound present and No murmurs present (Cardio) RHYTHM: regular rhythm HEART SOUNDS: S1 normal heart sound present and S2 normal heart sound present GI: COMMON NORMALS: Normal to inspection, nondistended, normoactive bowel sounds present, Soft to palpation and non-tender PALPATION: Yes Soft to palpation Extremity: COMMON NORMALS: no joint enlargement and no pedal edema Neuro: COMMON NORMALS: patient oriented x3 and moves all extremities Skin: COMMON NORMALS: no rashes or lesions noted GENERAL SKIN EXAM: no rashes or lesions noted Urinary Catheter Management^: Garcia: Cath Placed During This Visit: yes Reason for Continuing Indwelling Catheter: Accurate Measurement of Urinary Output in Critically Ill Patients Urinary Catheter Date of Insertion: 09/26/21 Urinary Catheter Time of Insertion: 16:28 Data : 10/10/21 04:17 10/10/21 04:17 Micro: Microbiology 10/10/21 09:49 Blood Culture - Preliminary Blood SPECIMEN COLLECTED 10/09/21 13:10 Gram Stain - Final Sputum - Endotracheal Tube Aspirate Sputum Culture - Preliminary A&P Assessment and plan (1) Multifocal pneumonia: Condition worsening overnight persistent hypotension, with worsening oxygenation, despite 100% FiO2, high pressor requirement, worsening appearance of pneumonia on chest x-ray. Worsening leukocytosis. Worsening thrombocytopenia. Also acute renal failure, oliguria, worsening creatinine. Condition discussed with her . Given lack of response to treatment, progressive deterioration in condition, family are on the way to see her. At this time requesting no escalation of care, continued current care, no cardiopulmonary resuscitation in case of arrest. Otherwise continue broad-spectrum antibiotic coverage with Primaxin, vancomycin changed to linezolid. Given clinical deterioration empirically started on Bactrim for coverage of possible pneumocystis pneumonia. Additional bronchoscopy performed today with additional microbiologic studies obtained. Additional infection superimposed on lung injury following severe COVID-19. -Decadron on hold -Completed 5 days of remdesivir -Budesonide, ipratropium -Heparin drip for atrial fibrillation, pulmonary embolism currently on hold -Acute on chronic anemia, multifactorial from hematoma of the neck, possible slow GI bleed, heparin drip has been stopped, monitor hemoglobin, transfuse if less than 7, Protonix, Carafate, monitor neck hematoma Status: Acute (2) Thrombocytopenia: Progressively worsening thrombocytopenia last 3 days. Anticoagulation has been on hold. Possibly related to sepsis. Continue treatment empirically as ab ove. Requested peripheral smear. Requested hemolysis studies, which appear not suggestive of hemolysis. Elevated D-dimer, possibly secondary to hematoma. Studies otherwise not suggestive of DIC at the moment. Timing armenta does not fit HIT. Perhaps intermediate probability of HIT by 4T score, although heparin has been on hold as is due to anemia, progressive thrombocytopenia. No evidence of new thrombosis. Reviewed other medications with pharmacy. Has been receiving Tylenol will hold for now. Apart from also aspirin, not many other culprits noted that could be responsible that were started preceding the thrombocytopenia. Status: Acute (3) Cholestasis: Status: Acute (4) Pulmonary embolism: Due to neck hematoma, later today noted abdominal hematoma as well, with progressive thrombocytopenia anticoagulation is at this time withheld. Discussed with her and her . Duplex has been negative for DVT. Discussed with pulm/crit, appreciate assessment, with bedside ultrasound no signs to suggest hemodynamically significant/worsening PE. Status: Acute Qualifiers: Acute cor pulmonale presence: unspecified Chronicity: acute Pulmonary embolism type: unspecified Qualified Code(s): I26.99 - Other pulmonary embolism without acute cor pulmonale (5) Febrile neutropenia: Resolved. Normal ANC Status: Acute (6) Hematoma of neck: -Right central line placement CT of the neck shows 3. Extensive hematoma extending from the thoracic inlet to the mastoid skull base deep to the sternocleidomastoid. Surrounding inflammatory stranding and edema. Associated compression of the adjacent jugular vein. 4. No drainable abscess or fluid collection. 5. No critical airway impingement. Mild left to right mass effect on the sub glottic airway at the thoracic inlet. -Area of swelling has improved, more bruising apparent today -Hemoglobin stable at 7.8 -Heparin drip on hold -Continue to monitor clinical site -Monitor for fevers, monitor for abscess -On antibiotics as above Status: Acute (7) Pneumomediastinum: -Seen on CT of the neck, avoid positive pressure ventilation, serial chest x-rays, currently medically managing -Had evidence of pneumomediastinum, repeat chest x-rays no evidence of pneumothorax or pneumomediastinum Status: Acute (8) Acute respiratory failure with hypoxia: Status: Acute (9) COVID-19: Status: Acute (10) Sepsis: Status: Acute (11) Atrial fibrillation with RVR: Cardizem enterally. Anticoagulation withheld. Status: Acute (12) Septic shock: Status: Acute (13) Acute respiratory distress syndrome (ARDS) due to 2019 novel coronavirus: Status: Acute (14) Anemia: Status: Acute (15) GI bleed: Status: Acute Additional A&P Information Hyperglycemia: insulin drip Attestations Medical Necessity Statement*: Continue current empiric antimicrobial t reatment, supportive care, mechanical intubation, pending family visitation, depending on any further goals of care consideration. Coding Level of Care Code Acute Fixed Wing Aircraft Flight Engineer for [facility] Fwd Exam Comprehensive Diagnoses Multifocal pneumonia J18.9 Thrombocytopenia D69.6 Cholestasis K83.1 Pulmonary embolism I26.99 Acute cor pulmonale presence: unspecified Chronicity: acute Pulmonary embolism type: unspecified Febrile neutropenia D70.9; R50.81 Hematoma of neck S10.93XA Pneumomediastinum J98.2 Acute respiratory failure with hypoxia J96.01 COVID-19 U07.1 Sepsis A41.9 Atrial fibrillation with RVR I48.91 Septic shock A41.9; R65.21 Acute respiratory distress syndrome (ARDS) due to 2019 novel coronavirus U07.1; J80 Anemia D64.9 GI bleed K92.2
[2021-10-10 10:56] LABS: Glucose Point of Care 523 mg/dL (70-110)
[2021-10-10] MEDS: norepinephrine 8 MG in dextrose 5 % 500 ML 160.02 MG IV ×3 (11:21→18:11)
[2021-10-10 12:45] LABS: Glucose Point of Care 535 mg/dL (70-110)
[2021-10-10 14:37] LABS: Glucose Point of Care 439 mg/dL (70-110)
[2021-10-10] MEDS: insulin regular-human 250 UNIT in sodium chloride 0.9% 250 ML 20.2 UNIT IV (16:11)
[2021-10-10 17:22] LABS: Glucose Point of Care 469 mg/dL (70-110)
[2021-10-10 19:00] LABS: Glucose Point of Care 363 mg/dL (70-110)
[2021-10-10] MEDS: norepinephrine 8 MG in dextrose 5 % 500 ML 167.64 MG IV ×2 (19:03→22:30)
[2021-10-10 20:01] LABS: Glucose Point of Care 420 mg/dL (70-110)
[2021-10-10] MEDS: gabapentin 400 mg Capsule PO (20:46)
[2021-10-10 21:02] LABS: Glucose Point of Care 280 mg/dL (70-110)
[2021-10-10] MEDS: cisatracurium 100 MG in sodium chloride 0.9% 50 ML IV (22:28)
[2021-10-10 22:46] LABS: Glucose Point of Care 333 mg/dL (70-110)
[2021-10-10 22:46] LABS: Glucose Point of Care 378 mg/dL (70-110)
[2021-10-11] VITALS (20 sets, daily range): BP systolic 81–99; BP diastolic 36–48; PULSE 87–109; RESP 22–24; TEMP 35.9; O2SAT 71–77
[2021-10-11 00:04] LABS: Glucose Point of Care 262 mg/dL (70-110)
[2021-10-11] MEDS: insulin regular-human 250 UNIT in sodium chloride 0.9% 250 ML 47.7 UNIT IV (00:37)
[2021-10-11 00:54] LABS: Glucose Point of Care 173 mg/dL (70-110)
[2021-10-11] MEDS: norepinephrine 8 MG in dextrose 5 % 500 ML 167.64 MG IV ×4 (01:32→13:09)
[2021-10-11 01:50] LABS: Glucose Point of Care 189 mg/dL (70-110)
[2021-10-11] MEDS: sulfamethoxazole-trimeth inj 480 MG in dextrose 5 % 500 ML 500 MG IV (02:40)
[2021-10-11 02:47] LABS: Glucose Point of Care 193 mg/dL (70-110)
[2021-10-11] MEDS: hydrocortisone 100 mg/2 mL SDV 50 MG IVP ×2 (03:16→09:37)
[2021-10-11] MEDS: dilTIAZem 60 mg Tablet PO ×2 (03:16→09:37)
[2021-10-11] MEDS: propofol 1,000 MG/100 ML INJ 18.62 MG IV ×2 (03:17→09:53)
[2021-10-11 03:40] LABS: Base Excess ABG -14.4 mmol/L (-2.0-2.0); Blood Gas Operator Identificat JB; Blood Gas Sample Type Arterial; Blood Gas Tidal Volume 0.36; Oxygen Device VENT; PO2 ABG 54.3 mmHg (80.0-100.0)
[2021-10-11 03:43] LABS: ABG PH Result 7.03 (7.35-7.45)
[2021-10-11] MEDS: pantoprazole 40 mg SDV IVP (03:49)
[2021-10-11 03:51] LABS: Mean Corpuscular Hemoglobin 32.1 pg (28.0-34.0); Mean Corpuscular Volume 97.4 fl (81-99); Red Blood Count 1.96 10^6/uL (4.1-5.3); Red Cell Distribution Width 15.7 % (12.1-15.1)
[2021-10-11 04:05] LABS: INR 1.47 (0.8-1.2)
[2021-10-11 04:13] LABS: Lactate (Lactic Acid level) 2.3 mmol/L (0.5-2.2)
[2021-10-11 04:23] LABS: NT Pro B Type Natriuretic Pept 4671 pg/mL (0-125); Procalcitonin 3.77 ng/mL (0-0.5)
[2021-10-11 04:43] LABS: Creatine Phosphokinase 393 U/L (26-192)
[2021-10-11] MEDS: acyclovir 800 MG in sodium chloride 0.9% (100 ml) 100 ML 110 MG IV (04:54)
[2021-10-11] MEDS: levothyroxine 200 mcg Tablet PO (05:03)
[2021-10-11 05:08] LABS: Glucose Point of Care 176 mg/dL (70-110)
[2021-10-11 05:08] LABS: Glucose Point of Care 311 mg/dL (70-110)
--- NOTE | 2021-10-11 05:18 | PC.NURSE ---
Patient continues to decline overnight. O2 sats are 69% on 100% oxygen. BP is still hypotensive even with 2 pressors added. Patient's color is also more pale. Labs still out of range. Patients outcome is not improving.
[2021-10-11] MEDS: levalbuterol 0.63 mg/3 mL Neb INHALATION (05:25)
[2021-10-11 05:26] LABS: Alanine Aminotransferase 16 U/L (0-33); Albumin Level 1.7 g/dL (3.5-5.2); Alkaline Phosphatase 263 IU/L (35-105); Anion Gap 24.3 (5-19); Aspartate Amino Transferase 54 U/L (0-32); Blood Urea Nitrogen 74 mg/dL (8-23); C Reactive Protein 219.9 mg/L (0.0-4.9); Calcium 7.4 mg/dL (8.5-10.5); Carbon Dioxide 16 mmol/L (22-29); Chloride 78 mmol/L (98-107); Globulin 1.7 g/dL (1.3-4.6); Glomerular Filtration Rate 15.2 mL/min (90-130); Glucose 371 mg/dL (65-115); Magnesium 1.8 mg/dL (1.7-2.3); Osmolality Calculated 275 mOsm/kg (285-295); Potassium 4.3 mmol/L (3.5-5.1); Total Bilirubin 1.3 mg/dL (0.15-1.2); Total Protein 3.4 g/dL (6.6-8.7)
[2021-10-11 05:46] LABS: Glucose Point of Care 300 mg/dL (70-110)
[2021-10-11] MEDS: atorvastatin 40 mg Tablet 20 MG PO (06:02)
[2021-10-11 06:03] LABS: Sodium 114 mmol/L (136-145)
[2021-10-11 06:04] LABS: Phosphorus 8.1 mg/dL (2.5-4.5)
--- NOTE | 2021-10-11 06:05 | PC.NURSE ---
Critical Sodium of 114 and Phos of 8.1 called from lab. Notified NICOLE Reyes.
[2021-10-11 07:09] LABS: White Blood Count 33.5 10^3/uL (4.0-10.0)
[2021-10-11 07:10] LABS: Hematocrit 19.1 % (37.0-47.0); Hemoglobin 6.3 g/dL (11.5-15.3); Platelet Count 22 10^3/cmm (130-400); Slide Review Slide Review Perform
[2021-10-11 07:14] LABS: Absolute Segmented Neutrophil 27.5 10/cmm (1.6-7.1); Hypochromasia 1+; Lymphocytes 2 %; Poikilocytosis 2+; Schistocytes 1+; Segmented Neutrophils 82 %; Total Cells Counted 100 (0-100)
[2021-10-11 07:15] LABS: Absolute Neutrophil 32.5 10^3/cmm (1.4-6.5); Eosinophils 0 %; Lymphocytes Absolute 0.7 10^3/cmm (1.2-3.4); Platelet Estimate Decreased (Normal)
[2021-10-11 07:19] LABS: Glucose Point of Care 377 mg/dL (70-110)
--- NOTE | 2021-10-11 07:41 | PC.OT ---
OT TREATMENT HELD DUE TO PATIENT'S CONDITION. WILL CONTINUE TO MONITOR.
[2021-10-11] MEDS: vancomycin 1,000 MG in sodium chloride 0.9% 250 ML 250 MG IV (07:49)
[2021-10-11] MEDS: linezolid premix 600 MG/300 ML PREMIX 300 MG IV (07:50)
[2021-10-11 09:00] LABS: Glucose Point of Care 271 mg/dL (70-110)
[2021-10-11] MEDS: allopurinol 100 mg Tablet PO (09:37)
[2021-10-11] MEDS: aspirin 81 mg EC Tablet PO (09:37)
[2021-10-11] MEDS: fluconazole 100 mg Tablet 400 MG PO (09:38)
[2021-10-11] MEDS: liothyronine 5 mcg Tablet PO (09:38)
[2021-10-11] MEDS: buPROPion SR (12 HR) 150 mg Tablet PO (09:38)
[2021-10-11 10:03] LABS: Glucose Point of Care 372 mg/dL (70-110)
[2021-10-11] MEDS: insulin regular-human 250 UNIT in sodium chloride 0.9% 250 ML 48 UNIT IV (10:12)
--- NOTE | 2021-10-11 10:27 | PC.CHAP ---
Pastoral Care Encounter/Spiritual Assessment Type of Contact [] Declined software validation engineer visit [] Patient/Family/Request visit [] Outpatient visit [] Follow-up visit [] Physician referral [] Code/Alert [x] Routine visit [] Staff referral [] Actively dying [] Patient sleeping [x] Family support [] [] Out of room [] Palliative care [] [x] Receiving care in room [] Pre-surgical visit [] Trauma [] Long length of stay [x] ICU visit [x] Other: family to make decision to put on comfort care Relational/Emotional Strength [] Patient feels connected with others/family/visitors/staff [] Distress [] Loneliness/isolation [] Abandonment Spirituality of Patient [] Person of Rocio [] Attends Latter Day of their Rocio [] Believes in Prayer [] Reads Bible or Adventism materials [] There are Spiritual issues to be addressed Drainman Interventions [x] Prayer [] Active listening [] Non-anxious presence [] Spiritual/emotional support [] Crisis/trauma care [] Spiritual counseling [] Bereavement support [] Provided bereavement packet [] Provided Bible/devotional materials [] Provided toy/stuffed animal, coloring book to patient or family member [] Provided Communion [] Anointing/[place] [] Salvation [x] Completed spiritual assessment [] Other: Impact on Illness or Injury [] Angry [] Fearful [] Anxious [] Often cries [] Exhaustion [] Unable to work [] Unable to attend baptist [] Unable to walk/stand [] Unable to read [] Unable to drive [] Unable to eat/drink [] Unable to sleep [] Unable to be with family [] Patient intubated [] Other: Summary 10 min Time spent with patient
[2021-10-11 11:13] LABS: Glucose Point of Care 303 mg/dL (70-110)
--- NOTE | 2021-10-11 13:59 | PM.PN ---
Subjective Subjective: Interval history: Intubated, sedated. Daughter is visiting today. Discussed with her deteriorating condition, lack of response to treatments with persistent septic shock, hypoxemia despite maximal oxygen support, worsening thrombocytopenia, today also anemia, hyponatremia, renal failure. She is taking some time spent with the patient. Subsequently additional family visiting. They are going to let us know with regards to proceeding with full comfort measures, terminal extubation. Vitals/I&O/Wt Last Vital Signs Temp 96.7 F L 10/11/21 12:00 Pulse 92 10/11/21 12:00 Resp 24 H 10/11/21 12:59 BP 86/43 10/11/21 12:00 Pulse Ox 71 L 10/11/21 07:30 10/10/21 10/11/21 10/11/21 22:59 06:59 14:59 Intake Total 2442.855 / 3567.374 2177.854 / 5745.228 1849.207 / 1849.207 Output Total 0 / 400 150 / 150 Balance 2442.855 / 3167.374 2177.854 / 5345.228 1699.207 / 1699.207 Weight last 48 hrs Weight 68.946 kg Physical Exam Const: COMMON NORMALS: no acute distress GENERAL APPEARANCE: patient mechanically ventilated HENMT: COMMON NORMALS: oropharynx normal Neck/C-Spine: COMMON NORMALS: no JVD OTHER: Left-sided neck hematoma, ecchymosis chest Resp: COMMON NORMALS: clear to auscultation bilaterally EFFORT & INSPECTION: Yes tachypneic AUSCULTATION: clear to auscultation bilaterally Cardio: COMMON NORMALS: no JVD, regular rhythm, S1 normal heart sound present, S2 normal heart sound present and No murmurs present (Cardio) RHYTHM: regular rhythm HEART SOUNDS: S1 normal heart sound present and S2 normal heart sound present GI: COMMON NORMALS: Normal to inspection, nondistended, normoactive bowel sounds present and Soft to palpation PALPATION: Yes Soft to palpation Extremity: COMMON NORMALS: no joint enlargement and no pedal edema Skin: COMMON NORMALS: no rashes or lesions noted GENERAL SKIN EXAM: no rashes or lesions noted Urinary Catheter Management^: Garcia: Cath Placed During This Visit: yes Reason for Continuing Indwelling Catheter: Accurate Measurement of Urinary Output in Critically Ill Patients Urinary Catheter Date of Insertion: 09/26/21 Urinary Catheter Time of Insertion: 16:28 Data : 10/11/21 03:30 10/11/21 03:30 Micro: Microbiology 10/09/21 13:10 Gram Stain - Final Sputum - Endotracheal Tube Aspirate Sputum Culture - Final 10/09/21 17:40 Gram Stain - Final Lung Right Middle Lobe Bronchoalveolar Lavage Culture - Preliminary A&P Assessment and plan (1) Multifocal pneumonia: Persistent septic shock, with large pressor requirement, unimproved, worsening hypoxia, worsening leukocytosis with left shift, worsening thrombocytopenia, today worsening anemia as well. Severe hyponatremia. Worsening kidney injury. Likely imminent demise in the near future. Discussed with family. His daughter visiting this morning, additional family members visiting today, spending some time with her. They will let us know regarding transition to complete comfort care and terminal extubation. Has been on antifungal coverage with voriconazole. Broad-spectrum antibiotic coverage with Primaxin, vancomycin changed to linezolid. Given clinical deterioration empirically started on Bactrim for coverage of possible pneumocystis pneumonia. Additional bronchoscopy performed today with additional microbiologic studies obtained. Additional possibly fungal overwhelming infection, sepsis superimposed on lung injury following severe COVID-19. Status: Acute (2) Thrombocytopenia: Progressively worsening thrombocytopenia. Anticoagulation has been on hold. Possibly related to sepsis. Requested peripheral smear. Requested hemolysis studies, which appear not suggestive of hemolysis. Elevated D-dimer, possibly secondary to hematoma. Studies otherwise not suggestive of DIC at the moment. Timing armenta does not fit HIT. Perhaps intermediate probability of HIT by 4T score, although heparin has been on hold as is due to anemia, progressive thrombocytopenia. No evidence of new thrombosis. Reviewed other medications with pharmacy. Has been receiving Tylenol will hold for now. Apart from also aspirin, not many other culprits noted that could be responsible that were started preceding the thrombocytopenia. Status: Acute (3) Cholestasis: Status: Acute (4) Pulmonary embolism: Due to neck hematoma, abdominal hematoma as well, with progressive thrombocytopenia anticoagulation withheld. Duplex has been negative for DVT. Bedside ultrasound no signs to suggest hemodynamically significant/worsening PE. Status: Acute Qualifiers: Acute cor pulmonale presence: unspecified Chronicity: acute Pulmonary embolism type: unspecified Qualified Code(s): I26.99 - Other pulmonary embolism without acute cor pulmonale (5) Febrile neutropenia: Resolved. Status: Acute (6) Hematoma of neck: -Right central line placement CT of the neck shows 3. Extensive hematoma extending from the thoracic inlet to the mastoid skull base deep to the sternocleidomastoid. Surrounding inflammatory stranding and edema. Associated compression of the adjacent jugular vein. 4. No drainable abscess or fluid collection. 5. No critical airway impingement. Mild left to right mass effect on the subglottic airway at the thoracic inlet. -Area of swelling has improved, more bruising apparent today -Hemoglobin stable at 7.8 -Heparin drip on hold -Continue to monitor clinical site -Monitor for fevers, monitor for abscess -On antibiotics as above Status: Acute (7) Pneumomediastinum: -Seen on CT of the neck, avoid positive pressure ventilation, serial chest x-rays, currently medically managing -Had evidence of pneumomediastinum, repeat chest x-rays no evidence of pneumothorax or pneumomediastinum Status: Acute (8) Acute respiratory failure with hypoxia: Status: Acute (9) COVID-19: Status: Acute (10) Sepsis: Status: Acute (11) Atrial fibrillation with RVR: Cardizem enterally. Anticoagulation withheld. Status: Acute (12) Septic shock: Status: Acute (13) Acute respiratory distress syndrome (ARDS) due to 2019 novel coronavirus: Status: Acute (14) Anemia: Status: Acute (15) GI bleed: Status: Acute Additional A&P Information Hyperglycemia: insulin drip Attestations Medical Necessity Statement*: Continue supportive care at this time pending family visitation with progressively deteriorating condition and to transition to comfort care measures. Coding Level of Care Code Acute Template Clerk for [facility] Fwd Exam Comprehensive Diagnoses Multifocal pneumonia J18.9 Thrombocytopenia D69.6 Cholestasis K83.1 Pulmonary embolism I26.99 Acute cor pulmonale presence: unspecified Chronicity: acute Pulmonary embolism type: unspecified Febrile neutropenia D70.9; R50.81 Hematoma of neck S10.93XA Pneumomediastinum J98.2 Acute respiratory failure with hypoxia J96.01 COVID-19 U07.1 Sepsis A41.9 Atrial fibrillation with RVR I48.91 Septic shock A41.9; R65.21 Acute respiratory distress syndrome (ARDS) due to 2019 novel coronavirus U07.1; J80 Anemia D64.9 GI bleed K92.2
[2021-10-11 14:39] LABS: Miscellaneous Test See Scanned Lab Rpt
--- NOTE | 2021-10-11 16:17 | PC.NURSE ---
TOD 1537: Family departed from bedside to waiting room. Nursing staff Gabi Lobo, myself and a student at bedside with Rich, respiratory therapist and Adam sign hanger supervisor, at bedside for terminal extubation. Patient asystole before medications discontinued or extubation performed. supervisor printing shop notified [facility], daughter signed for body release to [facility].
--- NOTE | 2021-10-11 16:38 | PC.NURSE ---
Addendum entered by Yasmine Jerry RN 10/11/21 16:50: Fentanyl and Versed gtt wastes by Zarina Hurtado RN witnessed by this nurse. Original Note: Medication Wasted: 30ml Fentanyl and 50ml of Versed. Witnessed by Yasmine RIVERA.
--- NOTE | 2021-10-11 19:45 | PC.NURSE ---
Discharge assessment not complete, unable to discharge patient, DENNIS called [phone] according to paperwork in chart, assessment complete by this nurse to discharge patient out of room
--- NOTE | 2021-10-11 20:09 | PM.DDS ---
Discharge Providers DDS Date of Admission: 09/25/21 16:43 Date Summary Completed: 10/11/21 Attending Provider at Admission: Ever Gomez MD Time of : 15:37 Attending Provider at Discharge: Jonny Nagel Primary Care Provider: Ciro HOLT Diagnoses Hospital Diagnoses (1) Multifocal pneumonia: (2) Thrombocytopenia: (3) Cholestasis: (4) Pulmonary embolism: Qualifiers: Pulmonary embolism type: unspecified Chronicity: acute Acute cor pulmonale presence: unspecified Qualified Code(s): I26.99 - Other pulmonary embolism without acute cor pulmonale (5) Febrile neutropenia: (6) Hematoma of neck: (7) Pneumomediastinum: (8) Acute respiratory failure with hypoxia: (9) COVID-19: (10) Sepsis: (11) Atrial fibrillation with RVR: (12) Septic shock: (13) Acute respiratory distress syndrome (ARDS) due to 2019 novel coronavirus: (14) Anemia: (15) GI bleed: Reason for Visit Reason for Visit: COUGH/N,V/HEADACHE/COLD [place]ILLS 28313 Summary Date and Time of Date of : 10/11/21 Time of : 15:37 Summary Summary: 61-year-old lady with history of SLL, not on any treatment since January, off prophylaxis with Valtrex, Bactrim, fluconazole, with COVID-19 infection in August, diagnosed 08/17, reportedly recovered without complications, admitted on 09/25 after presenting with fever, cough, expectoration, neutropenia, with new requirement for oxygen, with acute PE noted on CTA, as well as multilobar groundglass opacities with focal consolidations, mediastinal and hilar LAD, celiac LAD, increased since 04/21. Was treated for febrile neutropenia, pneumonia with broad-spectrum antibiotic coverage, antifungal coverage with coverage for mold as well with voriconazole. Admission was complicated with respiratory failure, requiring intubation 09/28, mechanical severe support, proning. Underwent bronchoscopy 09/28. With so far blood cultures, BAL cultures, including fungal smear, negative. MRSA PCR positive. Repeat sputum culture negative. Mycobacterial preliminary results negative. Completed treatment for COVID-19 infection including remdesivir, associated with steroids. Continued with broad-spectrum antibiotic coverage with cefepime, vancomycin. Overall condition improved. Was extubated 10/02, with persistent hypoxia requiring 6 L of oxygen, but was able to transiently move out to medical floor. Atrial fibrillation with RVR treated with Cardizem drip and started on Cardizem p.o. Continued on anticoagulation due to PE. However, this was held in the setting of left neck hematoma after central line, as well as worsening of anemia. With worsening in respiratory condition, respiratory distress, received a dose of amphotericin B. Aspergillus EIA weakly positive, so was restarted on voriconazole. Anticoagulation was resumed, but had to be stopped again. Due to worsening respiratory distress oxygen requirements increased, eventually up to 100% on BiPAP. Was moved down to ICU, reintubated on 10/09. Underwent additional proning. Was continued on voriconazole. Antibiotics were changed, was continued on Primaxin, linezolid, empirically started on acyclovir. Antibiotic coverage broadened also with Bactrim for possibility of PCP. Bronchoscopy was repeated on 10/09 with additional studies sent. Despite antimicrobial measures with progressively worsening septic shock, requiring very high doses of Levophed, vasopressin, on stress dose steroids, worsening leukocytosis with left shift, thrombocytopenia, anemia, metabolic acidosis. Subsequently also acute kidney injury with oliguria. Severe hyponatremia. 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 As her condition continue to worsen despite all available treatment, family considered she would not want to continue life support measures in the current situation without likelihood of improvement in her condition. She was transitioned to comfort care measures, terminally extubated after she was visited by family today, passing away shortly thereafter at 1537. Additional Data Attending/PCP notified?: Attending notified Autopsy requested?: No Discharge Plan Discharge Patient Disposition: Condition: Stable Prescriptions: No Action omeprazole 20 mg capsule,delayed release(DR/EC) 20 mg PO QAM RF: 0 atenolol 25 mg tablet 25 mg PO BID RF: 0 allopurinol 100 mg tablet 100 mg PO BID RF: 0 lovastatin 40 mg tablet 40 mg PO DAILY@07 RF: 0 liothyronine 5 mcg tablet 5 mcg PO BID RF: 0 glipizide 5 mg tablet 5 mg PO BID@07,20 RF: 0 furosemide 40 mg tablet 40 mg PO BID RF: 0 gabapentin 400 mg capsule 400 mg PO BEDTIME RF: 0 levofloxacin 500 mg tablet 500 mg PO DAILY RF: 0 fluconazole 100 mg tablet 100 mg PO DAILY@07 RF: 0 tizanidine 4 mg Tablet 4 mg PO BEDTIME RF: 0 prochlorperazine maleate 10 mg tablet 10 mg PO Q4H PRN (Reason: Nausea) RF: 0 valacyclovir 500 mg tablet 500 mg PO DAILY@07 RF: 0 aspirin 81 mg Tablet,Delayed Release (Dr/Ec) 81 mg PO PRN RF: 0 Hold Instructions: Resume on 09/16/21. seowmnenhs-finhzgiguitzr-ihxs 50-325-40 mg tablet 1 tab PO Q6H PRN (Reason: Migraine Headache) RF: 0 oxycodone-acetaminophen [Percocet] 10-325 mg tablet 1 tab PO Q6H PRN (Reason: Pain) RF: 0 trazodone 100 mg tablet 100 mg PO BEDTIME RF: 0 albuterol sulfate [ProAir HFA] 90 mcg/actuation Hfa Aerosol Inhaler 2 puff INHALATION Q6H PRN (Reason: Shortness Of Breath) RF: 0 loratadine [Claritin] 10 mg Tablet 10 mg PO DAILY PRN (Reason: Allergy Symptoms) RF: 0 guaifenesin [Mucinex] 600 mg Tablet Extended Release 12hr 600 mg PO Q12H PRN (Reason: Congestion) RF: 0 ascorbic acid (vitamin C) [Vitamin C] 500 mg Tablet 500 mg PO DAILY RF: 0 Euthyrox 200 mcg tablet 200 mcg PO QAM RF: 0 bupropion HCl 150 mg tablet sustained-release 12 hr 150 mg PO BID RF: 0 prednisone 20 mg tablet 20 mg PO BID RF: 0 meclizine 25 mg tablet 25 mg PO TID PRN (Reason: Nausea) RF: 0 montelukast 10 mg Tablet 10 mg PO DAILY PRN (Reason: UNKNOWN) RF: 0 codeine-guaifenesin 10-100 mg/5 mL liquid 10 ml PO Q4H PRN (Reason: Cough) RF: 0 doxycycline hyclate 100 mg tablet 100 mg PO BID RF: 0 Referrals: Ciro Alberts [Primary Care Provider] - Patient Instructions: Opioid Safety DS Attestations Time Spent in /Discharge Care*: greater than 30 min Quality - AMI: AMI present?: No Quality - Stroke: CVA present?: No Symptom Onset Unknown: No Quality - VTE: VTE present?: Yes Deep Vein Thrombosis/Pulmonary Embolism Present on Admission: No Coding Level of Care Code Acute Machine [employer] T[employer] for Chg Fwd Diagnoses Multifocal pneumonia J18.9 Thrombocytopenia D69.6 Cholestasis K83.1 Pulmonary embolism I26.99 Pulmonary embolism type: unspecified Chronicity: acute Acute cor pulmonale presence: unspecified Febrile neutropenia D70.9; R50.81 Hematoma of neck S10.93XA Pneumomediastinum J98.2 Acute respiratory failure with hypoxia J96.01 COVID-19 U07.1 Sepsis A41.9 Atrial fibrillation with RVR I48.91 Septic shock A41.9; R65.21 Acute respiratory distress syndrome (ARDS) due to 2019 novel coronavirus U07.1; J80 Anemia D64.9 GI bleed K92.2
--- NOTE | 2021-10-13 11:25 | PC.SOCIAL ---
[facility] called and sent report on Pneumocystis Jirovecii being negative. Patient in house.
[2021-10-14 00:57] LABS: CMV DNA By PCR NOT DETECTED; CMV DNA, QN PCR NOT DETECTED Log IU/mL; SOURCE WHOLE BLOOD
== END 2021-10-11 15:37 | disposition expired | DRG 870 ==
LOC: ER 15:51 → CSU 09-26 06:13 → ICU 09-27 19:31 → MEDSURG 10-03 20:20 → ICU 10-06 17:32
PROVIDERS: Family Medicine; Internal Medicine; Internal Medicine Critical Care Medicine; Student in an Organized Health Care Education/Training Program; Admitting Provider Student in an Organized Health Care Education/Training Program; Emergency Provider Emergency Medicine; PCP Family Medicine; Visit Provider Internal Medicine
PROC: 0BJ08ZZ Inspection of Tracheobronchial Tree, Via Natural or Artificial Opening Endoscopic (ICD-10-PCS; CPT 31622; principal; 2021-09-28 13:30)
DX: A41.9 Sepsis, unspecified organism (principal); R65.21 Severe sepsis with septic shock; U07.1 COVID-19; J12.82 Pneumonia due to coronavirus disease 2019; I26.99 Other pulmonary embolism without acute cor pulmonale; K83.1 Obstruction of bile duct; J80 Acute respiratory distress syndrome; J15.9 Unspecified bacterial pneumonia; B44.9 Aspergillosis, unspecified; N17.9 Acute kidney failure, unspecified; E87.1 Hypo-osmolality and hyponatremia; K92.2 Gastrointestinal hemorrhage, unspecified; T82.898A Other specified complication of vascular prosthetic devices, implants and grafts, initial encounter; Z85.72 Personal history of non-Hodgkin lymphomas; I50.9 Heart failure, unspecified; I11.0 Hypertensive heart disease with heart failure; E11.649 Type 2 diabetes mellitus with hypoglycemia without coma; Z85.828 Personal history of other malignant neoplasm of skin; F17.210 Nicotine dependence, cigarettes, uncomplicated; G47.33 Obstructive sleep apnea (adult) (pediatric); Z91.19 Patient's noncompliance with other medical treatment and regimen; E78.5 Hyperlipidemia, unspecified; E03.9 Hypothyroidism, unspecified; D70.9 Neutropenia, unspecified; R50.81 Fever presenting with conditions classified elsewhere; I95.9 Hypotension, unspecified; B95.62 Methicillin resistant Staphylococcus aureus infection as the cause of diseases classified elsewhere; Z51.5 Encounter for palliative care; D69.59 Other secondary thrombocytopenia; D64.9 Anemia, unspecified; I48.91 Unspecified atrial fibrillation; J98.2 Interstitial emphysema; Y82.9 Unspecified medical devices associated with adverse incidents; E87.6 Hypokalemia
CPT/HCPCS: 31622; 31624; 36415; 36416; 36569; 36592; 36600; 51702; 70491; 71045; 71250; 71275; 74177; 76705; 80048; 80051; 80053; 80061; 80202; 80500; 81001; 82248; 82330; 82550; 82728; 82803; 82805; 82962; 83010; 83036; 83540; 83550; 83605; 83615; 83630; 83735; 83880; 84100; 84132; 84145; 84439; 84443; 84481; 84484; 85007; 85014; 85018; 85025; 85045; 85362; 85378; 85384; 85610; 85730; 86140; 86403; 86618; 86635; 86666; 86705; 86706; 86709; 86757; 86803; 87015; 87040; 87070; 87102; 87116; 87205; 87206; 87278; 87305; 87340; 87385; 87426; 87449; 87493; 87496; 87506; 87581; 87635; 87641; 87798; 87801; 87804; 87806; 88112; 88184; 88185; 88305; 89050; 92523; 92524; 92526; 92610; 93005; 93306; 93970; 93976; 94002; 94003; 94640; 94660; 94664; 94760; 94762; 94799; 96365; 96367; 96372; 97110; 97162; 97167; 97530; 97535; 99285; C1751; C9113; J0133; J0289; J0330; J0456; J0692; J0743; J1100; J1644; J1650; J1720; J1815 ×2; J1940; J2020; J2250; J2270; J2405; J2704; J3010; J3370; J3465; J3480; J3490; J7030; J7050; J7614; J7626; P9047; Q0144; Q9967